=== PATIENT | male | born 2000 | race Two or more races ===

== ENCOUNTER 2022-05-25 21:23 | Emergency (ER) | payer MEDICAID, SELFPAY ==
[2022-05-25 21:25] VITALS: BP 130/80; PULSE 96; RESP 16; TEMP 36.2; O2SAT 97; BMI 15.8
== END 2022-05-25 23:08 | disposition left against medical advice (07) ==
PROVIDERS: Emergency Provider Emergency Medicine
DX: R11.10 Vomiting, unspecified (principal); R53.83 Other fatigue
CPT/HCPCS: 99281

== ENCOUNTER 2022-08-29 11:56 | Emergency (ER) | payer MEDICAID, SELFPAY ==
--- NOTE | ~2022-08-29 | US_ITS ---
EXAMINATION: US ABDOMEN LIMITED CLINICAL INFORMATION: Right upper quadrant pain. COMPARISON: None TECHNIQUE: Real-time imaging of the right upper quadrant abdominal viscera. FINDINGS: PANCREAS: Visualized pancreas is unremarkable. LIVER: Visualized liver demonstrates normal homogeneous echogenicity and smooth capsular contour. No hepatic lesion. No intrahepatic biliary ductal dilation.. No focal hepatic lesion. There is no intrahepatic biliary duct dilatation seen. GALLBLADDER: Normal. The gallbladder is physiologically distended without evidence of stones, sludge, polyps, wall thickening or pericholecystic fluid. COMMON BILE DUCT: Normal in caliber measuring 0.4 cm in diameter. RIGHT KIDNEY: Normal cortical echogenicity and thickness. No hydronephrosis or renal lesion. No renal calculi identified. Right kidney measures 11.5 cm in length. FREE FLUID: None. Prominent distention of the intrahepatic segment of the IVC. US/US abdomen limited IMPRESSION: 1. Normal gallbladder. No evidence of cholelithiasis or acute cholecystitis. 2. No biliary ductal dilation.
[2022-08-29 12:06] VITALS: BP 123/42; PULSE 75; RESP 17; TEMP 36.6; O2SAT 98; BMI 16.9
[2022-08-29 12:39] LABS: MANUAL DIFF FLAG NO
[2022-08-29 12:41] LABS: Basophils Percent Auto 0.6 % (0-2); Eosinophils Percent Auto 0.4 % (0-4); Hematocrit 41.6 % (42.0-52.0); Hemoglobin 13.5 g/dl (14.0-18.0); Imm Gran Abs Auto 0.02 X10*3/uL (0.00-0.03); Imm Gran Pct Auto 0.3 % (0.0-0.4); Lymphocytes Absolute Auto 2.3 X10*3/uL (1.2-4.9); Lymphocytes Percent Auto 32.8 % (20-40); Mean Corpuscular HGB Conc 32.5 g/dl (31.0-36.0); Mean Corpuscular Hemoglobin 28.5 pg (27.0-33.0); Mean Corpuscular Volume 87.8 fL (80.0-98.0); Mean Platelet Volume 9.1 fL (9.4-12.4); Monocytes Absolute Auto 0.5 X10*3/uL (0.1-1.2); Monocytes Percent Auto 7.6 % (2-11); Neutrophils Absolute Auto 4.1 x10*3/uL (2.0-8.3); Neutrophils Percent Auto 58.3 % (45-73); Platelet Count 202 X10*3/uL (160-400); Red Blood Count 4.74 X10*6/uL (4.60-5.80)
[2022-08-29 13:01] LABS: Alanine Aminotransferase 14 U/L (0-40); Albumin Level 4.7 g/dL (3.5-5.0); Alkaline Phosphatase 63 U/L (39-117); Anion Gap 15 (12-20); Aspartate Amino Transferase 16 U/L (5-37); Bilirubin Direct 0.5 mg/dL (0.0-0.5); Bilirubin Total 1.1 mg/dL (0.0-1.0); Blood Urea Nitrogen 17 mg/dL (9-16); Calcium 9.1 mg/dL (8.4-10.2); Carbon Dioxide 28 mmol/L (22-29); Chloride 104 mmol/L (96-108); Creatinine Clr Calc Pharmacy 113.7; Estimated Glomerular Filt Rate > 60; Glucose Random 72 mg/dL (60-115); Lipase 16 U/L (8-78); Potassium 3.9 mmol/L (3.3-5.1); Sodium 143 mmol/L (135-145); Total Protein 7.1 g/dL (6.5-8.0)
[2022-08-29 16:22] VITALS: BP 103/49; PULSE 68; RESP 18; TEMP 37.1; O2SAT 99
[2022-08-29 16:57] VITALS: BP 105/52; PULSE 60; RESP 14; TEMP 36.5; O2SAT 100
--- NOTE | 2022-08-29 17:09 | ED_ITS ---
HPI - Abdominal Pain General Chief Complaint: Abdominal Pain Stated Complaint: Abd pain Time Seen by Provider: 08/29/22 16:57 Source: patient Mode of arrival: ambulatory Limitations: no limitations History of Present Illness HPI narrative: 21-year-old male no significant medical history presents to the emergency de partment with complaints of right upper quadrant pain/epigastric pain for the past year worsening over the past few days. Patient tells me that every time he eats he gets pain in his right upper quadrant, he tells me at times his pain causes him nausea and vomiting. He tells me he had very severe pain yesterday he tells me he is also very uncomfortable today. He reports 7/10 pain at this time that is intermittent and sharp in nature. He reports that he was seen about a year or so ago and he was told he had GERD, he tells me this feels different. Denies fevers, chills, chest pain, shortness of breath, headache, vision changes, dizziness, weakness. Related Data Previous Rx's Medication Instructions Recorded aluminum-mag hydroxide-simethicone 5 ml PO 5XD PRN dyspepsia #355 mL 08/29/22 200 mg-200 mg-20 mg/5 mL oral susp (Maalox Advanced) ondansetron 4 mg disintegrating 4 mg PO Q6H PRN nausea and 08/29/22 tablet vomiting #14 tabs Allergies Allergy/AdvReac Type Severity Reaction Status Date / Time No Known Allergies Allergy Unverified 07/24/20 16:44 Review of Systems Review of Systems Constitutional : No Weight loss, No Fever, No Chills, No Fatigue, No Malaise ENT/Mouth : No sore throat, No Rhinorrhea Eyes: No Eye Pain, No Swelling, No Redness Cardiovascular : No Chest Pain, No SOB, No Dyspnea on Exertion, No Orthopnea, No Edema, No Palpitations Respiratory : No Cough, No Sputum, No Wheezing Gastrointestinal : + Nausea, + Vomiting, No Diarrhea, No Constipation, + abdominal Pain, No Hematochezia, No Melena Genitourinary : No Dysuria, No Urinary Frequency, No Hematuria, Musculoskeletal : No joint pain, No Myalgias, No Joint Swelling Skin : No Skin Lesions, No rash Neuro : No Weakness, No Numbness, No Dizziness, No Headache Psych : No Anxiety/Panic, No Depression All other systems reviewed and are negative Yes all other systems are reviewed and are negative [facility] Past Medical History Attestation statement: The following information was validated with the patient. Source: old records reviewed and nursing notes reviewed Social History Social History Advance Directives: No Advance Directives Information Provided: No Physical Exam ED Vital Signs: Vital Signs - 24 hr 08/29/22 12:06 08/29/22 16:22 08/29/22 16:57 Temperature 98 F 98.8 F 97.7 F Pulse Rate 75 68 60 Respiratory Rate 17 18 14 Blood Pressure 123/42 L 103/49 L 105/52 L Pulse Oximetry 98 99 100 Oxygen Delivery Method Room Air Room Air Room Air BMI result Body Mass Index 16.9 vss Appearance: Alert.? Oriented X3.? No acute distress.? Head: Normocephalic, atraumatic, no step-offs or deformities Eyes: Pupils equal, round and reactive to light.? ENT: Pharynx normal.??External ears normal, TMs normal bilaterally and EAC's n ormal. No pain with manipulation of external ears bilaterally. No mastoid tenderness. Neck: Normal inspection.? Neck supple.? CVS: Normal heart rate and rhythm.? Pulses normal.? Respiratory: No respiratory distress.? Breath sounds normal.? Abdomen: Soft and + tenderness to RUQ & epigastric region. Normal BS Skin: Skin warm and dry.? Normal skin color.? Normal skin turgor.? Extremities: No lower extremity edema.? No calf ttp. 5/5 strength to bilateral upper and lower extremities Neuro: Oriented X 3.? No motor deficit.? No sensory deficit. CN 2-12 intact Course Reevaluation(s) Reevaluation #1: CBC appears to be within normal limits. Chemistry with no acute electrolyte abnormalities requiring intervention. Lipase within normal limits. Ultrasound of the abdomen with a normal gallbladder, no evidence of cholelithiasis or acute cholecystitis. No dilation of the biliary duct. Patient feels a lot better after GI cocktail, tolerating PO. Stating he is no longer having this pain at a ll, exam benign. He is requesting to go home on similar medications to the 1 administered in the department. Will discharge home on Maalox and Zofran. Advised him to follow-up with gastroenterology and return with any new or worsening symptoms. I suspect that this is likely GERD or gastritis, patient will likely benefit from an upper endoscopy if symptoms do not improve. Educated patient on diagnosis and treatment plan advised him to return with new or worsening symptoms. Comfortable discharge home with prompt PCP and gastroenterology follow-up. Time: 18:11 MDM - Abdominal Pain MDM Narrative Medical decision making narrative: 1700 21 year old male presents w/ ruq & epigastric pain X6 months worsening X few days PE w/ ruq & epigastric tenderness. Concern for cholecystitis, cholelithiasis vs gerd/ gastritis . Unlikley cholangitits or choledocolithiasis, apendicits, diverticulitis, LBO, SBO. No signs of acute abdomen, AAA Plan- labs, imaging, ua Medical Records Attestation: I reviewed the patient's medical records. Lab Data Attestation: I reviewed the patient's lab results. Result diagrams: 08/29/22 12:36 08/29/22 12:36 Labs: Lab Results 08/29/22 08/29/22 Range/Units 12:36 12:36 WBC 7.0 (4.8-10.8) X10*3/uL RBC 4.74 (4.60-5.80) X10*6/uL Hgb 13.5 L (14.0-18.0) g/dl Hct 41.6 L (42.0-52.0) % MCV 87.8 (80.0-98.0) fL MCH 28.5 (27.0-33.0) pg MCHC 32.5 (31.0-36.0) g/dl RDW 12.0 (11.0-16.0) % Plt Count 202 (160-400) X10*3/uL MPV 9.1 L (9.4-12.4) fL Immature Gran % (Auto) 0.3 (0.0-0.4) % Neut % (Auto) 58.3 (45-73) % Lymph % (Auto) 32.8 (20-40) % [place] % (Auto) 7.6 (2-11) % Eos % (Auto) 0.4 (0-4) % Baso % (Auto) 0.6 (0-2) % Lymph # (Auto) 2.3 (1.2-4.9) X10*3/uL [place] # (Auto) 0.5 (0.1-1.2) X10*3/uL Eos # (Auto) 0.0 (0.0-0.4) X10*3/uL Baso # (Auto) 0.0 (0.0-0.2) X10*3/uL Abs Immat Gran (auto) 0.02 (0.00-0.03) X10*3/uL Absolute Neuts (auto) 4.1 (2.0-8.3) x10*3/uL Absolute Nucleated RBC 0.000 (0.0-0.012) X10*3/uL Nucleated RBC % (auto) 0.0 (0.0-0.2) /100WBC Sodium 143 (135-145) mmol/L Potassium 3.9 (3.3-5.1) mmol/L Chloride 104 (96-108) mmol/L Carbon Dioxide 28 (22-29) mmol/L Anion Gap 15 (12-20) BUN 17 H (9-16) mg/dL Creatinine 0.81 (0.5-1.4) mg/dL Estim Creat Clear Calc 113.7 Estimated GFR > 60 Random Glucose 72 (60-115) mg/dL Calcium 9.1 (8.4-10.2) mg/dL Total Bilirubin 1.1 H (0.0-1.0) mg/dL Direct Bilirubin 0.5 (0.0-0.5) mg/dL AST 16 (5-37) U/L ALT 14 (0-40) U/L Alkaline Phosphatase 63 (39-117) U/L Total Protein 7.1 (6.5-8.0) g/dL Albumin 4.7 (3.5-5.0) g/dL Lipase 16 (8-78) U/L Critical Care Time Critical Care Time Critical Care Time: No Discharge Plan Discharge Clinical Impression: Gastritis Patient Disposition: Home, Self-Care Instructions: Gastritis (ED), Diet for Stomach Ulcers and Gastritis (ED), Upper GI Series (DC), Upper Endoscopy (DC) Additional Instructions: Take your medications as prescribed. If you were prescribed antibiotics today, it is important that you take your medication to their entirety, do not skip any doses, do not finish them early. Follow-up with your primary care provider this week. Please call and schedule an appointment with gastroenterology as the symptoms have been going on for a while and you may require further testing. Return to the emergency department with new or worsening symptoms. Such as fevers, chills, chest pain, shortness of breath, nausea, vomiting, dizziness, headache, vision changes, lethargy In case of emergency call 911 US/US abdomen limited IMPRESSION: 1.? Normal gallbladder. No evidence of cholelithiasis or acute cholecystitis. 2.? No biliary ductal dilation. ? Prescriptions: New alum-mag hydroxide-simeth [Maalox Advanced] 200-200-20 mg/5 mL suspension 5 ml PO 5XD PRN (Reason: dyspepsia) Qty: 355 0RF Rx Instructions: administer between meals and at bedtime ondansetron 4 mg tablet,disintegrating 4 mg PO Q6H PRN (Reason: nausea and vomiting) Qty: 14 0RF Referrals: [facility] [Provider Group] - 1 week Physician,None [Primary Care Provider] - 2 days Stand Alone Forms: Work/School Release
[2022-08-29] MEDS: Magnesium Hydrox/Alum Hydrox 30 ML ORAL.SUSP PO (17:47)
[2022-08-29] MEDS: PHENobarb/Hyoscy/Atropine/Scop 10 ML ELIXIR PO (17:48)
[2022-08-29] MEDS: Ondansetron ODT 4 MG TAB.RAPDIS TRANSLINGU (17:52)
== END 2022-08-29 18:35 | disposition home or self-care (01) ==
PROVIDERS: Physician Assistant; Emergency Provider Internal Medicine
DX: K29.70 Gastritis, unspecified, without bleeding (principal); R10.11 Right upper quadrant pain; Z79.899 Other long term (current) drug therapy
CPT/HCPCS: 36415; 76705; 80048; 80076; 83690; 85025; 99283

== ENCOUNTER 2022-10-01 17:29 | Emergency (ER) | payer MEDICAID, SELFPAY ==
[2022-10-01 17:32] VITALS: BP 118/78; PULSE 90; O2SAT 98
--- OUTSIDE RECORDS SUMMARY | 2022-10-01 20:36 | XMS_ITS | Encounter Summary ---
:2000 Author Reason for Visit OUD - buprenorphine follow-up - weekly* Assessment and Plan Assessment Note This patient with a history of OUD pres ents today for their weekly MAT visit Current prescription is: buprenorphine/n aloxone 16/4mg films Patient reports both cravings and withdr awal sx at current dose Update Since Last Visit : (narrative no te) Patient Admits to the following illicit drug use since last visit: illicit Perc 30's Weekly OUD Initial visit 09/07/22 Patient presents with his mother and GF for MAT visit today per pts request- full time staff interpreter provided, Farrah Bernal present RX suboxone 16/4 mg films TDD Has started suboxone induction with comf ort meds, was successful per pt taking 1-2 films total but stopped taking last week. Has not taken suboxone since last week s tates he does not like the taste- he is also fearful to start suboxone when he has to work- fearful he will become sick and lose his job. He states his family pressure is making it harder for him to get sober too Used 1 perc 30s yesterday Does not appear in W/D at this time Has 5 intact films remaining Patient would like to transition to subl ocade, however UDS dip NEG bup today Instructed patient he will need to have UDS+ bup prior to starting sublcoade. Reviewed risks and benefits and possible side effects with patient Questions asked and answered sublocade pamphlet reviewed with patient and family and sent home for continued education Patient and family state understanding a t this time Declines detox at this time Declines methadone at this time Living with GF Own transpo Working- juan Reassurance and support given Follow up in 1 week LAB RESULTS Last UDS result (qualitative screen): NE G buprenorphine and POS for the following illicit drugs: fentanyl Last confirmatory test result (LCMS/torey titative): N/A due to admitted use Last Bup confirmation test result: Bup: less 10 ng/ml & Norbup: less 10 ng/ml Last LFT result: Overdue for lab work--N ew lab req given ASSESSMENT The patient's current phase of OUD treat ment is: Induction phase. Interpretation of last buprenorphine con firmation test result: N/A (new to care) Medication dose: No report of severe or persistent cravings/withdrawal symptoms. Pt will remain at current dose PLAN (narrative, if applicable) Rx : Continue buprenorphine/naloxone 16 /4mg films daily transition to sublcoade viki Rx Quantity No Rx provided today. VISIT FREQUENCY Continue weekly visits and UDS. Treatment plan review or change includes continue current level of care UNEXPECTED results on UDS may impact th is patient's treatment plan. The following information will be used to place the proper confirmation orders for the specimen collected for this date 09/28/2022 . Perform Confirmation if Positive Ampheta mines Perform Confirmation if Positive Benzodi azepines Perform Confirmation if Positive Cocaine Perform Confirmation if Positive Methado ne Admitted Use Opiates and/or Fentanyl Perform Confirmation if Positive Oxycodo ne Additional requests in regards to confi rmation orders. NONE LFTS will be repeated per our clinical p rotocol. Prescription monitoring program is revtue. If applicable, I have identified agents prescribed to the patient in addition to any issued by our program. The patient has been counseled regarding any risk of combining sedating agents. 1. Opioid dependence Unstable ? drug screen, urine ? buprenorphine, QL, screen, urine ? CMP, serum or plasma ? CBC w/ diff ? gamma-glutamyl transferase (ggt), ser um ? hepatitis A Ab, total, serum ? HIV 1+2 Ab + HIV1 p24 Ag, QL, rapid, immunoassay, serum or plasma or blood ? hepatitis B core Ab, total, serum ? HBsAg (hepatitis B surface Ag), serum ? hepatitis C Ab, quantitative, serum ? hepatitis C virus RNA, quant, PCR, se rum or plasma ? hepatitis C virus genotype, PCR, bloo d ? hepatitis B surface Ab, qualitative, serum Discussion Note Education provided at today's visit inc luded: Review of patient's individualized treatment plan; Review of Specialty phar carmen procedures; Review of program policies: urine screening, medication, visit, coun seling requirement; Discussed importance of avoiding opioid while on Sublocade Treat ment; discussed Sublocadea??s common and serious side effects; Counseling re: tri gger avoidance, relapse prevention and the importance of developing a sober network ; Counseling re safe sex and control; Counseling re: Discovery & Drop-out prev ention in early recovery. Greater than 50% of today's visit spent face to face elder counselor ing and coordinating care. Patient educational handouts: No information available. Plan of Care Reminders Provider Appointments MAT - Weekly 15 10/05/2022 Nusrat Goldman 11:45AM Lab Drug Screen, Urine 09/28/2022 [facility] ? Buprenorphine, QL, Screen, 09/28/2022 [facility] Urine ? CMP, Serum or Plasma 09/28/2022 [facility] ? CBC W/ Diff 09/28/2022 [facility] ? Gamma-glutamyl Transferase 09/28/[address] [facility] ([facility]), Serum ? Hepatitis a Ab, Total, 09/28/2022 [facility] Serum ? HIV 1+2 Ab + HIV1 P24 Ag, 09/28/2022 [facility] QL, Rapid, Immunoassay, Serum or Plasma or Blood ? Hepatitis B Core Ab, 09/28/2022 [facility] Total, Serum ? HBsAg (Hepatitis B Surface 09/28/[address] [facility] Ag), Serum ? Hepatitis C Ab, 09/28/2022 [facility] Quantitative, Serum ? Hepatitis C Virus RNA, 09/28/2022 [facility] Quant, PCR, Serum or Plasma ? Hepatitis C Virus 09/28/2022 [facility] Genotype, PCR, Blood ? Hepatitis B Surface Ab, 09/28/2022 [facility] Qualitative, Serum Referral None recorded. ? ? Procedures None recorded. ? ? Surgeries None recorded. ? ? Imaging None recorded. ? ? Medications Name Start Date ? ? Antacid-Antigas 200 mg-200 mg-20 mg/5 mL oral suspensi on ? TAKE 5 ML ORALLY 5 TIMES A DAY NEEDE D FOR DYSPEPSIA ADMINISTER BETWEEN MEALS AND AT BEDTIME clonidine HCl 0.1 mg tablet ? TAKE 1 TABLET BY MOUTH TWICE A DAY NEEDED FOR 7 DA YS FOR ANXIETY/SLEEP hydroxyzine HCl 50 mg tablet ? TAKE 1 TABLET BY MOUTH THREE TIMES A DAY NEEDED FO R 7 DAYS naloxone 4 mg/actuation nasal spray ? TAKE 1 SPRAY BY NASAL ROUTE NEEDED FOR OPIOD OVERD OSE AND CALL 911 ondansetron 4 mg disintegrating tablet ? DISSOLVE 1 TABLET BY MOUTH TWICE A DAY NEEDED FOR 7 DAYS pramipexole 0.125 mg tablet ? TAKE 1 TABLET BY MOUTH THREE TIMES A DA Y NEEDED FOR 7 DAYS FOR RESTLESS LEGS Sublocade 300 mg/1.5 mL solution,extended release subc utaneous syringe ? Inject 1.5 mL every month by subcutaneous route. Suboxone 8 mg-2 mg sublingual film ? PLACE 2 FILMS EVERY DAY BY SUBLINGUAL ROUTE FOR 7 DAY S. Medications Administered None recorded. Vitals None recorded. Results Lab Results Date Name Specimen Result Interpretation Description Value Range Status Address ? 09/28/2022 Buprenorphine, Urine ? Buprenorphine negative ? ? [facility]: QL, Screen, [address] [facility], [place] Allergies Code Code System Name Reaction Severity Onset NKDA ? ? ? Problems Name Status Onset Date Source ? Opioid Dependence Active 09/07/2022 ? Nicotine Dependence Active 09/07/2022 ? Gastritis Active 09/07/2022 ? Procedures Notes: None Vaccine List Notes: Not engaged in counseling at th is time Social History *Concern for Domestic Violence N *Social Service's Involvement Not Applicable with Dependent Children *Employment Employed Notes: [employer] *Legal Assistance Patient Declined *Job Not Needed Training/Education/Literacy *Other Medical Issues Yes - Treated Notes: khalifiriti s *[place] Not a *Legal Status Active Court Order *Food Adequate *Social Support Network Has Stable Support System *Childcare Needed N *Custody of Dependent Children N/A *Primary Care Provider N *Transportation Issues No *Housing Stable - Safe Family History Relation Problem Onset Age of Age Notes Father No current problems or (No Information) N/A ( No Notes) disability Mother No current problems or (No Information) N/A ( No Notes) disability Functional Status Unknown. Past Encounters 09/28/2022 Opioid Dependence Nusrat Castro: [address] [place] [address], Ph. 09/21/2022 Opioid Dependence Nusrat Castro: [address] [place] [address], Ph. 09/14/2022 Opioid Dependence Nusrat Castro: [address] [place] [address], Ph. 09/07/2022 Opioid Dependence; Opioid Withdrawal; Ni cotine Dependence Nusrat NewMady: [address] [place] [address], Ph. History of Present Illness Note: <div><strong>This patient is here today for their follow-up MAT visit. They are being treated for OUD with buprenorphine.</strong>

<strong><em>PLEASE SEE A & P SECTION FOR FULL VISIT NOTE</em></strong></div> Review of Systems ? Comprehensive Adult Problem ROS Reported By: Patient Constitutional: Constitutional: no fever, no fatigue Cardiovascular: Cardiovascular: no chest juan n Respiratory: Respiratory: no cough, no ch est tightness, no pain with respiration, normal respirat ion Gastrointestinal: GI: no nausea, no diarrhea, no constipation Musculoskeletal: Musculoskeletal: no myalgia, moves all extremities well Skin: Skin: no itchiness, no rash Neurological symptoms: Neuro: no headache, no dizzi ness Psychiatric: Psych: stress Allergic/Immunologic: Allergy/Immunologic: no snee zing, no runny nose Physical Exam ? General Adult Exam* Reported By: Patient Constitutional*: General Presentation: well-d eveloped, too thin. Level of Distress:* no apparent distress (NAD)*, responsive in conversation*. Ambulation: ambulating marquita lly Psychiatric*: Insight:* good judgement*. M bj:* recent memory normal*, remote memory normal*. Mental Statu s* anxious*, depressed*, agitated* Head: Head: normocephalic Eyes: Lids and Conjunctivae: non-i njected, no discharge. Sclerae: non-icteric ENMT*: Hearing:* no hearing loss* Lungs*: Respiratory effort:* no dysp clare*, no audible wheezing* Neurologic*: Orientation:* to time*, to p lace*, to person*. Gait and Station: normal gait. Cranial Nerves: * articulate: coordinated speech* Skin: Inspection and palpation: no rash
--- OUTSIDE RECORDS SUMMARY | 2022-10-01 20:36 | XMS_ITS | Encounter Summary ---
[...] use since last visit: illicit Perc 30's Initial visit 09/07/22 Patient requests his GF be present for t kang MAT F/U visit Has not started suboxone induction yet- was scared to go into PW Only took comfort meds- still has some m eds available Has all intact suboxone films remaining Used 6 perc 30s since last visit Last used today- 1 pill Does not appear in W/D at this time Reviewed induction instruction with jolanta ent Reviewed risks and benefits of Suboxone with patient. Discussed potential PW with induction. Encouraged the use of comfort meds to ma nage any W/D sxs experienced. Reviewed plan for home induction- instru cted patient to abstain 24-48 hours from all OPIs, must be in moderate W/D prior to starting induction. Can use comfort meds PRN as prescribed for W/D sx. Patient may take Suboxone 1-2 mg Q1-2 ho urs and monitor for PW sxs, may repeat dose on same schedule until cravings and W/D sxs are managed or daily dose of Suboxone 16/4 mg is reached. Contact provider if you have questions, go to ER for acu te emergency. Patient states understanding at this ramila e- advised to call clinic if unsure or scared and needing supervised induction via doxy Reassurance and support given Follow up in 1 week LAB RESULTS Last UDS result (qualitative screen): NE G BUP, + FENTANYL, +THC - initial VISIT UDS Last confirmatory test result (LCMS/torey titative): N/A due to admitted use Last Bup confirmation test result: Bup: NEG ng/ml & Norbup: NEG ng/ml Last LFT result: Overdue for lab [...] : Continue buprenorphine/naloxone 16 /4mg films daily Rx Quantity No Rx provided today. VISIT FREQUENCY Continue weekly visits and UDS. Treatment plan review or change includes continue current level of care UNEXPECTED results on UDS may impact [facility] patient's treatment plan. The following information will be used to place the proper confirmation orders for the specimen collected for this date 09/14/2022 . Perform Confirmation if Positive Ampheta mines [...] Opioid dependence Unstable ? drug screen, urine Discussion Note: None recorded.Patient educational handouts: No information available. Plan of Care Reminders Provider Appointments MAT - Weekly 15 10/05/2022 11:45AM Nusrat Muhammad Lab Drug Screen, Urine 09/14/2022 June Hernandez Referral None recorded. ? ? Procedures None [...] Interpretation Description Value Range Status Address ? 09/14/2022 Drug UR ? Amphetamines negative 1,000 Yasemin l [facility] Screen, NG/mL NG/mL Health: Urine [address], [place] ? ? UR ? Benzodiazapines negative 200 Final [facility] NG/mL NG/mL Health: [address], [place] ? ? UR ABNORMAL Buprenorphine negative 5 Final [facility] NG/mL NG/mL Health: [address], [place] ? ? UR ? Cocaine negative 150 Final [facility] Metabolite NG/mL NG/mL Health : [address], [place] ? ? UR ? Opiates negative 300 Final [facility] NG/mL NG/mL Health: [address], [place] ? ? UR ? Oxycodone negative 300 Final Kell da NG/mL NG/mL Health: [address], [place] ? ? UR ABNORMAL Fentanyl positive 2 Final Marco kenneth NG/mL NG/mL Health: [address], [place] ? ? UR ? Ethyl Alcohol negative 10 Final [facility] mg/dL mg/dL Health: [address], [place] ? ? UR ? Methadone negative 300 Final Kell da Metabolite NG/mL NG/mL Health : [address], [place] ? ? UR ABNORMAL Cannabinoids positive 50 Final [facility] (THC) NG/mL NG/mL Health: [address], [place] ? ? UR ? Urine Creatinine 312.8 >20 Final [facility] mg/dL mg/dL Health: [address], [place] ? ? UR ? Urine pH 7.30 4.5-9. Final [facility] 0 Health: [address], [place] ? ? UR ? Specific [place] 1.027 1.003- Final [facility] 1.035 Health: [address] Allergies Code Code System Name Reaction Severity Onset NKDA ? ? ? Problems Name Status Onset Date Source ? Opioid Dependence Active 09/07/2022 ? Nicotine Dependence Active 09/07/2022 ? Gastritis Active 09/07/2022 ? Procedures Notes: None Vaccine List Notes: Not engaged in counseling at th is time Social History *Concern for Domestic Violence N *Social Service's Involvement Not Applicable with Dependent Children *Legal Status Active Court Order *Food Adequate *Employment Employed Notes: [employer] *Legal Assistance Patient Declined *Social Support Network Has Stable Support System *Childcare Needed N *Custody of Dependent Children N/A *Primary Care Provider N *Transportation Issues No *Job Not Needed Training/Education/Literacy *Housing Stable - Safe *Other Medical Issues Yes - Treated Notes: nora s *[place] Not a Family History Relation Problem Onset Age of Age Notes Father No current problems or (No Information) N/A ( No Notes) disability Mother No current problems or (No Information) N/A ( No Notes) disability Functional Status Unknown. Past Encounters 09/14/2022 Opioid Dependence Nusrat Castro: [address] [place] [address], Ph. 09/07/2022 Opioid Dependence; Opioid Withdrawal; Ni cotine Dependence Nusrat Castro: [address] [place] [address], Ph. History of Present Illness Note: <strong>This patient is here today for their follow-up MAT visit. They are being treated for OUD with buprenorphine.</strong>

<strong><em>PLEASE SEE A & P SECTION FOR FULL VISIT NOTE</em></strong> Review of Systems ? Comprehensive Adult Problem ROS Reported By: Patient Constitutional: Constitutional: no fever, no fatigue Cardiovascular: Cardiovascular: no chest juan n Respiratory: Respiratory: no cough, no ch est tightness, no pain with respiration, normal respirat ion Gastrointestinal: GI: no nausea, no diarrhea, no constipation, abdominal pain, vomiting Musculoskeletal: Musculoskeletal: no myalgia, moves all extremities well Skin: Skin: no itchiness, no rash Neurological symptoms: Neuro: no headache, no dizzi ness Allergic/Immunologic: Allergy/Immunologic: no snee zing, no runny nose Physical Exam ? General Adult Exam* Reported By: Patient Constitutional*: General Presentation: health y-appearing, well-nourished, well-developed. Level of Dis tress:* no apparent distress (NAD)*, responsive in conversation*. Ambulation: ambulating normally Psychiatric*: Insight:* good judgement*. M bj:* recent memory normal*, remote memory normal*. Mental Statu s* active & alert*, normal affect*, normal mood* Head: Head: normocephalic Eyes: Lids and Conjunctivae: non-i njected, no discharge. Sclerae: non-icteric ENMT*: Hearing:* no hearing loss* Lungs*: Respiratory effort:* no dysp clare*, no audible wheezing* Neurologic*: Orientation:* to time*, to p lace*, to person*. Gait and Station: normal gait. Cranial Nerves: * articulate: coordinated speech* Skin: Inspection and palpation: no rash
--- OUTSIDE RECORDS SUMMARY | 2022-10-01 20:36 | XMS_ITS | Encounter Summary ---
[...] Perc 30's Weekly OUD Initial visit 09/07/22 RX suboxone 16/4 mg films TDD Has started suboxone induction with comf ort meds, was successful this time- taking 2-3 films daily Has since run out of suboxone on tuesday- didnt know to call the office. 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 Interpretation of last buprenorphine con firmation test result: N/A (new to care) Medication dose: No report of severe or persistent cravings/withdrawal symptoms. Pt will remain at current dose PLAN (narrative, if applicable) Rx : Continue buprenorphine/naloxone 16 /4mg films daily Rx Quantity 7d Rx provided today. VISIT FREQUENCY Continue weekly visits and UDS. Treatment plan review or change includes continue current level of care UNEXPECTED results on UDS may impact th is patient's treatment plan. The following information will be used to place the proper confirmation orders for the specimen collected for this date 09/21/2022 . Perform Confirmation if Positive Ampheta mines [...] dependence Unstable ? drug screen, urine ? CMP, serum or plasma [...] ? hepatitis B surface Ab, qualitative, serum ? Suboxone 8 mg-2 mg sublingual film ? Sublocade 300 mg/1.5 mL solution,exte nded release subcutaneous syringe Discussion Note: None recorded.Patient educational handouts: No information available. Plan of Care Reminders Provider Appointments MAT - Weekly 15 10/05/2022 Nusrat Goldman 11:45AM Lab Drug Screen, Urine 09/21/2022 [facility] ? CMP, Serum or Plasma 09/21/2022 [facility] ? CBC W/ Diff 09/21/2022 [facility] ? Gamma-glutamyl Transferase 09/21/[address] [facility] (Ggt), Serum ? Hepatitis a Ab, Total, 09/21/2022 [facility] Serum ? HIV 1+2 Ab + HIV1 P24 Ag, 09/21/2022 [facility] QL, Rapid, Immunoassay, Serum or Plasma or Blood ? Hepatitis B Core Ab, Total, 09/21/2022 [facility] Serum ? HBsAg (Hepatitis B Surface 09/21/[address] [facility] Ag), Serum ? Hepatitis C Ab, 09/21/2022 [facility] Quantitative, Serum ? Hepatitis C Virus RNA, 09/21/2022 [facility] Quant, PCR, Serum or Plasma ? Hepatitis C Virus Genotype, 09/21/2022 [facility] PCR, Blood ? Hepatitis B Surface Ab, 09/21/2022 [facility] Qualitative, Serum Referral None [...] Interpretation Description Value Range Status Address ? 09/21/2022 Drug UR ? Amphetamines negative 1,000 Yasemin l [facility] Screen, NG/mL NG/mL Health: Urine [address], [place] ? ? UR ? Benzodiazapines negative 200 Final [facility] NG/mL NG/mL Health: [address], [place] ? ? UR ABNORMAL Buprenorphine negative 5 Final [facility] NG/mL NG/mL Health: [address], [place] ? ? UR ? Cocaine negative 150 Final [facility] Metabolite NG/mL NG/mL Health : [address], [place] ? ? UR ? Opiates negative 300 Final [facility] NG/mL NG/mL Health: [address], [place] ? ? UR ? Oxycodone negative 300 Final Kell da NG/mL NG/mL Health: [address], [place] ? ? UR ABNORMAL Fentanyl positive 2 Final Marco kenneth NG/mL NG/mL Health: [address], [place] ? ? UR ? Ethyl Alcohol negative 10 Final [facility] mg/dL mg/dL Health: [address], [place] ? ? UR ? Methadone negative 300 Final Kell da Metabolite NG/mL NG/mL Health : [address], [place] ? ? UR ABNORMAL Cannabinoids positive 50 Final [facility] (THC) NG/mL NG/mL Health: [address], [place] ? ? UR ? Urine Creatinine 154.3 >20 Final [facility] mg/dL mg/dL Health: [address], [place] ? ? UR ? Urine pH 7.90 4.5-9. Final [facility] 0 Health: [address], [place] ? ? UR ? Specific [place] 1.021 1.003- Final [facility] 1.035 Health: [address], [place] Allergies Code Code System Name Reaction Severity [...] Court Order *Food Adequate *Employment Employed Notes: [employer] *Legal Assistance Patient Declined *Social Support Network Has Stable Support System *Childcare Needed N *Custody of Dependent Children N/A *Primary Care Provider N *Transportation Issues No *Job Not Needed Training/Education/Literacy *Housing Stable - Safe *Other Medical Issues Yes - Treated Notes: nora s * Not a Family History Relation Problem Onset Age of Age Notes Father No current problems or (No Information) N/A ( No Notes) disability Mother No current problems or (No Information) N/A ( No Notes) disability Functional Status Unknown. Past Encounters 09/21/2022 Opioid Dependence Nusrat Castro: [address] [place] [address], Ph. 09/14/2022 Opioid Dependence Nusrat Castro: [address] [place] [address], Ph. 09/07/2022 Opioid Dependence; Opioid Withdrawal; Ni cotine Dependence Nusrat Castro: [address] [place] [address], Ph. History of Present Illness Note: <strong>This [...]
--- OUTSIDE RECORDS SUMMARY | 2022-10-01 20:36 | XMS_ITS | Encounter Summary ---
:2000 Author Reason for Visit OUD - Initial Visit* Assessment and Plan Assessment Note Assessment/Plan This patient with a history of OUD prese nts today for Initial visit. They are seeking treatment with Buprenorphine films/tabs The patient's current phase of treatment is induction phase. See HPI for detailed history of FLAKITA SUMMARY OF CURRENT SUBSTANCE USE: 21 yo male presents for initial OUD visi t Patient requests his GF be present at to days medical visit for support Harpal reports he first tried opis at age 16 yo started taking orally socially intermittently. He did not use regularly percocet 30's o ff the [address] orally until 18 yo due to acute stress and depression secondary to uncle /was murdered. Was taking percocet to shut off my feelings. Age 20 yo he started using IN regularly, has been using IN close to daily since. Stopped 04/2021 all substance use, was so carisa for 1 month- went to [place] to stay with family. When he returned from [place] he relapsed on IN percocet 30's. He reports daily average 1-2 percocet [address] pills [address] the [address] daily. Last used 09/06/22- 1 pill- perc 30 Denies W/D at this time- usually takes 4 8 hours for him- reports only mild body aches today- appears comfortable at this time Denies IV drug use vapes- not ready to quit at this time- r eviewed NRT available when ready in the future Plan: Reviewed risks and benefits of Suboxone with patient. Reviewed risk of dental enamel damage associated with self administration of suboxone- advised to brush teeth after self administration. Discussed potential PW with induction. Encouraged the [...] go to ER for acu te emergency. 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 MAT Medication Rx :buprenorphine/naloxo ne 16/4mg films daily Add'l Meds Prescribed : Comfort Meds (s ee below) PLUS Narcan MAT Rx Quantity : 7d Rx provided today. Visit Frequency :weekly visits and UDS. A urine drug screen will be performed t kang. See drug screen and medical necessity below. UNEXPECTED results on UDS may impact [facility] patient's treatment plan. The following information will be used to place the proper confirmation orders for the specimen collected for this date 09/07/2022 . Perform Conf if Positive Amphetamines Perform Conf if PositiveBenzodiazepines Perform Conf if PositiveCocaine Perform Conf if PositiveMethadone Admitted UseOpiates and/or Fentanyl Admitted UseOxycodone Additional requests in regards to confi rmation orders. NONE Initial lab studies ordered today inclu de HCG (female), CBC with differential, comprehensive metabolic panel, HAV, HBV, HCV, and HIV. Discussed ordered labs and rationale behind required labwork Education and counseling provided at to [facility] Initial Assessment included (as appropriate for this patient): -- Education re: risks and benefits of M AT options (buprenorphine and naltrexone) as appropriate for this patient. -- If treating with buprenorphine, prope r sublingual dosing technique reviewed: No smoking for 20 - 30 min before dose. Sip water prior to dosing. During buprenorphine dissolve, hold all saliva in mouth only until medication is fully dissolve d. Patient may then swallow saliva or spit it out. Rinse mouth with water afterwards. Do not brush teeth for a full hour after dosing. --If treating with buprenorphine, discus sed in-office induction vs home induction, depending on current drug of choice and quantity of use. --If treating with naltrexone, discussed length of abstinence before taking first dose. -- Reviewed program policies, visit freq uency, and expectations regarding behavior. -- Reviewed and defined medication misus e and diversion, discussed that this behavior is against [facility] policy, and can result in discharge from the program. -- Discussed rationale and recommendatio n of psychotherapy to support recovery. Prescription monitoring program is revie wed. If applicable, this provider has identified agents prescribed to the patient in addition to any issued by our program. The patient has been counseled regarding any risk of combining sedating agents. 1. Opioid dependence Unstable ? CBC w/ diff ? hepatitis A Ab, total, serum ? drug screen, urine ? hepatitis B surface Ab, quantitative, serum ? hepatitis B core Ab, total, serum ? HBsAg (hepatitis B surface Ag), serum ? hepatitis C virus RNA, quant, PCR, se rum or plasma ? hepatitis C virus genotype, PCR, bloo d ? Suboxone 8 mg-2 mg sublingual film 2. Opioid withdrawal ? clonidine HCl 0.1 mg tablet ? hydroxyzine HCl 50 mg tablet ? pramipexole 0.125 mg tablet ? Narcan 4 mg/actuation nasal spray ? ondansetron 4 mg disintegrating table t 3. Nicotine dependence Unstable Discussion Note: None recorded.Patient educational handouts: No information available. Plan of Care Reminders Provider Appointments MAT - Weekly 15 10/05/2022 Nusrat Goldman 11:45AM Lab CBC W/ Diff 09/07/2022 [facility] ? Hepatitis a Ab, Total, 09/07/2022 [facility] Serum ? Drug Screen, Urine 09/07/2022 [facility] ? Hepatitis B Surface Ab, 09/07/2022 [facility] Quantitative, Serum ? Hepatitis B Core Ab, 09/07/2022 [facility] Total, Serum ? HBsAg (Hepatitis B Surface 09/07/2022 [facility] Ag), Serum ? Hepatitis C Virus RNA, 09/07/2022 [facility] Quant, PCR, Serum or Plasma ? Hepatitis C Virus 09/07/2022 [facility] Genotype, PCR, Blood Referral None recorded. ? ? Procedures None [...] recorded. Vitals None recorded. Results Lab Results None recorded. Allergies Code Code System Name Reaction Severity [...] Issues Yes - Treated Notes: nora s *[place] Not a Family History Relation Problem Onset Age of Age Notes Father No current problems or (No Information) N/A ( No Notes) disability Mother No current problems or (No Information) N/A ( No Notes) disability Functional Status Unknown. Past Encounters 09/07/2022 Opioid Dependence; Opioid Withdrawal; Ni cotine Dependence Nusrat Castro: [address] [place] [address], Ph. History of Present Illness Note: <div><strong>Initial MAT HPI</strong>
This patient with {{OUD* OUD and AUD}} presents today seeking MAT treatment with {{Suboxone/buprenorphine* Sublocade Oral naltrexone Vivitrol Inj}}.
Current readiness for treatment/stage of change is described as {{pre-contempl ation contemplation preparation* action maintenance}}.
Motivation for presenting for treatment today: {{transition from prior treatment site due to discharge from inpatient rehab mandated/encouraged by DCF mandated/encouraged by probation/parole desire to discontinue illicit substance use* fin ancial requested/encouraged by family/friends}}
The patient describes individual goals for substance dependence treatment as: {{ get sober #}}

<strong>Substance use history</strong>: (including first use age, progression, last use, quantity, route)

<strong>Opioids</strong>: first tried opis at age 16 yo started taking orally socially. Stopped until 18 yo due to stress and depression- uncle /was murdered. Was taking percocet to shut off his feelings. Age 20 yo he started using IN, has been using IN since.</div> <div>Stopped 04/2021 he was sober for 1 month- went to [place]. When he returned from [place] he relapsedon IN percocet 30's. He reports daily average 1-2 pills daily.</div><div>Last used 09/06/22- 1 pill- perc 30 </div><div>Denies W/D at this time- usually takes 48 hours for him. </div><div>Denies IV drug use
<strong>EtOH</strong>: denies

<strong>Cocaine</strong>: Denies

<strong>Stimulants</strong>: adderall

<strong>Benzodiazepines</strong>: clonazepam and xanax- last used 4-5 days ago

<strong>Marijuana</strong>: Daily- trusted source

<strong>Nicotine</strong>: vapes- 5 %, uses1 cartridge per week

<strong>Other substances</strong>: Denies

The patient {{denies* reports}} a history of IV drug use.
The patient {{denies* reports}} diagnosis of HCV. Diagnosis Date: {{N/A* Year of Dx:}} HCV Treatment: {{N/A* Kerr ccessful Tx Incomplete Tx Never treated}}
The patient {{denies reports*}} a history of overdose 2-3 months ago was not tx with narcan, was taken to hospital left without being seen. The patient {{denies reports*}} a history of witnessing an overdose.
The patient {{accepts offer for* declines offer for reports already having}} Narcan today and {{reports* denies}} understanding of how to use Narcan properly.

<strong>Past Treatment history:</strong>
-- Office-based opioid treatment program(s): {{Yes No*}}
[facility] {{Yes No*}}.

-- Illicit {{ street Suboxone&amp ;quot;* methadone}}: {{Yes* No}}.
If yes, last exposure to {{ street Suboxone"* illicit methadone}} was {{NA/on: 1-2 yrs ago #}}

Most successful program todate has been {{ street suboxone #}}.
</div> Review of Systems ? Comprehensive Adult Problem ROS Reported By: Patient Constitutional: Constitutional: no fever, no fatigue Cardiovascular: Cardiovascular: no chest juan n Respiratory: Respiratory: no cough, no ch est tightness, no pain with respiration, normal respirat ion Gastrointestinal: GI: no abdominal pain, no na usea, no vomiting, no diarrhea, no constipation Musculoskeletal: Musculoskeletal: myalgia Skin: Skin: no itchiness, no rash Neurological [...]
--- OUTSIDE RECORDS SUMMARY | 2022-10-01 20:36 | XMS_ITS ---
:2000 Author Care Team Providers Name Role Phone Nusrat Castro Primary Care Provider Unavailable Allergies Code Code System Name Reaction Severity Status Onset NKDA ? Medications Name Status Start Date Stop Date ? ? Antacid-Antigas 200 mg-200 mg-20 mg/5 mL oral suspension Active ? Not available TAKE 5 ML ORALLY 5 TIMES A DAY NEEDE D FOR DYSPEPSIA ADMINISTER BETWEEN MEALS AND AT BEDTIME clonidine HCl 0.1 mg tablet Active ? Not available TAKE 1 TABLET BY MOUTH TWICE A DAY NEEDED FOR 7 DAYS FOR ANX IETY/SLEEP hydroxyzine HCl 50 mg tablet Active ? Not available TAKE 1 TABLET BY MOUTH THREE TIMES A DAY NEEDED FOR 7 DAYS naloxone 4 mg/actuation nasal spray Active ? Not available TAKE 1 SPRAY BY NASAL ROUTE NEEDED FOR OPIOD OVERDOSE AND CA LL 911 ondansetron 4 mg disintegrating tablet Active ? Not available DISSOLVE 1 TABLET BY MOUTH TWICE A DAY NEEDED FOR 7 DAYS pramipexole 0.125 mg tablet Active ? Not available TAKE 1 TABLET BY MOUTH THREE TIMES A DA Y NEEDED FOR 7 DAYS FOR RESTLESS LEGS Sublocade 300 mg/1.5 mL solution,extended release Active ? Not available subcutaneous syringe Suboxone 8 mg-2 mg sublingual film Active ? Not available PLACE 2 FILMS EVERY DAY BY SUBLINGUAL ROUTE FOR 7 DAYS. Problems Name Status Onset Date Source ? Opioid Dependence Active 09/07/2022 ? Nicotine Dependence Active 09/07/2022 ? Gastritis Active 09/07/2022 ? Procedures Notes: None Results Lab Results Date Name Specimen Result Interpretation Description Value Range Status Address ? 09/28/2022 Buprenorphine, Urine ? Buprenorphine negative ? ? [facility]: QL, Screen, 50 Un ion [facility] [place] 09/21/2022 Drug Screen, UR ? Amphetamines negative 1, Fi [employer]: 12 Urine NG/mL 00 [address], [place] 0 l NG /m L ? ? UR ? Benzodiazapin negative 20 Fi [facility] [employer]: 12 es NG/mL 0 na [address], [place] NG l /m L ? ? UR AB Buprenorphine negative 5 Fi [facility]: 12 NO NG/mL NG na [address], [place] RM /m l AL L ? ? UR ? Cocaine negative 15 Fi [facility]: 12 Metabolite NG/mL [address], [place] NG l /m L ? ? UR ? Opiates negative 30 Fi [facility]: 12 NG/mL 0 na [address], [place] NG l /m L ? ? UR ? Oxycodone negative 30 [facility]: 12 NG/mL 0 na [address], [place] NG l /m L ? ? UR AB Fentanyl positive 2 Fi [facility]: 12 NO NG/mL NG na [address], [place] RM /m l AL L ? ? UR ? Ethyl Alcohol negative 10 Fi [facility]: 12 mg/dL mg na [address], [place] /d l L ? ? UR ? Methadone negative 30 [facility]: 12 Metabolite NG/mL [address], [place] NG l /m L ? ? UR AB Cannabinoids positive 50 Fi [facility]: 12 NO (THC) NG/mL NG na [address], [place] RM /m l AL L ? ? UR ? Urine 154.3 >2 [facility]: 12 Creatinine mg/dL [address], [place] mg l /d L ? ? UR ? Urine pH 7.90 4. Fi [facility]: 12 5- na [address], [place] 9. l 0 ? ? UR ? Specific 1.021 1. Fi [facility]: [address], [place] 3- l 1. 03 5 09/21/2022 Drug UR Lo Buprenorphine low(<10) 10 Fi [facility]: 12 Confirmation, w NG/mL NG na [address], [place] Urine /m l L ? ? UR Lo Norbuprenorph low(<10) 10 Fi [facility]: 12 w ine NG/mL NG na [address], [place] /m l L ? ? UR ? Legend abbreviat ? Fi [facility]: 12 ions na [address], [place] l ? ? UR ? Billing Only billing ? [facility]: 12 ([id number]) only na [address], [place] l 09/21/2022 Opiates, UR ? Admitted ntp ? [facility]: 12 Quantitative, Opiates Use na [address], [place] Urine l 09/14/2022 Drug Screen, UR ? Amphetamines negative 1, [facility]: 12 Urine NG/mL 00 na [address], [place] 0 l NG /m L ? ? UR ? Benzodiazapin negative 20 [facility]: 12 es NG/mL 0 na [address], [place] NG l /m L ? ? UR AB Buprenorphine negative 5 [facility]: 12 NO NG/mL NG na [address], [place] RM /m l AL L ? ? UR ? Cocaine negative 15 [facility]: 12 Metabolite NG/mL [address], [place] NG l /m L ? ? UR ? Opiates negative 30 [facility]: 12 NG/mL 0 na [address], [place] NG l /m L ? ? UR ? Oxycodone negative 30 [facility]: 12 NG/mL 0 na [address], [place] NG l /m L ? ? UR AB Fentanyl positive 2 [facility]: 12 NO NG/mL NG na [address], [place] RM /m l AL L ? ? UR ? Ethyl Alcohol negative 10 [facility]: 12 mg/dL mg na [address], [place] /d l L ? ? UR ? Methadone negative 30 [facility]: 12 Metabolite NG/mL [address], [place] NG l /m L ? ? UR AB Cannabinoids positive 50 [facility]: 12 NO (THC) NG/mL NG na [address], [place] RM /m l AL L ? ? UR ? Urine 312.8 >2 [facility]: 12 Creatinine mg/dL [address], [place] mg l /d L ? ? UR ? Urine pH 7.30 4. [facility]: 12 5- na [address], [place] 9. l 0 ? ? UR ? Specific 1.027 1. [facility]: [address], [place] 3- l 1. 03 5 09/14/2022 Drug UR AB Buprenorphine negative 10 [facility]: 12 Confirmation, NO NG/mL NG na [address], [place] Urine RM /m l AL L ? ? UR AB Norbuprenorph negative 10 [facility]: 12 NO ine NG/mL NG na [address], [place] RM /m l AL L ? ? UR ? Legend abbreviat ? [facility]: 12 ions na [address], [place] l ? ? UR ? Billing Only billing ? [facility]: 12 ([id number]) only na [address], [place] l 09/14/2022 Opiates, UR ? Admitted ntp ? [facility]: 12 Quantitative, Opiates Use na [address], [place] Urine l 09/07/2022 Drug Screen, UR ? Amphetamines negative 1, [facility]: 12 Urine NG/mL 00 na [address], [place] 0 l NG /m L ? ? UR ? Benzodiazapin negative 20 [facility]: 12 es NG/mL 0 na [address], [place] NG l /m L ? ? UR AB Buprenorphine negative 5 [facility]: 12 NO NG/mL NG na [address], [place] RM /m l AL L ? ? UR ? Cocaine negative 15 [facility]: 12 Metabolite NG/mL [address], [place] NG l /m L ? ? UR ? Opiates negative 30 [facility]: 12 NG/mL 0 na [address], [place] NG l /m L ? ? UR ? Oxycodone negative 30 [facility]: 12 NG/mL 0 na [address], [place] NG l /m L ? ? UR AB F[facility]: [facility] NO NG/mL NG na [address], [place] RM /m l AL L ? ? UR ? Ethyl Alcohol negative 10 [facility]: 12 mg/dL mg na [address], [place] /d l L ? ? UR ? Methadone negative 30 [facility]: 12 Metabolite NG/mL [address], [place] NG l /m L ? ? UR AB Cannabinoids positive 50 [facility]: 12 NO (THC) NG/mL NG na [address], [place] RM /m l AL L ? ? UR ? Urine 241.7 >2 [facility]: 12 Creatinine mg/dL [address], [place] mg l /d L ? ? UR ? Urine pH 7.70 4. [facility]: 12 5- na [address], [place] 9. l 0 ? ? UR ? Specific 1.023 1. [facility]: [address], [place] 3- l 1. 03 5 09/07/2022 Opiates, UR ? Admitted ntp ? [facility] Quantitative, Opiates Use na [address], [place] Urine l 09/07/2022 Methadone, QL, Urine ? Methadone negative ? ? [facility]: Screen, Urine 50 [facility] d 09/07/2022 Buprenorphine, Urine ? Buprenorphine negative ? ? [facility]: QL, Screen, 50 [facility] d Past Encounters 09/28/2022 Opioid Dependence Nusrat Castro: [address] [place] [id number], Ph. 09/21/2022 Opioid Dependence Nusrat Castro: [address] [place] [address], Ph. 09/14/2022 Opioid Dependence Nusrat Castro: [address] [place] [phone], Ph. 09/07/2022 Opioid Dependence; Opioid Withdrawal; Ni cotine Dependence Nusrat Castro: [address] [place] [address], Ph. Social History None recorded. Vaccine List Notes: Not engaged in counseling at is time Plan of Care Reminders Provider Appointments None recorded. ? ? Lab None recorded. ? ? Referral None recorded. ? ? Procedures None recorded. ? ? Surgeries None recorded. ? ? Imaging None recorded. ? ? Vitals None recorded.
== END 2022-10-01 20:37 | disposition left against medical advice (07) ==
LOC: HO.ED 20:34
PROVIDERS: Emergency Provider Emergency Medicine
DX: F11.13 Opioid abuse with withdrawal (principal)

== ENCOUNTER 2022-10-17 11:37 | Emergency (ER) | payer MEDICAID, SELFPAY ==
--- NOTE | 2022-10-17 11:47 | ED.GENADULT ---
HPI - General Adult General Chief complaint: Abdominal Pain <SOLEDAD Garcia - Last Filed: 10/17/22 11:54> Stated complaint: hard lump on stomach <SOLEDAD Garcia - Last Filed: 10/17/22 11:54> Time Seen by Provider: 10/17/22 12:09 <SOLEDAD Garcia - Last Filed: 10/17/22 11:54> Source: patient <Mary Joel NP - Last Filed: 10/17/22 13:35> Mode of arrival: ambulatory <Mary Joel NP - Last Filed: 10/17/22 13:35> Limitations: no limitations <Mary Joel NP - Last Filed: 10/17/22 13:35> History of Present Illness HPI narrative: 21-year-old male with polysubstance abuse disorder presents to the emergency department today, with his girlfriend, for complaints of a hard lump in the left side of his umbilicus after receiving Sublocade (buprenorphine) injection for treatment of opioid use disorder. He denies any pruritus, ecyhmosis, erythema at the injection site. He states he last used opioids 2 weeks ago, oxycodone crushed and snorted, denies IV drug use, and endorses frequent marijuana use. He reports he was diagnosed with COVID-19 five days ago has been having intermittent shortness of breath and chills with symptoms improved over the last 2 days. Reports a 2-3 day history of constipation and discomfort moving his bowels. He denies any fever, nausea, vomiting, headache, vision change, diarrhea, chest pain, active shortness of breath. <Mary Joel NP - Last Filed: 10/17/22 13:35> Onset (ago): day(s) <Mary Joel NP - Last Filed: 10/17/22 13:35> Location: abdomen <Mary Joel NP - Last Filed: 10/17/22 13:35> Radiation: non-radiation <Mary Joel NP - Last Filed: 10/17/22 13:35> Severity: moderate <Mary Joel NP - Last Filed: 10/17/22 13:35> Severity scale (1-10): 4 <Mary Joel NP - Last Filed: 10/17/22 13:35> Quality: aching and dull <Mary Joel NP - Last Filed: 10/17/22 13:35> Pain Consistency: constant <Mary Joel NP - Last Filed: 10/17/22 13:35> Relieving factors: none <Mary Joel NP - Last Filed: 10/17/22 13:35> Exacerbating factors: none <Mary Joel NP - Last Filed: 10/17/22 13:35> Associated symptoms: denies other symptoms <Mary Joel NP - Last Filed: 10/17/22 13:35> Treatments prior to arrival: none <Mary Joel NP - Last Filed: 10/17/22 13:35> Related Data Home medications: Previous Rx's Medication Instructions Recorded aluminum-mag hydroxide-simethicone 5 ml PO 5XD PRN dyspepsia #355 mL 08/29/22 200 mg-200 mg-20 mg/5 mL oral susp (Maalox Advanced) ondansetron 4 mg disintegrating 4 mg PO Q6H PRN nausea and 08/29/22 tablet vomiting #14 tabs <SOLEDAD Garcia - Last Filed: 10/17/22 11:54> Allergies/adverse reactions: Allergies Allergy/AdvReac Type Severity Reaction Status Date / Time No Known Allergies Allergy Unverified 07/24/20 16:44 <SOLEDAD Garcia - Last Filed: 10/17/22 11:54> Review of Systems Review of Systems: In addition to documented HPI above, the additional ROS was obtained: Constitutional: No Weight loss, No Fever, No Chills ENT/Mouth: No Ear Pain, No Nasal Congestion, No Sinus Pain, No Hoarseness, No sore throat, No Rhinorrhea, No Swallowing Difficulty Cardiovascular: No Chest Pain, No SOB Respiratory: No Cough, No Sputum, No Wheezing Gastrointestinal: No Nausea, No Vomiting, No Diarrhea Genitourinary: No Dysuria, No Urinary Frequency, No Hematuria, No Urinary Incontinence/retention, No Urgency, No Flank Pain Musculoskeletal: No joint pain, No Myalgias, No Joint Swelling Skin: No Skin Lesions, No rash Neuro: No Weakness, No Numbness, No Paresthesias <Mary Joel NP - Last Filed: 10/17/22 13:35> Yes all other systems are reviewed and are negative <Mary Joel NP - Last Filed: 10/17/22 13:35> [facility] Past Medical History Attestation statement: The following information was validated with the patient. <Mary Joel NP - Last Filed: 10/17/22 13:35> Source: old records reviewed <Mary Joel NP - Last Filed: 10/17/22 13:35> Social History Social History: Social History Advance Directives: No <SOLEDAD Garcia - Last Filed: 10/17/22 11:54> Physical Exam ED Vital Signs: Vital Signs - 24 hr 10/17/22 11:48 Temperature 98 F Pulse Rate 89 Respiratory Rate 14 Blood Pressure 119/61 Pulse Oximetry 98 Oxygen Delivery Method Room Air BMI result Body Mass Index 17.1 <SOLEDAD Garcia - Last Filed: 10/17/22 11:54> Vital Signs - 24 hr 10/17/22 11:48 Temperature 98 F Pulse Rate 89 Respiratory Rate 14 Blood Pressure 119/61 Pulse Oximetry 98 Oxygen Delivery Method Room Air BMI result Body Mass Index 17.1 <Mary Joel NP - Last Filed: 10/17/22 13:35> Const General: cooperative, alert, awake and other (smelling of strong marijuana) <Mary Joel NP - Last Filed: 10/17/22 13:35> Nutritional Appearance: average body habitus <Mary Joel NP - Last Filed: 10/17/22 13:35> Orientation/consciousness: patient oriented x3 <Mary Joel NP - Last Filed: 10/17/22 13:35> Limitations: no limitations <Mary Joel NP - Last Filed: 10/17/22 13:35> HENMT Head: Yes normal to inspection, Yes normocephalic and Yes atraumatic <Mary Joel [employer]SEMBLER - Last Filed: 10/17/22 13:35> Ears: hearing grossly normal bilaterally and external ears normal <Mary Joel, [employer] ASSEMBLER - Last Filed: 10/17/22 13:35> General nose exam: Normal external nose present and Normal nares present <Mary Joel [employer]SEM[employer]ER - Last Filed: 10/17/22 13:35> Face and sinus: Yes normal facial exam and Yes face symmetric <Mary Joel, [employer] ASSEMBLER - Last Filed: 10/17/22 13:35> Eyes General: appearance normal, both eyes and all related structures <Mary Joel, [employer] ASSEMBLER - Last Filed: 10/17/22 13:35> Visual Benitez: normal visual benitez by confrontation <Mary Joel, [employer] ASSEMBLER - Last Filed: 10/17/22 13:35> Alignment and Position: alignment normal <Mary Joel, [employer] ASSEMBLER - Last Filed: 10/17/22 13:35> Periorbital: periorbital findings normal <Mary Joel, [employer] ASSEMBLER - Last Filed: 10/17/22 13:35> Eyelids: Yes eyelids normal <Mary Joel [employer] ASSEMBLER - Last Filed: 10/17/22 13:35> Conjunctivae: conjunctivae normal <Mary Joel, [employer] ASSEMBLER - Last Filed: 10/17/22 13:35> Sclerae: sclerae normal <Mary Joel, [employer] ASSEMBLER - Last Filed: 10/17/22 13:35> Corneas: corneas normal <Mary Joel, [employer] ASSEMBLER - Last Filed: 10/17/22 13:35> Pupils: Equal, round and reactive pupils present <Mary Joel [employer] ASSEMBLER - Last Filed: 10/17/22 13:35> EOM: EOMs intact bilaterally <Mray Joel, [employer] ASSEMBLER - Last Filed: 10/17/22 13:35> Neck Neck: Yes normal visual inspection and Yes full ROM <Mary Joel, [employer] ASSEMBLER - Last Filed: 10/17/22 13:35> Chest Chest palpation & inspection: normal inspection of the chest <Mary Joel, [employer] ASSEMBLER - Last Filed: 10/17/22 13:35> Resp Effort & Inspection: normal respiratory effort, no cough and not labored <Mary Joel, [employer] ASSEMBLER - Last Filed: 10/17/22 13:35> Auscultation: clear to auscultation bilaterally, no crackles, no rhonchi and no wheezes <Mary Joel, [employer] ASSEMBLER - Last Filed: 10/17/22 13:35> Cardio Rate: regular rate <Mary Joel, [employer] ASSEMBLER - Last Filed: 10/17/22 13:35> Rhythm: regular rhythm <Mary Joel, [employer] ASSEMBLER - Last Filed: 10/17/22 13:35> GI Inspection: Yes normal to inspection and Yes other (mass lt abdomen near umbilicus) <Mary Joel, [employer] ASSEMBLER - Last Filed: 10/17/22 13:35> Palpation (GI): Soft to palpation and nontender <Mary Joel, [employer] ASSEMBLER - Last Filed: 10/17/22 13:35> Auscultation: normal bowel sounds <Mary Joel, [employer] ASSEMBLER - Last Filed: 10/17/22 13:35> Back/Spine/Pelvis Cervical Spine: cervical ROM normal <Mary Joel, [employer] ASSEMBLER - Last Filed: 10/17/22 13:35> Thoracic/Lumbar Spine: thoraco-lumbar ROM normal <Mary Joel, [employer] ASSEMBLER - Last Filed: 10/17/22 13:35> Skin General skin exam: no rashes or lesions noted <Mary Joel, [employer] ASSEMBLER - Last Filed: 10/17/22 13:35> Neuro General: patient oriented x3, gait normal and moves all extremities <Mary Plalisson, [employer] ASSEMBLER - Last Filed: 10/17/22 13:35> Cranial nerves: Yes Equal, round and reactive pupils present <Mary Mattalisson, [employer] ASSEMBLER - Last Filed: 10/17/22 13:35> Cognition (Neuro): normal cognition <Marykwan Joel, [employer] ASSEMBLER - Last Filed: 10/17/22 13:35> Gait exam (Neuro): Normal gait present <Marykwan Joel NP - Last Filed: 10/17/22 13:35> Motor exam (neuro): 5/5 motor strength present throughout <Mary PlcornelSARMAD optts - Last Filed: 10/17/22 13:35> Extrem General: Yes normal to inspection, Yes full ROM and Yes capillary refill normal <Marykwan Joel [employer] ASSEMBLER - Last Filed: 10/17/22 13:35> Psych Appearance: grossly normal <Marykwan Joel [employer] ASSEMBLER - Last Filed: 10/17/22 13:35> Mental Status: mental status grossly normal <Marykwan Joel [employer] ASSEMBLER - Last Filed: 10/17/22 13:35> Speech and movement: Normal speech and movement present <Marykwan Joel [employer] ASSEMBLER - Last Filed: 10/17/22 13:35> Attitude: cooperative <Marykwan Joel [employer] ASSEMBLER - Last Filed: 10/17/22 13:35> Thought process: Normal thought process present <Marykwan Joel NP - Last Filed: 10/17/22 13:35> Thought content: Normal thought content present <Marykwan Joel NP - Last Filed: 10/17/22 13:35> Course Course Course Narrative: RME - 21-year-old male presents to the ER for evaluation of a tender, hard lump on the left middle portion of his abdomen where he previously had an injection 2 weeks ago. He states rehab where he was given an injection of a medication to help him sac using opiates. He states he had immediate pain and swelling, was told it would get better after a couple of days. He states the area has become more hard and tender as time went on. He denies any fever or chills. No skin changes over the lump. No nausea or vomiting. Moving his bowels normally. Brief examination and triage reveals a firm, tender, mobile mass a few cm below and to the left of the umbilicus. Most likely a hematoma. Will get ultrasound to assess for possible fluid collection that required drainage or antibiotics. <SOLEDAD Garcia - Last Filed: 10/17/22 11:54> Medical Decision Making Medical Decision Making MDM Narrative: 21-old male with polysubstance abuse disorder presents to the emergency department today, with his girlfriend, for complaints of a hard lump in the left side of his umbilicus after receiving Sublocade (buprenorphine) injection for treatment of opioid use disorder. Sublocade informational website reviewed for post-injection education with resources obtained and provided to patient. Low suspicion for hematoma, fluid collection, or infection due to mechanism of burpenorphine instillation. Educated that bump under this skin at the injection site is normal and called a depot, that releases buprenorphine slowly over 28 days. Educated not to rub or massage injection site, allow clothing to rub on site, or try to remove the depot. Educated to return to the emergency department with redness, increased swelling, fever, or increased pain at the injection site. Recommended to follow-up with the clinic where you receive Sublocade injection. <Mary Joel NP - Last Filed: 10/17/22 13:35> Discharge Plan Discharge Clinical Impression: Injection site irritation <SOLEDAD Garcia - Last Filed: 10/17/22 11:54> Patient Disposition: Home, Self-Care <SOLEDAD Garcia - Last Filed: 10/17/22 11:54> Instructions: Ice Pack Application (ED) <SOLEDAD Garcia - Last Filed: 10/17/22 11:54> Additional Instructions: A bump on your left abdomen is a result of the injection of Sublocade. Sublocade continually releases medicine all month (28 days) at sustained levels without real daily ups and downs. In order to do this a liquid is injected into your abdomen that turns into a semi-solid bump called a DEPOT. The bump under the skin at the injection site is normal and can last several weeks. Over time, as medication is released into the body, the bump will get smaller. Do NOT to try to remove the depot, and do not to rub or massage the injection site. Do NOT let belts or waistband rub it against the injection site. Please return to the emergency department with redness, increased swelling, fever, or increased pain at the injection site. Recommended to follow-up with the clinic where you receive Sublocade injections You may use an ice pack before or after injection for management of discomfort. <SOLEDAD Garcia - Last Filed: 10/17/22 11:54> Prescriptions: No Action alum-mag hydroxide-simeth [Maalox Advanced] 200-200-20 mg/5 mL suspension 5 ml PO 5XD PRN (Reason: dyspepsia) Qty: 355 0RF Rx Instructions: administer between meals and at bedtime ondansetron 4 mg tablet,disintegrating 4 mg PO Q6H PRN (Reason: nausea and vomiting) Qty: 14 0RF <SOLEDAD Garcia - Last Filed: 10/17/22 11:54> Referrals: [facility] [place]Provider Group] [facility] [place] Primary [place], Tamiko [Provider Group] [facility] [place],Antonio [Provider Group] <SOLEDAD Garcia - Last Filed: 10/17/22 11:54> Stand Alone Forms: Work/School Release <SOLEDAD Garcia - Last Filed: 10/17/22 11:54>
[2022-10-17 11:48] VITALS: BP 119/61; PULSE 89; RESP 14; TEMP 36.6; O2SAT 98; BMI 17.1
== END 2022-10-17 19:27 | disposition home or self-care (01) ==
PROVIDERS: Emergency Provider Emergency Medicine Emergency Medical Services
DX: R10.32 Left lower quadrant pain (principal); M54.50 Low back pain, unspecified; F11.19 Opioid abuse with unspecified opioid-induced disorder
CPT/HCPCS: 99282

== ENCOUNTER 2023-07-16 21:09 | Emergency (ER) | payer MEDICAID, SELFPAY ==
[2023-07-16 21:20] VITALS: BP 132/86; BP 134/66; PULSE 112; PULSE 120; RESP 19; TEMP 36.9; O2SAT 100; O2SAT 98; BMI 17.6
--- NOTE | 2023-07-16 21:25 | MHC.EDTECH ---
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
[2023-07-16 21:27] VITALS: PULSE 95; RESP 12; O2SAT 96
--- NOTE | 2023-07-16 21:56 | ED.OVERDOSE ---
HPI - Overdose General Chief Complaint: Overdose Stated Complaint: OVERDOSE + NARCAN Time Seen by Provider: 07/16/23 21:12 History of Present Illness HPI Narrative: Patient is a 22-year-old male history of polysubstance abuse. Family noted patient may have taken possibly [address] to get high. Patient denies any suicidal homicidal ideation. He was not breathing well. A dose of Narcan was given. Patient subsequently got up was running around. EMS was contacted patient was sent to the ED for further evaluation. Patient also complaining of nausea vomiting. Related Data Previous Rx's Medication Instructions Recorded aluminum-mag hydroxide-simethicone 5 ml PO 5XD PRN dyspepsia #355 mL 08/29/22 200 mg-200 mg-20 mg/5 mL oral susp (Maalox Advanced) ondansetron 4 mg disintegrating 4 mg PO Q6H PRN nausea and 08/29/22 tablet vomiting #14 tabs Allergies Allergy/AdvReac Type Severity Reaction Status Date / Time No Known Allergies Allergy Unverified 07/24/20 16:44 Review of Systems Review of Systems: No fever no chills Positive generalized malaise Yes all other systems are reviewed and are negative [facility] Past Medical History Attestation statement: The following information was validated with the patient. Social History Social History Alcohol intake: never Smoked in Last 30 Days: No Use of substances other than those prescribed or required for medical reasons: Yes Substance Use Type: Painkillers Substance Use Type Other:: percocet Substance Use Frequency: Chronic Longstanding Advance Directives: No Advance Directives Information Provided: No Physical Exam Vital Signs: Vital Signs: Last Vital Signs Temp 98.5 F 07/16/23 21:20 Pulse 95 07/16/23 21:27 Resp 12 07/16/23 21:27 BP 134/66 07/16/23 21:20 Pulse Ox 96 07/16/23 21:27 O2 Del Method Room Air 07/16/23 21:27 BMI result Body Mass Index 17.6 Appearance: Alert. Appears pale. Eyes: Pupils equal, round and reactive to light. ENT: Pharynx normal. Neck: Normal inspection. Neck supple. No lymph nodes noted. No crepitus CVS: Normal heart rate and rhythm. Pulses normal. Normal S1 and S2 Respiratory: No respiratory distress. Breath sounds normal. No Wheezing. No rales Abdomen: Soft and nontender. No rigidity. No distention. good BS x4 Skin: Skin warm and dry. Normal skin color. Normal skin turgor. Extremities: No lower extremity edema. Neurovascular intact to all extremities. No Lacerations. No Rash Neuro: Oriented X 3. No motor deficit. No sensory deficit. Moving all extermities. No slurred speech Medications Administered Discontinued Medications Generic Name Dose Route Start Last Admin Trade Name Freq PRN Reason Stop Dose Admin Sodium Chloride 1,000 mls @ 999 mls/hr 07/16/23 22:00 07/16/23 22:16 Ns IV 07/16/23 23:00 999 mls/hr .Q1H1M ANTON Administration Sodium Chloride 1,000 mls @ 999 mls/hr 07/16/23 22:00 07/16/23 22:17 Ns IV 07/16/23 23:00 999 mls/hr .Q1H1M ANTON Administration Ondansetron HCl 4 mg 07/16/23 21:53 07/16/23 22:16 Ondansetron Hcl 4 Mg/2 Ml Vial IVPUSH 07/16/23 21:54 4 mg ONCE ONE Administration Medical Decision Making Medical Decision Making [facility] Narrative: Patient well appearing no acute distress. Was given Narcan by family. Had nausea earlier given fluid. Alcohol was negative. Tylenol level was less than 17. Doubt patient took Percocet. Probably just a street drugs. Patient monitored in the emergency department for approximately 2 hours now is awake alert ambulatory swearing. Will discharge patient home currently in stable condition. Differential Diagnosis Differential Diagnoses: The differential diagnosis associated with the presentation includes Narcotic overdose, Tylenol overdose alcohol intoxication, polysubstance abuse Admission/Observation Consideration of admission/observation: Escalation of care including admission/observation considered No need for admission as patient is now sober, tolerated p.o. Lab Data [facility] Lab Attestation statement: I reviewed the patient's lab results. 07/16/23 22:14 07/16/23 22:14 Labs: Lab Results 07/16/23 Range/Units 22:14 WBC 15.6 H (4.8-10.8) X10*3/uL RBC 4.66 (4.60-5.80) X10*6/uL Hgb 13.5 L (14.0-18.0) g/dl Hct 40.6 L (42.0-52.0) % MCV 87.1 (80.0-98.0) fL MCH 29.0 (27.0-33.0) pg MCHC 33.3 (31.0-36.0) g/dl RDW 12.3 (11.0-16.0) % Plt Count 248 (160-400) X10*3/uL MPV 9.0 L (9.4-12.4) fL Immature Gran % (Auto) 0.4 (0.0-0.4) % Neut % (Auto) 87.0 H (45-73) % Lymph % (Auto) 7.8 L (20-40) % [place] % (Auto) 4.5 (2-11) % Eos % (Auto) 0.1 (0-4) % Baso % (Auto) 0.2 (0-2) % Lymph # (Auto) 1.2 (1.2-4.9) X10*3/uL [place] # (Auto) 0.7 (0.1-1.2) X10*3/uL Eos # (Auto) 0.0 (0.0-0.4) X10*3/uL Baso # (Auto) 0.0 (0.0-0.2) X10*3/uL Abs Immat Gran (auto) 0.07 H (0.00-0.03) X10*3/uL Absolute Neuts (auto) 13.6 H (2.0-8.3) x10*3/uL Absolute Nucleated RBC 0.000 (0.0-0.012) X10*3/uL Nucleated RBC % (auto) 0.0 (0.0-0.2) /100WBC Sodium 139 (135-145) mmol/L Potassium 4.2 (3.3-5.1) mmol/L Chloride 106 (96-108) mmol/L Carbon Dioxide 23 (22-29) mmol/L Anion Gap 14 (12-20) BUN 14 (9-16) mg/dL Creatinine 0.83 (0.5-1.4) mg/dL Estim Creat Clear Calc 114.1 Estimated GFR > 60 Random Glucose 138 H (60-115) mg/dL Calcium 9.5 (8.4-10.2) mg/dL Total Bilirubin 0.6 (0.0-1.0) mg/dL Direct Bilirubin 0.2 (0.0-0.5) mg/dL AST 20 (5-37) U/L ALT 17 (0-40) U/L Alkaline Phosphatase 63 (39-117) U/L Total Protein 7.7 (6.5-8.0) g/dL Albumin 4.7 (3.5-5.0) g/dL Lipase 10 (8-78) U/L Acetaminophen < 17 (<30) mcg/mL Ethyl Alcohol < 10 mg/dL Independent Historian Clinical information obtained from an independent historian. History obtained from or confirmed by: EMS Chronic Conditions Polysubstance abuse Social Determinants Patient?s care significantly limited by Social Determinants of Health including: Inadequate housing and Alcoholism and drug addiction in family Polysubstance abuse Discharge Plan Discharge Clinical Impression: Drug overdose Patient Disposition: Home, Self-Care Instructions: Adult Overdose (ED), Narcotic Use Disorder (ED), Narcotic Safety (ED) Prescriptions: No Action alum-mag hydroxide-simeth [Maalox Advanced] 200-200-20 mg/5 mL suspension 5 ml PO 5XD PRN (Reason: dyspepsia) Qty: 355 0RF Rx Instructions: administer between meals and at bedtime ondansetron 4 mg tablet,disintegrating 4 mg PO Q6H PRN (Reason: nausea and vomiting) Qty: 14 0RF Referrals: [facility] [Primary Care Provider] -
[2023-07-16] MEDS: ondansetron HCL 4 MG/2 ML VIAL IVPUSH (22:16)
[2023-07-16] MEDS: 0.9 % Sodium Chloride 1,000 ML 999 ML IV ×2 (22:16→22:17)
[2023-07-16 22:18] LABS: MANUAL DIFF FLAG NO
[2023-07-16 22:22] LABS: Basophils Percent Auto 0.2 % (0-2); Eosinophils Percent Auto 0.1 % (0-4); Hematocrit 40.6 % (42.0-52.0); Hemoglobin 13.5 g/dl (14.0-18.0); Imm Gran Abs Auto 0.07 X10*3/uL (0.00-0.03); Imm Gran Pct Auto 0.4 % (0.0-0.4); Lymphocytes Absolute Auto 1.2 X10*3/uL (1.2-4.9); Lymphocytes Percent Auto 7.8 % (20-40); Mean Corpuscular HGB Conc 33.3 g/dl (31.0-36.0); Mean Corpuscular Volume 87.1 fL (80.0-98.0); Monocytes Absolute Auto 0.7 X10*3/uL (0.1-1.2); Monocytes Percent Auto 4.5 % (2-11); Neutrophils Absolute Auto 13.6 x10*3/uL (2.0-8.3); Platelet Count 248 X10*3/uL (160-400); Red Blood Count 4.66 X10*6/uL (4.60-5.80); Red Cell Distribution Width 12.3 % (11.0-16.0); White Blood Count 15.6 X10*3/uL (4.8-10.8)
[2023-07-16 22:39] LABS: Acetaminophen LAB < 17 mcg/mL (<30); Alanine Aminotransferase 17 U/L (0-40); Albumin Level 4.7 g/dL (3.5-5.0); Alkaline Phosphatase 63 U/L (39-117); Anion Gap 14 (12-20); Aspartate Amino Transferase 20 U/L (5-37); Bilirubin Direct 0.2 mg/dL (0.0-0.5); Bilirubin Total 0.6 mg/dL (0.0-1.0); Blood Urea Nitrogen 14 mg/dL (9-16); Calcium 9.5 mg/dL (8.4-10.2); Carbon Dioxide 23 mmol/L (22-29); Chloride 106 mmol/L (96-108); Creatinine Clr Calc Pharmacy 114.1; Estimated Glomerular Filt Rate > 60; Glucose Random 138 mg/dL (60-115); Lipase 10 U/L (8-78); Potassium 4.2 mmol/L (3.3-5.1); Sodium 139 mmol/L (135-145); Total Protein 7.7 g/dL (6.5-8.0)
[2023-07-16 23:38] LABS: Ethanol < 10 mg/dL
== END 2023-07-17 00:31 | disposition home or self-care (01) ==
PROVIDERS: Emergency Provider Emergency Medicine Emergency Medical Services
DX: T50.901A Poisoning by unspecified drugs, medicaments and biological substances, accidental (unintentional), initial encounter (principal); F19.10 Other psychoactive substance abuse, uncomplicated; Y92.414 Local residential or business street as the place of occurrence of the external cause; R11.2 Nausea with vomiting, unspecified
CPT/HCPCS: 36415; 80048; 80076; 80143; 80307; 83690; 85025; 96374; 99285; J2405

== ENCOUNTER 2023-10-10 11:36 | Emergency (ER) | payer MEDICAID, SELFPAY ==
[2023-10-10 11:53] VITALS: BMI 21.1
--- NOTE | 2023-10-10 11:53 | ED_ITS ---
HPI - Overdose General Chief Complaint: Overdose Stated Complaint: OD,NARCAN BY FAMILY,SEC12 BY [employer] PER EMS Time Seen by Provider: 10/10/23 11:39 Source: EMS and police Mode of arrival: EMS Limitations: altered mental status History of Present Illness HPI Narrative: patient presents with police and EMS escort. Earlier in the day patient refused EMS transport after opiate overdose requiring narcan. He then went into the bathroom and shot up again requiring narcan. Family called the police and went to the court to get a emergency committal to detox Onset (ago): hour(s) Timing confirmed by: spouse and other (EMS) Related Data Previous Rx's Medication Instructions Recorded aluminum-mag hydroxide-simethicone 5 ml PO 5XD PRN dyspepsia #355 mL 08/29/22 200 mg-200 mg-20 mg/5 mL oral susp (Maalox Advanced) ondansetron 4 mg disintegrating 4 mg PO Q6H PRN nausea and 08/29/22 tablet vomiting #14 tabs Allergies Allergy/AdvReac Type Severity Reaction Status Date / Time No Known Allergies Allergy Unverified 07/24/20 16:44 Review of Systems 2 Review of Systems: Yes Unobtainable due to mental status (agitated screaming) Neurologic: Denies Sensory deficit (Neuro) [facility] Social History Social History Alcohol intake: never Substance Use Type: Painkillers Advance Directives: No Advance Directives Information Provided: No Physical Exam 2 Vital Signs: Vital Signs: Last Vital Signs Temp 98.9 F 10/10/23 12:58 Pulse 89 10/10/23 14:06 Resp 18 10/10/23 14:06 BP 112/57 L 10/10/23 14:06 Pulse Ox 93 10/10/23 14:06 O2 Del Method Room Air 10/10/23 14:06 BMI result Body Mass Index 21.1 Const: Other: thin agitated unkept, screaming Orientation/consciousness: oriented to person Limitations: altered mental status and behavioral limitations HEENT: Head: Yes normal to inspection Ears: external ears normal General nose exam: Normal external nose present Mouth: Normal oral and palatal mucosa present and oropharynx normal Throat: Yes posterior oropharynx normal Eyes: General: appearance normal, both eyes and all related structures Neck: Other: supple Neck: Yes normal visual inspection Chest: Chest palpation & inspection: normal inspection of the chest Resp: Auscultation: clear to auscultation bilaterally Cardio: Jugular venous distension: no JVD Rate: regular rate Rhythm: r egular rhythm Heart sounds: S1 normal heart sound present and S2 normal heart sound present GI: Inspection: Yes normal to inspection Palpation (GI): Soft to palpation, nontender and No hepatosplenomegaly present Auscultation: normal bowel sounds : General: Yes no CVA tenderness Back/Spine/Pelvis: Back: no CVA tenderness Skin: General skin exam: no rashes or lesions noted Neuro: General: oriented to person Cranial nerves: Yes CN's II-XII intact bilaterally Motor exam (neuro): 5/5 motor strength present throughout S ensory Exam: No Sensory deficit (Neuro) Extrem: General: Yes normal to inspection Psych: Appearance: grossly normal Course Reevaluation(s) Reevaluation #1: shortly after arrival patient had a grand mal seizure, ativan ordered Time: 14:51 Reevaluation #2: patient states he has a history of seizures Time: 15:34 Reevaluation #3: physician observation started now. Patient needs to get to baseline while he gets committed to a detox program. Time: 15:35 Additional Reevaluation(s): patient is medically cleared Medications Administered Discontinued Medications Generic Name Dose Route Start Last Admin Trade Name Freq PRN Reason Stop Dose Admin Diphenhydramine HCl 25 mg 10/10/23 11:51 10/10/23 12:35 Diphenhydramine Hcl 25 Mg Capsule PO 10/10/23 11:52 Not Given ONCE ONE Haloperidol Lactate 5 mg 10/10/23 11:51 10/10/23 12:04 Haloperidol Lactate 5 Mg/Ml Vial IM 10/10/23 11:52 5 mg ONCE ONE Administration Lorazepam 2 mg 10/10/23 12:02 10/10/23 12:08 Lorazepam 2 Mg/Ml Vial IM 10/10/23 12:03 2 mg ONCE ONE Administration Ondansetron HCl 4 mg 10/10/23 11:51 10/10/23 12:24 Ondansetron Odt 4 Mg Tab.Rapdis TRANSLINGU 10/10/23 11:52 4 mg ONCE ONE Administration Medical Decision Making Differential Diagnosis Differential Diagnoses: The differential diagnosis associated with the presentation includes (opiate overdose, opiate withdrawal secondary to narcan, seizure) Admission/Observation Consideration of admission/observation: Escalation of care including admission/observation considered (upon arrival patient considered for admission) Consult Healthcare Provider Management of the patient was discussed with: Behavioral Health Provider Lab Data 10/10/23 14:02 10/10/23 14:02 Labs: Lab Results 10/10/23 Range/Units 14:02 WBC 18.2 H (4.8-10.8) X10*3/uL RBC 5.10 (4.60-5.80) X10*6/uL Hgb 15.0 (14.0-18.0) g/dl Hct 45.0 (42.0-52.0) % MCV 88.2 (80.0-98.0) fL MCH 29.4 (27.0-33.0) pg MCHC 33.3 (31.0-36.0) g/dl RDW 11.9 (11.0-16.0) % Plt Count 292 (160-400) X10*3/uL MPV 9.1 L (9.4-12.4) fL Immature Gran % (Auto) 0.7 H (0.0-0.4) % Neut % (Auto) 88.0 H (45-73) % Lymph % (Auto) 5.8 L (20-40) % [place] % (Auto) 5.2 (2-11) % Eos % (Auto) 0.1 (0-4) % Baso % (Auto) 0.2 (0-2) % Lymph # (Auto) 1.1 L (1.2-4.9) X10*3/uL [place] # (Auto) 1.0 (0.1-1.2) X10*3/uL Eos # (Auto) 0.0 (0.0-0.4) X10*3/uL Baso # (Auto) 0.0 (0.0-0.2) X10*3/uL Abs Immat Gran (auto) 0.12 H (0.00-0.03) X10*3/uL Absolute Neuts (auto) 16.0 H (2.0-8.3) x10*3/uL Absolute Nucleated RBC 0.000 (0.0-0.012) X10*3/uL Nucleated RBC % (auto) 0.0 (0.0-0.2) /100WBC Sodium 140 (135-145) mmol/L Potassium 5.1 D (3.3-5.1) mmol/L Chloride 107 (96-108) mmol/L Carbon Dioxide 25 (22-29) mmol/L Anion Gap 13 (12-20) BUN 18 H (9-16) mg/dL Creatinine 0.94 (0.5-1.4) mg/dL Estim Creat Clear Calc 104.9 Estimated GFR > 60 Random Glucose 101 (60-115) mg/dL Calcium 10.1 D (8.4-10.2) mg/dL Total Bilirubin 0.6 (0.0-1.0) mg/dL AST 29 (5-37) U/L ALT 24 (0-40) U/L Alkaline Phosphatase 73 (39-117) U/L Total Protein 8.3 H (6.5-8.0) g/dL Albumin 4.8 (3.5-5.0) g/dL Ethyl Alcohol < 10 mg/dL Independent Historian Clinical information obtained from an independent historian. History obtained from or confirmed by: EMS Tests considered The following testing was considered but not selected: Ct of brain considered but patient with a prior history of seizures Chronic Conditions Patient?s care impacted by: Other (drug abuse) Social Determinants Patient?s care significantly limited by Social Determinants of Health including: Alcoholism and drug addiction in family Discharge Plan Discharge Clinical Impression: Drug overdose Patient Disposition: Still a Patient Prescriptions: No Action alum-mag hydroxide-simeth [Maalox Advanced] 200-200-20 mg/5 mL suspension 5 ml PO 5XD PRN (Reason: dyspepsia) Qty: 355 0RF Rx Instructions: administer between meals and at bedtime ondansetron 4 mg tablet,disintegrating 4 mg PO Q6H PRN (Reason: nausea and vomiting) Qty: 14 0RF
--- NOTE | 2023-10-10 11:54 | MHC.EDTECH ---
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
[2023-10-10] MEDS: Haloperidol Lactate 5 MG/ML VIAL IM (12:04)
[2023-10-10] MEDS: LORazepam 2 MG/ML VIAL IM (12:08)
--- NOTE | 2023-10-10 12:09 | PC.NURSE ---
pt had approximately 35 sec seizure while in stretcher. pt then started to act erratically, climbing around stretcher. security and multiple staff to hold pt down. pt given 5 haldol and 2 ativan IM. pt moved to room 7.
[2023-10-10 12:12] VITALS: PULSE 102; RESP 28; O2SAT 96
[2023-10-10] MEDS: Ondansetron ODT 4 MG TAB.RAPDIS TRANSLINGU (12:24)
[2023-10-10 12:58] VITALS: BP 109/42; PULSE 97; RESP 24; TEMP 37.2; O2SAT 92
--- NOTE | 2023-10-10 13:07 | PC.NURSE ---
PT'S GIRLFRIEND AND MOTHER AT BEDSIDE. FAMILY STATED THAT THEY ARE GOING TO COURT TO SECTION 35 PT. PT IS SLEEPING RESP EVEN AND UNLABORED. 1:1 SITTER AT BEDSIDE.
--- NOTE | 2023-10-10 13:42 | MHC.EDTECH ---
Unable to obtain blood work due to pt refusal
[2023-10-10 14:06] VITALS: BP 112/57; PULSE 89; RESP 18; O2SAT 93
[2023-10-10 14:07] LABS: MANUAL DIFF FLAG NO
[2023-10-10 14:18] LABS: Basophils Percent Auto 0.2 % (0-2); Eosinophils Percent Auto 0.1 % (0-4); Imm Gran Abs Auto 0.12 X10*3/uL (0.00-0.03); Imm Gran Pct Auto 0.7 % (0.0-0.4); Lymphocytes Absolute Auto 1.1 X10*3/uL (1.2-4.9); Lymphocytes Percent Auto 5.8 % (20-40); Mean Corpuscular HGB Conc 33.3 g/dl (31.0-36.0); Mean Corpuscular Hemoglobin 29.4 pg (27.0-33.0); Mean Corpuscular Volume 88.2 fL (80.0-98.0); Mean Platelet Volume 9.1 fL (9.4-12.4); Monocytes Percent Auto 5.2 % (2-11); Platelet Count 292 X10*3/uL (160-400); Red Cell Distribution Width 11.9 % (11.0-16.0); White Blood Count 18.2 X10*3/uL (4.8-10.8)
[2023-10-10 14:22] LABS: Alanine Aminotransferase 24 U/L (0-40); Albumin Level 4.8 g/dL (3.5-5.0); Alkaline Phosphatase 73 U/L (39-117); Anion Gap 13 (12-20); Aspartate Amino Transferase 29 U/L (5-37); Bilirubin Total 0.6 mg/dL (0.0-1.0); Blood Urea Nitrogen 18 mg/dL (9-16); Calcium 10.1 mg/dL (8.4-10.2); Carbon Dioxide 25 mmol/L (22-29); Chloride 107 mmol/L (96-108); Creatinine Clr Calc Pharmacy 104.9; Estimated Glomerular Filt Rate > 60; Glucose Random 101 mg/dL (60-115); Potassium 5.1 mmol/L (3.3-5.1); Sodium 140 mmol/L (135-145); Total Protein 8.3 g/dL (6.5-8.0)
[2023-10-10 14:51] LABS: Ethanol < 10 mg/dL
[2023-10-10 15:43] VITALS: BP 111/63; PULSE 93; RESP 15; O2SAT 98
--- NOTE | 2023-10-10 17:21 | PC.NURSE ---
pt continues to be asleep. 1:1 at bedside. unable to compete worklist assessments d/t pt sleeping. VSS. awaiting HUGHES, U/A, CARE team assessment.
--- NOTE | 2023-10-10 17:40 | PC.NURSE ---
family able to obtain a section 35
--- NOTE | 2023-10-10 17:41 | PC.NURSE ---
pts [facility]
[2023-10-10 17:43] VITALS: BP 112/57; PULSE 96; RESP 14
--- NOTE | 2023-10-10 18:13 | HO.SUDE ---
Addendum entered by Ernie Orellana 10/11/23 11:18: Met with pt in BH8 to complete SUDE. Pt informs he used 2-3 percocet 30mg tablets orally every day and has been on Suboxone a few months ago but does not remember where or how much. pt has a history of overdosing 1 time about 1 month ago and is not interested in any recovery support, MAT, or ATS. T/W reviewed harm reduction and overdose prevention with pt who verbalized understanding with no additional questions or concersn at this time. Original Note: Attempted to meet with pt in ED7 who is here for OD however pt had a seizure while here and has since been difficult to arouse or get information from. Pt would not disclose information at this time and is currently here as a section 12 with the family intent to section 35 him.
--- NOTE | 2023-10-10 19:09 | PC.NURSE ---
this rn assumed care of pt. pt sleeping at this time, respirations even and unlabored. sitter at bedside 1:1, no acute distress.
[2023-10-11] MEDS: Ondansetron ODT 4 MG TAB.RAPDIS TRANSLINGU (01:37)
--- NOTE | 2023-10-11 01:45 | MHC.EDTECH ---
t/w attempted to collect urine sample 2 times without success.. pt continues to refuse and throw urine cup in the toilet. RN MADE AWARE.
[2023-10-11] MEDS: hydrOXYzine HCL 50 MG TABLET PO (01:53)
--- NOTE | 2023-10-11 02:19 | PC.NURSE ---
t/w asked client regarding xray and client declined
[2023-10-11 05:51] LABS: Influenza A PCR NEGATIVE (Negative); Influenza B PCR NEGATIVE (Negative); Resp Syncy Virus RNA Qual PCR NEGATIVE (Negative); SARS COV2 PCR INHOUSE NEGATIVE (Negative)
[2023-10-11 05:54] LABS: Appearance Urine Clear; Color Urine Yellow; Glucose Urine UA Negative (Negative); Leukocyte Esterase Urine Negative (Negative); Nitrite Urine Negative (Negative); UMIC TRIGGER UACC YES; Urine Blood Moderate (2+) (Negative); Urine Ketones Negative (Negative); Urine Protein Trace mg/dL (Neg-Trace)
[2023-10-11 05:58] LABS: Bacteria Urine None Seen (None Seen); RBC Urine 0-2 /HPF (0-2); WBC Urine 0-5 /HPF (0-5)
[2023-10-11 05:59] LABS: Amphetamine Screen Urine Not Detected (Not Detect); Barbiturates, Urine Not Detected (Not Detect); Benzodiazepines Screen Urine Not Detected (Not Detect); Cannabinoid Screen Urine POSITIVE (Not Detect); Cocaine Screen Urine Not Detected (Not Detect); Fentanyl, urine POSITIVE (Not Detect); Opiate Screen Urine Not Detected (Not Detect); Phencyclidine Screen Urine Not Detected (Not Detect)
[2023-10-11 07:45] VITALS: RESP 16
--- NOTE | 2023-10-11 07:52 | PC.NURSE ---
x ray called for patient to come pver for imaging. patient stated to RN he would like to go for x ray later and not at this time. x ray made aware.
--- NOTE | 2023-10-11 08:20 | PC.NURSE ---
REPORT RECEIVED FROM YASMEEN ANTUNEZ. PT AMB (I) GAIT STEADY TO BATHROOM AND BTB. PT IS CALM AND CO-OP.
[2023-10-11 09:09] VITALS: RESP 15
--- NOTE | 2023-10-11 09:31 | PC.NURSE ---
PT'S GIRLFRIEND, JENNIFER ([phone]) CALLED AND WAS UPDATED ON PT STATUS. GIRLFRIEND STATES THAT PT'S MOTHER AND HERSELF WENT TO COURT FOR SECTION 35 ON THE BEHALF OF THE PT YESTERDAY AND WAS SUCCESSFUL.
--- NOTE | 2023-10-11 12:14 | PC.NURSE ---
[employer] arrived to machine operator picker client after Section 35 granted. No behavioral concerns this shift.
== END 2023-10-11 12:16 ==
PROVIDERS: Emergency Medicine; Emergency Provider Emergency Medicine Emergency Medical Services
DX: T40.1X1A Poisoning by heroin, accidental (unintentional), initial encounter (principal); Y92.9 Unspecified place or not applicable; Z71.51 Drug abuse counseling and surveillance of drug abuser; Z20.822 Contact with and (suspected) exposure to COVID-19; Z20.828 Contact with and (suspected) exposure to other viral communicable diseases; Z79.899 Other long term (current) drug therapy
CPT/HCPCS: 0241U; 36415; 80053; 80307; 81001; 85025; 96372; 99284; 99285; J1630; J2060

== ENCOUNTER 2024-01-15 09:25 | Emergency (ER) | payer MEDICAID, SELFPAY ==
[2024-01-15 09:32] VITALS: BP 148/68; PULSE 110; O2SAT 97
[2024-01-15 09:48] VITALS: BP 121/63; PULSE 96; RESP 16; TEMP 36.9; O2SAT 96; BMI 21.8
--- NOTE | 2024-01-15 09:48 | ECG_ITS ---
Test Reason : seizure Blood Pressure : / mmHG Vent. Rate : 084 BPM Atrial Rate : 084 BPM P-R Int : 136 ms QRS Dur : 084 ms QT Int : 318 ms P-R-T Axes : 069 055 050 degrees QTc Int : 375 ms Normal sinus rhythm with sinus arrhythmia Normal ECG No previous ECGs available Referred By: Courtney Medina Electronically Signed By:RAVEN HENRIQUEZ MD
[2024-01-15 09:50] VITALS: RESP 16
--- NOTE | 2024-01-15 09:55 | PC.NURSE ---
Pt answering some question and mostly cooperative however doesnt offer much information. States last seizure 3 months prior however states it didnt feel lakeisha one this AM. Also reports last opiate use 2 months ago and denies recent drug abuse. Pupils and WNL, pt is alert and awake RR 14-16. Skin pwd. Plan for EKG, viral swab and addiction med consult
--- NOTE | 2024-01-15 10:22 | ED.GENADULT ---
HPI - General Adult General Chief complaint: General Medical Stated complaint: ? sz vs od, narcan given,confused per ems Time Seen by Provider: 01/15/24 09:37 Source: patient Mode of arrival: EMS History of Present Illness HPI narrative: 23-year-old male with known polysubstance use disorder is brought in by EMS for suspected overdose or possible seizure, patient states that he did not take anything but girlfriend administered Narcan and patient is now awake. Patient was recently in rehab. He denies any SI/HI. Related Data Home Medications Medication Instructions Recorded Confirmed No Known Home Meds 10/11/23 10/11/23 Allergies Allergy/AdvReac Type Severity Reaction Status Date / Time No Known Allergies Allergy Unverified 07/24/20 16:44 Review of Systems Review of Systems: Pertinent positives and negatives as stated in HPI [facility] Past Medical History Source: nursing notes reviewed Social History Social History Alcohol intake: never Smoked in Last 30 Days: No Use of substances other than those prescribed or required for medical reasons: No Substance Use Type: Opiates Substance Use Type Other:: h/o opiate abuse Advance Directives: No Advance Directives Information Provided: No Physical Exam ED Vital Signs: Vital Signs - 24 hr 01/15/24 09:48 01/15/24 09:50 Temperature 98.5 F Pulse Rate 96 Respiratory Rate 16 16 Blood Pressure 121/63 Pulse Oximetry 96 Oxygen Delivery Method Room Air BMI result Body Mass Index 21.8 VITAL SIGNS: Reviewed. GENERAL: Well developed, well nourished, in no acute distress. HEAD: Normocephalic/atraumatic EYES: PERRLA, EOMI LUNGS: Normal breath sounds. No adventitious sounds or accessory muscle use. SpO2<96> CARDIOVASCULAR: Regular rate and rhythm without noted murmurs ABDOMEN: Soft, non-tender, non-distended with bowel sounds. MUSCULOSKELETAL: No tenderness, deformities, or effusions noted on gross inspection. EXTREMITIES: No cyanosis, clubbing or edema. SKIN: Inspection of the skin reveals no rashes NEUROLOGIC: Alert and oriented x 4. Strength and sensation to light touch were grossly intact x 4. Medical Decision Making Medical Decision Making MDM Narrative: 23-year-old male who is declining to provide a urine sample but denies that he used any illicit drugs and has no seizure history. Viral testing negative for influenza/RSV/COVID-19. EKG without acute changes. Patient is afebrile. Informed by nursing that patient is leaving. Differential Diagnosis Differential Diagnoses: The differential diagnosis associated with the presentation includes Please see the discussion above Admission/Observation Consideration of admission/observation: Escalation of care including admission/observation considered Please see the discussion above Lab Data Labs: Lab Results 01/15/24 Range/Units 10:00 Influenza Type A (PCR) NEGATIVE (Negative) Influenza Type B (PCR) NEGATIVE (Negative) RSV RNA Qual (PCR) NEGATIVE (Negative) SARS-CoV-2 RNA (RT-PCR) NEGATIVE (Negative) Independent Interpretation I performed an independent interpretation of an: EKG Interpretation: Normal sinus rhythm, HR-84, no STEMI, [place]/QRS/QTC is within normal limits. External Record Review External record reviewed: Outpatient record and Prior outpatient labs Critical Care Time Critical Care Time Critical Care Time: Yes Total Critical Care Time: 45 Attestation: I personally attest to this time spent taking care of the patient. Discharge Plan Discharge Clinical Impression: Overdose Patient Disposition: Elopement Instructions: Adult Overdose (ED) Prescriptions: No Action No Known Home Meds
[2024-01-15 10:46] LABS: Influenza A PCR NEGATIVE (Negative); Influenza B PCR NEGATIVE (Negative); Resp Syncy Virus RNA Qual PCR NEGATIVE (Negative); SARS COV2 PCR INHOUSE NEGATIVE (Negative)
--- NOTE | 2024-01-15 13:30 | PC.NURSE ---
pt agittaed and req to leave when family arrived. Pt walked out with family, steady on feet
--- NOTE | 2024-01-15 13:39 | HO.SUDE ---
Went to perform SUDE on pt. as per MD request. Unable to perform as pt. had already left the ED
== END 2024-01-15 14:00 | disposition left against medical advice (07) ==
PROVIDERS: Emergency Provider Student in an Organized Health Care Education/Training Program
DX: T65.91XA Toxic effect of unspecified substance, accidental (unintentional), initial encounter (principal); Y92.9 Unspecified place or not applicable; I49.9 Cardiac arrhythmia, unspecified; Z11.52 Encounter for screening for COVID-19; Z20.822 Contact with and (suspected) exposure to COVID-19
CPT/HCPCS: 0241U; 93005; 99283; 99284

== ENCOUNTER → 2024-01-15 09:48 | Outpatient (BNV) | payer MEDICAID, SELFPAY | PROVIDERS: Emergency Provider Student in an Organized Health Care Education/Training Program; Visit Provider Internal Medicine Cardiovascular Disease | DX: R53.1 Weakness (principal); R56.9 Unspecified convulsions | CPT/HCPCS: 93010 ==

== ENCOUNTER 2024-01-15 14:11 | Emergency (ER) | payer MEDICAID, SELFPAY ==
[2024-01-15 14:20] VITALS: PULSE 122; O2SAT 97
--- NOTE | 2024-01-15 14:32 | ED_ITS ---
HPI - General Adult General Chief complaint: General Medical Stated complaint: ? SZ VS OD,NARCAN GIVEN PER EMS Related Data Home Medications Medication Instructions Recorded Confirmed No Known Home Meds 10/11/23 10/11/23 Allergies Allergy/AdvReac Type Severity Reaction Status Date / Time No Known Allergies Allergy Verified 01/15/24 14:33 [facility] Social History Social History Alcohol intake: never Substance Use Type: Opiates Advance Directives: No Advance Directives Information Provided: No Physical Exam ED Vital Signs: Vital Signs - 24 hr 01/15/24 14:34 Temperature 98 F Pulse Rate 110 H Respiratory Rate 19 Blood Pressure 121/73 Pulse Oximetry 98 Oxygen Delivery Method Room Air BMI result Body Mass Index 23.1 Course Course Course Narrative: This is a rapid medical exam. Deferred additional HPI, ROS, PE to primary provider. 23 yo male with history of polysubstance use disorder here with concern for possible seizure. Per girlfriend patient had generalized shaking activity with foaming in the mouth also incontinence of urine/stool and she was concerned he may be having a seizure. Also with waking was confused for several minutes. She did give narcan prior to arrival. Per gf patient was released from rehab one week ago and she does not think he has been using substances. Now alert and oriented x 4 Will obtain labs, UA, EKG. VSS Discharge Plan Discharge Clinical Impression: Weakness Patient Disposition: Left W/O Completing Treatment Prescriptions: No Action No Known Home Meds Discharge Date/Time: 01/15/24 19:20
[2024-01-15 14:34] VITALS: BP 121/73; PULSE 110; RESP 19; TEMP 36.6; O2SAT 98; BMI 23.1
--- NOTE | 2024-01-15 14:36 | ECG_ITS ---
Test Reason : WEAKNESS Blood Pressure : / mmHG Vent. Rate : 089 BPM Atrial Rate : 089 BPM P-R Int : 130 ms QRS Dur : 082 ms QT Int : 322 ms P-R-T Axes : 087 080 044 degrees QTc Int : 391 ms Normal sinus rhythm Normal ECG When compared with ECG of 15-JAN-2024 10:22, No significant change was found Referred By: Daisha Smith Electronically Signed By:RAVEN HENRIQUEZ MD
--- NOTE | 2024-01-15 19:19 | PC.NURSE ---
Pt witnessed leaving ED per Registration staff with family. Previously called by [facility], refused labs x2.
== END 2024-01-15 19:20 | disposition left against medical advice (07) ==
PROVIDERS: Emergency Provider Emergency Medicine
DX: R53.1 Weakness (principal); I49.8 Other specified cardiac arrhythmias
CPT/HCPCS: 93005; 99283

== ENCOUNTER 2024-01-17 10:30 | Emergency (ER) | payer MEDICAID, SELFPAY ==
--- NOTE | ~2024-01-17 | CT_ITS ---
EXAMINATION: CT HEAD WITHOUT CONTRAST CLINICAL INFORMATION: Seizure COMPARISON: None available. TECHNIQUE: Contiguous axial imaging was performed from the skull base to vertex without intravenous administration of contrast. This CT examination was performed using dose optimization techniques as appropriate, variously including the following: *Automated exposure control *Adjustment of mA and/or kV according to patient size (this includes techniques or standardized protocols for targeted exams where dose is matched to indication/reason for exam; i.e. extremities or head) *Use of iterative reconstruction technique DLP: 672 mGy-cm FINDINGS: There is no intracranial hemorrhage. There is no evidence of acute/subacute cerebral or cerebellar infarction. There is no mass effect, midline shift, or extra-axial fluid collection. The orbits are symmetric and within normal limits. The calvarium is intact. The mastoid air cells are well aerated. The visualized paranasal sinuses are clear. CT/CT head/brain wo IV con IMPRESSION: No acute intracranial pathology.
[2024-01-17 10:57] VITALS: BP 122/37; PULSE 91; RESP 16; TEMP 36.7; O2SAT 99; BMI 23.7
[2024-01-17 12:13] LABS: MANUAL DIFF FLAG NO
[2024-01-17 12:16] LABS: Basophils Percent Auto 0.4 % (0-2); Eosinophils Absolute Auto 0.3 X10*3/uL (0.0-0.4); Eosinophils Percent Auto 3.4 % (0-4); Hematocrit 44.2 % (42.0-52.0); Hemoglobin 14.8 g/dl (14.0-18.0); Imm Gran Abs Auto 0.02 X10*3/uL (0.00-0.03); Imm Gran Pct Auto 0.3 % (0.0-0.4); Lymphocytes Absolute Auto 1.8 X10*3/uL (1.2-4.9); Lymphocytes Percent Auto 23.8 % (20-40); Mean Corpuscular HGB Conc 33.5 g/dl (31.0-36.0); Mean Corpuscular Hemoglobin 28.7 pg (27.0-33.0); Mean Corpuscular Volume 85.7 fL (80.0-98.0); Mean Platelet Volume 8.8 fL (9.4-12.4); Monocytes Absolute Auto 0.7 X10*3/uL (0.1-1.2); Monocytes Percent Auto 9.7 % (2-11); Neutrophils Absolute Auto 4.7 x10*3/uL (2.0-8.3); Neutrophils Percent Auto 62.4 % (45-73); Platelet Count 285 X10*3/uL (160-400); Red Blood Count 5.16 X10*6/uL (4.60-5.80); Red Cell Distribution Width 11.7 % (11.0-16.0); White Blood Count 7.6 X10*3/uL (4.8-10.8)
[2024-01-17 12:27] LABS: Anion Gap 11 (12-20); Blood Urea Nitrogen 17 mg/dL (9-16); Calcium 9.5 mg/dL (8.4-10.2); Carbon Dioxide 29 mmol/L (22-29); Chloride 107 mmol/L (96-108); Creatinine Clr Calc Pharmacy 142.1; Estimated Glomerular Filt Rate > 60; Glucose Random 102 mg/dL (60-115); Potassium 4.1 mmol/L (3.3-5.1); Sodium 143 mmol/L (135-145)
[2024-01-17 19:46] VITALS: BP 121/56; PULSE 68; RESP 16; TEMP 36.6; O2SAT 98
[2024-01-17 19:52] LABS: Magnesium 2.3 mg/dL (1.6-2.6)
--- NOTE | 2024-01-17 20:22 | PC.NURSE ---
Provider at bedside.
[2024-01-17 20:43] LABS: Ethanol < 10 mg/dL
--- NOTE | 2024-01-17 20:56 | ED_ITS ---
HPI - General Adult General Chief complaint: Seizure Stated complaint: Referred by PCP - history of seizures Time Seen by Provider: 01/17/24 20:09 Source: patient, RN notes reviewed and old records reviewed Mode of arrival: ambulatory Limitations: no limitations History of Present Illness HPI narrative: 23-year-old male who denies any past medical history presents for evaluation of ?possible seizures. ? Patient reports 2 days ago on Tuesday he had 2 possible seizures His significant other is bedside with him. Apparently around 8:00 a.m. Tuesday morning he was sleeping and the patient's significant other noticed generalized shaking which seemed consistent with a seizure. She states he has had similar episodes with substance abuse in the past she gave him Narcan His symptoms lasted a few minutes and he was somewhat confused afterwards He had a similar episode around noon that same day He was brought to the ER for evaluation but left before completing treatment Patient reports he has not used any substances since October as he has been in rehab Currently he states he feels somewhat weak and lightheaded but denies any headache blurry vision, nausea vomiting Related Data Home Medications Medication Instructions Recorded Confirmed No Known Home Meds 10/11/23 10/11/23 Allergies Allergy/AdvReac Type Severity Reaction Status Date / Time No Known Allergies Allergy Verified 01/15/24 14:33 Review of Systems 2 Constitutional: Constitutional: Denies body ache(s), Denies chills, Denies fever(s), Denies frequent falls and Denies headache(s) Eyes: Eyes: Denies blurry vision ENT: Denies headache(s) and Denies sore throat Cardiovascular: Cardiovascular: Denies chest pain and Denies dyspnea Respiratory: Respiratory: Denies cough and Denies dyspnea Gastrointestinal: Gastrointestinal: Denies abdominal pain, Denies nausea and Denies vomiting Musculoskeletal: Musculoskeletal: Denies back pain Integumentary/Breasts: Skin/Breast: Denies rash Neurologic: Denies frequent falls, Denies headache(s) and Reports convulsions (2 days ago) PMF Social History Social History Alcohol intake: never Substance Use Type: Opiates Advance Directives: No Advance Directives Information Provided: No Physical Exam ED Vital Signs: Vital Signs - 24 hr 01/17/24 10:57 01/17/24 19:46 Temperature 98.1 F 97.8 F Pulse Rate 91 68 Respiratory Rate 16 16 Blood Pressure 122/37 L 121/56 L Pulse Oximetry 99 98 Oxygen Delivery Method Room Air BMI result Body Mass Index 23.7 Const General: healthy appearing, comfortable, no acute distress, alert and awake Nutritional Appearance: well nourished Orientation/consciousness: patient oriented x3 HENMT Head: Yes normocephalic and Yes atraumatic Mouth: abnormal tongue (Abrasion to the right lateral tongue) Eyes Eyelids: Yes eyelids normal Conjunctivae: conjunctivae normal Sclerae: sclerae normal Corneas: corneas normal Pupils: Equal, round and reactive pupils present EOM: EOMs intact bilaterally Neck Neck: Yes full ROM Resp Effort & Inspection: normal respiratory effort, able to speak in complete sentences and not labored Cardio Rate: regular rate Rhythm: regular rhythm GI Inspection: No distended Palpation (GI): Soft to palpation, not firm, nontender, no guarding and not rigid Skin General skin exam: no rashes or lesions noted and elasticity normal Neuro General: patient oriented x3 Cranial nerves: Yes CN's II-XII intact bilaterally, Yes Equal, round and reactive pupils present and Yes Bilaterally intact EOM present Cognition (Neuro): normal cognition Extrem Other: Moving all extremities well without any obvious deformities Medical Decision Making Medical Decision Making [facility] Narrative: 23-year-old male presents for evaluation of potential seizure episodes 2 days ago. Currently he has had 48 hours without any symptoms. He denies any headaches, his neuro exam is reassuring. His labs are unremarkable, CT scan of the head did not show any concerning abnormalities. He has not provided a urine for tox screen but explicitly denies any substance abuse. I asked the patient again after his girlfriend stepped out and he maintains he has not been using any illicit substances. Unclear if these are true seizures or not. The patient states that he lost his license due to legal reasons and does not drive but I encouraged him to avoid driving for at least 6 months Differential Diagnosis Differential Diagnoses: The differential diagnosis associated with the presentation includes Seizure disorder Epilepsy Opiate withdrawal Intracranial mass Lab Data [facility] Lab Attestation statement: I reviewed the patient's lab results. No leukocytosis or anemia. Normal platelet count. No electrolyte abnormalities. Normal renal function. 01/17/24 12:07 01/17/24 12:07 Labs: Lab Results 01/17/24 Range/Units 12:07 WBC 7.6 (4.8-10.8) X10*3/uL RBC 5.16 (4.60-5.80) X10*6/uL Hgb 14.8 (14.0-18.0) g/dl Hct 44.2 (42.0-52.0) % MCV 85.7 (80.0-98.0) fL MCH 28.7 (27.0-33.0) pg MCHC 33.5 (31.0-36.0) g/dl RDW 11.7 (11.0-16.0) % Plt Count 285 (160-400) X10*3/uL MPV 8.8 L (9.4-12.4) fL Immature Gran % (Auto) 0.3 (0.0-0.4) % Neut % (Auto) 62.4 (45-73) % Lymph % (Auto) 23.8 (20-40) % [place] % (Auto) 9.7 (2-11) % Eos % (Auto) 3.4 (0-4) % Baso % (Auto) 0.4 (0-2) % Lymph # (Auto) 1.8 (1.2-4.9) X10*3/uL [place] # (Auto) 0.7 (0.1-1.2) X10*3/uL Eos # (Auto) 0.3 (0.0-0.4) X10*3/uL Baso # (Auto) 0.0 (0.0-0.2) X10*3/uL Abs Immat Gran (auto) 0.02 (0.00-0.03) X10*3/uL Absolute Neuts (auto) 4.7 (2.0-8.3) x10*3/uL Absolute Nucleated RBC 0.000 (0.0-0.012) X10*3/uL Nucleated RBC % (auto) 0.0 (0.0-0.2) /100WBC Sodium 143 (135-145) mmol/L Potassium 4.1 (3.3-5.1) mmol/L Chloride 107 (96-108) mmol/L Carbon Dioxide 29 (22-29) mmol/L Anion Gap 11 L (12-20) BUN 17 H (9-16) mg/dL Creatinine 0.82 (0.5-1.4) mg/dL Estim Creat Clear Calc 142.1 Estimated GFR > 60 Random Glucose 102 (60-115) mg/dL Calcium 9.5 (8.4-10.2) mg/dL Magnesium 2.3 (1.6-2.6) mg/dL Ethyl Alcohol < 10 mg/dL Radiology Impression Discussion of test interpretation with radiology: I have reviewed the radiologist's reading. (No acute intracranial pathology) Discharge Plan Discharge Clinical Impression: Observed seizure-like activity Patient Disposition: Home, Self-Care Instructions: New-Onset Seizure in Adults (ED) Additional Instructions: Your workup in the ER today was reassuring. This includes your blood work, CT scan. Given that there was a concern that you had a seizure, you should not drive or operate heavy machinery for at least 6 months or until cleared by your primary doctor. You may follow-up with Dr. Mckeon, neurology Return for new or worsening symptoms Prescriptions: No Action No Known Home Meds Referrals: Evans Mckeon MD [Physician] - (possible new onset seizure disorder)
[2024-01-17 21:21] LABS: Appearance Urine Clear; Color Urine Yellow; Glucose Urine UA Negative (Negative); Leukocyte Esterase Urine Negative (Negative); Nitrite Urine Negative (Negative); Specific Gravity - Urine 1.025 (1.005-1.025); Urine Blood Negative (Negative); Urine Ketones Negative (Negative); Urine Protein Trace mg/dL (Neg-Trace)
[2024-01-17 21:28] LABS: Amphetamine Screen Urine Not Detected (Not Detect); Barbiturates, Urine Not Detected (Not Detect); Benzodiazepines Screen Urine Not Detected (Not Detect); Cannabinoid Screen Urine POSITIVE (Not Detect); Cocaine Screen Urine Not Detected (Not Detect); Fentanyl, urine Not Detected (Not Detect); Opiate Screen Urine Not Detected (Not Detect); Phencyclidine Screen Urine Not Detected (Not Detect)
== END 2024-01-17 21:26 | disposition home or self-care (01) ==
PROVIDERS: Physician Assistant; Emergency Provider Emergency Medicine
DX: R56.9 Unspecified convulsions (principal); Z79.899 Other long term (current) drug therapy
CPT/HCPCS: 36415; 70450; 80048; 80307; 81003; 83735; 85025; 99283; 99284

== ENCOUNTER 2024-02-27 15:55 | Inpatient (IN) | payer MEDICAID, SELFPAY ==
--- NOTE | ~2024-02-27 | CT_ITS ---
EXA EXAMINATION: CT head/brain wo IV con CLINICAL INFORMATION: Reason for Exam seizures COMPARISON: CT head without contrast 01/17/2024 TECHNIQUE: Contiguous axial imaging was performed from the skull base to vertex without intravenous contrast. Sagittal and coronal reformatted images were obtained. This CT examination was performed using dose optimization techniques as appropriate, variously including the following: * Automated exposure control * Adjustment of mA and/or kV according to patient size (this includes techniques or standardized protocols for targeted exams where dose is matched to indication/reason for exam; i.e. extremities or head) Use of iterative reconstruction technique DLP: 1116 mGy-cm FINDINGS: No acute osseous or soft tissue abnormality. The mastoids are clear. Trace scattered paranasal sinus mucosal thickening. Multiple mandibular dental caries. Periapical lucency involving a right mandibular molar. There is no evidence of acute intracranial hemorrhage or territorial infarction. No abnormal mass effect or midline shift is seen. [place] to white matter differentiation is well preserved. No extra-axial fluid collections are identified. No hydrocephalus. No significant volume loss. There is no abnormal attenuation within the brain parenchyma. CT/CT head/brain wo IV con IMPRESSION: No acute intracranial abnormality including hemorrhage, mass effect, hydrocephalus, or acute territorial edematous infarction.
--- NOTE | ~2024-02-27 | XR_ITS ---
EXAMINATION: XR CHEST CLINICAL INFORMATION: Aspiration pneumonia COMPARISON: None available. TECHNIQUE: Frontal view of the chest was obtained. FINDINGS: The lungs are adequately expanded. No focal consolidation. No pleural effusion, edema or pneumothorax. The cardiomediastinal silhouette is within normal limits. No acute osseous abnormality. XR/XR chest 1V IMPRESSION: No acute pulmonary disease.
[2024-02-27 15:59] VITALS: BP 122/78; PULSE 104; O2SAT 97
[2024-02-27 16:02] VITALS: BP 122/71; PULSE 110; RESP 16; TEMP 35.7; O2SAT 97; BMI 24.9
--- NOTE | 2024-02-27 16:03 | ED.OVERDOSE ---
HPI - Overdose General Chief Complaint: Overdose Stated Complaint: OVERDOSE Time Seen by Provider: 02/27/24 15:57 Source: EMS Mode of arrival: EMS Limitations: altered mental status History of Present Illness HPI Narrative: Patient comes to the emergency room via ambulance. Per EMS, patient was found unresponsive by family, given intranasal Narcan, patient woke up immediately, aggressive, vomiting. Questionably, per EMS patient had a seizure before they arrived. Patient seems to be postictal. Patient is to altered to give any history. According to EMS, family reported that when patient gets Narcan or overdoses he tends to seize. Related Data Home Medications ?Medication ?Instructions ?Recorded ?Confirmed No Known Home Meds 10/11/23 10/11/23 Allergies Allergy/AdvReac Type Severity Reaction Status Date / Time No Known Allergies Allergy Verified 02/27/24 16:08 Review of Systems Review of Systems: Yes Unobtainable due to mental status PMFSH Past Medical History Medical History (Updated 02/27/24 @ 21:46 by Nury Spencer MD) Seizure Overdose Social History Social History Alcohol intake: never Substance Use Type: Opiates Advance Directives: No Advance Directives Information Provided: No Do you have a plan to hurt others: No Plan Physical Exam Vital Signs: Vital Signs: Last Vital Signs Temp 96.2 F L 02/27/24 16:02 Pulse 99 02/27/24 20:12 Resp 14 02/27/24 20:12 BP 112/39 L 02/27/24 20:12 Pulse Ox 98 02/27/24 20:12 O2 Del Method Room Air 02/27/24 20:12 BMI result Body Mass Index 24.9 Const: Other: Appearance: Awake, postictal, very confused Eyes: Pupils equal, round and reactive to light. ENT: Pharynx normal. Neck: Normal inspection. Neck supple. No lymph nodes noted. No crepitus CVS: Normal heart rate and rhythm. Pulses normal. Normal S1 and S2 Respiratory: No respiratory distress. Breath sounds normal. No Wheezing. No rales Abdomen: Soft and nontender. No rigidity. No distention. Skin: Skin warm and dry. Normal skin color. Normal skin turgor. Extremities: No lower extremity edema. No Lacerations. No Rash Neuro: Postictal, very confused, moving all extremities. Psych: Postictal Course Course Course Narrative: -patient arrived awake, alert but very confused. -shortly after his arrival, patient had tonic-clonic seizure. Patient's oxygen saturation dropped to the mid 70s with good platform. Patient received 2 mg of Ativan IM. Patient was put on non-rebreather, oxygen improved to 99%. Patient very Medications Administered Discontinued Medications Generic Name Dose Route Start Last Admin Trade Name Fitz PRN Reason Stop Dose Admin Dextrose/Sodium Chloride 1,000 mls @ 999 mls/hr 02/27/24 17:08 02/27/24 20:08 D5ns IVCONT 02/27/24 18:08 Infused .Q1H1M ONE Infusion Levetiracetam 1,500 mg in 100 mls @ 400 mls/hr 02/27/24 17:28 02/27/24 18:22 Keppra IV 02/27/24 17:42 Infused ONCE ONE Infusion Dextrose/Sodium Chloride 1,000 mls @ 999 mls/hr 02/27/24 18:47 02/27/24 20:12 D5ns IVCONT 02/27/24 19:47 999 mls/hr .Q1H1M ONE Administration Lorazepam 2 mg 02/27/24 18:46 02/27/24 16:07 Lorazepam 2 Mg/Ml Vial IM 02/27/24 18:47 2 mg STAT STA Administration Lorazepam 2 mg 02/27/24 18:46 02/27/24 16:12 Lorazepam 2 Mg/Ml Vial IM 02/27/24 18:47 2 mg STAT STA Administration Lorazepam 2 mg 02/27/24 18:46 02/27/24 16:19 Lorazepam 2 Mg/Ml Vial IM 02/27/24 18:47 2 mg STAT STA Administration Sodium Bicarbonate 50 meq 02/27/24 19:01 02/27/24 20:11 Sodium Bicarbonate 8.4% 50 Meq/50 Ml Syringe IVPUSH 02/27/24 19:02 50 meq ONCE ONE Administration Medical Decision Making Medical Decision Making [facility] Narrative: -patient received a total of 6 mg IM of Ativan for seizures. -patient received a dose of Keppra 1500 mg IV -my interpretation of labs: White blood cell count 20.4, lactic acid 20.2, both secondary to seizures, sepsis not suspected. Patient's bicarb is 9. Patient receiving IV fluids. After IV fluids have been completed, we will recheck patient's labs. -patient was not here on 01/17/2024, patient had a similar presentation, CT scan was done, no acute abnormality. At this time no need to repeat CT scan. Seems that patient has a recurrent issue with seizures /pseudo-seizure when he overdoses -head CT pending -lactic acid improved from 20-2.3. -repeat chemistry pending -I discussed the patient with Dr. Curtis, patient being admitted, pending labs and CT, sign-out given to my colleague Dr. Medina Differential Diagnosis Differential Diagnoses: The differential diagnosis associated with the presentation includes (Overdose, seizure, pseudo-seizure, intracranial abnormality) Admission/Observation Consideration of admission/observation: Escalation of care including admission/observation considered Consult Healthcare Provider Management of the patient was discussed with: Hospitalist Lab Data MDM Lab Attestation statement: I reviewed the patient's lab results. 02/27/24 16:28 02/27/24 16:28 Labs: Lab Results 02/27/24 02/27/24 Range/Units 16:28 19:25 WBC 20.4 H (4.8-10.8) X10*3/uL RBC 6.01 H (4.60-5.80) X10*6/uL Hgb 17.0 (14.0-18.0) g/dl Hct 53.6 H D (42.0-52.0) % MCV 89.2 (80.0-98.0) fL MCH 28.3 (27.0-33.0) pg MCHC 31.7 (31.0-36.0) g/dl RDW 11.8 (11.0-16.0) % Plt Count 372 D (160-400) X10*3/uL MPV 10.3 (9.4-12.4) fL Immature Gran % (Auto) 0.6 H (0.0-0.4) % Neut % (Auto) 74.7 H (45-73) % Lymph % (Auto) 18.8 L (20-40) % [place] % (Auto) 5.5 (2-11) % Eos % (Auto) 0.1 (0-4) % Baso % (Auto) 0.3 (0-2) % Lymph # (Auto) 3.8 (1.2-4.9) X10*3/uL [place] # (Auto) 1.1 (0.1-1.2) X10*3/uL Eos # (Auto) 0.0 (0.0-0.4) X10*3/uL Baso # (Auto) 0.1 (0.0-0.2) X10*3/uL Abs Immat Gran (auto) 0.12 H (0.00-0.03) X10*3/uL Absolute Neuts (auto) 15.2 H (2.0-8.3) x10*3/uL Absolute Nucleated RBC 0.000 (0.0-0.012) X10*3/uL Nucleated RBC % (auto) 0.0 (0.0-0.2) /100WBC Sodium 147 H (135-145) mmol/L Potassium 3.5 (3.3-5.1) mmol/L Chloride 109 H (96-108) mmol/L Carbon Dioxide 9 L* D (22-29) mmol/L Anion Gap 33 H (12-20) BUN 11 (9-16) mg/dL Creatinine 1.12 (0.5-1.4) mg/dL Estim Creat Clear Calc 94.2 Estimated GFR > 60 Random Glucose 179 H (60-115) mg/dL Lactic Acid 20.2 H* 2.3 H* (0.5-2.0) mmol/L Calcium 10.3 H D (8.4-10.2) mg/dL Total Bilirubin 0.6 (0.0-1.0) mg/dL Direct Bilirubin 0.2 (0.0-0.5) mg/dL AST 17 (5-37) U/L ALT 19 (0-40) U/L Alkaline Phosphatase 88 (39-117) U/L Total Protein 9.0 H (6.5-8.0) g/dL Albumin 5.3 H (3.5-5.0) g/dL Ethyl Alcohol < 10 mg/dL Critical Care Time Critical Care Time Critical Care Time: Yes Total Critical Care Time: 60 Attestation: I have personally provided critical care time. Time includes review of lab data, radiology results, discussion with consultants, and monitoring for potential decompensation. Intervention performed as documented. Discharge Plan Discharge Clinical Impression: Drug overdose, Tonic clonic seizures Patient Disposition: Admitted As Inpatient Prescriptions: No Action No Known Home Meds Print Language: German
[2024-02-27] MEDS: LORazepam 2 MG/ML VIAL IM ×3 (16:07→16:19)
[2024-02-27 16:21] VITALS: BP 157/89; PULSE 130; RESP 36; O2SAT 99
[2024-02-27 16:31] LABS: MANUAL DIFF FLAG NO
[2024-02-27 16:34] VITALS: BP 106/54; PULSE 110; RESP 24; O2SAT 95
--- NOTE | 2024-02-27 16:35 | PC.NURSE ---
pt arrived to ED via EMS, query poss OD - family gave narcan prior to EMS arrival, on EMS arrival combative, punching and spitting at EMS. hx seizures r/t drug use/narcan administration. pt noted to be seizing at 1604 - provider at bedside, O2 administered via oxymask. pt transitioned into ED21, 2mg ativan given IM R upper leg per provider verbal order@ 1607, property assessment monitor applied. labs obtained, pt postictal, requiring hands on restraint by RNs and security for pt medication additional 2mg ativan given IM in L upper leg administration per provider verbal order @ 1612. 20G PIV established, medicated w additional 2mg ativan IV per provider verbal order at 1619. at this time pt remains postictal, calmer, able to release physical hold. additional labs drawn. seizure precautions in place.
[2024-02-27 16:37] LABS: Basophils Absolute Auto 0.1 X10*3/uL (0.0-0.2); Basophils Percent Auto 0.3 % (0-2); Eosinophils Percent Auto 0.1 % (0-4); Hematocrit 53.6 % (42.0-52.0); Imm Gran Abs Auto 0.12 X10*3/uL (0.00-0.03); Imm Gran Pct Auto 0.6 % (0.0-0.4); Lymphocytes Absolute Auto 3.8 X10*3/uL (1.2-4.9); Lymphocytes Percent Auto 18.8 % (20-40); Mean Corpuscular HGB Conc 31.7 g/dl (31.0-36.0); Mean Corpuscular Hemoglobin 28.3 pg (27.0-33.0); Mean Corpuscular Volume 89.2 fL (80.0-98.0); Mean Platelet Volume 10.3 fL (9.4-12.4); Monocytes Absolute Auto 1.1 X10*3/uL (0.1-1.2); Monocytes Percent Auto 5.5 % (2-11); Neutrophils Absolute Auto 15.2 x10*3/uL (2.0-8.3); Neutrophils Percent Auto 74.7 % (45-73); Platelet Count 372 X10*3/uL (160-400); Red Blood Count 6.01 X10*6/uL (4.60-5.80); Red Cell Distribution Width 11.8 % (11.0-16.0); White Blood Count 20.4 X10*3/uL (4.8-10.8)
[2024-02-27 16:56] LABS: Alanine Aminotransferase 19 U/L (0-40); Albumin Level 5.3 g/dL (3.5-5.0); Alkaline Phosphatase 88 U/L (39-117); Anion Gap 33 (12-20); Aspartate Amino Transferase 17 U/L (5-37); Bilirubin Direct 0.2 mg/dL (0.0-0.5); Bilirubin Total 0.6 mg/dL (0.0-1.0); Blood Urea Nitrogen 11 mg/dL (9-16); Calcium 10.3 mg/dL (8.4-10.2); Carbon Dioxide 9 mmol/L (22-29); Chloride 109 mmol/L (96-108); Creatinine Clr Calc Pharmacy 94.2; Estimated Glomerular Filt Rate > 60; Ethanol < 10 mg/dL; Glucose Random 179 mg/dL (60-115); Potassium 3.5 mmol/L (3.3-5.1); Sodium 147 mmol/L (135-145)
[2024-02-27 16:57] LABS: Lactic Acid 20.2 mmol/L (0.5-2.0)
[2024-02-27] MEDS: levETIRAcetam in NaCl (iso-os) 1,500 MG/100 ML PIGGYBACK 400 MG IV (18:07)
[2024-02-27] MEDS: Dextrose 5 % and 0.9 % NaCl 1,000 ML 999 ML IVCONT ×2 (18:07→20:12)
[2024-02-27 18:31] LABS: Reflex Lactate? Lactic Acid Added
--- NOTE | 2024-02-27 19:29 | PC.NURSE ---
Assumed care of pt. pt lying curled up on bed, refusing care. IVF running. Obtained additional labs with resistance from pt, but no complications. Continuing plan to monitor pt for improvement.
[2024-02-27 19:56] LABS: Lactic Acid 2.3 mmol/L (0.5-2.0)
[2024-02-27] MEDS: Sodium Bicarbonate 8.4% 50 MEQ/50 ML SYRINGE IVPUSH (20:11)
[2024-02-27 20:12] VITALS: BP 112/39; PULSE 99; RESP 14; O2SAT 98
--- NOTE | 2024-02-27 20:41 | MHC.EDTECH ---
Patient incontinent of urine. Full bed change.
--- NOTE | 2024-02-27 20:49 | PC.NURSE ---
Sent message to MD Curtis, admitting hospitalist regarding status: He has been and is continuing to be uncooperative with care, I was able to ge the repeat lactic, but can't get the VBG at this time, as well I was able to give the Sodium Bicarb, but not the 2nd L of D5. he has urinated on himself multiple times and we have been unable to obtain urine from him so far.
--- NOTE | 2024-02-27 21:04 | PC.NURSE ---
marketing officer called this RN for status update on pat (pt has ankle bracelet). Notified that we expect to be keeping pt for next few hours at a minimum.
[2024-02-27 21:28] LABS: Reflex Lactate? Lactic Acid Added
--- NOTE | 2024-02-27 21:48 | PHA.MEDREC ---
Pharmacy Consult ? Medication Reconciliation Pharmacy has completed the medication reconciliation. Patient uncooperative, med rec done by claim history. No Known medications. Lucero Lafleur, LesliD
[2024-02-27 22:19] LABS: VBG Base Excess -1.6 mmol/L; VBG HCO3 20 mmol/L (22-26); VBG pCO2 29 mmHg; VBG pH 7.45 (7.32-7.43); VBG pO2 117 mmHg
[2024-02-27 22:24] LABS: Venous Blood Gas Refer to POC result
[2024-02-27 22:33] LABS: ~Lactic Acid-LAB USE ONLY 1.7 mmol/L (0.5-2.0)
[2024-02-27 22:39] LABS: Anion Gap 13 (12-20); Blood Urea Nitrogen 9 mg/dL (9-16); Calcium 8.9 mg/dL (8.4-10.2); Carbon Dioxide 23 mmol/L (22-29); Chloride 112 mmol/L (96-108); Creatinine Clr Calc Pharmacy 92.6; Estimated Glomerular Filt Rate > 60; Glucose Random 88 mg/dL (60-115); Potassium 3.7 mmol/L (3.3-5.1); Sodium 144 mmol/L (135-145)
--- NOTE | 2024-02-27 22:39 | PC.NURSE ---
Pt requiring redirection for any testing and assessments. Obtained labs and IVF running .
[2024-02-28 00:03] LABS: Appearance Urine Clear; Color Urine Yellow; Glucose Urine UA 100 mg/dL (Negative); Leukocyte Esterase Urine Negative (Negative); Nitrite Urine Negative (Negative); Specific Gravity - Urine <= 1.005 (1.005-1.025); Urine Blood Negative (Negative); Urine Ketones Negative (Negative); Urine Protein Negative (Neg-Trace)
[2024-02-28 00:08] LABS: Bacteria Urine None Seen (None Seen); Hyaline Casts Urine 0-2 /LPF (0-2); RBC Urine 0-2 /HPF (0-2); Squamous Epithelial Cell Urine 0-2 /HPF (0-2); WBC Urine 0-5 /HPF (0-5)
[2024-02-28 00:14] LABS: Amphetamine Screen Urine Not Detected (Not Detect); Barbiturates, Urine Not Detected (Not Detect); Benzodiazepines Screen Urine Not Detected (Not Detect); Buprenorphine Scr Not Detected (Not Detect); Cannabinoid Screen Urine POSITIVE (Not Detect); Cocaine Screen Urine Not Detected (Not Detect); Fentanyl, urine Not Detected (Not Detect); Methadone Screen, Urine Not Detected (Not Detect); Opiate Screen Urine Not Detected (Not Detect); Oxycodone Screen Urine Not Detected (Not Detect); Phencyclidine Screen Urine Not Detected (Not Detect)
--- NOTE | 2024-02-28 00:19 | P.HPHOSP_ITS ---
History of Present Illness Date of Service: 02/28/24 Chief Complaint: Altered mentation This is a 23-year-old male with no pertinent past medical history who was brought to the emergency department for evaluation of altered mentation and possible episode of seizure. Patient was found unresponsive by family. He was given intranasal Narcan with improvement in mentation. Subsequently patient became aggressive and vomited. Also had an episode of seizure as per EMS. Patient unable to provide history at the time of my evaluation. History obtained from ER provider and chart review. As per family, patient does have a history of seizure likely in the setting of drugs but is not on any antiepileptics. Unable to obtain review of systems Review of Systems 2 Review of Systems: Yes Unobtainable due to mental status PMFSH Medical History Seizure Overdose Pertinent family history: Unable to obtain Social History Alcohol intake: never Patient Tobacco Use Status: Never used Tobacco Substance Use Type: Opiates Advance Directives: No Advance Directives Information Provided: No Do you have a plan to hurt others: No Plan Nutrition Risks: No Nutritional Risk Meds Allergies Allergy/AdvReac Type Severity Reaction Status Date / Time No Known Allergies Allergy Verified 02/27/24 16:08 Home Medications ?Medication ?Instructions ?Recorded ?Confirmed ?Last Taken ?Type No Known Home Meds 10/11/23 02/27/24 Unknown History Physical Exam 2 Vital Signs and Narrative: Vital Signs: Last Vital Signs Temp 96.2 F L 02/27/24 16:02 Pulse 99 02/27/24 20:12 Resp 14 02/27/24 20:12 BP 112/39 L 02/27/24 20:12 Pulse Ox 98 02/27/24 20:12 O2 Del Method Room Air 02/27/24 20:12 BMI result Body Mass Index 24.9 Middle-aged male lying in bed in no distress Neck supple, no JVD Regular rate and rhythm, S1-S2 heard Regular breath sounds bilaterally, no wheezing or crackles appreciated Abdomen soft nontender, no guarding, no rigidity Patient is only eye opening to verbal stimulus, non conversational, unable to assess orientation Psych: Drowsy No pedal edema Results Labs 02/28/24 05:43 02/28/24 05:43 Labs: Laboratory Results - last 24 hr 02/27/24 02/27/24 02/27/24 16:28 19:25 22:08 MCV 89.2 MCH 28.3 MCHC 31.7 RDW 11.8 Plt Count 372 D MPV 10.3 Immature Gran % (Auto) 0.6 H Neut % (Auto) 74.7 H Lymph % (Auto) 18.8 L [place] % (Auto) 5.5 Eos % (Auto) 0.1 Baso % (Auto) 0.3 Lymph # (Auto) 3.8 [place] # (Auto) 1.1 Eos # (Auto) 0.0 Baso # (Auto) 0.1 Abs Immat Gran (auto) 0.12 H Absolute Neuts (auto) 15.2 H Absolute Nucleated RBC 0.000 Nucleated RBC % (auto) 0.0 VBG pH VBG pCO2 VBG pO2 VBG HCO3 VBG O2 Saturation VBG Base Excess Anion Gap 33 H 13 Estim Creat Clear Calc 94.2 92.6 Estimated GFR > 60 > 60 Random Glucose 179 H 88 Lactic Acid 20.2 H* 2.3 H* Lactic Acid F/U @ 2Hr 1.7 Calcium 10.3 H D 8.9 D Total Bilirubin 0.6 Direct Bilirubin 0.2 AST 17 ALT 19 Alkaline Phosphatase 88 Total Protein 9.0 H Albumin 5.3 H Urine Color Urine Appearance Urine pH Ur Specific [place] Urine Protein Urine Glucose (UA) Urine Ketones Urine Blood Urine Nitrite Ur Leukocyte Esterase Urine RBC Urine WBC Ur Squamous Epith Cells Urine Bacteria Hyaline Casts Urine Opiates Screen Ur Buprenorphine Scrn Ur Oxycodone Screen Urine Methadone Screen Urine Fentanyl Screen Ur Barbiturates Screen Ur Phencyclidine Scrn Ur Amphetamines Screen U Benzodiazepines Scrn Urine Cocaine Screen U Marijuana (THC) Screen Ethyl Alcohol < 10 02/27/24 02/27/24 22:11 23:55 MCV MCH MCHC RDW Plt Count MPV Immature Gran % (Auto) Neut % (Auto) Lymph % (Auto) [place] % (Auto) Eos % (Auto) Baso % (Auto) Lymph # (Auto) [place] # (Auto) Eos # (Auto) Baso # (Auto) Abs Immat Gran (auto) Absolute Neuts (auto) Absolute Nucleated RBC Nucleated RBC % (auto) VBG pH 7.45 H VBG pCO2 29 VBG pO2 117 VBG HCO3 20 L VBG O2 Saturation 100.0 VBG Base Excess -1.6 Anion Gap Estim Creat Clear Calc Estimated GFR Random Glucose Lactic Acid Lactic Acid F/U @ 2Hr Calcium Total Bilirubin Direct Bilirubin AST ALT Alkaline Phosphatase Total Protein Albumin Urine Color Yellow Urine Appearance Clear Urine pH 6.0 Ur Specific [place] <= 1.005 Urine Protein Negative Urine Glucose (UA) 100 H Urine Ketones Negative Urine Blood Negative Urine Nitrite Negative Ur Leukocyte Esterase Negative Urine RBC 0-2 Urine WBC 0-5 Ur Squamous Epith Cells 0-2 Urine Bacteria None Seen Hyaline Casts 0-2 Urine Opiates Screen Not Detected Ur Buprenorphine Scrn Not Detected Ur Oxycodone Screen Not Detected Urine Methadone Screen Not Detected Urine Fentanyl Screen Not Detected Ur Barbiturates Screen Not Detected Ur Phencyclidine Scrn Not Detected Ur Amphetamines Screen Not Detected U Benzodiazepines Scrn Not Detected Urine Cocaine Screen Not Detected U Marijuana (THC) Screen POSITIVE H Ethyl Alcohol Imaging Radiologist's Impressions: Impressions Head CT 02/27/24 22:23 IMPRESSION: No acute intracranial abnormality including hemorrhage, mass effect, hydrocephalus, or acute territorial edematous infarction. Assessment and Plan (1) Tonic clonic seizures: Status: Acute Plan This is a 23-year-old male with no pertinent past medical history who was brought to the emergency department for evaluation of altered mentation and possible episode of seizure. #. Generalized tonic clonic seizure: ?previous history of seizure. Will admit patient for observation. Obtaining MRI and EEG. Consulted Neurology, appreciate assistance #. Acute encephalopathy: Initially toxic with resolved with Narcan. Currently postictal #. Acute lactic acidosis due to seizure #. ?Drug overdose: Mentation improved with Narcan as per EMS. UDS positive for marijuana #. Acute lactic acidosis due to seizure. No sepsis #. Fever and white count likely in the setting of aspiration pneumonitis: Currently without distress and maintaining normal oxygen saturation on room air. No indication for antibiotics DVT prophylaxis: None. Patient is ambulatory Full code Quality Stroke Does the patient have a stroke diagnosis?: No VTE Prior VTE?: No VTE Risk Level:: Medical - low VTE Device Contraindication: Treatment Not Indicated VTE Drug Contraindication: Treatment Not Indicated
[2024-02-28] MEDS: ondansetron HCL 4 MG/2 ML VIAL IVPUSH (00:31)
[2024-02-28 00:33] VITALS: BP 130/65; PULSE 92; RESP 16; TEMP 38.2; O2SAT 99
[2024-02-28] MEDS: Acetaminophen 325 MG TABLET 650 MG PO (01:03)
[2024-02-28 02:33] VITALS: TEMP 38
[2024-02-28 03:26] VITALS: TEMP 37.2
[2024-02-28 04:08] VITALS: BP 106/53; PULSE 81; RESP 16; TEMP 37.9; O2SAT 97
[2024-02-28 05:49] LABS: MANUAL DIFF FLAG NO
[2024-02-28 06:02] LABS: Basophils Percent Auto 0.1 % (0-2); Eosinophils Percent Auto 0.1 % (0-4); Hematocrit 39.7 % (42.0-52.0); Hemoglobin 13.4 g/dl (14.0-18.0); Imm Gran Abs Auto 0.08 X10*3/uL (0.00-0.03); Imm Gran Pct Auto 0.6 % (0.0-0.4); Lymphocytes Absolute Auto 2.2 X10*3/uL (1.2-4.9); Lymphocytes Percent Auto 15.2 % (20-40); Mean Corpuscular HGB Conc 33.8 g/dl (31.0-36.0); Mean Corpuscular Hemoglobin 28.4 pg (27.0-33.0); Mean Corpuscular Volume 84.1 fL (80.0-98.0); Mean Platelet Volume 10.3 fL (9.4-12.4); Monocytes Absolute Auto 1.4 X10*3/uL (0.1-1.2); Monocytes Percent Auto 9.8 % (2-11); Neutrophils Absolute Auto 10.7 x10*3/uL (2.0-8.3); Neutrophils Percent Auto 74.2 % (45-73); Platelet Count 203 X10*3/uL (160-400); Red Blood Count 4.72 X10*6/uL (4.60-5.80); Red Cell Distribution Width 11.6 % (11.0-16.0); White Blood Count 14.4 X10*3/uL (4.8-10.8)
[2024-02-28 06:06] LABS: Anion Gap 12 (12-20); Blood Urea Nitrogen 8 mg/dL (9-16); Carbon Dioxide 20 mmol/L (22-29); Chloride 114 mmol/L (96-108); Creatinine Clr Calc Pharmacy 79.9; Estimated Glomerular Filt Rate > 60; Glucose Random 142 mg/dL (60-115); Potassium 3.3 mmol/L (3.3-5.1); Sodium 143 mmol/L (135-145)
[2024-02-28 06:30] VITALS: BP 106/49; PULSE 81; RESP 16; TEMP 37.2; O2SAT 97
--- NOTE | 2024-02-28 08:25 | PC.NURSE ---
patient requesting to leave, states that he does not want to be here all day. encouraged to stay to complete MRI, patient continues to state that he wants to leave and go home.
--- NOTE | 2024-02-28 09:02 | PC.NURSE ---
patient continues to state he wants to go home. hospitalist at bedside.
--- NOTE | 2024-02-28 09:19 | P.DS_ITS ---
DS: Providers Provider Date of Service: 02/28/24 Date of admission: 02/28/24 08:53 Primary care physician: [facility] Consults: 02/28/24 06:08 Consult to Neurology Routine Consulting Provider: [facility] Reason for consultation: seizure DS: Diagnosis Discharge Diagnosis (1) Tonic clonic seizures: Status: Acute DS: Summary Hospital Course Hospital Course: HPI: This is a 23-year-old male with no pertinent past medical history who was brought to the emergency department for evaluation of altered mentation and possible episode of seizure. Patient was found unresponsive by family. He was given intranasal Narcan with improvement in mentation. Subsequently patient became aggressive and vomited. Also had an episode of seizure as per EMS. Patient unable to provide history at the time of my evaluation. History obtained from ER provider and chart review. As per family, patient does have a history of seizure likely in the setting of drugs but is not on any an tiepileptics. Unable to obtain review of systems Hospital course: Patient was admitted for acute encephalopathy in the setting of seizure. Patient's mentation improved and back to baseline. EEG/MRI ordered and Neurology was consulted. Patient does not want to wait for studies or specialist evaluation. He wants to leave against medical advice. Patient understands the risk of leaving including . Patient states he only has seizures when he is given Narcan for drug overdose. Seizure disorder likely in the setting of drug overdose but will initiate Keppra as this is a 2nd episode of seizure and can not rule out underlying primary disorder in a patient who is not willing to undergo further workup. Patient had an episode of fever and leukocytosis during hospitalization which was likely due to aspiration pneumonitis in the setting of vomiting when patient was encephalopathy. No pneumonia and no indication for antibiotics Status at Discharge Functional status at discharge: independent ambulation Overall status at discharge: patient is back to baseline Time Attestation Discharge Coordination Time (in mins): 25 minutes Quality: Safe Use of Opioids Does Pt have an Active Cancer Diagnosis on the Problem List?: No Quality: Stroke Does the patient have a stroke diagnosis?: No Physical Exam Vital Signs: Vital Signs: Last Vital Signs Temp 98.9 F 02/28/24 06:30 Pulse 81 02/28/24 06:30 Resp 16 02/28/24 06:30 BP 106/49 L 02/28/24 06:30 Pulse Ox 97 02/28/24 06:30 O2 Del Method Room Air 02/28/24 06:30 BMI result Body Mass Index 24.9 Middle-aged male lying in bed in no distress Neck supple, no JVD Regular rate and rhythm, S1-S2 heard Regular breath sounds bilaterally, no wheezing or crackles appreciated Abdomen soft nontender, no guarding, no rigidity Patient is awake, alert and oriented to self, place, time and person ; no focal motor deficit Psych: Normal mood No pedal edema DS: Data Data Completed and Pending Labs on day of discharge: Laboratory Results - last 24 hr 02/27/24 02/27/24 02/27/24 16:28 19:25 22:08 WBC 20.4 H RBC 6.01 H Hgb 17.0 Hct 53.6 H D MCV 89.2 MCH 28.3 MCHC 31.7 RDW 11.8 Plt Count 372 D MPV 10.3 Immature Gran % (Auto) 0.6 H Neut % (Auto) 74.7 H Lymph % (Auto) 18.8 L [place] % (Auto) 5.5 Eos % (Auto) 0.1 Baso % (Auto) 0.3 Lymph # (Auto) 3.8 [place] # (Auto) 1.1 Eos # (Auto) 0.0 Baso # (Auto) 0.1 Abs Immat Gran (auto) 0.12 H Absolute Neuts (auto) 15.2 H Absolute Nucleated RBC 0.000 Nucleated RBC % (auto) 0.0 VBG pH VBG pCO2 VBG pO2 VBG HCO3 VBG O2 Saturation VBG Base Excess Sodium 147 H 144 Potassium 3.5 3.7 Chloride 109 H 112 H Carbon Dioxide 9 L* D 23 Anion Gap 33 H 13 BUN 11 9 Creatinine 1.12 1.14 Estim Creat Clear Calc 94.2 92.6 Estimated GFR > 60 > 60 Random Glucose 179 H 88 Lactic Acid 20.2 H* 2.3 H* Lactic Acid F/U @ 2Hr 1.7 Calcium 10.3 H D 8.9 D Total Bilirubin 0.6 Direct Bilirubin 0.2 AST 17 ALT 19 Alkaline Phosphatase 88 Total Protein 9.0 H Albumin 5.3 H Urine Color Urine Appearance Urine pH Ur Specific [place] Urine Protein Urine Glucose (UA) Urine Ketones Urine Blood Urine Nitrite Ur Leukocyte Esterase Urine RBC Urine WBC Ur Squamous Epith Cells Urine Bacteria Hyaline Casts Urine Opiates Screen Ur Buprenorphine Scrn Ur Oxycodone Screen Urine Methadone Screen Urine Fentanyl Screen Ur Barbiturates Screen Ur Phencyclidine Scrn Ur Amphetamines Screen U Benzodiazepines Scrn Urine Cocaine Screen U Marijuana (THC) Screen Ethyl Alcohol < 10 02/27/24 02/27/24 02/28/24 22:11 23:55 05:43 WBC 14.4 H RBC 4.72 D Hgb 13.4 L D Hct 39.7 L D MCV 84.1 D MCH 28.4 MCHC 33.8 RDW 11.6 Plt Count 203 D MPV 10.3 Immature Gran % (Auto) 0.6 H Neut % (Auto) 74.2 H Lymph % (Auto) 15.2 L [place] % (Auto) 9.8 Eos % (Auto) 0.1 Baso % (Auto) 0.1 Lymph # (Auto) 2.2 [place] # (Auto) 1.4 H Eos # (Auto) 0.0 Baso # (Auto) 0.0 Abs Immat Gran (auto) 0.08 H Absolute Neuts (auto) 10.7 H Absolute Nucleated RBC 0.000 Nucleated RBC % (auto) 0.0 VBG pH 7.45 H VBG pCO2 29 VBG pO2 117 VBG HCO3 20 L VBG O2 Saturation 100.0 VBG Base Excess -1.6 Sodium 143 Potassium 3.3 Chloride 114 H Carbon Dioxide 20 L Anion Gap 12 BUN 8 L Creatinine 1.32 Estim Creat Clear Calc 79.9 Estimated GFR > 60 Random Glucose 142 H Lactic Acid Lactic Acid F/U @ 2Hr Calcium 9.0 Total Bilirubin Direct Bilirubin AST ALT Alkaline Phosphatase Total Protein Albumin Urine Color Yellow Urine Appearance Clear Urine pH 6.0 Ur Specific [place] <= 1.005 Urine Protein Negative Urine Glucose (UA) 100 H Urine Ketones Negative Urine Blood Negative Urine Nitrite Negative Ur Leukocyte Esterase Negative Urine RBC 0-2 Urine WBC 0-5 Ur Squamous Epith Cells 0-2 Urine Bacteria None Seen Hyaline Casts 0-2 Urine Opiates Screen Not Detected Ur Buprenorphine Scrn Not Detected Ur Oxycodone Screen Not Detected Urine Methadone Screen Not Detected Urine Fentanyl Screen Not Detected Ur Barbiturates Screen Not Detected Ur Phencyclidine Scrn Not Detected Ur Amphetamines Screen Not Detected U Benzodiazepines Scrn Not Detected Urine Cocaine Screen Not Detected U Marijuana (THC) Screen POSITIVE H Ethyl Alcohol Imaging Chest x-ray: Radiologist's impression: ITS Impressions Head CT 02/27/24 22:23 IMPRESSION: No acute intracranial abnormality including hemorrhage, mass effect, hydrocephalus, or acute territorial edematous infarction. Chest X-Ray 02/28/24 06:36 IMPRESSION: No acute pulmonary disease. Discharge Plan Discharge Patient Disposition: Left Against Medical Advice Discharge Diagnosis: Seizure disorder Referrals: [facility] [Primary Care Provider] - 1 Week Evans Mckeon MD [Physician] - 1 Week Discharge Medications: New levetiracetam [Keppra] 500 mg tablet 500 mg PO BID Qty: 30 0RF No Action No Known Home Meds Discharge Orders: Discharge Order (Routine); Ordered 02/28/24 Ordered By: Karri Curtis Diet: Advance to usual diet Activity on Discharge: As tolerated Stand Alone Forms: Against Medical Advice, Work/School Release Print Language: Danish Care Plan Goals: Follow-up with PCP within 1 week Follow-up with neurology Health Concerns: Seizure disorder Drug overdose Plan of Treatment: Keppra 500 mg p.o. b.i.d. Assessment: As above
--- NOTE | 2024-02-28 09:39 | MHC.CM.PN ---
Patient left AMA before being seen by case management.
== END 2024-02-28 09:40 | disposition left against medical advice (07) | DRG 812 ==
LOC: HO.ED 21:46 → HO.EDOVER 02-28 00:20
PROVIDERS: Admitting Provider Student in an Organized Health Care Education/Training Program; Emergency Provider Emergency Medicine; PCP Registered Nurse; Visit Provider Student in an Organized Health Care Education/Training Program
DX: T50.901A Poisoning by unspecified drugs, medicaments and biological substances, accidental (unintentional), initial encounter (principal); E87.21 Acute metabolic acidosis; G40.909 Epilepsy, unspecified, not intractable, without status epilepticus; Z87.891 Personal history of nicotine dependence
CPT/HCPCS: 36415; 70450; 71045; 80048; 80076; 80307; 81001; 82803; 83605; 85025; 99221; 99285; J1953; J2060; J2405

== ENCOUNTER → 2024-02-28 08:53 | Outpatient (BNV) | payer MEDICAID, SELFPAY | PROVIDERS: Admitting Provider Student in an Organized Health Care Education/Training Program; Emergency Provider Emergency Medicine; Visit Provider Student in an Organized Health Care Education/Training Program | DX: G40.409 Other generalized epilepsy and epileptic syndromes, not intractable, without status epilepticus (principal); Z53.29 Procedure and treatment not carried out because of patient's decision for other reasons | CPT/HCPCS: 99235; 99499 ==

== ENCOUNTER 2024-02-29 07:58 | Inpatient (IN) | payer MEDICAID, SELFPAY ==
[2024-02-29] VITALS (10 sets, daily range): BP systolic 108–153; BP diastolic 52–86; PULSE 50–92; RESP 12–18; TEMP 36.5–36.9; O2SAT 92–100; BMI 23.0
--- NOTE | 2024-02-29 | ECG_ITS ---
Test Reason : SYNCOPE Blood Pressure : / mmHG Vent. Rate : 053 BPM Atrial Rate : 053 BPM P-R Int : 134 ms QRS Dur : 082 ms QT Int : 392 ms P-R-T Axes : 079 079 056 degrees QTc Int : 367 ms Sinus bradycardia Otherwise normal ECG When compared with ECG of 15-JAN-2024 15:03, Vent. rate has decreased BY 36 BPM Referred By: Graham Gagnon Electronically Signed By:RAVEN HENRIQUEZ MD
--- NOTE | ~2024-02-29 | CT_ITS ---
EXAMINATION: CT ABDOMEN AND PELVIS WITHOUT CONTRAST CLINICAL INFORMATION: Abdominal pain. COMPARISON: Right upper quadrant ultrasound 08/29/2022 TECHNIQUE: Multidetector volumetric imaging was performed from the superior aspect of the liver through the pubic symphysis. Sagittal and coronal reformatted images were obtained on the technologist's workstation. This CT examination was performed using dose optimization techniques as appropriate, variously including the following: *Automated exposure control *Adjustment of mA and/or kV according to patient size (this includes techniques or standardized protocols for targeted exams where dose is matched to indication/reason for exam; i.e. extremities or head) *Use of iterative reconstruction technique DLP: 402 mGy-cm FINDINGS: LUNG BASES: No pleural or pericardial effusion. LIVER, GALLBLADDER, AND BILIARY TREE: The noncontrast liver is normal in size and contour. No biliary ductal dilatation is present. The gallbladder is unremarkable with no evidence of radiopaque gallstones, gallbladder wall thickening, or obvious pericholecystic inflammatory changes. PANCREAS: No ductal dilatation. SPLEEN: Not enlarged. ADRENAL GLANDS: No adrenal mass. KIDNEYS AND URETERS: The kidneys are symmetric in size. No hydronephrosis, hydroureter, or calculi seen. No perinephric stranding. BLADDER: Decompressed. GASTROINTESTINAL TRACT: Small and large bowel loops are of normal caliber. Diverticular disease of the colon. No small bowel obstruction. ABDOMINAL WALL: Tiny fat-containing umbilical hernia. LYMPH NODES: No bulky lymphadenopathy. VASCULAR: Normal caliber abdominal aorta. PELVIC VISCERA: Unremarkable. OSSEOUS STRUCTURES: No destructive bone lesions. CT/CT abdomen pelvis wo IV con IMPRESSION: No acute abnormality in the abdomen or pelvis.
[2024-02-29 08:22] LABS: MANUAL DIFF FLAG NO
[2024-02-29 08:26] LABS: Basophils Percent Auto 0.4 % (0-2); Eosinophils Absolute Auto 0.1 X10*3/uL (0.0-0.4); Eosinophils Percent Auto 1.3 % (0-4); Hematocrit 43.1 % (42.0-52.0); Hemoglobin 14.5 g/dl (14.0-18.0); Imm Gran Abs Auto 0.03 X10*3/uL (0.00-0.03); Imm Gran Pct Auto 0.3 % (0.0-0.4); Lymphocytes Absolute Auto 1.9 X10*3/uL (1.2-4.9); Lymphocytes Percent Auto 17.9 % (20-40); Mean Corpuscular HGB Conc 33.6 g/dl (31.0-36.0); Mean Corpuscular Volume 83.4 fL (80.0-98.0); Mean Platelet Volume 9.9 fL (9.4-12.4); Monocytes Absolute Auto 0.6 X10*3/uL (0.1-1.2); Monocytes Percent Auto 5.8 % (2-11); Neutrophils Absolute Auto 7.8 x10*3/uL (2.0-8.3); Neutrophils Percent Auto 74.3 % (45-73); Platelet Count 227 X10*3/uL (160-400); Red Blood Count 5.17 X10*6/uL (4.60-5.80); Red Cell Distribution Width 11.9 % (11.0-16.0); White Blood Count 10.5 X10*3/uL (4.8-10.8)
[2024-02-29 08:40] LABS: IDNOW Serial# 152EDE1D
[2024-02-29 08:41] LABS: Alanine Aminotransferase 21 U/L (0-40); Albumin Level 4.4 g/dL (3.5-5.0); Alkaline Phosphatase 71 U/L (39-117); Anion Gap 12 (12-20); Aspartate Amino Transferase 64 U/L (5-37); Bilirubin Direct 0.5 mg/dL (0.0-0.5); Bilirubin Total 1.4 mg/dL (0.0-1.0); Blood Urea Nitrogen 9 mg/dL (9-16); COVID-19 Test Negative (Negative); Calcium 9.2 mg/dL (8.4-10.2); Carbon Dioxide 25 mmol/L (22-29); Chloride 108 mmol/L (96-108); Creatinine Clr Calc Pharmacy 107.6; Estimated Glomerular Filt Rate > 60; Glucose Random 140 mg/dL (60-115); IDNOW Serial# 08D9AD1C; Influenza A Negative (Negative); Lipase 12 U/L (8-78); Potassium 3.5 mmol/L (3.3-5.1); Sodium 141 mmol/L (135-145); Total Protein 7.4 g/dL (6.5-8.0)
--- NOTE | 2024-02-29 12:29 | ED_ITS ---
HPI - General Adult General Chief complaint: General Medical Stated complaint: Not Feeling Well S/P Seizure Time Seen by Provider: 02/29/24 12:30 Source: patient and other (significant other ) Mode of arrival: ambulatory Limitations: no limitations History of Present Illness HPI narrative: 23 year old male hx of substance abuse, tonic clonic seizures ( not on anti seizure meds) presents w/ i dont feel good , patient reports his entire body hurt and just doesnt feel good. When I ask him where exactly on his body hurts he states there is no part of his body that doesnt hurt. Reports nausea, vomiting, diarrhea, body aches, feeling tired, epigastric pain, and low energy. Here with significant other who states he hasnt eaten since tuesday , but then clarifies he has been drinking fluids just no appetitie. He has not has a seizure since Tuesday. No sick contacts. Denies CP, sob, blood in stool or vomit, fevers, chills, vision changes, dizziness, headache or new seizure activity. Has not yet called to see neurology. Related Data Home Medications ?Medication ?Instructions ?Recorded ?Confirmed No Known Home Meds 10/11/23 02/27/24 Allergies Allergy/AdvReac Type Severity Reaction Status Date / Time No Known Allergies Allergy Verified 02/29/24 08:06 Review of Systems 2 Review of Systems: Constitutional : No Weight loss, No Fever, No Chills, No Fatigue, No Malaise ENT/Mouth : No sore throat, No Rhinorrhea Eyes: No Eye Pain, No Swelling, No Redness Cardiovascular : No Chest Pain, No SOB, No Dyspnea on Exertion, No Orthopnea, No Edema, No Palpitations Respiratory : No Cough, No Sputum, No Wheezing Gastrointestinal : No Nausea, No Vomiting, No Diarrhea, No Constipation, No abdominal Pain, No Hematochezia, No Melena Genitourinary : No Dysuria, No Urinary Frequency, No Hematuria, Musculoskeletal : No joint pain, No Myalgias, No Joint Swelling Skin : No Skin Lesions, No rash Neuro : No Weakness, No Numbness, No Dizziness, No Headache Psych : No Anxiety/Panic, No Depression All other systems reviewed and are negative Yes all other systems are reviewed and are negative PMFSH Past Medical History Attestation statement: The following information was validated with the patient. Source: old records reviewed and nursing notes reviewed Medical History Seizure Overdose Social History Social History Alcohol intake: never Patient Tobacco Use Status: Never used Tobacco Smoked in Last 30 Days: No Use of substances other than those prescribed or required for medical reasons: Yes Substance Use Type: Marijuana Substance Use Frequency: Daily Advance Directives: No Advance Directives Information Provided: No Do you have a plan to hurt others: No Plan Physical Exam ED Vital Signs: Vital Signs - 24 hr 02/29/24 08:02 02/29/24 12:31 02/29/24 14:34 Temperature 97.8 F 97.7 F 97.7 F Pulse Rate 87 59 80 Respiratory Rate 18 18 15 Blood Pressure 114/73 131/52 L 113/72 Pulse Oximetry 98 100 99 Oxygen Delivery Method Room Air Room Air Room Air BMI result Body Mass Index 23.0 vss Appearance: Alert.? Oriented X3.? No acute distress.? Head: Normocephalic, atraumatic, no step-offs or deformities Eyes: Pupils equal, round and reactive to light.? Neck: Normal inspection.? Neck supple.? CVS: Normal heart rate and rhythm.? Pulses normal.? Respiratory: No respiratory distress.? Breath sounds normal.? Abdomen: Soft and mild epigastric discomfort .? Skin: Skin warm and dry.? Normal skin color.? Normal skin turgor.? Extremities: No lower extremity edema.? No calf ttp. 5/5 strength to bilateral upper and lower extremities Neuro: Oriented X 3.? No motor deficit.? No sensory deficit. CN 2-12 intact Course Reevaluation(s) Reevaluation #1: CBC unremarkable. Chemistry with no acute findings requiring acute intervention. Bilirubin now 1.4, abdominal scan ordered to further evaluate this. Patient's CPK [id number] consistent with rhabdomyolysis. Patient will receive IV fluids and be admitted to the hospital for further management. UA still pending Time: 13:43 Reevaluation #2: CT unremarkable Time: 14:52 Medications Administered Discontinued Medications Generic Name Dose Route Start Last Admin Trade Name Freq PRN Reason Stop Dose Admin Sodium Chloride 1,000 mls @ 999 mls/hr 02/29/24 13:45 02/29/24 14:40 Ns IV 02/29/24 14:45 999 mls/hr .Q1H1M ANTON Administration Medical Decision Making Medical Decision Making [facility] Narrative: 1231 23 year old male presents w/ full body pain since Tuesday was seen here on 02/27/24 ( per note here for overdose and ? seizure) PE epigastric discomfort Likely viral illness vs flu vs covid vs rsv vs gasterenteritis vs metabolic abnormalities. Unlikely acute abdomen, appendicitis, cholecystitis, pancreatitis, diverticulitis, obstruction. No seizures here or since tuesday, AAA. Will rule out rhabdo Plan- labs, UA, imaging Differential Diagnosis Differential Diagnoses: The differential diagnosis associated with the presentation includes Likely viral illness vs flu vs covid vs rsv vs gasterenteritis vs metabolic abnormalities. Unlikely acute abdomen, appendicitis, cholecystitis, pancreatitis, diverticulitis, obstruction. No seizures here or since tuesday, AAA. Will rule out rhabdo Admission/Observation Consideration of admission/observation: Escalation of care including admission/observation considered unlikely Lab Data [facility] Lab Attestation statement: I reviewed the patient's lab results. 02/29/24 08:15 02/29/24 08:15 Labs: Lab Results 02/29/24 Range/Units 08:15 WBC 10.5 (4.8-10.8) X10*3/uL RBC 5.17 (4.60-5.80) X10*6/uL Hgb 14.5 (14.0-18.0) g/dl Hct 43.1 (42.0-52.0) % MCV 83.4 (80.0-98.0) fL MCH 28.0 (27.0-33.0) pg MCHC 33.6 (31.0-36.0) g/dl RDW 11.9 (11.0-16.0) % Plt Count 227 (160-400) X10*3/uL MPV 9.9 (9.4-12.4) fL Immature Gran % (Auto) 0.3 (0.0-0.4) % Neut % (Auto) 74.3 H (45-73) % Lymph % (Auto) 17.9 L (20-40) % Evans % (Auto) 5.8 (2-11) % Eos % (Auto) 1.3 (0-4) % Baso % (Auto) 0.4 (0-2) % Lymph # (Auto) 1.9 (1.2-4.9) X10*3/uL Evans # (Auto) 0.6 (0.1-1.2) X10*3/uL Eos # (Auto) 0.1 (0.0-0.4) X10*3/uL Baso # (Auto) 0.0 (0.0-0.2) X10*3/uL Abs Immat Gran (auto) 0.03 (0.00-0.03) X10*3/uL Absolute Neuts (auto) 7.8 (2.0-8.3) x10*3/uL Absolute Nucleated RBC 0.000 (0.0-0.012) X10*3/uL Nucleated RBC % (auto) 0.0 (0.0-0.2) /100WBC Sodium 141 (135-145) mmol/L Potassium 3.5 (3.3-5.1) mmol/L Chloride 108 (96-108) mmol/L Carbon Dioxide 25 (22-29) mmol/L Anion Gap 12 (12-20) BUN 9 (9-16) mg/dL Creatinine 1.08 (0.5-1.4) mg/dL Estim Creat Clear Calc 107.6 Estimated GFR > 60 Random Glucose 140 H (60-115) mg/dL Calcium 9.2 (8.4-10.2) mg/dL Total Bilirubin 1.4 H (0.0-1.0) mg/dL Direct Bilirubin 0.5 (0.0-0.5) mg/dL AST 64 H (5-37) U/L ALT 21 (0-40) U/L Alkaline Phosphatase 71 (39-117) U/L Total Creatine Kinase 9893 H (38-174) U/L Total Protein 7.4 (6.5-8.0) g/dL Albumin 4.4 (3.5-5.0) g/dL Lipase 12 (8-78) U/L COVID-19 (FIORDALIZA) Negative (Negative) COVID-19 Clin Com See Note Influenza Type A (XUAN) Negative (Negative) Influenza A & B Note See Note Independent Interpretation I performed an independent interpretation of an: Plain X-Ray ( CT/CT abdomen pelvis wo IV con IMPRESSION: No acute abnormality in the abdomen or pelvis.) and CT Scan Radiology Impression Discussion of test interpretation with radiology: I have reviewed the radiologist's reading. Independent Historian Clinical information obtained from an independent historian. History obtained from or confirmed by: Other (significant other ) External Record Review External record reviewed: Inpatient record, Office record, Outpatient record, Prior outpatient labs, Prior outpatient radiology, Primary care record and Outside ED record Chronic Conditions Patient?s care impacted by: Other (substance abuse, tonic clonic seizures ) Social Determinants Patient?s care significantly limited by Social Determinants of Health including: Other Social Determinant of Health Critical Care Time Critical Care Time Critical Care Time: Yes Total Critical Care Time: 35 Attestation: I attest to this time spent taking care of the patient, obtaining history, physical, reviewing labs, imaging, speaking to my attending, specialist or hospitalist. Discharge Plan Discharge Clinical Impression: Body aches, Rhabdomyolysis Patient Disposition: Admitted As Inpatient Prescriptions: No Action No Known Home Meds Print Language: [place] Island[place]
[2024-02-29] MEDS: 0.9 % Sodium Chloride 1,000 ML 999 ML IV ×2 (14:40→16:54)
--- NOTE | 2024-02-29 14:51 | PC.NURSE ---
Pt presents to ED from home, reports lower ABD pain, nausea and general body pain X2 days. Pt reports he was here 2 days ago for a seizure and left afterwards. Pt reports pain 10/10 all over, reports my bones are aching . Pt denies alcohol use, only reports daily mairjuana use. Pt is alert and oriented, breathing even and unlabored, skin WNL. VSS.
--- NOTE | 2024-02-29 15:51 | PM.IMHP ---
History of Present Illness Date of Service: 02/29/24 Chief Complaint: Generalized body aches 23-year-old gentleman with no significant past medical history was admitted to [facility] on 02/27 after he was noted to have an episode of syncope with question seizure like activity and altered mental status , as per patient 2 days ago he woke up throwing up and blacked out was noted to have shaking movements by girlfriend, he denies head injury, patient was treated with intranasal Narcan with improvement in mentation but subsequently he became aggressive and vomited, as per EMS patient had an episode of seizure, family provided a history of prior seizure episode related to drugs and therefore was not treated with antiepileptics, patient was treated with IV fluids, and was supposed to undergo EEG and neuro evaluation, however patient decided to leave hospital against medical advice without getting further treatment and testing and presented back to [facility] today due to complain of generalized pain, associated with dizziness, feeling hot and cold, with decreased by mouth intake, he denies associated fevers, no chills, no recent history of travel, no family member with URI symptoms, he admits to smoking marijuana denies,use of illicit drugs since discharge, his U tox was positive for marijuana on 02/27, his head CT was unremarkable, chest x-ray showed no acute infiltrate, abdominal and pelvic CT scan today showed no abnormality, CBC is unremarkable, WBC has normalized, electrolytes and renal function are normal, blood sugar 140, his total creatinine kinase is 9893, albumin 4.4 lipase 12, patient is now being admitted to [facility] with a diagnosis of symptomatic rhabdomyolysis and recent episode of syncope question seizure. Review of Systems Review of Systems: General c/o dizziness, feeling hot and cold CVS no chest pain, no palpitation. Respiratory no cough ,no sob Gastrointestinal no nausea no vomiting, no abdominal pain no urgency no frequency All other system reviewed and negative [facility]LY [facility] Medical History Seizure Overdose Pertinent family history: Both parents alive and healthy Social History Household Members: Significant Other Housing: Apartment Do you presently have visiting nurse or other home services: No Alcohol intake: never Patient Tobacco Use Status: Former Tobacco user Tobacco use type: Smokeless Tobacco Smoked in Last 30 Days: No e-Cigarette/Vaping Use: Currently Using Frequency of e-Cigarette/Vaping Use: 4-5 times Patient Interested in Nicotine Replacement: No Patient Given Instructions on How to Stop Smoking: No Date Education Initiated: 03/01/24 Second Hand Smoke Exposure: Yes Use of substances other than those prescribed or required for medical reasons: No Substance Use Type: Opiates Substance Use Type Other:: Percocet - 8 pills * 3 years. Substance Use Frequency: Daily Last Used Substance Other:: 11/05/23 Currently Displaying Signs/Symptoms of Drug Intoxication Withdrawal: No Any prior treatment program specific to substance use: No Have you been hit, kicked, punched, or otherwise hurt by someone within the past year? If so, by whom?: No Do you feel safe in your current relationship?: Yes Is there a partner from a previous relationship who is making you feel unsafe now?: No Are you made to feel afraid or neglected: No Advance Directives: No Advance Directives Information Provided: No Do you have a plan to hurt others: No Plan Recently lost weight without trying: No Eating poorly because of decreased appetite: No Nutrition Risks: No Nutritional Risk Poor oral hygiene: No service: No Meds Allergies Allergy/AdvReac Type Severity Reaction Status Date / Time No Known Allergies Allergy Verified 02/29/24 08:06 Active Medications: Current Medications Acetaminophen (Acetaminophen 325 Mg Tablet) 650 mg PO Q6H PRN PRN Reason: Pain, Mild (Pain Scale 1-3) Docusate Sodium (Docusate Sodium 100 Mg Capsule) 100 mg PO DAILY PRN PRN Reason: Constipation Sodium Chloride (Ns) 1,000 mls @ 999 mls/hr IV .Q1H1M [facility] Stop: 02/29/24 16:00 Magnesium Hydroxide (Milk Of Magnesia 30 Ml Oral.Susp) 30 ml PO DAILY PRN PRN Reason: Constipation Melatonin (Melatonin 3 Mg Tablet) 6 mg PO BEDTIME PRN PRN Reason: Insomnia Ondansetron HCl (Ondansetron Hcl 4 Mg/2 Ml Vial) 4 mg IVPUSH Q8H PRN PRN Reason: Nausea and Vomiting Sodium Chloride (0.9 % Sodium Chloride Flush 3 Ml Syringe) 3 ml IVFLUSH [facility] Home Medications ?Medication ?Instructions ?Recorded ?Confirmed ?Last Taken ?Type No Known Home Meds 10/11/23 02/29/24 Unknown History Physical Exam Vital Signs and Narrative: Vital Signs: Last Vital Signs Temp 97.7 F 02/29/24 14:34 Pulse 80 02/29/24 14:34 Resp 15 02/29/24 14:34 BP 113/72 02/29/24 14:34 Pulse Ox 99 02/29/24 14:34 O2 Del Method Room Air 02/29/24 14:34 BMI result Body Mass Index 23.0 Const: Other: General awake alert x3, resting comfortably in no acute distress. Anicteric sclera Neck supple no JVD. CVS regular rate rhythm, Respiratory lungs clear to auscultation, no respiratory distress, no wheeze, no rhonchi. Gastrointestinal abdomen soft, non tender, bowel sounds audible, no guarding , no rigidity. Extremities no edema. Neuro non focal,moving all 4 extremity, speech clear. Skin ecchymosis antecubital area/both cheeks Psych appropriate affect Results Labs 02/29/24 08:15 03/01/24 07:43 Labs: Laboratory Results - last 24 hr 02/29/24 08:15 MCV 83.4 MCH 28.0 MCHC 33.6 RDW 11.9 Plt Count 227 MPV 9.9 Immature Gran % (Auto) 0.3 Neut % (Auto) 74.3 H Lymph % (Auto) 17.9 L [place] % (Auto) 5.8 Eos % (Auto) 1.3 Baso % (Auto) 0.4 Lymph # (Auto) 1.9 [place] # (Auto) 0.6 Eos # (Auto) 0.1 Baso # (Auto) 0.0 Abs Immat Gran (auto) 0.03 Absolute Neuts (auto) 7.8 Absolute Nucleated RBC 0.000 Nucleated RBC % (auto) 0.0 Anion Gap 12 Estim Creat Clear Calc 107.6 Estimated GFR > 60 Random Glucose 140 H Calcium 9.2 Total Bilirubin 1.4 H Direct Bilirubin 0.5 AST 64 H ALT 21 Alkaline Phosphatase 71 Total Creatine Kinase 9893 H Total Protein 7.4 Albumin 4.4 Lipase 12 COVID-19 (FIORDALIZA) Negative COVID-19 Clin Com See Note Influenza Type A (XUAN) Negative Influenza A & B Note See Note Imaging Radiologist's Impressions: Impressions Abdomen/Pelvis CT 02/29/24 13:19 IMPRESSION: No acute abnormality in the abdomen or pelvis. Assessment and Plan (1) Rhabdomyolysis: Status: Acute (2) Body aches: Status: Acute Plan 23-year-old gentleman who left hospital against medical advice yesterday after requiring admission for syncope with possible seizure-like activity, acute lactic acidosis, acute encephalopathy , with concern for drug overdose, patient left hospital against medical advice and presented today due to generalized body ache, dizziness decreased by mouth intake, symptoms were present yesterday but since were not improving he came to ED for re-evaluation. Generalized body ache/acute rhabdomyolysis Likely due to fall/question seizure Noted to have elevated CPK, normal renal function Will treat with IV fluids follow BMP and renal function and CPK U tox positive for marijuana, as per patient smoked marijuana, denies illicit drug use, no cocaine, no opiates Recent episode of syncope with question of seizure Was recently evaluated in emergency room on January 14 with concern for generalized shaking with foaming in the mouth and incontinence of urine and stool, patient left ED without completion of workup. Was admitted on 02/27 with an episode of syncope question seizure left AMA same day, had generalized body ache during that admission as well No chest pain, no palpitations CT head unremarkable, Will obtain EEG/seizure precautions Consult neurology if noted to have recurrent episodes of syncope/seizure Check orthostatic BP/EKG. Normal renal function/no proteinurea/no joint deformity Nausea/decreased by mouth intake likely due to marijuana counseling done. Continue IV fluids follow clinical course. Full code Early ambulation In my clinical judgment patient need two night inpatient hospitalization for management of recurrent episode of syncope question seizure and also for IV fluids for management of rhabdomyolysis. Quality Stroke Does the patient have a stroke diagnosis?: No VTE Prior VTE?: No VTE Risk Level:: Medical - low VTE Device Contraindication: Treatment Not Indicated VTE Drug Contraindication: Treatment Not Indicated
--- NOTE | 2024-02-29 16:03 | PHA.MEDREC ---
Pharmacy Consult ? Medication Reconciliation Pharmacy has completed the medication reconciliation. Patient reports no medications at home
[2024-02-29] MEDS: 0.9 % Sodium Chloride 500 ML IV (16:56)
[2024-02-29 17:34] LABS: Amphetamine Screen Urine Not Detected (Not Detect); Barbiturates, Urine Not Detected (Not Detect); Benzodiazepines Screen Urine Not Detected (Not Detect); Buprenorphine Scr Not Detected (Not Detect); Cannabinoid Screen Urine POSITIVE (Not Detect); Cocaine Screen Urine Not Detected (Not Detect); Fentanyl, urine Not Detected (Not Detect); Methadone Screen, Urine Not Detected (Not Detect); Opiate Screen Urine Not Detected (Not Detect); Oxycodone Screen Urine Not Detected (Not Detect); Phencyclidine Screen Urine Not Detected (Not Detect)
[2024-02-29 18:21] LABS: Influenza B2 Negative (Negative)
[2024-02-29] MEDS: 0.9 % Sodium Chloride Flush 3 ML SYRINGE IVFLUSH (23:02)
[2024-02-29] MEDS: 0.9 % Sodium Chloride 1,000 ML 125 ML IVCONT (23:02)
--- NOTE | 2024-02-29 23:48 | MHC.EDTECH ---
This tech took over care of patient at 2300,hourly rounds and vitals completed,emptied 300MLS of urine from urinal,patient is resting comfortably art this time,call hernandez in reach
--- NOTE | 2024-03-01 | EEG_ITS ---
This is a 16 channel EEG with an EKG lead. The patient is reported awake during the tracing. Background EEG rhythm is low amplitude, mixed theta, beta with intermittent left hemispheric theta range slowing, which at times was sharply contoured. Photic stimulation did not produce any significant abnormality. Hyperventilation was not performed. Cardiac lead did not reveal any significant abnormality. IMPRESSION: Mildly abnormal EEG suggestive of underlying tendency for partial seizure disorder. MD MENDEL Krishnamurthy/MARLENY / [id number]
[2024-03-01 00:52] LABS: Appearance Urine Clear; Color Urine Yellow; Glucose Urine UA Negative (Negative); Leukocyte Esterase Urine Negative (Negative); Nitrite Urine Negative (Negative); Specific Gravity - Urine <= 1.005 (1.005-1.025); Urine Blood Negative (Negative); Urine Ketones Trace mg/dL (Negative); Urine Protein Negative (Neg-Trace)
--- NOTE | 2024-03-01 02:35 | PC.NURSE ---
Pt is alert and oriented x3, VS. RR even, unlabored, RR 16. Patient reports pain is at tolerable level 3/10 at present. NS 1 L IV infusing at 125 mL /hr via 20 G IV line in R AC. Skin is intact, patient ambulates independently with steady gait. Call hernandez placed with in patient's reach, plan of care ongoing.
[2024-03-01 04:31] VITALS: BP 131/55; PULSE 61; RESP 16; TEMP 37; O2SAT 98
--- NOTE | 2024-03-01 04:34 | MHC.EDTECH ---
Hourly rounds and vitals completed,patient urinated 600MLS of yellow urine in urinal.call hernandez in reach
[2024-03-01 05:01] VITALS: BMI 23.2
[2024-03-01] MEDS: ondansetron HCL 4 MG/2 ML VIAL IVPUSH ×2 (05:29→19:46)
[2024-03-01 05:34] VITALS: BP 120/57; PULSE 56; RESP 16; TEMP 36.9; O2SAT 97
--- NOTE | 2024-03-01 05:47 | PC.NURSE ---
pt came with wheelchair, unsteady gait to bed. while doing admission assessment, afew times repositioned himself, drink 120 mL of water and vomited 100 mL, light green emesis. given zofran by eMar. pt states that a lot of weakness. all extremities is shaking. on the right ankle has ankle monitor on. will cont. monitor.
[2024-03-01 07:42] VITALS: BP 122/65; PULSE 65; RESP 14; TEMP 36.2; O2SAT 97
[2024-03-01] MEDS: 0.9 % Sodium Chloride 1,000 ML 125 ML IVCONT (07:48)
[2024-03-01 09:00] LABS: Anion Gap 11 (12-20); Blood Urea Nitrogen 7 mg/dL (9-16); Calcium 8.5 mg/dL (8.4-10.2); Carbon Dioxide 26 mmol/L (22-29); Chloride 110 mmol/L (96-108); Creatinine Clr Calc Pharmacy 149.4; Estimated Glomerular Filt Rate > 60; Glucose Random 102 mg/dL (60-115); Potassium 3.8 mmol/L (3.3-5.1); Sodium 143 mmol/L (135-145)
--- NOTE | 2024-03-01 09:30 | MHC.CM.PN ---
Addendum entered by Ora Moreira RN 03/01/24 13:07: CM CONTACTED [facility] TO VERIFY PCP, PER [facility] PT'S PCP IS CHAS TOLEDO, TASK SENT Original Note: EMR REVIEWED, PT ADMITTED W/PAIN/RHABDO, CM MET W/PT WHO REPORTS HE IS FULLY INDEP W/ALL CARE, DENIES USE OF DME/SERVICES, PLAN FOR PT IS HOME NO SERVICES AND PT'S GOAL IS FOR DC TODAY IF POSSIBLE. PT VERIFIES PCP IS AT [facility] HOWEVER UNSURE OF NAME AND PT REPORTS HIS HCP IS S.O. SANDRA HIDALGO [phone], COPY REQUESTED.
--- NOTE | 2024-03-01 10:34 | PC.NURSE ---
Pt deemed high fall risk per protocol, Pt refusing high fall risk precautions, Pt noted to have a steady gait by this RN.
--- NOTE | 2024-03-01 11:36 | P.PNIM_ITS ---
Subjective Subjective Date of Service: 03/01/24 Interval History: Complaining of nausea, decreased by mouth intake, complaining of generalized pain and pain both arms at site of previous lab draw with ecchymosis, complaining of bilateral facial pain , feels fell on right side of face and has been mostly sleeping on left face , also complaining of poor dentition, no seizure-like activity noted during hospitalization. No fevers, no chills, no urinary symptoms of dysuria or urgency. Feels weak. Review of Systems All other system reviewed and negative. Physical Exam 2 Vital Signs: Vital Signs: Last Vital Signs Temp 97.2 F 03/01/24 07:42 Pulse 65 03/01/24 07:42 Resp 14 03/01/24 07:42 BP 122/65 03/01/24 07:42 Pulse Ox 97 03/01/24 07:42 O2 Del Method Room Air 03/01/24 07:42 BMI result Body Mass Index 23.2 Const: Other: General awake alert x3, resting comfortably in no acute distress. Bilateral facial puffiness/multiple dental caries Anicteric sclera Neck supple no JVD. CVS regular rate rhythm, Respiratory lungs clear to auscultation, no respiratory distress, no wheeze, no rhonchi. Gastrointestinal abdomen soft, non tender, bowel sounds audible, no guarding , no rigidity. Extremities no edema. No joint deformity Neuro non focal,moving all 4 extremity, speech clear. Skin ecchymosis antecubital area Psych appropriate affect Objective Data Active Medications Acetaminophen (Acetaminophen 325 Mg Tablet) 650 mg PO Q6H PRN PRN Reason: Pain, Mild (Pain Scale 1-3) Docusate Sodium (Docusate Sodium 100 Mg Capsule) 100 mg PO DAILY PRN PRN Reason: Constipation Sodium Chloride (Ns) 1,000 mls @ 150 mls/hr IVCONT .Q6H40M REPLACED BY [facility] Last Infusion: 03/01/24 09:11 Dose: 150 mls/hr Documented By: CHIO Magnesium Hydroxide (Milk Of Magnesia 30 Ml Oral.Susp) 30 ml PO DAILY PRN PRN Reason: Constipation Melatonin (Melatonin 3 Mg Tablet) 6 mg PO BEDTIME PRN PRN Reason: Insomnia Ondansetron HCl (Ondansetron Hcl 4 Mg/2 Ml Vial) 4 mg IVPUSH Q8H PRN PRN Reason: Nausea and Vomiting Last Admin: 03/01/24 05:29 Dose: 4 mg Documented By: BARBARA Sodium Chloride (0.9 % Sodium Chloride Flush 3 Ml Syringe) 3 ml IVFLUSH QSHIFT REPLACED BY [facility] Last Admin: 03/01/24 06:48 Dose: Not Given Documented By: CHIO Non-Admin Reason: IV Running Labs 02/29/24 08:15 03/01/24 07:43 Labs: Laboratory Results - last 24 hr 02/29/24 02/29/24 03/01/24 08:15 17:00 07:43 Hold Purple Top SEE NOTE Anion Gap 11 L Estim Creat Clear Calc 149.4 Estimated GFR > 60 Random Glucose 102 Calcium 8.5 D Total Creatine Kinase 9893 H 82233 H Urine Color Yellow Urine Appearance Clear Urine pH 6.0 Ur Specific [place] <= 1.005 Urine Protein Negative Urine Glucose (UA) Negative Urine Ketones Trace Urine Blood Negative Urine Nitrite Negative Ur Leukocyte Esterase Negative Urine Opiates Screen Not Detected Ur Buprenorphine Scrn Not Detected Ur Oxycodone Screen Not Detected Urine Methadone Screen Not Detected Urine Fentanyl Screen Not Detected Ur Barbiturates Screen Not Detected Ur Phencyclidine Scrn Not Detected Ur Amphetamines Screen Not Detected U Benzodiazepines Scrn Not Detected Urine Cocaine Screen Not Detected U Marijuana (THC) Screen POSITIVE H Influenza Type B (XUAN) Negative Assessment and Plan (1) Rhabdomyolysis: Status: Acute (2) Syncope: Status: Acute Plan 23-year-old gentleman who left hospital against medical advice yesterday after requiring admission for syncope with possible seizure-like activity, acute lactic acidosis, acute encephalopathy , with concern for drug overdose, patient left hospital against medical advice and presented today due to generalized body ache, dizziness decreased by mouth intake, symptoms were present yesterday but since were not improving he came to ED for re-evaluation. Generalized body ache/acute rhabdomyolysis. Likely due to fall/question seizure CPK trended up from 9893 to 52168, normal renal function, continue IV fluids normal saline 150 mL/hours follow BMP and renal function and CPK U tox positive for marijuana, as per patient smoked marijuana, denies illicit drug use, no cocaine, no opiates Out of bed to chair as tolerated. PT eval if symptoms persist Doubt any underlying rheumatological disease, with normal exam and initial labs, will check sed rate. Syncope with question of seizure. Was recently evaluated in emergency room on January 14 with concern for generalized shaking with foaming in the mouth and incontinence of urine and stool, patient left ED without completion of workup. Was admitted on 02/27 with an episode of syncope, question seizure, left AMA same day, had generalized body ache during that admission as well. No chest pain, no palpitations. CT head unremarkable, EEG obtained report pending/seizure precautions EKG showed sinus bradycardia heart rate 53, no acute abnormality, negative orthostatic blood pressures. Consult neurology if noted to have recurrent episodes of syncope/seizure. Normal renal function/no proteinurea/no joint deformity Nausea/decreased by mouth intake likely due to marijuana. counseling done. Continue IV fluids, regular diet as tolerated, follow clinical course. Full code Early ambulation In my clinical judgment patient need continued inpatient hospitalization for management of recurrent episode of syncope question seizure and also for IV fluids for management of rhabdomyolysis. Quality Stroke Does the patient have a stroke diagnosis?: No VTE Prior VTE?: No VTE Risk Level:: Medical - low VTE Device Contraindication: Treatment Not Indicated VTE Drug Contraindication: Treatment Not Indicated
[2024-03-01 15:56] VITALS: BP 134/70; PULSE 52; RESP 16; TEMP 36.8; O2SAT 98
[2024-03-01] MEDS: LORazepam 2 MG/ML VIAL 0.5 MG IVPUSH (17:17)
[2024-03-01] MEDS: 0.9 % Sodium Chloride 1,000 ML 150 ML IVCONT (17:17)
--- NOTE | 2024-03-01 17:22 | PC.NURSE ---
This RN informed by CHEMICAL PRODUCTION TECHNICIAN that Pt is having feelings of anxiety, Upon assessment of Pt, Pt is teary-eyed in bed, states he has had episodes of anxiety in the past and is asking for medication for some relief. Dr Chelsi DUONG informed, one time order of ativan 0.5mg IV push given to Pt per MAR. Pt denies SI/HI, family is at bedside, call hernandez is within reach.
[2024-03-01 19:29] VITALS: BP 144/71; PULSE 48; RESP 16; TEMP 36.9; O2SAT 99
[2024-03-01] MEDS: Benzocaine 20 % Oral Gel 9 GM TUBE 1 APPL MUCOUS MEM (21:04)
[2024-03-01] MEDS: Acetaminophen 325 MG TABLET 650 MG PO (21:04)
[2024-03-01] MEDS: Melatonin 3 MG TABLET 6 MG PO (21:59)
[2024-03-02] MEDS: 0.9 % Sodium Chloride 1,000 ML 150 ML IVCONT ×4 (02:35→23:32)
[2024-03-02 03:05] VITALS: BP 114/56; PULSE 55; RESP 16; TEMP 36.8; O2SAT 99
[2024-03-02 06:38] LABS: Anion Gap 13 (12-20); Blood Urea Nitrogen 6 mg/dL (9-16); Calcium 8.5 mg/dL (8.4-10.2); Carbon Dioxide 28 mmol/L (22-29); Chloride 108 mmol/L (96-108); Creatinine Clr Calc Pharmacy 157.5; Estimated Glomerular Filt Rate > 60; Glucose Random 79 mg/dL (60-115); Potassium 3.6 mmol/L (3.3-5.1); Sodium 145 mmol/L (135-145)
[2024-03-02 07:06] LABS: Erythrocyte Sedimentation Rate 3 MM/HR (0-15)
[2024-03-02 07:08] VITALS: BP 129/61; PULSE 65; RESP 16; TEMP 37.1; O2SAT 98
--- NOTE | 2024-03-02 07:37 | P.PNIM_ITS ---
Subjective Subjective Date of Service: 03/02/24 Interval History: Seen in follow up for acute rhabdomyolysis Interval history: Patient denies any myalgias. Tolerating diet. Renal function baseline. Reporting anxiety Review of Systems Review of Systems: Yes all other systems are reviewed and are negative Physical Exam 2 Vital Signs: Vital Signs: Last Vital Signs Temp 98.7 F 03/02/24 07:08 Pulse 65 03/02/24 07:08 Resp 16 03/02/24 07:08 BP 129/61 03/02/24 07:08 Pulse Ox 98 03/02/24 07:08 O2 Del Method Room Air 03/02/24 07:08 BMI result Body Mass Index 23.2 Constitutional - Awake and Alert, No apparent distress Eyes - PERRLA, EOMI Cardiovascular - S1S2, RRR, No edema Respiratory - Normal lung expansion, Normal respiratory effort, No respiratory distress, CTA bilaterally Gastrointestinal - NT / ND; +BS; No rebound or guarding Extremities - no calf tenderness bilaterally, no swelling Musculoskeletal - Normal inspection, normal ROM. no muscle tenderness to palpation, ambulating Skin - Warm/Dry Neurological - Alert & oriented x3 Psychological - anxious appearing Objective Data Active Medications Acetaminophen (Acetaminophen 325 Mg Tablet) 650 mg PO Q6H PRN PRN Reason: Pain, Mild (Pain Scale 1-3) Last Admin: 03/01/24 21:04 Dose: 650 mg Documented By: BARBARA Benzocaine (Benzocaine 20 % Oral Gel 9 Gm Tube) 1 appl MUCOUS MEM QID PRN; Protocol PRN Reason: toothache Last Admin: 03/01/24 21:04 Dose: 1 appl Documented By: BARBARA Docusate Sodium (Docusate Sodium 100 Mg Capsule) 100 mg PO DAILY PRN PRN Reason: Constipation Sodium Chloride (Ns) 1,000 mls @ 150 mls/hr IVCONT .Q6H40M [facility] Last Admin: 03/02/24 04:48 Dose: Not Given Documented By: BARBARA Non-Admin Reason: IV Running Magnesium Hydroxide (Milk Of Magnesia 30 Ml Oral.Susp) 30 ml PO DAILY PRN PRN Reason: Constipation Melatonin (Melatonin 3 Mg Tablet) 6 mg PO BEDTIME PRN PRN Reason: Insomnia Last Admin: 03/01/24 21:59 Dose: 6 mg Documented By: BARBARA Ondansetron HCl (Ondansetron Hcl 4 Mg/2 Ml Vial) 4 mg IVPUSH Q8H PRN PRN Reason: Nausea and Vomiting Last Admin: 03/01/24 19:46 Dose: 4 mg Documented By: BARBARA Sodium Chloride (0.9 % Sodium Chloride Flush 3 Ml Syringe) 3 ml IVFLUSH QSHIFT [facility] Last Admin: 03/02/24 07:01 Dose: Not Given Documented By: CHIO Non-Admin Reason: IV Running Labs 02/29/24 08:15 03/02/24 05:44 Labs: Laboratory Results - last 24 hr 03/01/24 03/02/24 07:43 05:44 ESR 3 Hold Purple Top SEE NOTE Anion Gap 11 L 13 Estim Creat Clear Calc 149.4 157.5 Estimated GFR > 60 > 60 Random Glucose 102 79 Calcium 8.5 D 8.5 Total Creatine Kinase 76000 H 9983 H Assessment and Plan (1) Rhabdomyolysis: Status: Acute (2) Syncope: Status: Acute Plan 23-year-old gentleman who left hospital against medical advice yesterday after requiring admission for syncope with possible seizure-like activity, acute lactic acidosis, acute encephalopathy , with concern for drug overdose, patient left hospital against medical advice and presented today due to generalized body ache, dizziness decreased by mouth intake, symptoms were present yesterday but since were not improving he came to ED for re-evaluation. Generalized body ache/acute rhabdomyolysis. Likely due to fall/question seizure CPK trended up from 9893 to 94488 now back down to 9600 continue IV fluids normal saline 150 mL/hours Renal function back to normal. No proteinuria follow BMP and renal function and CPK U tox positive for marijuana, as per patient smoked marijuana, denies illicit drug use, no cocaine, no opiates. Out of bed to chair as tolerated. Doubt any underlying rheumatological disease, with normal exam and initial labs, will check sed rate. Syncope with question of seizure. Was recently evaluated in emergency room on January 14 with concern for generalized shaking with foaming in the mouth and incontinence of urine and stool, patient left ED without completion of workup. Was admitted on 02/27 with an episode of syncope, question seizure, left AMA same day, had generalized body ache during that admission as well. No chest pain, no palpitations. CT head unremarkable, EEG obtained report pending/seizure precautions EKG showed sinus bradycardia heart rate 53, no acute abnormality, negative orthostatic blood pressures. Evaluated by neurology recommended complete cessation of substance use including marijuana. Recommend outpatient workup for seizure disorder. No driving until ruled out Acute kidney injury- resolved Related to rhabdomyolysis Creatinine 1.32 --> 0.74 with IV fluids -avoid nephrotoxins Follow renal function/lytes Nausea/decreased by mouth intake likely due to marijuana. counseling done. Continue IV fluids, regular diet as tolerated, follow clinical course. Anxiety/depression Reports feeling down but declines psychiatry consult. Recommend outpatient follow-up Lorazepam p.r.n. Full code Early ambulation In my clinical judgment patient need continued inpatient hospitalization for management of recurrent episode of syncope question seizure and also for IV fluids for management of rhabdomyolysis with still significantly elevated CPK of 9600. Quality Stroke Does the patient have a stroke diagnosis?: No VTE Prior VTE?: No VTE Risk Level:: Medical - low VTE Device Contraindication: Treatment Not Indicated VTE Drug Contraindication: Treatment Not Indicated
--- NOTE | 2024-03-02 12:25 | PM.NEUROCN ---
History of Present Illness Data of Consult Service Date: 03/02/24 Primary Care Provider: [facility] Reason for consult: Convulsion 23 years old man who said that he used to abuse opiates and when he was doing that he used to have seizures. He was brought to hospital after his girlfriend noted him shaking and gave him Narcan. He has been seen in hospital with somewhat similar circumstances and was supposed to have outpatient evaluation for seizure disorder, which did not happened. Now he was back to baseline Review of Systems Review of Systems: No recent trauma. [facility] Past Medical History Medical History Seizure Overdose Social History Social History Household Members: Significant Other Housing: Apartment Do you presently have visiting nurse or other home services: No Alcohol intake: never Patient Tobacco Use Status: Former Tobacco user Tobacco use type: Smokeless Tobacco Smoked in Last 30 Days: No e-Cigarette/Vaping Use: Currently Using Frequency of e-Cigarette/Vaping Use: 4-5 times Patient Interested in Nicotine Replacement: No Patient Given Instructions on How to Stop Smoking: No Date Education Initiated: 03/01/24 Second Hand Smoke Exposure: Yes Use of substances other than those prescribed or required for medical reasons: No Substance Use Type: Opiates Substance Use Type Other:: Percocet - 8 pills * 3 years. Substance Use Frequency: Daily Last Used Substance Other:: 11/05/23 Currently Displaying Signs/Symptoms of Drug Intoxication Withdrawal: No Any prior treatment program specific to substance use: No Have you been hit, kicked, punched, or otherwise hurt by someone within the past year? If so, by whom?: No Do you feel safe in your current relationship?: Yes Is there a partner from a previous relationship who is making you feel unsafe now?: No Are you made to feel afraid or neglected: No Advance Directives: No Advance Directives Information Provided: No Do you have a plan to hurt others: No Plan Recently lost weight without trying: No Eating poorly because of decreased appetite: No Nutrition Risks: No Nutritional Risk Poor oral hygiene: No service: No Meds Allergies Allergy/AdvReac Type Severity Reaction Status Date / Time No Known Allergies Allergy Verified 02/29/24 08:06 Active Medications: Current Medications Acetaminophen (Acetaminophen 325 Mg Tablet) 650 mg PO Q6H PRN PRN Reason: Pain, Mild (Pain Scale 1-3) Last Admin: 03/01/24 21:04 Dose: 650 mg Benzocaine (Benzocaine 20 % Oral Gel 9 Gm Tube) 1 appl MUCOUS MEM QID PRN; Protocol PRN Reason: toothache Last Admin: 03/01/24 21:04 Dose: 1 appl Docusate Sodium (Docusate Sodium 100 Mg Capsule) 100 mg PO DAILY PRN PRN Reason: Constipation Sodium Chloride (Ns) 1,000 mls @ 150 mls/hr IVCONT .Q6H40M [facility] Last Admin: 03/02/24 08:55 Dose: 150 mls/hr Magnesium Hydroxide (Milk Of Magnesia 30 Ml Oral.Susp) 30 ml PO DAILY PRN PRN Reason: Constipation Melatonin (Melatonin 3 Mg Tablet) 6 mg PO BEDTIME PRN PRN Reason: Insomnia Last Admin: 03/01/24 21:59 Dose: 6 mg Ondansetron HCl (Ondansetron Hcl 4 Mg/2 Ml Vial) 4 mg IVPUSH Q8H PRN PRN Reason: Nausea and Vomiting Last Admin: 03/01/24 19:46 Dose: 4 mg Sodium Chloride (0.9 % Sodium Chloride Flush 3 Ml Syringe) 3 ml IVFLUSH QSHIFT [facility] Last Admin: 03/02/24 07:01 Dose: Not Given Home Medications ?Medication ?Instructions ?Recorded ?Confirmed ?Last Taken ?Type No Known Home Meds 10/11/23 02/29/24 Unknown History Physical Exam Vital Signs: Vital Signs: Last Vital Signs Temp 98.7 F 03/02/24 07:08 Pulse 65 03/02/24 07:08 Resp 16 03/02/24 07:08 BP 129/61 03/02/24 07:08 Pulse Ox 98 03/02/24 07:08 O2 Del Method Room Air 03/02/24 07:08 BMI result Body Mass Index 23.2 Neuro: Other: He is alert and awake with normal spontaneity of speech fluency comprehension and affect. Face is symmetrical. Visual lainez are full. Deep tendon reflexes are somewhat brisk in his legs with flexor plantars. Speech is normal. Results Labs 02/29/24 08:15 03/02/24 05:44 Labs: BMP 03/02/24 05:44 Sodium 145 Potassium 3.6 Chloride 108 Carbon Dioxide 28 BUN 6 L Creatinine 0.74 Calcium 8.5 Cardiac Enzymes 03/02/24 Range/Units 05:44 Total Creatine Kinase 9983 H (38-174) U/L Noncontrast head CT is unremarkable. Assessment and Plan (1) Syncope: Qualifiers: Syncope type: unspecified Qualified Code(s): R55 - Syncope and collapse Status: Acute Seizure disorder is a possibility but could not be confirmed at this time. He should not drive and take precautions to avoid any complications if he would have a seizure. Otherwise outpatient workup is needed to rule out seizure disorder. He should avoid all drugs of abuse including marijuana. Procedures Date of Service Date of Service: 03/02/24
[2024-03-02] MEDS: LORazepam 0.5 MG TABLET PO (14:39)
[2024-03-02 15:32] VITALS: BP 114/61; PULSE 75; RESP 18; TEMP 36.1; O2SAT 99
[2024-03-02 19:43] VITALS: BP 138/65; PULSE 62; RESP 16; TEMP 36.8; O2SAT 99
[2024-03-02] MEDS: Melatonin 3 MG TABLET 6 MG PO (23:30)
[2024-03-03 03:40] VITALS: BP 126/58; PULSE 65; RESP 16; TEMP 36.5; O2SAT 98
[2024-03-03] MEDS: 0.9 % Sodium Chloride 1,000 ML 150 ML IVCONT ×3 (05:48→20:03)
[2024-03-03 06:27] LABS: Anion Gap 11 (12-20); Blood Urea Nitrogen 5 mg/dL (9-16); Calcium 8.8 mg/dL (8.4-10.2); Carbon Dioxide 28 mmol/L (22-29); Chloride 108 mmol/L (96-108); Creatinine Clr Calc Pharmacy 151.4; Estimated Glomerular Filt Rate > 60; Glucose Random 101 mg/dL (60-115); Potassium 3.6 mmol/L (3.3-5.1); Sodium 143 mmol/L (135-145)
[2024-03-03 07:51] VITALS: BP 129/61; PULSE 68; RESP 17; TEMP 36.8; O2SAT 99
[2024-03-03] MEDS: LORazepam 0.5 MG TABLET PO (11:02)
--- NOTE | 2024-03-03 11:13 | P.PNIM_ITS ---
Subjective Subjective Date of Service: 03/03/24 Interval History: Seen and evaluated feels better overall but has muscle pain CK still at 6000 Review of Systems Review of Systems: Yes all other systems are reviewed and are negative Physical Exam 2 Vital Signs: Vital Signs: Last Vital Signs Temp 98.2 F 03/03/24 07:51 Pulse 68 03/03/24 07:51 Resp 17 03/03/24 07:51 BP 129/61 03/03/24 07:51 Pulse Ox 99 03/03/24 07:51 O2 Del Method Room Air 03/03/24 07:51 BMI result Body Mass Index 23.2 Const: Other: Constitutional : Awake, interactive, not in distress Neck : Normal inspection, Supple Cardiovascular : RRR, no JVP, no lower extremity edema Respiratory : good bilateral air entry, no crackles, wheezes or rhonchi Gastrointestinal: soft, lax, Normal bowel sounds, Non tender Skin : Warm, Dry Neurological : Alert & oriented x3, No focal deficit Objective Data Active Medications Acetaminophen (Acetaminophen 325 Mg Tablet) 650 mg PO Q6H PRN PRN Reason: Pain, Mild (Pain Scale 1-3) Last Admin: 03/01/24 21:04 Dose: 650 mg Documented By: BARBARA Benzocaine (Benzocaine 20 % Oral Gel 9 Gm Tube) 1 appl MUCOUS MEM QID PRN; Protocol PRN Reason: toothache Last Admin: 03/01/24 21:04 Dose: 1 appl Documented By: BARBARA Docusate Sodium (Docusate Sodium 100 Mg Capsule) 100 mg PO DAILY PRN PRN Reason: Constipation Sodium Chloride (Ns) 1,000 mls @ 150 mls/hr IVCONT .Q6H40M [facility] Last Admin: 03/03/24 05:48 Dose: 150 mls/hr Documented By: BARBARA Lorazepam (Lorazepam 0.5 Mg Tablet) 0.5 mg PO Q8H PRN PRN Reason: Anxiety Last Admin: 03/03/24 11:02 Dose: 0.5 mg Documented By: ANNABELLE Magnesium Hydroxide (Milk Of Magnesia 30 Ml Oral.Susp) 30 ml PO DAILY PRN PRN Reason: Constipation Melatonin (Melatonin 3 Mg Tablet) 6 mg PO BEDTIME PRN PRN Reason: Insomnia Last Admin: 03/02/24 23:30 Dose: 6 mg Documented By: BARBARA Ondansetron HCl (Ondansetron Hcl 4 Mg/2 Ml Vial) 4 mg IVPUSH Q8H PRN PRN Reason: Nausea and Vomiting Last Admin: 03/01/24 19:46 Dose: 4 mg Documented By: BARBARA Sodium Chloride (0.9 % Sodium Chloride Flush 3 Ml Syringe) 3 ml IVFLUSH QSHIFT [facility] Last Admin: 03/03/24 08:19 Dose: Not Given Documented By: ANNABELLE Non-Admin Reason: IV Running Labs 02/29/24 08:15 03/03/24 05:45 Labs: Laboratory Results - last 24 hr 03/02/24 03/03/24 13:10 05:45 Anion Gap 11 L Estim Creat Clear Calc 151.4 Estimated GFR > 60 Random Glucose 101 Calcium 8.8 Total Creatine Kinase 9624 H 6432 H Assessment and Plan (1) Syncope: Status: Acute (2) Rhabdomyolysis: Status: Acute (3) Tonic clonic seizures: Status: Acute (4) Body aches: Status: Acute Plan 23-year-old gentleman who left hospital against medical advice yesterday after requiring admission for syncope with possible seizure-like activity, acute lactic acidosis, acute encephalopathy , with concern for drug overdose, patient left hospital against medical advice and presented today due to generalized body ache, dizziness decreased by mouth intake, symptoms were present yesterday but since were not improving he came to ED for re-evaluation. Generalized body ache 2/2 acute rhabdomyolysis. CPK trending down to 6000s continue IV fluids normal saline 150 mL/hours Renal function back to normal. No proteinuria. normals ESR follow BMP and renal function and CPK Out of bed to chair as tolerated. Syncope with question of seizure. CT head unremarkable, EEG concerning for possible parietal seizures Neurology rec outpatient work up and extra precautions along with complete cessation of substance use including marijuana. No driving until ruled out Acute kidney injury- resolved resolved avoid nephrotoxins Follow renal function/lytes Nausea/decreased by mouth intake likely due to marijuana. Continue IV fluids diet as tolerated Anxiety/depression Reports feeling down but declines psychiatry consult. Recommend outpatient follow-up Lorazepam p.r.n. Full code Early ambulation In my clinical judgment patient need continued inpatient hospitalization for management of recurrent episode of syncope question seizure and also for IV fluids for management of rhabdomyolysis with still significantly elevated CPK of 6000s Quality Stroke Does the patient have a stroke diagnosis?: No VTE Prior VTE?: No VTE Risk Level:: Medical - low VTE Device Contraindication: Treatment Not Indicated VTE Drug Contraindication: Treatment Not Indicated
--- NOTE | 2024-03-03 11:54 | PC.NURSE ---
Health status info given to patient.
[2024-03-03 16:48] VITALS: BP 134/79; PULSE 56; RESP 16; TEMP 36.7; O2SAT 99
[2024-03-03 19:55] VITALS: BP 137/74; PULSE 66; RESP 18; TEMP 36.3; O2SAT 97
[2024-03-03] MEDS: 0.9 % Sodium Chloride Flush 3 ML SYRINGE IVFLUSH (20:04)
[2024-03-03] MEDS: Melatonin 3 MG TABLET 6 MG PO (21:41)
[2024-03-04] MEDS: 0.9 % Sodium Chloride 1,000 ML 150 ML IVCONT (02:48)
[2024-03-04 03:14] VITALS: BP 108/59; PULSE 54; RESP 18; TEMP 36.1; O2SAT 98
[2024-03-04 06:18] LABS: Anion Gap 12 (12-20); Blood Urea Nitrogen 5 mg/dL (9-16); Calcium 8.8 mg/dL (8.4-10.2); Carbon Dioxide 27 mmol/L (22-29); Chloride 107 mmol/L (96-108); Creatinine Clr Calc Pharmacy 159.7; Estimated Glomerular Filt Rate > 60; Glucose Random 95 mg/dL (60-115); Potassium 3.3 mmol/L (3.3-5.1); Sodium 143 mmol/L (135-145)
[2024-03-04 08:00] VITALS: BP 131/76; PULSE 58; RESP 17; TEMP 36.6; O2SAT 98
--- NOTE | 2024-03-04 09:26 | MHC.CM.PN ---
DP: PT HAS BEEN MEDICALLY CLEARED FOR DC HOME, NO SERVICES. PT HAS OWN RIDE HOME
--- NOTE | 2024-03-04 09:36 | PM.DS ---
DS: Providers Provider Date of Service: 03/04/24 Date of admission: 02/29/24 15:47 Primary care physician: [facility] Consults: 03/02/24 11:14 Consult to Neurology Routine Consulting Provider: [facility] Reason for consultation: seizure with resulting rhabdo DS: Diagnosis Discharge Diagnosis (1) Syncope: Status: Acute (2) Rhabdomyolysis: Status: Acute (3) Tonic clonic seizures: Status: Acute (4) Body aches: Status: Acute DS: Summary Hospital Course Hospital Course: Admission note 23-year-old gentleman with no significant past medical history was admitted to [facility] on 02/27 after he was noted to have an episode of syncope with question seizure like activity and altered mental status , as per patient 2 days ago he woke up throwing up and blacked out was noted to have shaking movements by girlfriend, he denies head injury, patient was treated with intranasal Narcan with improvement in mentation but subsequently he became aggressive and vomited, as per EMS patient had an episode of seizure, family provided a history of prior seizure episode related to drugs and therefore was not treated with antiepileptics, patient was treated with IV fluids, and was supposed to undergo EEG and neuro evaluation, however patient decided to leave hospital against medical advice without getting further treatment and testing and presented back to [facility] today due to complain of generalized pain, associated with dizziness, feeling hot and cold, with decreased by mouth intake, he denies associated fevers, no chills, no recent history of travel, no family member with URI symptoms, he admits to smoking marijuana denies,use of illicit drugs since discharge, his U tox was positive for marijuana on 02/27, his head CT was unremarkable, chest x-ray showed no acute infiltrate, abdominal and pelvic CT scan today showed no abnormality, CBC is unremarkable, WBC has normalized, electrolytes and renal function are normal, blood sugar 140, his total creatinine kinase is 9893, albumin 4.4 lipase 12, patient is now being admitted to [facility] with a diagnosis of symptomatic rhabdomyolysis and recent episode of syncope question seizure. Hospital course The patient was admitted for treatment of Generalized body ache secondary to acute [place] [address] complicated by acute kidney injury. Treated with IV fluids with fair response over the course of hospital stay with CK trending down to 2000s on the day of discharge with resolution of acute kidney injury. He also had Syncope with question of seizure like activity. CT head unremarkable, EEG concerning for possible parietal seizures as he was followed by neurologist who recommended to hold on seizure medication of anow and to outpatient work up for further evaluation and to take extra precautions along with complete cessation of substance use including marijuana. No driving until ruled out. He was evaluated for Anxiety/depression. Reports feeling down but declines psychiatry consult. Recommend outpatient follow-up with behavioural health. Discharge Plan Drink plenty of fluids Avoid all kind of drugs including Marijuana To follow with dr Mckeon from Neurology as outpatient for further evaluation of seizure like activity No Driving or heavy machinery until further evaluation by neurology Time Attestation Discharge Coordination Time (in mins): 38 Quality: Safe Use of Opioids Does Pt have an Active Cancer Diagnosis on the Problem List?: No Quality: Stroke Does the patient have a stroke diagnosis?: No Physical Exam Vital Signs: Vital Signs: Last Vital Signs Temp 97.9 F 03/04/24 08:00 Pulse 58 03/04/24 08:00 Resp 17 03/04/24 08:00 BP 131/76 03/04/24 08:00 Pulse Ox 98 03/04/24 08:00 O2 Del Method Room Air 03/04/24 08:00 BMI result Body Mass Index 23.2 Const: Other: Constitutional : Awake, interactive, not in distress Neck : Normal inspection, Supple Cardiovascular : RRR, no JVP, no lower extremity edema Respiratory : good bilateral air entry, no crackles, wheezes or rhonchi Gastrointestinal: soft, lax, Normal bowel sounds, Non tender Skin : Warm, Dry Neurological : Alert & oriented x3, No focal deficit DS: Data Data Completed and Pending Labs on day of discharge: Laboratory Results - last 24 hr 03/04/24 04:56 Hold Purple Top SEE NOTE Sodium 143 Potassium 3.3 Chloride 107 Carbon Dioxide 27 Anion Gap 12 BUN 5 L Creatinine 0.73 Estim Creat Clear Calc 159.7 Estimated GFR > 60 Random Glucose 95 Calcium 8.8 Total Creatine Kinase 2650 H Imaging Chest x-ray: Radiologist's impression: ITS Impressions Abdomen/Pelvis CT 02/29/24 13:19 IMPRESSION: No acute abnormality in the abdomen or pelvis. Discharge Plan Discharge Anticipated Discharge Date/Time: 03/04/24 09:20 Patient Disposition: Home, Self-Care Discharge Diagnosis: Rhabdomyolysis Seizure like activity Referrals: [facility] [Primary Care Provider] - 1 Week Discharge Medications: No Action No Known Home Meds Discharge Orders: Discharge Order (Routine); Ordered 03/04/24 Ordered By: Jacque Montenegro Diet: Advance to usual diet Activity on Discharge: As tolerated Stand Alone Forms: Patient Portal Discharge page Print Language: Romanian Care Plan Goals: Read below Health Concerns: Read below Plan of Treatment: Read below Assessment: Drink plenty of fluids Avoid all kind of drugs including Marijuana To follow with dr Mckeon from Neurology as outpatient for further evaluation of seizure like activity No Driving or heavy machinery until further evaluation by neurology Patient Instructions: Rhabdomyolysis (GEN), Generalized Tonic Clonic Seizures (GEN)
== END 2024-03-04 09:59 | disposition home or self-care (01) | DRG 351 ==
LOC: HO.ED 14:52 → HO.EDOVER 16:02 → HO.S3 03-01 04:02
PROVIDERS: Physician Assistant; Admitting Provider Hospitalist; Emergency Provider Emergency Medicine; PCP Registered Nurse; Visit Provider Student in an Organized Health Care Education/Training Program
DX: M62.82 Rhabdomyolysis (principal); N17.9 Acute kidney failure, unspecified; F32.A Depression, unspecified; F41.9 Anxiety disorder, unspecified; R56.9 Unspecified convulsions; R55 Syncope and collapse; Z20.822 Contact with and (suspected) exposure to COVID-19; Z87.891 Personal history of nicotine dependence
CPT/HCPCS: 36415; 74176; 80048; 80076; 80307; 81003; 82550; 83690; 85025; 85652; 87502; 87635; 93005; 95816; 99285; J2060; J2405

== ENCOUNTER 2024-02-29 15:47 | Outpatient (BNV) | payer MEDICAID, SELFPAY | END 2024-02-29 17:04 | PROVIDERS: Admitting Provider Hospitalist; Emergency Provider Emergency Medicine; Visit Provider Internal Medicine Cardiovascular Disease | DX: R00.1 Bradycardia, unspecified (principal); R55 Syncope and collapse | CPT/HCPCS: 93010 ==

== ENCOUNTER → 2024-02-29 15:47 | Outpatient (BNV) | payer MEDICAID, SELFPAY | PROVIDERS: Admitting Provider Hospitalist; Emergency Provider Emergency Medicine; Visit Provider Psychiatry & Neurology Neurology | DX: R55 Syncope and collapse (principal) | CPT/HCPCS: 99222 ==

== ENCOUNTER → 2024-02-29 15:47 | Outpatient (BNV) | payer MEDICAID, SELFPAY | PROVIDERS: Admitting Provider Hospitalist; Emergency Provider Emergency Medicine; Visit Provider Hospitalist | DX: M62.82 Rhabdomyolysis (principal); G40.409 Other generalized epilepsy and epileptic syndromes, not intractable, without status epilepticus; R55 Syncope and collapse | CPT/HCPCS: 99223; 99232; 99233; 99239 ==

== ENCOUNTER 2024-03-16 12:42 | Outpatient (REF) | payer MEDICAID, SELFPAY ==
[2024-03-16 15:59] LABS: MANUAL DIFF FLAG NO
[2024-03-16 16:03] LABS: Basophils Percent Auto 0.5 % (0-2); Eosinophils Absolute Auto 0.1 X10*3/uL (0.0-0.4); Eosinophils Percent Auto 0.8 % (0-4); Hematocrit 46.5 % (42.0-52.0); Hemoglobin 15.5 g/dl (14.0-18.0); Imm Gran Abs Auto 0.03 X10*3/uL (0.00-0.03); Imm Gran Pct Auto 0.4 % (0.0-0.4); Lymphocytes Absolute Auto 2.7 X10*3/uL (1.2-4.9); Mean Corpuscular HGB Conc 33.3 g/dl (31.0-36.0); Mean Corpuscular Hemoglobin 28.2 pg (27.0-33.0); Mean Corpuscular Volume 84.5 fL (80.0-98.0); Mean Platelet Volume 10.2 fL (9.4-12.4); Monocytes Absolute Auto 0.7 X10*3/uL (0.1-1.2); Neutrophils Absolute Auto 3.8 x10*3/uL (2.0-8.3); Neutrophils Percent Auto 52.3 % (45-73); Platelet Count 254 X10*3/uL (160-400); Red Cell Distribution Width 12.3 % (11.0-16.0); White Blood Count 7.3 X10*3/uL (4.8-10.8)
[2024-03-16 16:25] LABS: Alanine Aminotransferase 18 U/L (0-40); Albumin Level 4.9 g/dL (3.5-5.0); Alkaline Phosphatase 69 U/L (39-117); Anion Gap 15 (12-20); Aspartate Amino Transferase 15 U/L (5-37); Bilirubin Total 1.2 mg/dL (0.0-1.0); Blood Urea Nitrogen 17 mg/dL (9-16); Calcium 10.1 mg/dL (8.4-10.2); Carbon Dioxide 24 mmol/L (22-29); Chloride 105 mmol/L (96-108); Estimated Glomerular Filt Rate > 60; Glucose Random 89 mg/dL (60-115); Potassium 4.3 mmol/L (3.3-5.1); Sodium 140 mmol/L (135-145); Total Protein 8.1 g/dL (6.5-8.0)
[2024-03-19 08:14] LABS: Syphilis Screen Nonreactive (Nonreactive)
[2024-03-19 08:46] LABS: HBS Num1 0.36 mIU/mL (0-7.99); HBc Num1 0.25 S/CO (0.00-0.79); HBsAGNum1 0.47 S/CO (0.00-0.99); HIV AB/AG Nonreactive (Nonreactive); HIV Num 1 0.04 S/CO (0.00-0.99); Hepatitis B Core Antibody Nonreactive (Nonreactive); Hepatitis B Surface Antigen Negative (Negative); ~HepC Num1 0.16 S/CO (0.00-0.79); ~Hepatitis A Antibody IgM Nonreactive (Nonreactive); ~Hepatitis B Surface Antibody NONREACTIVE (Nonreactive); ~Hepatitis C Antibody Nonreactive (Nonreactive)
== END 2024-03-16 12:43 | disposition home or self-care (01) ==
LOC: HO.HHCL 12:42
PROVIDERS: Visit Provider Registered Nurse
DX: Z11.4 Encounter for screening for human immunodeficiency virus [HIV] (principal); N17.9 Acute kidney failure, unspecified
CPT/HCPCS: 36415; 80053; 82550; 85025; 86704; 86706; 86709; 86780; 86803; 87340; 87389

== ENCOUNTER 2024-03-27 14:16 | Emergency (ER) | payer MEDICAID, SELFPAY ==
--- NOTE | ~2024-03-27 | CT_ITS ---
EXAMINATION: CT HEAD WITHOUT CONTRAST CLINICAL INFORMATION: Head injury status post seizure. COMPARISON: CT head 02/27/2024. TECHNIQUE: Contiguous axial imaging was performed from the skull base to vertex without intravenous administration of contrast. This CT examination was performed using dose optimization techniques as appropriate, variously including the following: *Automated exposure control *Adjustment of mA and/or kV according to patient size (this includes techniques or standardized protocols for targeted exams where dose is matched to indication/reason for exam; i.e. extremities or head) *Use of iterative reconstruction technique DLP: 747 mGy-cm FINDINGS: No intracranial hemorrhage, tumors or acute infarcts noted. The ventricles and sulci are normal in size and configuration. No focal parenchymal lesions of the brain or abnormal extra-axial fluid collections identified. Grossly normal appearance of the visualized hippocampal formations. The orbits and globes are normal in appearance. No definitive extra cranial soft tissue inflammatory changes noted. No significant opacification of the visualized paranasal sinuses, mastoid air cells and middle ear cavities. CT/CT head/brain wo IV con IMPRESSION: Normal unenhanced CT the head.
--- NOTE | 2024-03-27 14:21 | ECG_ITS ---
Test Reason : SEIZURE Blood Pressure : / mmHG Vent. Rate : 083 BPM Atrial Rate : 083 BPM P-R Int : 148 ms QRS Dur : 084 ms QT Int : 326 ms P-R-T Axes : 079 077 066 degrees QTc Int : 383 ms Normal sinus rhythm with sinus arrhythmia Normal ECG When compared to the previous EKG of No significant changes seen Referred By: Laine Saldivar Electronically Signed By:RAVEN HENRIQUEZ MD
[2024-03-27 14:29] VITALS: BP 100/63; PULSE 93; RESP 18; TEMP 36.9; O2SAT 98; BMI 21.5
--- NOTE | 2024-03-27 14:30 | ED.SEIZURE ---
HPI - Seizure General Chief Complaint: Seizure Stated Complaint: Seizure, alert now, per ems Source: patient, EMS and old records reviewed Mode of arrival: EMS Limitations: no limitations History of Present Illness ED Provider: WILLIAM ESQUIVEL Narrative: 23 yo male with no hx of recent seizure events and had EEG showing possible partial seizure activity not on AEDs, today at home on couch had seizure unsure if head trauma but has contusion on R forehead. Notes last night he was not feeling well with chills and body aches. He is waiting for neurology appointment. Today GTC 5 min no EMS stretchers. 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) Description of Episode: loss of consciousness and tonic-clonic movement Duration of episode: 5 -: minutes(s) Witnessed: Yes - by Bystander Trauma: Yes Seizure History: Yes Place: Home Possible Precipitating Event: none Associated symptoms: loss of appetite and malaise Treatments prior to arrival: none Related Data Previous Rx's ?Medication ?Instructions ?Recorded levetiracetam 500 mg tablet 500 mg PO BID #60 tabs 03/27/24 Allergies Allergy/AdvReac Type Severity Reaction Status Date / Time No Known Allergies Allergy Verified 03/27/24 14:30 Review of Systems Review of Systems: Constitutional : No Fever, pos Chills, pos Fatigue ENT/Mouth : No sore throat, No Rhinorrhea Eyes: No Eye Pain, No Swelling, No Redness Cardiovascular : No Chest Pain, No SOB, No Dyspnea on Exertion Respiratory : No Cough, No Sputum Gastrointestinal : No Nausea, No Vomiting, No Diarrhea, No abdominal Pain Genitourinary : No Dysuria, No Urinary Frequency, No Hematuria, Musculoskeletal : No joint pain, No Myalgias, No Joint Swelling Skin : No Skin Lesions, No rash Neuro : No Weakness, No Numbness, No Dizziness, positive Headache, pos seizure Psych : No Anxiety/Panic, No Depression All other systems reviewed and are negative [facility] Past Medical History Attestation statement: The following information was validated with the patient. Source: old records reviewed Medical History Drug overdose Seizure Overdose Social History Social History Household Members: Significant Other Housing: Apartment Do you presently have visiting nurse or other home services: No Alcohol intake: never Patient Tobacco Use Status: Former Tobacco user Tobacco use type: Smokeless Tobacco e-Cigarette/Vaping Use: Currently Using Second Hand Smoke Exposure: Yes Substance Use Type: Opiates Advance Directives: No Advance Directives Information Provided: No Do you have a plan to hurt others: No Plan service: No Physical Exam Vital Signs: Vital Signs: Last Vital Signs Temp 98.5 F 03/27/24 14:29 Pulse 93 03/27/24 14:29 Resp 18 03/27/24 14:29 BP 100/63 03/27/24 14:29 Pulse Ox 98 03/27/24 14:29 O2 Del Method Room Air 03/27/24 14:29 BMI result Body Mass Index 21.5 Appearance: Alert. Oriented X3. No acute distress. Eyes: Pupils equal, round and reactive to light. ENT: Pharynx normal. contusion to R eyebrow no bullock or racoon sign Neck: Normal inspection. Neck supple. CVS: Normal heart rate and rhythm. Pulses normal. Respiratory: No respiratory distress. Breath sounds normal. Abdomen: Soft and nontender. Skin: Skin warm and dry. Normal skin color. Normal skin turgor. Extremities: No lower extremity edema. No calf ttp Neuro: Oriented X 3. No motor deficit. No sensory deficit. Course Course Course Narrative: signed out to Dr. Spencer pending CT head result Medications Administered Discontinued Medications Generic Name Dose Route Start Last Admin Trade Name Freq PRN Reason Stop Dose Admin Sodium Chloride 1,000 mls @ 999 mls/hr 03/27/24 14:21 03/27/24 14:56 Ns IV 03/27/24 15:21 999 mls/hr .Q1H1M ONE Administration Levetiracetam 1,000 mg in 100 mls @ 400 mls/hr 03/27/24 14:21 03/27/24 15:21 Keppra IV 03/27/24 14:35 Infused ONCE ONE Infusion Lorazepam 1 mg 03/27/24 14:21 03/27/24 14:56 Lorazepam 2 Mg/Ml Vial IVPUSH 03/27/24 14:22 1 mg STAT STA Administration Medical Decision Making Medical Decision Making MDM Narrative: 23 yo male with recent admission and possible seizure activity here with c/o seizure on couch today c/o viral like illness last night has contusion to R eyebrow area he is GCS 15 on arrival at this time will need basic labs, CT head for trauma, IV ativan and given recurrent seizure and EEG findings will start on keppra. Differential Diagnosis Differential Diagnoses: The differential diagnosis associated with the presentation includes seizure activity Admission/Observation Consideration of admission/observation: Escalation of care including admission/observation considered anticipate once he is improved can be DC home Lab Data MDM Lab Attestation statement: I reviewed the patient's lab results. 03/27/24 14:46 03/27/24 14:46 Labs: Lab Results 03/27/24 Range/Units 14:46 WBC 8.9 (4.8-10.8) X10*3/uL RBC 5.10 (4.60-5.80) X10*6/uL Hgb 14.4 (14.0-18.0) g/dl Hct 42.4 (42.0-52.0) % MCV 83.1 (80.0-98.0) fL MCH 28.2 (27.0-33.0) pg MCHC 34.0 (31.0-36.0) g/dl RDW 12.2 (11.0-16.0) % Plt Count 221 (160-400) X10*3/uL MPV 9.5 (9.4-12.4) fL Immature Gran % (Auto) 0.6 H (0.0-0.4) % Neut % (Auto) 82.1 H (45-73) % Lymph % (Auto) 11.0 L (20-40) % Wright % (Auto) 5.9 (2-11) % Eos % (Auto) 0.2 (0-4) % Baso % (Auto) 0.2 (0-2) % Lymph # (Auto) 1.0 L (1.2-4.9) X10*3/uL Wright # (Auto) 0.5 (0.1-1.2) X10*3/uL Eos # (Auto) 0.0 (0.0-0.4) X10*3/uL Baso # (Auto) 0.0 (0.0-0.2) X10*3/uL Abs Immat Gran (auto) 0.05 H (0.00-0.03) X10*3/uL Absolute Neuts (auto) 7.3 (2.0-8.3) x10*3/uL Absolute Nucleated RBC 0.000 (0.0-0.012) X10*3/uL Nucleated RBC % (auto) 0.0 (0.0-0.2) /100WBC Sodium 140 (135-145) mmol/L Potassium 4.3 (3.3-5.1) mmol/L Chloride 107 (96-108) mmol/L Carbon Dioxide 22 (22-29) mmol/L Anion Gap 15 (12-20) BUN 10 (9-16) mg/dL Creatinine 0.81 (0.5-1.4) mg/dL Estim Creat Clear Calc 134.1 Estimated GFR > 60 Random Glucose 104 (60-115) mg/dL Calcium 9.6 (8.4-10.2) mg/dL Magnesium 2.3 (1.6-2.6) mg/dL Total Bilirubin 0.6 (0.0-1.0) mg/dL Direct Bilirubin 0.2 (0.0-0.5) mg/dL AST 15 (5-37) U/L ALT 18 (0-40) U/L Alkaline Phosphatase 72 (39-117) U/L Total Protein 7.5 (6.5-8.0) g/dL Albumin 4.6 (3.5-5.0) g/dL Lipase 12 (8-78) U/L Ethyl Alcohol < 10 mg/dL Independent Interpretation I performed an independent interpretation of an: EKG and CT Scan (no ICH) Interpretation: Rate: 83 Rhythm: NSR [place]: normal Normal P waves. Normal RONNY. Normal QRS complex. ST T wave : no MARICRUZ, V3-V4 t waves tall but no MARICRUZ qTC: 383 prior studies: no acute ischemia The study has been interpreted contemporaneously by me. . Radiology Impression Discussion of test interpretation with radiology: I have reviewed the radiologist's reading. Independent Historian Clinical information obtained from an independent historian. History obtained from or confirmed by: EMS External Record Review External record reviewed: Inpatient record Prescription Management I considered prescription management with: Other Discharge Plan Discharge Clinical Impression: Generalized seizure Patient Disposition: Still a Patient Instructions: New-Onset Seizure in Adults (ED) Additional Instructions: no driving in [place] given seizures no swimming or cooking over open flame alone start seizure medications tomorrow AM follow up with neurology - return to the ED for any worsening symptoms or concerns. Prescriptions: New levetiracetam 500 mg tablet 500 mg PO BID Qty: 60 0RF Stand Alone Forms: Work/School Release Print Language: Faroese
[2024-03-27 14:51] LABS: MANUAL DIFF FLAG NO
[2024-03-27 14:52] LABS: Basophils Percent Auto 0.2 % (0-2); Eosinophils Percent Auto 0.2 % (0-4); Hematocrit 42.4 % (42.0-52.0); Hemoglobin 14.4 g/dl (14.0-18.0); Imm Gran Abs Auto 0.05 X10*3/uL (0.00-0.03); Imm Gran Pct Auto 0.6 % (0.0-0.4); Mean Corpuscular Hemoglobin 28.2 pg (27.0-33.0); Mean Corpuscular Volume 83.1 fL (80.0-98.0); Mean Platelet Volume 9.5 fL (9.4-12.4); Monocytes Absolute Auto 0.5 X10*3/uL (0.1-1.2); Monocytes Percent Auto 5.9 % (2-11); Neutrophils Absolute Auto 7.3 x10*3/uL (2.0-8.3); Neutrophils Percent Auto 82.1 % (45-73); Platelet Count 221 X10*3/uL (160-400); Red Cell Distribution Width 12.2 % (11.0-16.0); White Blood Count 8.9 X10*3/uL (4.8-10.8)
[2024-03-27] MEDS: levETIRAcetam in NaCl (iso-os) 1,000 MG/100 ML PIGGYBACK 400 MG IV (14:56)
[2024-03-27] MEDS: 0.9 % Sodium Chloride 1,000 ML 999 ML IV (14:56)
[2024-03-27] MEDS: LORazepam 2 MG/ML VIAL 1 MG IVPUSH (14:56)
[2024-03-27 15:12] LABS: Albumin Level 4.6 g/dL (3.5-5.0); Alkaline Phosphatase 72 U/L (39-117); Anion Gap 15 (12-20); Aspartate Amino Transferase 15 U/L (5-37); Bilirubin Direct 0.2 mg/dL (0.0-0.5); Bilirubin Total 0.6 mg/dL (0.0-1.0); Blood Urea Nitrogen 10 mg/dL (9-16); Calcium 9.6 mg/dL (8.4-10.2); Carbon Dioxide 22 mmol/L (22-29); Chloride 107 mmol/L (96-108); Creatinine Clr Calc Pharmacy 134.1; Estimated Glomerular Filt Rate > 60; Ethanol < 10 mg/dL; Glucose Random 104 mg/dL (60-115); Lipase 12 U/L (8-78); Magnesium 2.3 mg/dL (1.6-2.6); Potassium 4.3 mmol/L (3.3-5.1); Sodium 140 mmol/L (135-145); Total Protein 7.5 g/dL (6.5-8.0)
[2024-03-27 15:23] LABS: Alanine Aminotransferase 18 U/L (0-40)
--- NOTE | 2024-03-27 15:33 | PC.NURSE ---
upon arrival, patient agitated and not wanting to be here. refusing IV and medications, however eventually agreed with the care. now resting quietly on stretcher, IV fluids continue to infuse. awaiting results from CT scan. patient has not been med compliant w/ seizure medications
[2024-03-27 18:41] VITALS: BP 110/66; PULSE 80; RESP 16; TEMP 36.8; O2SAT 100
== END 2024-03-27 18:41 | disposition home or self-care (01) ==
PROVIDERS: Emergency Medicine; Emergency Provider Emergency Medicine
DX: R56.9 Unspecified convulsions (principal)
CPT/HCPCS: 36415; 70450; 80048; 80076; 80307; 83690; 83735; 85025; 93005; 96361; 96374; 96375; 99285; J1953; J2060

== ENCOUNTER → 2024-03-27 14:21 | Outpatient (BNV) | payer MEDICAID, SELFPAY | PROVIDERS: Emergency Provider Emergency Medicine; Visit Provider Internal Medicine Cardiovascular Disease | DX: R56.9 Unspecified convulsions (principal) | CPT/HCPCS: 93010 ==

== ENCOUNTER 2024-05-09 14:28 | Outpatient (AMB) | payer MEDICAID, SELFPAY ==
[2024-05-09 14:31] VITALS: BP 102/68; PULSE 94; O2SAT 97
--- NOTE | 2024-05-09 14:31 | HO.NEPHOV_ITS ---
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 He would CPK up to 9000. But serum creatinine has been normal. He is here for further evaluation. Repeat CPK in the normal range [facility] Medical History Drug overdose Seizure Overdose Social History Household Members: Significant Other Housing: Apartment Do you presently have visiting nurse or other home services: No Alcohol intake: never Patient Tobacco Use Status: Former Tobacco user Tobacco use type: Smokeless Tobacco e-Cigarette/Vaping Use: Currently Using Second Hand Smoke Exposure: Yes Substance Use Type: Opiates service: No Physical Exam Vital Signs: Last Vital Signs Pulse 94 05/09/24 14:31 BP 102/68 05/09/24 14:31 Pulse Ox 97 05/09/24 14:31 Oxygen Delivery Method Room Air 05/09/24 14:31 Neck Neck: Yes supple Resp Auscultation: clear to auscultation bilaterally Cardio Palpation: no palpable S3 Heart sounds: no rubs GI Palpation (GI): Soft to palpation Auscultation: normal bowel sounds Neuro Motor exam (neuro): no asterixis Results Reviewed Nephrology Results: Hgb 14.4 g/dl (14.0-18.0) 03/27/24 WBC 8.9 X10*3/uL (4.8-10.8) 03/27/24 Plt Count 221 X10*3/uL (160-400) 03/27/24 Sodium 140 mmol/L (135-145) 05/09/24 Potassium 3.7 mmol/L (3.3-5.1) 05/09/24 Chloride 102 mmol/L (96-108) 05/09/24 Carbon Dioxide 30 mmol/L (22-29) H 05/09/24 BUN 11 mg/dL (9-16) 05/09/24 Creatinine 0.94 mg/dL (0.5-1.4) 05/09/24 Calcium 10.3 mg/dL (8.4-10.2) H 05/09/24 Urine Protein Negative mg/dL (Neg-Trace) 02/29/24 Assessment & Plan Assessment & Plan (1) Rhabdomyolysis: Code(s): M62.82 - Rhabdomyolysis Category: Medical Plan Young man with rhabdomyolysis due to seizures. No evidence of pigment nephropathy. Renal function stable. No further treatment is necessary at this time. Keep him well hydrated Monitor CPK when he has seizures and re-referred if needed Orders: Orders Comprehensive Met. Panel 05/09/24 M62.82 - Rhabdomyolysis Medications: New sennosides (senna) 8.6 mg PO DAILY PRN 10 tabs 0RF constipation ondansetron HCl 4 mg PO Q12H PRN 60 tabs 0RF nausea and vomiting Discontinued levetiracetam Discontinued Reason: Patient no longer taking 500 mg PO BID 60 tabs 0RF Coding Level of Care Code New Pt Level 3 (63999) Diagnoses Rhabdomyolysis .82
== END 2024-05-09 15:20 | disposition home or self-care (01) ==
LOC: HO.HKAM 14:28
PROVIDERS: PCP Registered Nurse; Referring Provider Registered Nurse; Visit Provider Internal Medicine Hypertension Specialist
DX: M62.82 Rhabdomyolysis (principal)
CPT/HCPCS: 99203

== ENCOUNTER → 2024-05-09 14:28 | Outpatient (BNVA) | payer MEDICAID, SELFPAY | PROVIDERS: PCP Registered Nurse; Referring Provider Registered Nurse; Visit Provider Internal Medicine Hypertension Specialist ==

== ENCOUNTER 2024-05-09 14:58 | Outpatient (REF) | payer MEDICAID, SELFPAY ==
[2024-05-09 16:31] LABS: Alanine Aminotransferase 35 U/L (0-40); Alkaline Phosphatase 78 U/L (39-117); Anion Gap 12 (12-20); Aspartate Amino Transferase 24 U/L (5-37); Bilirubin Total 1.5 mg/dL (0.0-1.0); Blood Urea Nitrogen 11 mg/dL (9-16); Calcium 10.3 mg/dL (8.4-10.2); Carbon Dioxide 30 mmol/L (22-29); Chloride 102 mmol/L (96-108); Estimated Glomerular Filt Rate > 60; Glucose Random 104 mg/dL (60-115); Potassium 3.7 mmol/L (3.3-5.1); Sodium 140 mmol/L (135-145); Total Protein 7.8 g/dL (6.5-8.0)
== END 2024-05-09 14:59 | disposition home or self-care (01) ==
LOC: HO.HHCL 14:58
PROVIDERS: Visit Provider Internal Medicine Hypertension Specialist
DX: M62.82 Rhabdomyolysis (principal)
CPT/HCPCS: 36415; 80053; 99202

== ENCOUNTER 2024-09-09 16:08 | Outpatient (REF) | payer MEDICAID, SELFPAY ==
--- NOTE | ~2024-09-09 | MR_ITS ---
EXAMINATION: MR BRAIN WITHOUT AND WITH CONTRAST CLINICAL INFORMATION: Seizures. COMPARISON: None available. Correlated to CT dated March 27, 2024. TECHNIQUE: Multiplanar, multisequence MRI of the brain was obtained before and after the intravenous administration of 8.5 mL gadolinium without reported immediate complications. FINDINGS: No signal abnormality, volume loss or enhancing lesion within the hippocampi. No restricted diffusion. No acute intracranial hemorrhage, mass effect, midline shift, hydrocephalus or herniation. Trivedi-white matter differentiation is normal. No enhancing mass within the intra-axial or the extra-axial compartment of the cranium. Midline structures are normal. Sellar/suprasellar region is normal. Craniocervical junction is intact and normal. Flow-void signal within the main cerebral vessels is normal. Mucosal thickening, paranasal sinuses. Accessory parotid gland, bilaterally. MR/MR head/brain wo/w con IMPRESSION: No acute or structural brain abnormality. No enhancing lesion and or mass. Electronically signed by: Brendan Jimenez MD 09/10/2024 11:38 AM WILMER
[2024-09-09] MEDS: gadobutroL 10 ML VIAL IVPUSH (17:44)
== END 2024-09-09 16:09 | disposition home or self-care (01) ==
LOC: HO.MRI 16:08
PROVIDERS: PCP Registered Nurse; Visit Provider Psychiatry & Neurology Neurology
DX: G40.909 Epilepsy, unspecified, not intractable, without status epilepticus (principal)
CPT/HCPCS: 70553; A9585

== ENCOUNTER → 2024-09-09 16:52 | Outpatient (BNV) | payer MEDICAID, SELFPAY | PROVIDERS: PCP Registered Nurse; Visit Provider Radiology Diagnostic Radiology | DX: R56.9 Unspecified convulsions (principal) | CPT/HCPCS: 70553 ==

== ENCOUNTER 2024-09-15 17:49 | Inpatient (IN) | payer MEDICAID, SELFPAY ==
--- NOTE | ~2024-09-15 | CT_ITS ---
CT brain, CT cervical spine and CT chest without contrast. CLINICAL INDICATION: High fever, possible aspiration. Multiple seizures, fever. Fall, AMS. COMPARISON: MRI brain 09/09/2024 chest x-ray 02/28/2024. TECHNIQUE: 5 mm thin axial and reformatted 2 mm thin sagittal and coronal images of brain were obtained. Subsequently axial 3 mm thin and reformatted 2 mm thin sagittal and coronal images of cervical spine were obtained. Lastly axial 5 mm thin and reformatted 3 mm thin sagittal and coronal images of chest were obtained. DLP 1566 mGy/cm. This CT examination was performed using dose optimization techniques as appropriate, variously including the following: *Automated exposure control *Adjustment of mA and/or kV according to patient size (this includes techniques or standardized protocols for targeted exams where dose is matched to indication/reason for exam; i.e. extremities or head). *Use of iterative reconstruction technique FINDINGS: Brain: There is no acute intra-axial, extra-axial bleed, masses or midline shift. There is no acute infarction evolution. There is no edema. The milian to white matter differentiation is maintained normal. The lateral ventricles are symmetrical in size and configuration without enlargement. Bone windows reveal no calvarial abnormality. There is no scalp soft tissue abnormality. There is mild mucoperiosteal thickening bilateral ethmoid sinuses. Rest of the paranasal sinuses and mastoid air cells are well-aerated. Cervical spine: There is mild straightening of cervical lordosis. The vertebral heights, alignment and disc heights are normal. There is no visible acute fracture, dislocation or subluxation seen. No disc herniation or spinal canal stenosis seen. The prevertebral and the paravertebral soft tissues are normal. The airway is widely patent. Thyroid lobes are symmetrical and normal. Visualized lung apices are clear. CHEST: The lungs are well-expanded with a focal groundglass opacity in the lingular segments and dependent bibasilar atelectasis. No consolidation, pleural effusion or thickening. Central trachea and the bronchi are widely patent. The heart size and great vessels are normal caliber. No pericardial effusion. The axilla and chest wall is unremarkable. Visualized liver and spleen is unremarkable. No gross bony abnormality seen. CT/CT cervical spine wo IV con IMPRESSION: 1. No acute intracranial process seen. 2. Mild straightening of cervical lordosis likely spasm. No visible acute fracture, dislocation or subluxation seen. 3. Focal groundglass opacity in the lingular segment and dependent bibasilar atelectasis. No consolidation or pleural effusion. Electronically signed by: Erick Traore MD 09/16/2024 07:05 AM [facility]
[2024-09-15 18:05] VITALS: BP 149/64; PULSE 107; O2SAT 99
[2024-09-15 18:07] VITALS: BP 127/59; PULSE 109; RESP 18; TEMP 36.9; O2SAT 98; BMI 22.8
--- NOTE | 2024-09-15 18:23 | PC.NURSE ---
Pt. suddenly began seizing. Verbal order 4mg IVP Ativan per Tj DUONG. Med with good effect
[2024-09-15 18:24] LABS: Glucose, Whole Blood 179 mg/dL (60-115)
[2024-09-15] MEDS: levETIRAcetam in NaCl (iso-os) 1,500 MG/100 ML PIGGYBACK 400 MG IV (18:36)
[2024-09-15] MEDS: LORazepam 2 MG/ML VIAL 6 MG IVPUSH (18:36)
--- NOTE | 2024-09-15 18:36 | ECG_ITS ---
Test Reason : SEIZURES Blood Pressure : / mmHG Vent. Rate : 121 BPM Atrial Rate : 121 BPM P-R Int : 126 ms QRS Dur : 084 ms QT Int : 298 ms P-R-T Axes : 082 080 026 degrees QTc Int : 423 ms Sinus tachycardia Otherwise normal ECG When compared to the previous EKG of Vent. rate has increased Referred By: Nury Spencer Electronically Signed By:RAVEN HENRIQUEZ MD
--- NOTE | 2024-09-15 18:38 | PC.NURSE ---
2mg Ativan IVP verbal orders Tj DUONG- pt. still seizing
[2024-09-15 18:39] VITALS: BP 144/64; PULSE 130; RESP 20; O2SAT 100
[2024-09-15] MEDS: 0.9 % Sodium Chloride 1,000 ML 999 ML IVCONT ×2 (18:40→20:54)
[2024-09-15 19:50] LABS: MANUAL DIFF FLAG NO
[2024-09-15 19:53] LABS: Basophils Percent Auto 0.1 % (0-2); Hemoglobin 13.4 g/dl (14.0-18.0); Imm Gran Abs Auto 0.08 X10*3/uL (0.00-0.03); Imm Gran Pct Auto 0.5 % (0.0-0.4); Lymphocytes Percent Auto 6.6 % (20-40); Mean Corpuscular HGB Conc 33.5 g/dl (31.0-36.0); Mean Corpuscular Hemoglobin 28.4 pg (27.0-33.0); Mean Corpuscular Volume 84.7 fL (80.0-98.0); Mean Platelet Volume 9.3 fL (9.4-12.4); Monocytes Percent Auto 6.6 % (2-11); Neutrophils Absolute Auto 12.8 x10*3/uL (2.0-8.3); Neutrophils Percent Auto 86.2 % (45-73); Platelet Count 207 X10*3/uL (160-400); Red Blood Count 4.72 X10*6/uL (4.60-5.80); Red Cell Distribution Width 11.6 % (11.0-16.0); White Blood Count 14.8 X10*3/uL (4.8-10.8)
[2024-09-15 20:06] LABS: Ethanol < 10 mg/dL
[2024-09-15 20:09] LABS: Alanine Aminotransferase 47 U/L (0-40); Albumin Level 4.1 g/dL (3.5-5.0); Alkaline Phosphatase 80 U/L (39-117); Anion Gap 19 (12-20); Aspartate Amino Transferase 30 U/L (5-37); Bilirubin Direct 0.1 mg/dL (0.0-0.5); Bilirubin Total 0.5 mg/dL (0.0-1.0); Blood Urea Nitrogen 14 mg/dL (9-16); Calcium 9.1 mg/dL (8.4-10.2); Carbon Dioxide 17 mmol/L (22-29); Chloride 111 mmol/L (96-108); Creatinine Clr Calc Pharmacy 94.4; Estimated Glomerular Filt Rate > 60; Glucose Random 120 mg/dL (60-115); Magnesium 3.2 mg/dL (1.6-2.6); Potassium 4.4 mmol/L (3.3-5.1); Sodium 143 mmol/L (135-145); Total Protein 7.3 g/dL (6.5-8.0)
[2024-09-15 20:10] LABS: Lactic Acid 5.1 mmol/L (0.5-2.0)
--- NOTE | 2024-09-15 20:17 | PC.NURSE ---
pt slightly more arousable at this time, sitting up on his own, easily redirect back into bed. family at bedside
[2024-09-15 20:26] VITALS: BP 130/62; PULSE 110; RESP 15; TEMP 36.9; O2SAT 100
--- NOTE | 2024-09-15 20:35 | ED.SEIZURE ---
HPI - Seizure General Chief Complaint: Seizure Stated Complaint: multiple seizures Time Seen by Provider: 09/15/24 18:34 Source: patient Mode of arrival: ambulatory Limitations: no limitations History of Present Illness ED Provider: Dr. Nury Spencer HPI Narrative: Patient comes to the emergency room by ambulance for having multiple seizures at home. According to EMS, the patient's partner reported that earlier today he had 3 seizures but patient refused to go to the hospital. After the 3rd seizure, patient was brought to the ED. the family reports that the patient was incarcerated recently, diagnosed with seizures, started on Keppra. However, patient decided to not take his seizure medications after he was released from senior living. On arrival to the ED, patient had a witnessed tonic-clonic seizure. Seizure History: Yes (recent) Related Data Home Medications ?Medication ?Instructions ?Recorded ?Confirmed escitalopram oxalate 10 mg tablet 10 mg PO DAILY PRN 05/09/24 05/09/24 hydroxyzine HCl 25 mg tablet 25 mg PO BEDTIME PRN anxiety 05/09/24 05/09/24 levetiracetam 750 mg tablet 750 mg PO BID 05/09/24 05/09/24 buprenorphine 8 mg-naloxone 2 mg 1 film sublingual DAILY 09/15/24 sublingual film (Suboxone) naloxone 4 mg/actuation nasal spray 1 spray intranasal DAILY 09/15/24 Previous Rx's ?Medication ?Instructions ?Recorded ondansetron HCl 4 mg tablet 4 mg PO Q12H PRN nausea and 05/09/24 vomiting #60 tabs sennosides 8.6 mg tablet (senna) 8.6 mg PO DAILY PRN constipation 05/09/24 #10 tabs Allergies Allergy/AdvReac Type Severity Reaction Status Date / Time No Known Allergies Allergy Verified 09/15/24 18:09 Review of Systems Review of Systems: Yes Unobtainable due to mental status PMFSH Past Medical History Medical History Drug overdose Seizure Overdose Social History Social History Household Members: Significant Other Housing: Apartment Do you presently have visiting nurse or other home services: No Alcohol intake: never Patient Tobacco Use Status: Former Tobacco user Tobacco use type: Smokeless Tobacco e-Cigarette/Vaping Use: Currently Using Second Hand Smoke Exposure: Yes Substance Use Type: Opiates Advance Directives: No Advance Directives Information Provided: No service: No Physical Exam Vital Signs: Vital Signs: Last Vital Signs Temp 102.6 F H 09/16/24 01:01 Pulse 71 09/16/24 02:38 Resp 17 09/16/24 02:38 BP 127/60 09/16/24 02:38 Pulse Ox 96 09/16/24 02:38 O2 Del Method Room Air 09/16/24 02:38 O2 Flow Rate 15 09/15/24 18:39 BMI result Body Mass Index 22.8 Const: Other: Appearance: Postictal, sleeping, patient was given 6 mg of IV Ativan to control the seizure Eyes: Pupils equal, round and reactive to light. ENT: Pharynx normal. Neck: Normal inspection. Neck supple. No lymph nodes noted. No crepitus CVS: Normal heart rate and rhythm. Pulses normal. Normal S1 and S2 Respiratory: No respiratory distress. Breath sounds normal. No Wheezing. No rales Abdomen: Soft and nontender. No rigidity. No distention. Skin: Skin warm and dry. Normal skin color. Normal skin turgor. Extremities: No lower extremity edema. No Lacerations. No Rash Neuro: Postictal Psych: Postictal Medications Administered Generic Name Dose Route Start Last Admin Trade Name Freq PRN Reason Stop Dose Admin Ceftriaxone Sodium 2 gm 09/16/24 02:30 09/16/24 03:19 Ceftriaxone Sodium 2 Gm Vial IVPUSH 2 gm Q12H ANTON Administration Acyclovir Sodium 680.39 mg/ 113.6078 mls @ 113.608 mls/hr 09/16/24 02:30 09/16/24 03:26 Sodium Chloride IV 113.61 mls/hr Q8H ANTON Administration Sodium Chloride 3 ml 09/16/24 00:00 09/16/24 01:01 0.9 % Sodium Chloride Flush 3 Ml Syringe IVFLUSH Not Given QSHIFT ANTON Discontinued Medications Generic Name Dose Route Start Last Admin Trade Name Freq PRN Reason Stop Dose Admin Acetaminophen 650 mg 09/15/24 23:23 09/15/24 23:35 Acetaminophen Supp 650 Mg Supp.Rect TX 09/15/24 23:24 650 mg ONCE ONE Administration Dexamethasone Sodium Phosphate 8 mg 09/16/24 02:09 09/16/24 03:18 Dexamethasone Sod Phosphate 4 Mg/Ml Vial IVPUSH 09/16/24 02:10 8 mg ONCE ONE Administration Diphenhydramine HCl 50 mg 09/16/24 00:46 09/16/24 01:02 Diphenhydramine Hcl 50 Mg/Ml Vial IM 09/16/24 00:47 50 mg ONCE ONE Administration Levetiracetam 1,500 mg in 100 mls @ 400 mls/hr 09/15/24 18:35 09/15/24 19:20 Keppra IV 09/15/24 18:49 Infused ONCE ONE Infusion Sodium Chloride 1,000 mls @ 999 mls/hr 09/15/24 18:36 09/15/24 20:56 Ns IVCONT 09/15/24 19:36 Infused .Q1H1M ONE Infusion Sodium Chloride 1,000 mls @ 999 mls/hr 09/15/24 20:43 09/15/24 23:14 Ns IVCONT 09/15/24 21:43 Infused .Q1H1M ONE Infusion Lactated Ringer's 1,000 mls @ 999 mls/hr 09/15/24 23:30 09/16/24 03:05 Lr IV 09/16/24 00:30 Infused .Q1H1M ANTON Infusion Acetaminophen 1,000 mg in 100 mls @ 400 mls/hr 09/16/24 00:18 09/16/24 01:46 Ofirmev IV 09/16/24 00:32 Infused ONCE STA Infusion Lorazepam 6 mg 09/15/24 18:35 09/15/24 18:36 Lorazepam 2 Mg/Ml Vial IVPUSH 09/15/24 18:36 6 mg ONCE ONE Administration Lorazepam 0.5 mg 09/15/24 22:38 09/15/24 22:42 Lorazepam 2 Mg/Ml Vial IVPUSH 09/15/24 22:39 0.5 mg ONCE ONE Administration Lorazepam 2 mg 09/16/24 00:15 09/16/24 00:19 Lorazepam 2 Mg/Ml Vial IVPUSH 09/16/24 00:16 2 mg ONCE ONE Administration Lorazepam 2 mg 09/16/24 00:35 09/16/24 00:38 Lorazepam 2 Mg/Ml Vial IVPUSH 09/16/24 00:36 2 mg ONCE ONE Administration Ziprasidone 20 mg 09/16/24 00:46 09/16/24 01:02 Ziprasidone Mesylate 20 Mg Vial IM 09/16/24 00:47 20 mg ONCE ONE Administration Medical Decision Making Medical Decision Making [facility] Narrative: On arrival to the emergency room, patient had a tonic-clonic seizure, patient bit the oral mucosa on the left side of his cheek, bleeding controlled. During the seizure, oxygen saturation dropped to the low 60s, patient was put on a non-rebreather, oxygen saturation quickly increased to 100%. To stop the seizure, patient was given 4 mg IV of Ativan. The seizure stopped. However, patient was postictal very combative, patient needed to additional mg of IV Ativan, total of 6 mg. Patient went to sleep. Vitals stable. Reviewing patient's medical records, patient was seen here in February of this year. Patient had a seizure, EEG was concerning for possible parietal seizures, seen by neurology here in the hospital, recommendations were to hold seizure medications. -patient had an MRI of the brain done on 09/09/2024, no acute or structural brain abnormality or enhancing lesions or masses were found -during the patient's incarceration, patient was started on Keppra but has been off medications due to patient's choice -patient was given here in the ED Keppra 1500 mg IV -my interpretation of labs, white blood cell count 14.8, lactic acid 5.1. This labs are likely secondary to seizures, there is no source of infection, patient's vitals stable, no fever, no episodes of hypotension -please note that this is not a sepsis case. -I discussed the patient with our hospitalist Dr. Monzon, patient being admitted -at 23:20, I was informed by the patient's nurse that the patient's temperature is 103.1 degrees rectally. Could be secondary to seizures? All of patient's serology tests pending -if patient test negative for influenza or COVID, we will obtain a head CT and a lumbar puncture. Discussed with Dr. Monzon 12:05: I was informed by the patient's nurse that the patient had a fall. Seems that the tissue recovery technician was in the patient's room drawing blood, and therefore the guarding rales were down. Somehow patient rolled out of bed. Head CT and cervical spine CT pending. -my interpretation of head CT: No acute abnormality. -patient keeps having a fever. Radiology reports have been significantly delayed. Lumbar puncture was performed. Tolerated well. -I discussed the patient again with Dr. Monzon, empiric antibiotics and antivirals have been started Differential Diagnosis Differential Diagnoses: The differential diagnosis associated with the presentation includes (Seizures, brain lesion, medication noncompliance) Admission/Observation Consideration of admission/observation: Escalation of care including admission/observation considered Consult Healthcare Provider Management of the patient was discussed with: Hospitalist Lab Data [facility] Lab Attestation statement: I reviewed the patient's lab results. 09/15/24 18:37 09/15/24 18:37 Labs: Lab Results 09/15/24 09/15/24 Range/Units 18:21 18:37 WBC 14.8 H (4.8-10.8) X10*3/uL RBC 4.72 (4.60-5.80) X10*6/uL Hgb 13.4 L (14.0-18.0) g/dl Hct 40.0 L (42.0-52.0) % MCV 84.7 (80.0-98.0) fL MCH 28.4 (27.0-33.0) pg MCHC 33.5 (31.0-36.0) g/dl RDW 11.6 (11.0-16.0) % Plt Count 207 (160-400) X10*3/uL MPV 9.3 L (9.4-12.4) fL Immature Gran % (Auto) 0.5 H (0.0-0.4) % Neut % (Auto) 86.2 H (45-73) % Lymph % (Auto) 6.6 L (20-40) % Keith % (Auto) 6.6 (2-11) % Eos % (Auto) 0.0 (0-4) % Baso % (Auto) 0.1 (0-2) % Lymph # (Auto) 1.0 L (1.2-4.9) X10*3/uL Keith # (Auto) 1.0 (0.1-1.2) X10*3/uL Eos # (Auto) 0.0 (0.0-0.4) X10*3/uL Baso # (Auto) 0.0 (0.0-0.2) X10*3/uL Abs Immat Gran (auto) 0.08 H (0.00-0.03) X10*3/uL Absolute Neuts (auto) 12.8 H (2.0-8.3) x10*3/uL Absolute Nucleated RBC 0.000 (0.0-0.012) X10*3/uL Nucleated RBC % (auto) 0.0 (0.0-0.2) /100WBC Sodium 143 (135-145) mmol/L Potassium 4.4 (3.3-5.1) mmol/L Chloride 111 H (96-108) mmol/L Carbon Dioxide 17 L (22-29) mmol/L Anion Gap 19 (12-20) BUN 14 (9-16) mg/dL Creatinine 1.15 (0.5-1.4) mg/dL Estim Creat Clear Calc 94.4 Estimated GFR > 60 POC Glucose 179 H (60-115) mg/dL Random Glucose 120 H (60-115) mg/dL Lactic Acid 5.1 H* (0.5-2.0) mmol/L Calcium 9.1 D (8.4-10.2) mg/dL Magnesium 3.2 H (1.6-2.6) mg/dL Total Bilirubin 0.5 (0.0-1.0) mg/dL Direct Bilirubin 0.1 (0.0-0.5) mg/dL AST 30 (5-37) U/L ALT 47 H (0-40) U/L Alkaline Phosphatase 80 (39-117) U/L Total Protein 7.3 (6.5-8.0) g/dL Albumin 4.1 (3.5-5.0) g/dL Ethyl Alcohol < 10 mg/dL Independent Interpretation I performed an independent interpretation of an: EKG (Sinus tachycardia, heart rate 121, no ST segment depression or elevation, no T-wave inversion, QTC 423, EKGs not crossing over to the system.) Procedures Lumbar Puncture Time Out Performed: Yes Patient Position: left lateral decubitus Skin Prep: Povidone-Iodine 1% Local Anesthetic: lidocaine 1% Amount of anesthesia used (mL): 5 Spinal Needle Gauge: 22G Interspace Used: L4-L5 Fluid Initially Obtained: clear Complications: traumatic tap Critical Care Time Critical Care Time Critical Care Time: Yes Total Critical Care Time: 75 Attestation: I have personally provided critical care time. Time includes review of lab data, radiology results, discussion with consultants, and monitoring for potential decompensation. Intervention performed as documented. Discharge Plan Discharge Clinical Impression: Generalized seizure, Noncompliance with medications Patient Disposition: Admitted As Inpatient
--- NOTE | 2024-09-15 20:38 | PC.NURSE ---
NRB removed, placed on 2L NC. 100% O2 sat
--- NOTE | 2024-09-15 21:37 | PM.IMHP ---
History of Present Illness Date of Service: 09/15/24 Attending physician on admission: Jeramie Salas Chief Complaint: Breakthrough seizure Pt is a 23-year-old male with a PMH significant for seizure disorder, hx of rhabdomyolysis,?and opiate use disorder who presents to the ED after 3?witnessed seizures at home. Patient was previously admitted to the hospital in February for rhabdomyolysis, CHANDLER, and question of seizure-like activity. EEG was performed that was mildly abnormal and suggestive of underlying tendency for partial seizure disorder. Neurology was consulted who suggested outpatient follow-up to rule out seizure disorder, but did not recommend starting patient on any medication. Unclear if patient never sought follow-up, but his partner reports was incarcerated sometime after last admission and [facility] and started on Keppra 750 mg p.o. b.i.d.. Patient was released from correction approximately 1 week ago and has since refused to take any of his home medications. Earlier today partner witnessed 3 seizures at home. Patient initially refused to come to the ED for evaluation after the 1st do, but after the 3rd he was fully postictal and partner called EMS. While in the ED patient was witnessed to have a full tonic-clonic seizure with cheek and tongue bite. Was initially given 4 mg IV Ativan which broke the seizure, but patient continued to clench jaws and hands and thus was given 2 more mg of Ativan. Patient also was loaded with 1500 mg IV Keppra. Patient is currently somnolent and postictal. In the ED pt was tachycardic up to 130 and desatted to the low 60s during witnessed tonic-clonic seizure in the ED. Was initially placed Labs were significant for leukocytosis of 14.8, lactic acid 5.1, magnesium 3.2, and ALT 47. Patient had brain MRI on 09/09/2024 that showed no acute structural brain abnormality, enhancing lesion, or mass. Pt was treated with 2L IVF, lorazepam 6 mg IV, and Keppra 1500 mg IV. Pt will be admitted to the hospital for treatment and further evaluation of breakthrough seizures secondary to medication noncompliance. Review of Systems Review of Systems: Yes Unobtainable due to mental status [facility] Medical History Drug overdose Seizure Overdose Social History Household Members: Significant Other Housing: Apartment Do you presently have visiting nurse or other home services: No Alcohol intake: never Patient Tobacco Use Status: Former Tobacco user Tobacco use type: Smokeless Tobacco e-Cigarette/Vaping Use: Currently Using Second Hand Smoke Exposure: Yes Substance Use Type: Opiates Advance Directives: No Advance Directives Information Provided: No service: No Meds Allergies Allergy/AdvReac Type Severity Reaction Status Date / Time No Known Allergies Allergy Verified 09/15/24 18:09 Active Medications: Current Medications Sodium Chloride (Ns) 1,000 mls @ 999 mls/hr IVCONT .Q1H1M ONE Stop: 09/15/24 21:43 Last Admin: 09/15/24 20:54 Dose: 999 mls/hr Home Medications ?Medication ?Instructions ?Recorded ?Confirmed ?Last Taken ?Type escitalopram oxalate 10 mg tablet 10 mg PO DAILY PRN 05/09/24 05/09/24 Unknown History hydroxyzine HCl 25 mg tablet 25 mg PO BEDTIME PRN anxiety 05/09/24 05/09/24 Unknown History levetiracetam 750 mg tablet 750 mg PO BID 05/09/24 05/09/24 Unknown History buprenorphine 8 mg-naloxone 2 mg 1 film sublingual DAILY 09/15/24 Unknown History sublingual film (Suboxone) naloxone 4 mg/actuation nasal spray 1 spray intranasal DAILY 09/15/24 Unknown History Physical Exam Vital Signs and Narrative: Vital Signs: Last Vital Signs Temp 98.4 F 09/15/24 20:26 Pulse 110 H 09/15/24 20:26 Resp 15 09/15/24 20:26 BP 130/62 09/15/24 20:26 Pulse Ox 100 09/15/24 20:26 O2 Del Method Non-Rebreather Ma sk 09/15/24 20:26 O2 Flow Rate 15 09/15/24 18:39 BMI result Body Mass Index 22.8 General: Somnolent, postictal, resting comfortably in bed. In no acute distress Resp: Pt snoring, unable to properly assess lung sounds CVS: S1, S2, regular rhythm, tachycardic GI: +BS, NT, no distention Skin: Warm, dry Neuro: Cranial nerves II-XII grossly intact bilaterally. Motor grossly intact bilaterally Extremities: No edema Results Labs 09/15/24 18:37 09/15/24 18:37 Labs: Laboratory Results - last 24 hr 09/15/24 09/15/24 18:21 18:37 MCV 84.7 MCH 28.4 MCHC 33.5 RDW 11.6 Plt Count 207 MPV 9.3 L Immature Gran % (Auto) 0.5 H Neut % (Auto) 86.2 H Lymph % (Auto) 6.6 L [place] % (Auto) 6.6 Eos % (Auto) 0.0 Baso % (Auto) 0.1 Lymph # (Auto) 1.0 L [place] # (Auto) 1.0 Eos # (Auto) 0.0 Baso # (Auto) 0.0 Abs Immat Gran (auto) 0.08 H Absolute Neuts (auto) 12.8 H Absolute Nucleated RBC 0.000 Nucleated RBC % (auto) 0.0 Anion Gap 19 Estim Creat Clear Calc 94.4 Estimated GFR > 60 POC Glucose 179 H Random Glucose 120 H Lactic Acid 5.1 H* Calcium 9.1 D Magnesium 3.2 H Total Bilirubin 0.5 Direct Bilirubin 0.1 AST 30 ALT 47 H Alkaline Phosphatase 80 Total Protein 7.3 Albumin 4.1 Ethyl Alcohol < 10 Assessment and Plan (1) Generalized seizure: Status: Acute Plan Pt is a 23-year-old male with a PMH significant for seizure disorder, hx of rhabdomyolysis,?and opiate use disorder who presents to the ED after 3?witnessed seizures at home. Pt will be admitted to the hospital for treatment and further evaluation of breakthrough seizures secondary to medication noncompliance. Breakthrough seizures Recently diagnosed with [facility] disorder [facility] in [facility] and started on Keppra 750 mg p.o. b.i.d. [facility]ased from [facility] 1 week ago, has refused all home meds since then 3 witnessed seizures at home this morning, 1 tonic-clonic seizure witnessed in ED Patient was given total of 6 mg Ativan IV and loaded with Keppra 1500 mg IV Will treat with Keppra 750 mg IV q.12h Aspiration and seizure precautions Neurology consult Monitor on telemetry Lactic acidosis Lactic acid 5.1 at time of presentation Secondary to seizure activity, no sepsis Leukocytosis reactionary tachycardia secondary to seizure activity No clear source of infection, no indication for antibiotics at this time Pt received 2L IVF in the ED Will check CXR and UA Opiate use disorder Continue Suboxone Mood disorder Continue escitalopram and hydroxyzine Full Code Attending:?Dr. Monzon DVT Prophylaxis: Lovenox Pt will require a hospitalization of at least two nights for treatment of?breakthrough seizures that require close monitoring of vitals, cardiac function, and labs, as well as specialist consultation with Neurology. Quality Stroke Does the patient have a stroke diagnosis?: No VTE Prior VTE?: No VTE Risk Level:: Medical - moderate - high VTE Device Contraindication: Treatment Not Indicated VTE Drug Contraindication: N/A - Med Ordered
[2024-09-15 21:49] LABS: Reflex Lactate? Lactic Acid Added
[2024-09-15 21:54] LABS: Cancel Lactic Acid Canceled
[2024-09-15] MEDS: LORazepam 2 MG/ML VIAL 0.5 MG IVPUSH (22:42)
--- NOTE | 2024-09-15 23:07 | PC.NURSE ---
pt rolling around on the stretcher, getting tangled in wires and IV. sitting up, trying to get out of bed. unable to follow commands at times. MD aware. pt medicated per JAN. pt transfers into a hospital bed for comfort. pt warm touch. rectal temp 103.3. aware
[2024-09-15 23:16] VITALS: BP 132/72; PULSE 88; RESP 15; TEMP 39.6; O2SAT 100
--- NOTE | 2024-09-15 23:21 | PM.EVENT ---
Event Note Date of Service: 09/15/24 Event Note: Patient suddenly spiked fever of 103.3 now meeting SIRS criteria of unknown source with tachycardia and leukocytosis. Will get stat CT of head and then likely lumbar puncture after results are known. Will start patient on empiric antibiotics after LP completed. Patient already received 2L IVF, will administer additional 1L IVF to meet sepsis fluid bolus. Will also get CXR, UA, and test for flu, RSV, COVID. Previous lactic acid elevated at 5.3 which was initially attributed to seizure activity. Will repeat lactic acid. Time Spent With Patient Time: Total time managing care of this patient today ____ minutes.
[2024-09-15] MEDS: Acetaminophen Supp 650 MG SUPP.RECT PR (23:35)
[2024-09-15] MEDS: Lactated Ringers 1,000 ML 999 ML IV (23:40)
[2024-09-16] VITALS (11 sets, daily range): BP systolic 113–129; BP diastolic 57–79; PULSE 57–90; RESP 14–18; TEMP 36.2–39.2; O2SAT 95–100
--- NOTE | 2024-09-16 00:10 | PC.NURSE ---
this RN was next door, head a crash and bed alarm go off, went to this pt's room. phlebotomy was at bedside for lab draw, had the side rail down of hospital bed were she was sitting. i head the crash and found pt out of bed where rail was down hunched over a stool, no head strike. pt was incont of urine at that time. assist back into bed.MD aware. new orders placed for scans. no injuries seen.
[2024-09-16] MEDS: LORazepam 2 MG/ML VIAL IVPUSH ×2 (00:19→00:38)
[2024-09-16 00:21] LABS: Influenza A PCR NEGATIVE (Negative); Influenza B PCR NEGATIVE (Negative); Resp Syncy Virus RNA Qual PCR NEGATIVE (Negative); SARS COV2 PCR INHOUSE NEGATIVE (Negative)
--- NOTE | 2024-09-16 00:55 | PC.NURSE ---
pt medicated per JAN for cooperation obtaining scans
[2024-09-16] MEDS: diphenhydrAMINE HCL 50 MG/ML VIAL IM (01:02)
[2024-09-16] MEDS: Ziprasidone Mesylate 20 MG VIAL IM (01:02)
[2024-09-16] MEDS: Acetaminophen 1,000 MG/100 ML PIGGYBACK 400 MG IV (01:05)
[2024-09-16 02:23] LABS: Lactic Acid 3.5 mmol/L (0.5-2.0)
--- NOTE | 2024-09-16 03:03 | PC.NURSE ---
lumbar puncture done by MD Spencer. pt tolerated well
[2024-09-16] MEDS: dexAMETHasone sod phosphate 4 MG/ML VIAL 8 MG IVPUSH (03:18)
[2024-09-16] MEDS: cefTRIAXone sodium 2 GM VIAL IVPUSH ×2 (03:19→15:09)
[2024-09-16] MEDS: ACYCLOVIR SODIUM IV ×2 (03:26→10:32)
[2024-09-16] MEDS: SODIUM CHLORIDE 0.9% IV ×2 (03:26→10:32)
[2024-09-16 03:32] LABS: Glucose CSF 88 mg/dL; Total Protein CSF 27.2 mg/dL (15-45)
[2024-09-16 04:02] LABS: Reflex Lactate? Lactic Acid Added
[2024-09-16 04:02] LABS: CSF Tube # 3
[2024-09-16 04:09] LABS: CSF Appearance Bloody
[2024-09-16 04:14] LABS: Appearance CSF CLEAR
[2024-09-16 04:35] LABS: Cancel Lactic Acid Canceled
--- NOTE | 2024-09-16 05:39 | PC.NURSE ---
pt incont or urine. bed and pt washed and changed. pt headed to fauzia at this time
[2024-09-16 05:41] LABS: CSF Tube # 4; Color CSF COLORLESS; White Blood Cell CSF 5 MM*3
[2024-09-16 05:42] LABS: Lymphocytes CSF 5 %; Neutrophils CSF 13 %; Red Blood Cell CSF 554 MM*3
[2024-09-16] MEDS: Lactated Ringers 1,000 ML 125 ML IVCONT ×2 (05:52→12:53)
[2024-09-16] MEDS: levETIRAcetam 750 MG in 0.9 % Sodium Chloride 100 ML 430 MG IV (06:25)
[2024-09-16] MEDS: Ketorolac Tromethamine 15 MG/ML VIAL IVPUSH (06:49)
[2024-09-16] MEDS: 0.9 % Sodium Chloride Flush 3 ML SYRINGE IVFLUSH ×3 (06:52→23:36)
--- NOTE | 2024-09-16 07:35 | HO.PM.IMPN ---
Subjective Subjective Date of Service: 09/17/24 Interval History: f/u on seizure, delirium and fever interval history:no reported seizure overnight Physical Exam Vital Signs: Vital Signs: Last Vital Signs Temp 101.4 F H 09/16/24 06:33 Pulse 60 09/16/24 05:55 Resp 14 09/16/24 05:12 BP 128/57 L 09/16/24 05:55 Pulse Ox 99 09/16/24 05:55 O2 Del Method Room Air 09/16/24 05:12 O2 Flow Rate 15 09/15/24 18:39 BMI result Body Mass Index 22.8 General: AO X, no acute distress Resp: CTA bilateral CVS: S1,S2,RRR GI: +BS, NT, no distention Skin: No rash Neuro: motor grossly intact Psych: appropriate affect Objective Data Active Medications Calcium Carbonate (Calcium Carbonate 750 Mg Tab.Chew) 750 mg PO Q4H PRN PRN Reason: Heartburn Ceftriaxone Sodium (Ceftriaxone Sodium 2 Gm Vial) 2 gm IVPUSH Q12H [facility] Last Admin: 09/16/24 03:19 Dose: 2 gm Documented By: ZARA Levetiracetam 750 mg/ Sodium (Chloride) 107.5 mls @ 430 mls/hr IV Q12H [facility] Last Infusion: 09/16/24 06:40 Dose: Infused Documented By: BEAR Acyclovir Sodium 680.39 mg/ (Sodium Chloride) 113.6078 mls @ 113.608 mls/hr IV Q8H [facility] Last Infusion: 09/16/24 05:59 Dose: Infused Documented By: MIKALA Lactated Ringer's (Lr) 1,000 mls @ 125 mls/hr IVCONT .Q8H [facility] Last Infusion: 09/16/24 06:50 Dose: 125 mls/hr Documented By: BEAR Acetaminophen (Ofirmev) 1,000 mg in 100 mls @ 400 mls/hr IV Q6H PRN PRN Reason: fever Vancomycin HCl 1,000 mg/Vancomycin HCl 750 mg/ Sodium Chloride 535 mls @ 267.5 mls/hr IV ONCE ONE Stop: 09/16/24 08:59 Magnesium Hydroxide (Milk Of Magnesia 30 Ml Oral.Susp) 30 ml PO DAILY PRN PRN Reason: Constipation Melatonin (Melatonin 3 Mg Tablet) 6 mg PO BEDTIME PRN PRN Reason: Insomnia Ondansetron HCl (Ondansetron Hcl 4 Mg/2 Ml Vial) 4 mg IVPUSH Q8H PRN PRN Reason: Nausea and Vomiting Pharmacy Consult (Consult Rx Vancomycin Dosing) 1 each MISCELLANE DAILY PRN PRN Reason: Consult order Sodium Chloride (0.9 % Sodium Chloride Flush 3 Ml Syringe) [facility] Last Admin: 09/16/24 06:52 Dose: 3 ml Documented By: BEAR Labs 09/17/24 06:29 09/17/24 06:29 Labs: Laboratory Results - last 24 hr 09/15/24 09/15/24 09/15/24 18:21 18:37 23:41 MCV 84.7 MCH 28.4 MCHC 33.5 RDW 11.6 Plt Count 207 MPV 9.3 L Immature Gran % (Auto) 0.5 H Neut % (Auto) 86.2 H Lymph % (Auto) 6.6 L Lassen % (Auto) 6.6 Eos % (Auto) 0.0 Baso % (Auto) 0.1 Lymph # (Auto) 1.0 L Lassen # (Auto) 1.0 Eos # (Auto) 0.0 Baso # (Auto) 0.0 Abs Immat Gran (auto) 0.08 H Absolute Neuts (auto) 12.8 H Absolute Nucleated RBC 0.000 Nucleated RBC % (auto) 0.0 Anion Gap 19 Estim Creat Clear Calc 94.4 Estimated GFR > 60 POC Glucose 179 H Random Glucose 120 H Lactic Acid 5.1 H* Calcium 9.1 D Magnesium 3.2 H Total Bilirubin 0.5 Direct Bilirubin 0.1 AST 30 ALT 47 H Alkaline Phosphatase 80 Total Creatine Kinase 431 H Total Protein 7.3 Albumin 4.1 CSF Tube Number CSF Volume CSF Appearance CSF Color CSF WBC CSF RBC CSF Neutrophils CSF Lymphocytes CSF Appearance (b) CSF Glucose CSF Total Protein Ethyl Alcohol < 10 Influenza Type A (PCR) NEGATIVE Influenza Type B (PCR) NEGATIVE RSV RNA Qual (PCR) NEGATIVE SARS-CoV-2 RNA (RT-PCR) NEGATIVE 09/16/24 09/16/24 09/16/24 01:59 03:06 03:06 MCV MCH MCHC RDW Plt Count MPV Immature Gran % (Auto) Neut % (Auto) Lymph % (Auto) Lassen % (Auto) Eos % (Auto) Baso % (Auto) Lymph # (Auto) Lassen # (Auto) Eos # (Auto) Baso # (Auto) Abs Immat Gran (auto) Absolute Neuts (auto) Absolute Nucleated RBC Nucleated RBC % (auto) Anion Gap Estim Creat Clear Calc Estimated GFR POC Glucose Random Glucose Lactic Acid 3.5 H* Calcium Magnesium Total Bilirubin Direct Bilirubin AST ALT Alkaline Phosphatase Total Creatine Kinase Total Protein Albumin CSF Tube Number 3 4 CSF Volume 4.0 CSF Appearance CLEAR CSF Color COLORLESS CSF WBC 5 CSF RBC 554 CSF Neutrophils 13 CSF Lymphocytes 5 CSF Appearance (b) Bloody CSF Glucose 88 CSF Total Protein 27.2 Ethyl Alcohol Influenza Type A (PCR) Influenza Type B (PCR) RSV RNA Qual (PCR) SARS-CoV-2 RNA (RT-PCR) Microbiology Microbiology Results: Microbiology 09/16/24 03:06 CSF Examination - Final Cerebrospinal Fluid Fluid Description - Final Assessment and Plan (1) Noncompliance with medications: Status: Acute (2) Generalized seizure: Status: Acute (3) Fever: Status: Acute (4) Rhabdomyolysis: Status: Acute Plan 23 y/o male with PMH of seizure disorder, HIV, hx of rhabdo, and OUD presents to ED after 3 witnessed seizures at home and now with fevers Breakthrough seizures, diagnosed with in [facility], released 1 week ago and has not been taking meds -continue keppra at 750 bid -Neuro consult -EEG when available -seizure/aspiration precaustion Fever/confusion/seizure--concern for CLAIMS [employer]NAGER infection -LP result pending -started empirically on vanco, Ceftriaxone and Acyclovir, -ID consult Acute metabolic/Lactic acidosis, d/t seizure and NOT sepsis, trending down -IVF fluid and monitor trend -monitor bicab Opiate use disorder Continue Suboxone Mood disorder Continue escitalopram and hydroxyzine HIV non-compliant with meds -ID consult Full Code DVT Prophylaxis: Lovenox Pt will require a hospitalization for treatment of?breakthrough seizures that require close monitoring of vitals, cardiac function, and labs, as well as specialist consultation with Neurology. Quality Stroke Does the patient have a stroke diagnosis?: No VTE Prior VTE?: No VTE Risk Level:: Medical - moderate - high VTE Device Contraindication: Treatment Not Indicated VTE Drug Contraindication: N/A - Med Ordered
[2024-09-16 07:39] LABS: Lactic Acid 1.4 mmol/L (0.5-2.0)
[2024-09-16] MEDS: vancomycin HCL 1,000 MG, vancomycin HCL 750 MG in 0.9 % Sodium Chloride 500 ML 267.5 MG IV (07:46)
[2024-09-16 08:01] LABS: Hematocrit 38.8 % (42.0-52.0); Hemoglobin 12.8 g/dl (14.0-18.0); Mean Corpuscular Hemoglobin 28.1 pg (27.0-33.0); Mean Corpuscular Volume 85.1 fL (80.0-98.0); Mean Platelet Volume 10.1 fL (9.4-12.4); Platelet Count 211 X10*3/uL (160-400); Red Blood Count 4.56 X10*6/uL (4.60-5.80); Red Cell Distribution Width 11.5 % (11.0-16.0); White Blood Count 11.3 X10*3/uL (4.8-10.8)
[2024-09-16 08:23] LABS: Anion Gap 16 (12-20); Blood Urea Nitrogen 20 mg/dL (9-16); Calcium 8.6 mg/dL (8.4-10.2); Carbon Dioxide 17 mmol/L (22-29); Chloride 113 mmol/L (96-108); Creatinine Clr Calc Pharmacy 42.1; Estimated Glomerular Filt Rate 30; Glucose Random 126 mg/dL (60-115); Potassium 4.2 mmol/L (3.3-5.1); Sodium 142 mmol/L (135-145)
--- NOTE | 2024-09-16 09:32 | PHA.MEDREC ---
Addendum entered by Radhika Wise RPh 09/16/24 09:51: Reviewed by [facility] Original Note: Pharmacy Consult ? Medication Reconciliation Pharmacy has completed the medication reconciliation. Spoke with S/O Kortney. She had pictures on her phone of the medications he was sent home with last week (they came in blister packs). She reports he has not taken his medications since the beginning of last week. She is unsure about when he last took the suboxone. She reports he was instructed to cut the film and use a small amount at first and if he needed more to take the whole film, but she is unsure what he has been doing with it. She also reported prn tylenol for headaches.
--- NOTE | 2024-09-16 09:38 | P.CNNE_ITS ---
History of Present Illness Data of Consult Service Date: 09/16/24 Primary Care Provider: [facility] Reason for consult: Epilepsy 23 years old man with history of drug abuse especially opiate and seizure disorder comprised of generalized convulsion and postictal aggression and confusion. His regular medicine was levetiracetam 750 mg twice a day. His girlfriend stated that as long as he was taking the medicine his seizures were controlled. This was specially the case was he was in detention and he was taking his medicines regularly. Now he was brought to hospital with breakthrough seizures. When I saw him he was deeply sleeping. Review of Systems 2 Review of Systems: Could not be done with him [facility] Past Medical History Medical History Drug overdose Seizure Overdose Social History Social History Household Members: Unknown / Unable to assess Housing: Unknown / Unable to assess Do you presently have visiting nurse or other home services: No Alcohol intake: never Patient Tobacco Use Status: Former Tobacco user Tobacco use type: Smokeless Tobacco e-Cigarette/Vaping Use: Currently Using Second Hand Smoke Exposure: Yes Substance Use Type: Opiates service: No Meds Allergies Allergy/AdvReac Type Severity Reaction Status Date / Time No Known Allergies Allergy Verified 09/15/24 18:09 Active Medications: Current Medications Calcium Carbonate (Calcium Carbonate 750 Mg Tab.Chew) 750 mg PO Q4H PRN PRN Reason: Heartburn Ceftriaxone Sodium (Ceftriaxone Sodium 2 Gm Vial) 2 gm IVPUSH Q12H [facility] Last Admin: 09/16/24 03:19 Dose: 2 gm Levetiracetam 750 mg/ Sodium (Chloride) 107.5 mls @ 430 mls/hr IV Q12H [facility] Last Infusion: 09/16/24 06:40 Dose: Infused Acyclovir Sodium 680.39 mg/ (Sodium Chloride) 113.6078 mls @ 113.608 mls/hr IV Q8H [facility] Last Infusion: 09/16/24 05:59 Dose: Infused Lactated Ringer's (Lr) 1,000 mls @ 125 mls/hr IVCONT .Q8H [facility] Last Infusion: 09/16/24 06:50 Dose: 125 mls/hr Acetaminophen (Ofirmev) 1,000 mg in 100 mls @ 400 mls/hr IV Q6H PRN PRN Reason: fever Magnesium Hydroxide (Milk Of Magnesia 30 Ml Oral.Susp) 30 ml PO DAILY PRN PRN Reason: Constipation Melatonin (Melatonin 3 Mg Tablet) 6 mg PO BEDTIME PRN PRN Reason: Insomnia Ondansetron HCl (Ondansetron Hcl 4 Mg/2 Ml Vial) 4 mg IVPUSH Q8H PRN PRN Reason: Nausea and Vomiting Pharmacy Consult (Consult Rx Vancomycin Dosing) 1 each MISCELLANE DAILY PRN PRN Reason: Consult order Sodium Chloride (0.9 % Sodium Chloride Flush 3 Ml Syringe) 3 ml IVFLUSH QSHIFT [facility] Last Admin: 09/16/24 06:52 Dose: 3 ml Home Medications ?Medication ?Instructions ?Recorded ?Confirmed ?Last Taken ?Type buprenorphine 8 mg-naloxone 2 mg 1 film sublingual DAILY 09/15/24 09/16/24 Unknown History sublingual film (Suboxone) acetaminophen 500 mg tablet 500 mg PO Q6H PRN Headache 09/16/24 09/16/24 Unknown History clonidine HCl 0.1 mg tablet 0.1 mg PO BID 09/16/24 09/16/24 Unknown History escitalopram oxalate 20 mg tablet 20 mg PO DAILY@0900 09/16/24 09/16/24 Unknown History hydroxyzine pamoate 50 mg capsule 50 mg PO BID 09/16/24 09/16/24 Unknown History levetiracetam 250 mg tablet 750 mg PO BID 09/16/24 09/16/24 Unknown History mirtazapine 7.5 mg tablet 7.5 mg PO BEDTIME 09/16/24 09/16/24 Unknown History olanzapine 7.5 mg tablet 7.5 mg PO BEDTIME 09/16/24 09/16/24 Unknown History Physical Exam 2 Vital Signs: Vital Signs: Last Vital Signs Temp 98.1 F 09/16/24 08:00 Pulse 57 09/16/24 08:00 Resp 14 09/16/24 08:00 BP 113/58 L 09/16/24 08:00 Pulse Ox 97 09/16/24 08:00 O2 Del Method Room Air 09/16/24 05:12 O2 Flow Rate 15 09/15/24 18:39 BMI result Body Mass Index 22.8 Neuro: Other: Unresponsive to verbal stimuli. Response to pain. Snoring. No obvious abnormal posturing. No gaze deviation. Examination was limited. Results Labs 09/16/24 07:09 09/16/24 07:09 Labs: Short CBC 09/15/24 09/16/24 Range/Units 18:37 07:09 WBC 14.8 H 11.3 H (4.8-10.8) X10*3/uL Hgb 13.4 L 12.8 L (14.0-18.0) g/dl Hct 40.0 L 38.8 L (42.0-52.0) % Plt Count 207 211 (160-400) X10*3/uL BMP 09/15/24 09/16/24 18:37 07:09 Sodium 143 142 Potassium 4.4 4.2 Chloride 111 H 113 H Carbon Dioxide 17 L 17 L BUN 14 20 H Creatinine 1.15 2.58 H Calcium 9.1 D 8.6 Cardiac Enzymes 09/15/24 09/16/24 Range/Units 18:37 07:09 Total Creatine Kinase 431 H 9223 H (38-174) U/L Liver Function 09/15/24 Range/Units 18:37 Total Bilirubin 0.5 (0.0-1.0) mg/dL Direct Bilirubin 0.1 (0.0-0.5) mg/dL AST 30 (5-37) U/L ALT 47 H (0-40) U/L Alkaline Phosphatase 80 (39-117) U/L Albumin 4.1 (3.5-5.0) g/dL Head CT did not reveal any significant abnormality Microbiology Microbiology Results: Microbiology 09/16/24 03:06 Cerebrospinal Fluid Gram Stain - Final 09/16/24 03:06 Cerebrospinal Fluid CSF Examination - Final 09/16/24 03:06 Cerebrospinal Fluid Fluid Description - Final 09/16/24 03:06 Cerebrospinal Fluid CSF Culture - Preliminary Assessment and Plan (1) Generalized seizure: Status: Acute Young man with seizure disorder comprised of generalized convulsion and postictal aggression and confusion. Apparently, as long as he was taking his medicines regularly he seizures were control. Recommendation again is to continue levetiracetam. His regular does was 750 mg twice a day. If he was taking it regularly, I would make it 1000 mg twice a day. Otherwise I would continue the same does. At this time he was very drowsy and examination was limited. EEG would be needed to rule out any possibility of ongoing nonconvulsive seizure. Procedures Date of Service Date of Service: 09/16/24
--- NOTE | 2024-09-16 09:44 | PHA.PROG ---
Admission Date/Time: September 15, 2024 22:09 Indication: [employer] Weight in k.039 kg Serum Creatinine - Last 168 Hours 09/15/24 09/16/24 18:37 07:09 Creatinine 1.15 2.58 H Estimated CrCl and GFR - Last 168 Hours 09/15/24 09/16/24 18:37 07:09 Estim Creat Clear Calc 94.4 42.1 Estimated GFR > 60 30 Vancomycin Loading Dose: 1,750 mg Current Vancomycin Dosing Regimen: 500 mg q 12h Vancomycin Monitoring using AUC goal of 400 - 600 range with trough as surrogate marker: 504, predicted trough 17.9 Date and Time for next Vancomycin Level to be drawn: 09/17 @ 1800 Pharmacist Comments on Vancomycin Plan: Vancomycin dosing will take advantage of [employer] as a clinical decision support tool that uses Bayesian modeling to calculate individual patient's pharmacokinetic parameters and forecast the patient's drug concentration time course with the target goal AUC 24 range of 400 - 600 mg/L/hr.
--- NOTE | 2024-09-16 10:00 | MHC.CM.PN ---
CM met with Patient and his Girlfriend/Naunka at bedside. Patient lives in an apartment with his Girlfriend, Mother and Brother and he was functionally independent [employer]. Patient obtains his Suboxone through [employer] [place] and home/resume said services is the goal. RENATA has initiated and will follow for dc planning. PCP is through [facility] and Girlfriend will transport to home.
[2024-09-16 12:17] LABS: Appearance Urine Clear; Color Urine Yellow; Glucose Urine UA Negative (Negative); Leukocyte Esterase Urine Negative (Negative); Nitrite Urine Negative (Negative); UMIC TRIGGER UACC YES; Urine Blood Large (3+) (Negative); Urine Ketones Negative (Negative); Urine Protein 30 (1+) mg/dL (Neg-Trace)
[2024-09-16 12:20] LABS: Amphetamine Screen Urine Not Detected (Not Detect); Barbiturates, Urine Not Detected (Not Detect); Benzodiazepines Screen Urine Not Detected (Not Detect); Buprenorphine Scr Positive (Not Detect); Cannabinoid Screen Urine POSITIVE (Not Detect); Cocaine Screen Urine Not Detected (Not Detect); Fentanyl, urine Not Detected (Not Detect); Methadone Screen, Urine Not Detected (Not Detect); Opiate Screen Urine Not Detected (Not Detect); Oxycodone Screen Urine Not Detected (Not Detect); Phencyclidine Screen Urine Not Detected (Not Detect)
[2024-09-16 12:31] LABS: Bacteria Urine None Seen (None Seen); Hyaline Casts Urine 0-2 /LPF (0-2); Squamous Epithelial Cell Urine 0-2 /HPF (0-2); WBC Urine 0-5 /HPF (0-5)
[2024-09-16] MEDS: levETIRAcetam in NaCl (iso-os) 1,000 MG/100 ML PIGGYBACK 400 MG IV (14:58)
--- NOTE | 2024-09-16 19:04 | PM.EVENT ---
Event Note Date of Service: 09/16/24 Event Note: 7:04 PM - [place] elevated total CK noted as well as CHANDLER. UA consistent with pigmenturia. Patient currently on LR running at 150 ml/hr, will order LR 1 L bolus stat and recheck BMP at 11 pm. Time Spent With Patient Time: Total time managing care of this patient today ____ minutes.
[2024-09-16] MEDS: Lactated Ringers 1,000 ML 999 ML IV (20:02)
[2024-09-16] MEDS: Lactated Ringers 1,000 ML 150 ML IVCONT ×2 (20:48→23:38)
[2024-09-16] MEDS: Acyclovir Sodium 680 MG in 0.9 % Sodium Chloride 100 ML 113.6 MG IV (22:32)
[2024-09-16] MEDS: vancomycin HCL 500 MG in 0.9 % Sodium Chloride 100 ML 110 MG IV (22:37)
[2024-09-16] MEDS: LORazepam 1 MG TABLET PO (23:36)
[2024-09-16 23:50] LABS: Anion Gap 16 (12-20); Blood Urea Nitrogen 30 mg/dL (9-16); Calcium 8.4 mg/dL (8.4-10.2); Carbon Dioxide 17 mmol/L (22-29); Chloride 113 mmol/L (96-108); Creatinine Clr Calc Pharmacy 49.8; Estimated Glomerular Filt Rate 37; Glucose Random 125 mg/dL (60-115); Phosphorus 3.5 mg/dL (2.7-4.5); Potassium 4.1 mmol/L (3.3-5.1); Sodium 142 mmol/L (135-145)
[2024-09-17] MEDS: levETIRAcetam in NaCl (iso-os) 1,000 MG/100 ML PIGGYBACK 400 MG IV (02:00)
[2024-09-17 04:00] VITALS: BP 126/72; PULSE 54; RESP 18; TEMP 36.6; O2SAT 99
[2024-09-17] MEDS: Acyclovir Sodium 680 MG in 0.9 % Sodium Chloride 100 ML 113.6 MG IV (05:58)
[2024-09-17 06:53] LABS: MANUAL DIFF FLAG NO
[2024-09-17 06:57] LABS: Basophils Percent Auto 0.1 % (0-2); Hemoglobin 12.3 g/dl (14.0-18.0); Imm Gran Pct Auto 0.7 % (0.0-0.4); Lymphocytes Percent Auto 14.9 % (20-40); Mean Corpuscular HGB Conc 34.2 g/dl (31.0-36.0); Mean Corpuscular Hemoglobin 28.7 pg (27.0-33.0); Mean Corpuscular Volume 84.1 fL (80.0-98.0); Monocytes Percent Auto 7.3 % (2-11); Neutrophils Absolute Auto 10.3 x10*3/uL (2.0-8.3); Platelet Count 169 X10*3/uL (160-400); Red Blood Count 4.28 X10*6/uL (4.60-5.80); Red Cell Distribution Width 11.7 % (11.0-16.0); White Blood Count 13.4 X10*3/uL (4.8-10.8)
[2024-09-17 07:32] LABS: Anion Gap 14 (12-20); Carbon Dioxide 18 mmol/L (22-29); Chloride 112 mmol/L (96-108); Creatinine Clr Calc Pharmacy 56.8; Estimated Glomerular Filt Rate 43; Magnesium 2.3 mg/dL (1.6-2.6); Phosphorus 2.7 mg/dL (2.7-4.5); Potassium 4.1 mmol/L (3.3-5.1); Sodium 140 mmol/L (135-145)
--- NOTE | 2024-09-17 09:09 | MHC.CM.PN ---
PT LEFT AMA
[2024-09-21 19:23] LABS: HIV RNA PCR Qn Copies Not Detected Copies/mL; HIV RNA PCR Qn Log Copies Not Detected Log cps/mL
--- NOTE | 2024-09-30 11:28 | PM.DS ---
DS: Providers Provider Date of Service: 09/17/24 Date of admission: 09/15/24 22:09 Date of discharge: 09/17/24 Primary care physician: LAYA Dixon Consults: 09/15/24 22:34 Consult to Neurology Routine Consulting Provider: [facility] Reason for consultation: Breakthrough seizures 09/16/24 02:17 Consult to Infectious Diseases Routine Consulting Provider: [facility] Reason for consultation: Seizures, fever Has provider been notified: No 09/17/24 00:34 Consult to Nephrology Routine Consulting Provider: [facility] Reason for consultation: CHANDLER, rhabdomyolysis Has provider been notified: No DS: Diagnosis Discharge Diagnosis (1) Noncompliance with medications: Status: Acute (2) Generalized seizure: Status: Acute (3) Fever: Status: Acute (4) Rhabdomyolysis: Status: Acute DS: Summary Hospital Course Hospital Course: 23 y/o male with PMH of seizure disorder, HIV, hx of rhabdo, and OUD presents to ED after 3 witnessed seizures at home and now with fevers. Patient was been managed for seizure, encephalopathy and once he became lucid wanted to leave ama, He was adivsed to wait ant to be fully assess and to deem if appropriate for dc but would not listen. He was awake, alert and oriented at that and understood risks of leaving. A relative at the bedside could not convince and he proceeded to leave. advised to follow up with his pcp .. Final diagnoses: seizure metabolic encephalopath fever rhabdomylosis Time Attestation Discharge Coordination Time (in mins): 10 Quality: Safe Use of Opioids Does Pt have an Active Cancer Diagnosis on the Problem List?: No Quality: Stroke Does the patient have a stroke diagnosis?: No Physical Exam Vital Signs: Vital Signs: Last Vital Signs Temp 97.8 F 09/17/24 04:00 Pulse 54 09/17/24 04:00 Resp 18 09/17/24 04:00 BP 126/72 09/17/24 04:00 Pulse Ox 99 09/17/24 04:00 O2 Del Method Room Air 09/17/24 04:00 O2 Flow Rate 15 09/15/24 18:39 BMI result Body Mass Index 22.8 DS: Data Data Completed and Pending Completed studies during hospitalization [Text1]: Procedures Drainage of Spinal Canal, Percutaneous Approach, Diagnostic (09/15/24) Discharge Plan Discharge Anticipated Discharge Date/Time: 09/17/24 08:52 Patient Disposition: Left Against Medical Advice Discharge Diagnosis: seizure, rhabdo, chandler Referrals: [place] [Physician] - 1 Week Discharge Medications: New levetiracetam [Keppra] 1,000 mg tablet 1,000 mg PO BID 90 Days Qty: 180 0RF Continued buprenorphine-naloxone [Suboxone] 8-2 mg film 1 film sublingual DAILY clonidine HCl 0.1 mg Tablet 0.1 mg PO BID hydroxyzine pamoate 50 mg Capsule 50 mg PO BID olanzapine 7.5 mg Tablet 7.5 mg PO BEDTIME acetaminophen 500 mg Tablet 500 mg PO Q6H PRN (Reason: Headache) escitalopram oxalate 20 mg Tablet 20 mg PO DAILY mirtazapine 7.5 mg Tablet 7.5 mg PO BEDTIME Discharge Orders: Discharge Order (Routine); Ordered 09/17/24 Ordered By: Royer Chester Diet: Advance to usual diet Activity on Discharge: As tolerated Print Language: Danish Care Plan Goals: recovery from seizure, rhabdomylsosis, and kidney failure Health Concerns: seizure kidney failure rhabdomylosis Plan of Treatment: Keppra dose increased to 1000 mg twice daily takk all your medication as recommended follow up with your doctor in a week and aske for your kidney labs to be recheck and you understand you left againt medical advised and assume responsibility for your health including worsening renal failure, and even the posibility of Assessment: see above Discharge Date/Time: 09/17/24 09:00
== END 2024-09-17 09:00 | disposition left against medical advice (07) | DRG 53 ==
LOC: HO.ED 20:54 → HO.EDOVER 22:19 → HO.IMC 23:55
PROVIDERS: Internal Medicine; Admitting Provider Student in an Organized Health Care Education/Training Program; Emergency Provider Emergency Medicine; PCP Registered Nurse; Visit Provider Internal Medicine
DX: G40.909 Epilepsy, unspecified, not intractable, without status epilepticus (principal); G93.45 Developmental and epileptic encephalopathy; N17.9 Acute kidney failure, unspecified; M62.82 Rhabdomyolysis; F11.20 Opioid dependence, uncomplicated; Z20.822 Contact with and (suspected) exposure to COVID-19; Z87.891 Personal history of nicotine dependence; Z79.899 Other long term (current) drug therapy
CPT/HCPCS: 0241U; 36415; 70450; 71250; 72125; 80048; 80051; 80076; 80307; 81001; 82550; 82565; 82945; 82947; 83605; 83735; 84100; 84157; 85025; 85027; 87015; 87040; 87070; 87205; 87536; 87900; 89051; 93005; 99285; J0131; J0133; J0696; J1100; J1200; J1885; J1953; J2060; J3370; J3486; J7120

== ENCOUNTER → 2024-09-15 18:36 | Outpatient (BNV) | payer MEDICAID, SELFPAY | PROVIDERS: Admitting Provider Student in an Organized Health Care Education/Training Program; Emergency Provider Emergency Medicine; Visit Provider Internal Medicine Cardiovascular Disease | DX: R00.0 Tachycardia, unspecified (principal) | CPT/HCPCS: 93010 ==

== ENCOUNTER → 2024-09-15 22:09 | Outpatient (BNV) | payer MEDICAID, SELFPAY | PROVIDERS: Admitting Provider Student in an Organized Health Care Education/Training Program; Emergency Provider Emergency Medicine; Visit Provider Psychiatry & Neurology Neurology | DX: R56.9 Unspecified convulsions (principal) | CPT/HCPCS: 99222 ==

== ENCOUNTER → 2024-09-15 22:09 | Outpatient (BNV) | payer MEDICAID, SELFPAY | PROVIDERS: Admitting Provider Student in an Organized Health Care Education/Training Program; Emergency Provider Emergency Medicine; Visit Provider Student in an Organized Health Care Education/Training Program | DX: R56.9 Unspecified convulsions (principal); R50.9 Fever, unspecified; M62.82 Rhabdomyolysis; Z53.29 Procedure and treatment not carried out because of patient's decision for other reasons | CPT/HCPCS: 99223; 99233; 99238; 99499 ==

== ENCOUNTER 2024-09-17 13:15 | Emergency (ER) | payer MEDICAID, SELFPAY ==
[2024-09-17 13:38] VITALS: BP 117/66; PULSE 65; RESP 20; TEMP 37.2; O2SAT 100; BMI 29.8
--- NOTE | 2024-09-17 13:41 | ED_ITS ---
HPI - General Adult General Chief complaint: General Medical Stated complaint: abnormal labs/ left ama / pcp sent back Time Seen by Provider: 09/17/24 19:03 Source: patient and family Mode of arrival: ambulatory Limitations: no limitations History of Present Illness ED Provider: Dr. Nury Spencer HPI narrative: Patient comes to the emergency room complaining of diffuse body aches. According to the patient and his family, patient was hospitalized for seizures and altered mental status. Patient states that today he was feeling well and left against medical advice. Patient states that since he left he has been having diffuse body aches. Patient went to see his primary care physician, who noted that the CPK was significantly elevated and patient still had CHANDLER, patient was sent back to the emergency room. Patient states that he is willing to stay the time. Related Data Home Medications ?Medication ?Instructions ?Recorded ?Confirmed buprenorphine 8 mg-naloxone 2 mg 1 film sublingual DAILY 09/15/24 09/17/24 sublingual film (Suboxone) acetaminophen 500 mg tablet 500 mg PO Q6H PRN Headache 09/16/24 09/17/24 clonidine HCl 0.1 mg tablet 0.1 mg PO BID 09/16/24 09/17/24 escitalopram oxalate 20 mg tablet 20 mg PO DAILY 09/16/24 09/17/24 hydroxyzine pamoate 50 mg capsule 50 mg PO BID 09/16/24 09/17/24 mirtazapine 7.5 mg tablet 7.5 mg PO BEDTIME 09/16/24 09/17/24 olanzapine 7.5 mg tablet 7.5 mg PO BEDTIME 09/16/24 09/17/24 Previous Rx's ?Medication ?Instructions ?Recorded levetiracetam 1,000 mg tablet 1,000 mg PO BID 90 days #180 tabs 09/17/24 (Keppra) Allergies Allergy/AdvReac Type Severity Reaction Status Date / Time No Known Allergies Allergy Verified 09/17/24 13:40 Review of Systems 2 Review of Systems: Constitutional : No Weight loss, No Fever, No Chills, No Night Sweats, No Fatigue, No Malaise ENT/Mouth : No Hearing loss, No Ear Pain, No Nasal Congestion, No Sinus Pain, No Hoarseness, No sore throat, No Rhinorrhea, No Swallowing Difficulty Eyes: No Eye Pain, No Swelling, No Redness, No Foreign Body, No Discharge, No Vision Changes Cardiovascular : No Chest Pain, No SOB, No Dyspnea on Exertion, No Orthopnea, No Edema, No Palpitations Respiratory : No Cough, No Sputum, No Wheezing, No Smoke Exposure, No Dyspnea Gastrointestinal : No Nausea, No Vomiting, No Diarrhea, No Constipation, No abdominal Pain, No Hematochezia, No Melena Genitourinary : no irregular bleeding, No Dysuria, No Urinary Frequency, No Hematuria, No Urinary Incontinence, No Urgency, No Flank Pain, No Urinary Flow Changes, No Hesitancy Musculoskeletal : Complaining of diffuse myalgias Skin : No Skin Lesions, No rash Neuro : No Weakness, No Numbness, No Paresthesias, No Loss of Consciousness, No Dizziness, No Headache. Denies seizures Psych : No Anxiety/Panic, No Depression, No SI/HI/AH/VH, No Social Issues, Heme/Lymph: No Bruising, No Bleeding,No Lymphadenopathy Endocrine : No Polyuria, No Polydipsia, No Temperature Intolerance PMF Past Medical History Medical History Rhabdomyolysis Drug overdose Seizure Overdose Social History Social History Household Members: Unknown / Unable to assess Housing: Unknown / Unable to assess Do you presently have visiting nurse or other home services: No Alcohol intake: never Patient Tobacco Use Status: Former Tobacco user Tobacco use type: Smokeless Tobacco Smoked in Last 30 Days: No e-Cigarette/Vaping Use: Currently Using Second Hand Smoke Exposure: Yes Use of substances other than those prescribed or required for medical reasons: Yes Substance Use Type: Marijuana Advance Directives: No Advance Directives Information Provided: No service: No Physical Exam ED Vital Signs: Vital Signs - 24 hr 09/17/24 13:38 09/17/24 19:06 09/17/24 20:01 Temperature 98.9 F Pulse Rate 65 53 54 Respiratory Rate 20 16 16 Blood Pressure 117/66 127/76 Pulse Oximetry 100 100 100 Oxygen Delivery Method Room Air Room Air Room Air BMI result Body Mass Index 29.8 Const Other: Appearance: Alert. Oriented X3. No acute distress. Eyes: Pupils equal, round and reactive to light. ENT: Pharynx normal. Neck: Normal inspection. Neck supple. No lymph nodes noted. No crepitus CVS: Normal heart rate and rhythm. Pulses normal. Normal S1 and S2 Respiratory: No respiratory distress. Breath sounds normal. No Wheezing. No rales Abdomen: Soft and nontender. No rigidity. No distention. Skin: Skin warm and dry. Normal skin color. Normal skin turgor. Extremities: No lower extremity edema. No Lacerations. No Rash Neuro: Oriented X 3. No motor deficit. No sensory deficit. Moving all extremities. No slurred speech. CN 2 through 12 grossly intact Psych: calm, cooperative, avoiding eye contact, covering his head with 2 blankets Course Course Course Narrative: RME performed by Betsey Wang PA-C. Patient is a 23 year old assigned male at presenting to the emergency department with low keppra levels. Patient states that he signed out of the hospital 2 days ago after having seizures and an infection of some sort. Detailed physical exam and review of systems are deferred to the primary care physician. Labs ordered. Patient placed back in the waiting room pending room availability and results. Medications Administered Discontinued Medications Generic Name Dose Route Start Last Admin Trade Name Freq PRN Reason Stop Dose Admin Sodium Chloride 1,000 mls @ 999 mls/hr 09/17/24 19:41 09/17/24 19:59 Ns IVCONT 09/17/24 20:41 999 mls/hr .Q1H1M ONE Administration Medical Decision Making Medical Decision Making [facility] Narrative: My interpretation of labs: Patient's white blood cell count 14.9, likely reactive leukocytosis. Rest of H&H at baseline. Chemistry shows CHANDLER, improving. CPK from this morning 42,670, repeating CPK at this time. Keppra level is pending -I discussed the above-mentioned with Dr. Lima, patient being admitted for rhabdomyolysis and CHANDLER. Note, Dr. Curtis came to the ED to admit the patient. However, patient refused to stay. Patient's final at bedside trying to convince him to stay. Also, Dr. Curtis and laurel tried to convince the patient to stay but patient is adamant that he is leaving. Patient is not SI or HI, there is no indication to Section 12 the patient. Patient was made aware that his CPKs elevated and also his has CHANDLER which may lead to kidney failure. Patient understands and states he does not care and still wants to leave. Patient and his family having a heated discussion in the patient's room. However, patient is adamant that he is leaving. Patient alert and oriented x3. Differential Diagnosis Differential Diagnoses: The differential diagnosis associated with the presentation includes (Medication noncompliance, rhabdomyolysis, CHANDLER) Admission/Observation Consideration of admission/observation: Escalation of care including admission/observation considered Consult Healthcare Provider Management of the patient was discussed with: Hospitalist Lab Data MDM Lab Attestation statement: I reviewed the patient's lab results. 09/17/24 14:04 09/17/24 14:04 Labs: Lab Results 09/17/24 09/17/24 Range/Units 14:04 20:04 WBC 14.9 H (4.8-10.8) X10*3/uL RBC 4.72 (4.60-5.80) X10*6/uL Hgb 13.5 L (14.0-18.0) g/dl Hct 39.3 L (42.0-52.0) % MCV 83.3 (80.0-98.0) fL MCH 28.6 (27.0-33.0) pg MCHC 34.4 (31.0-36.0) g/dl RDW 11.8 (11.0-16.0) % Plt Count 213 D (160-400) X10*3/uL MPV 9.7 (9.4-12.4) fL Immature Gran % (Auto) 0.5 H (0.0-0.4) % Neut % (Auto) 78.7 H (45-73) % Lymph % (Auto) 15.3 L (20-40) % [place] % (Auto) 5.2 (2-11) % Eos % (Auto) 0.1 (0-4) % Baso % (Auto) 0.2 (0-2) % Lymph # (Auto) 2.3 (1.2-4.9) X10*3/uL [place] # (Auto) 0.8 (0.1-1.2) X10*3/uL Eos # (Auto) 0.0 (0.0-0.4) X10*3/uL Baso # (Auto) 0.0 (0.0-0.2) X10*3/uL Abs Immat Gran (auto) 0.07 H (0.00-0.03) X10*3/uL Absolute Neuts (auto) 11.7 H (2.0-8.3) x10*3/uL Absolute Nucleated RBC 0.000 (0.0-0.012) X10*3/uL Nucleated RBC % (auto) 0.0 (0.0-0.2) /100WBC Sodium 139 (135-145) mmol/L Potassium 4.1 (3.3-5.1) mmol/L Chloride 110 H (96-108) mmol/L Carbon Dioxide 20 L (22-29) mmol/L Anion Gap 13 (12-20) BUN 25 H (9-16) mg/dL Creatinine 1.71 H (0.5-1.4) mg/dL Estim Creat Clear Calc 71.5 Estimated GFR 49 Random Glucose 95 (60-115) mg/dL Calcium 9.1 D (8.4-10.2) mg/dL Magnesium 2.3 (1.6-2.6) mg/dL Total Bilirubin 1.2 H (0.0-1.0) mg/dL AST 641 H (5-37) U/L ALT 48 H (0-40) U/L Alkaline Phosphatase 65 (39-117) U/L Total Protein 7.1 (6.5-8.0) g/dL Albumin 4.0 (3.5-5.0) g/dL Urine Color Yellow Urine Appearance Clear Urine pH 6.0 (5.0-9.0) Ur Specific [place] 1.010 (1.005-1.025) Urine Protein 30 (1+) H (Neg-Trace) mg/dL Urine Glucose (UA) Negative (Negative) mg/dL Urine Ketones Negative (Negative) mg/dL Urine Blood Large (3+) H (Negative) Urine Nitrite Negative (Negative) Ur Leukocyte Esterase Negative (Negative) Urine RBC 0-2 (0-2) /HPF Urine WBC 0-5 (0-5) /HPF Ur Squamous Epith Cells 0-2 (0-2) /HPF Urine Bacteria None Seen (None Seen) Hyaline Casts 0-2 (0-2) /LPF Critical Care Time Critical Care Time Critical Care Time: Yes Total Critical Care Time: 45 Attestation: I have personally provided critical care time. Time includes review of lab data, radiology results, discussion with consultants, and monitoring for potential decompensation. Intervention performed as documented. Discharge Plan Discharge Clinical Impression: Rhabdomyolysis, CHANDLER (acute kidney injury) Patient Disposition: Left Against Medical Advice Instructions: Acute Kidney Injury (DC), Rhabdomyolysis (ED) Additional Instructions: You refused to be admitted. Leaving against medical advice for your current condition may lead to irreversible kidney failure, worsening of your symptoms, . Please follow-up with your primary care physician tomorrow. If you have any worsening or new symptoms, please return to the emergency room or call 911 Prescriptions: No Action buprenorphine-naloxone [Suboxone] 8-2 mg film 1 film sublingual DAILY clonidine HCl 0.1 mg Tablet 0.1 mg PO BID hydroxyzine pamoate 50 mg Capsule 50 mg PO BID olanzapine 7.5 mg Tablet 7.5 mg PO BEDTIME acetaminophen 500 mg Tablet 500 mg PO Q6H PRN (Reason: Headache) escitalopram oxalate 20 mg Tablet 20 mg PO DAILY mirtazapine 7.5 mg Tablet 7.5 mg PO BEDTIME levetiracetam [Keppra] 1,000 mg tablet 1,000 mg PO BID 90 Days Qty: 180 0RF Print Language: Tajik
[2024-09-17 14:10] LABS: MANUAL DIFF FLAG NO
[2024-09-17 14:11] LABS: Basophils Percent Auto 0.2 % (0-2); Eosinophils Percent Auto 0.1 % (0-4); Hematocrit 39.3 % (42.0-52.0); Hemoglobin 13.5 g/dl (14.0-18.0); Imm Gran Abs Auto 0.07 X10*3/uL (0.00-0.03); Imm Gran Pct Auto 0.5 % (0.0-0.4); Lymphocytes Absolute Auto 2.3 X10*3/uL (1.2-4.9); Lymphocytes Percent Auto 15.3 % (20-40); Mean Corpuscular HGB Conc 34.4 g/dl (31.0-36.0); Mean Corpuscular Hemoglobin 28.6 pg (27.0-33.0); Mean Corpuscular Volume 83.3 fL (80.0-98.0); Mean Platelet Volume 9.7 fL (9.4-12.4); Monocytes Absolute Auto 0.8 X10*3/uL (0.1-1.2); Monocytes Percent Auto 5.2 % (2-11); Neutrophils Absolute Auto 11.7 x10*3/uL (2.0-8.3); Neutrophils Percent Auto 78.7 % (45-73); Platelet Count 213 X10*3/uL (160-400); Red Blood Count 4.72 X10*6/uL (4.60-5.80); Red Cell Distribution Width 11.8 % (11.0-16.0); White Blood Count 14.9 X10*3/uL (4.8-10.8)
[2024-09-17 14:24] LABS: Alanine Aminotransferase 48 U/L (0-40); Alkaline Phosphatase 65 U/L (39-117); Anion Gap 13 (12-20); Aspartate Amino Transferase 641 U/L (5-37); Bilirubin Total 1.2 mg/dL (0.0-1.0); Blood Urea Nitrogen 25 mg/dL (9-16); Calcium 9.1 mg/dL (8.4-10.2); Carbon Dioxide 20 mmol/L (22-29); Chloride 110 mmol/L (96-108); Creatinine Clr Calc Pharmacy 71.5; Estimated Glomerular Filt Rate 49; Glucose Random 95 mg/dL (60-115); Magnesium 2.3 mg/dL (1.6-2.6); Potassium 4.1 mmol/L (3.3-5.1); Sodium 139 mmol/L (135-145); Total Protein 7.1 g/dL (6.5-8.0)
[2024-09-17 19:06] VITALS: BP 127/76; PULSE 53; RESP 16; O2SAT 100
--- NOTE | 2024-09-17 19:45 | P.HPHOSP_ITS ---
History of Present Illness Date of Service: 09/17/24 Chief Complaint: Bodyaches PMFSH Medical History Rhabdomyolysis Drug overdose Seizure Overdose Social History Household Members: Unknown / Unable to assess Housing: Unknown / Unable to assess Do you presently have visiting nurse or other home services: No Alcohol intake: never Patient Tobacco Use Status: Former Tobacco user Tobacco use type: Smokeless Tobacco Smoked in Last 30 Days: No e-Cigarette/Vaping Use: Currently Using Second Hand Smoke Exposure: Yes Use of substances other than those prescribed or required for medical reasons: Yes Substance Use Type: Marijuana Advance Directives: No Advance Directives Information Provided: No service: No Meds Allergies Allergy/AdvReac Type Severity Reaction Status Date / Time No Known Allergies Allergy Verified 09/17/24 13:40 Active Medications: Current Medications Sodium Chloride (Ns) 1,000 mls @ 999 mls/hr IVCONT .Q1H1M ONE Stop: 09/17/24 20:41 Home Medications ?Medication ?Instructions ?Recorded ?Confirmed ?Last Taken ?Type buprenorphine 8 mg-naloxone 2 mg 1 film sublingual DAILY 09/15/24 09/17/24 1 Week Ago History sublingual film (Suboxone) ~09/10/24 acetaminophen 500 mg tablet 500 mg PO Q6H PRN Headache 09/16/24 09/17/24 Unknown History clonidine HCl 0.1 mg tablet 0.1 mg PO BID 09/16/24 09/17/24 09/17/24 01:30 History escitalopram oxalate 20 mg tablet 20 mg PO DAILY 09/16/24 09/17/24 09/17/24 01:30 History hydroxyzine pamoate 50 mg capsule 50 mg PO BID 09/16/24 09/17/24 Unknown History mirtazapine 7.5 mg tablet 7.5 mg PO BEDTIME 09/16/24 09/17/24 09/17/24 01:30 History olanzapine 7.5 mg tablet 7.5 mg PO BEDTIME 09/16/24 09/17/24 09/17/24 01:30 History Physical Exam 2 Vital Signs and Narrative: Vital Signs: Last Vital Signs Temp 98.9 F 09/17/24 13:38 Pulse 53 09/17/24 19:06 Resp 16 09/17/24 19:06 BP 127/76 09/17/24 19:06 Pulse Ox 100 09/17/24 19:06 O2 Del Method Room Air 09/17/24 19:06 BMI result Body Mass Index 29.8 Results Labs 09/17/24 14:04 09/17/24 14:04 Labs: Laboratory Results - last 24 hr 09/17/24 14:04 MCV 83.3 MCH 28.6 MCHC 34.4 RDW 11.8 Plt Count 213 D MPV 9.7 Immature Gran % (Auto) 0.5 H Neut % (Auto) 78.7 H Lymph % (Auto) 15.3 L [place] % (Auto) 5.2 Eos % (Auto) 0.1 Baso % (Auto) 0.2 Lymph # (Auto) 2.3 [place] # (Auto) 0.8 Eos # (Auto) 0.0 Baso # (Auto) 0.0 Abs Immat Gran (auto) 0.07 H Absolute Neuts (auto) 11.7 H Absolute Nucleated RBC 0.000 Nucleated RBC % (auto) 0.0 Anion Gap 13 Estim Creat Clear Calc 71.5 Estimated GFR 49 Random Glucose 95 Calcium 9.1 D Magnesium 2.3 Total Bilirubin 1.2 H AST 641 H ALT 48 H Alkaline Phosphatase 65 Total Protein 7.1 Albumin 4.0 Quality VTE VTE Risk Level:: Medical - moderate - high VTE Device Contraindication: Treatment Not Indicated VTE Drug Contraindication: N/A - Med Ordered
[2024-09-17] MEDS: 0.9 % Sodium Chloride 1,000 ML 999 ML IVCONT (19:59)
[2024-09-17 20:01] VITALS: PULSE 54; RESP 16; O2SAT 100
--- NOTE | 2024-09-17 20:19 | PHA.MEDREC ---
Addendum entered by Lucero Lafleur RPh 09/17/24 20:31: Med Rec reviewed by this [employer]. Patient left AMA yesterday, was discharge with Keppra 1000 mg BID. Original Note: Pharmacy Consult ? Medication Reconciliation Pharmacy has completed the medication reconciliation. Confirmed medications with patient nurses at bedside and list of patient medications bubble packs on their phones. They confirmed the patients Suboxone 8-2mg films but states he has not taken them in about a week. They confirmed he is still taking the Keppra 750 mg tab BID and states that's what they gave him today They confirmed they took his Antidepressants this afternoon at 1300 and his Keppra at 1430.
[2024-09-17 20:21] LABS: Appearance Urine Clear; Color Urine Yellow; Glucose Urine UA Negative (Negative); Leukocyte Esterase Urine Negative (Negative); Nitrite Urine Negative (Negative); UMIC TRIGGER UACC YES; Urine Blood Large (3+) (Negative); Urine Ketones Negative (Negative); Urine Protein 30 (1+) mg/dL (Neg-Trace)
[2024-09-17 20:35] LABS: Bacteria Urine None Seen (None Seen); Hyaline Casts Urine 0-2 /LPF (0-2); RBC Urine 0-2 /HPF (0-2); Squamous Epithelial Cell Urine 0-2 /HPF (0-2); WBC Urine 0-5 /HPF (0-5)
[2024-09-17 20:51] VITALS: BP 109/59; PULSE 54; RESP 16; TEMP 36.9; O2SAT 100
[2024-09-17 21:03] LABS: Amphetamine Screen Urine Not Detected (Not Detect); Barbiturates, Urine Not Detected (Not Detect); Benzodiazepines Screen Urine Not Detected (Not Detect); Buprenorphine Scr Not Detected (Not Detect); Cannabinoid Screen Urine POSITIVE (Not Detect); Cocaine Screen Urine Not Detected (Not Detect); Fentanyl, urine Not Detected (Not Detect); Methadone Screen, Urine Not Detected (Not Detect); Opiate Screen Urine Not Detected (Not Detect); Oxycodone Screen Urine Not Detected (Not Detect); Phencyclidine Screen Urine Not Detected (Not Detect)
--- NOTE | 2024-09-17 21:19 | PM.EVENT ---
Event Note Date of Service: 09/17/24 Event Note: Was asked to evaluate the patient for possible admission. Patient was recently admitted with breakthrough seizure, rhabdomyolysis and acute kidney injury and left AMA on the morning of 09/17. He was having body aches since he left AMA. Also noticed reddish urine. Patient's PCP asked the patient to come back to the ER due to elevated CPK and elevated serum creatinine. Patient met inpatient criteria but decided that he did not wish to stay and wanted to go home. Discussed with ER provider. Patient deemed to have capacity. He understands the risks of going home including worsening of his kidney function and/or . Patient's family member also understand the risks of patient going home. He is adamant that he would not like to stay in the hospital. Admit order canceled, H&P canceled and patient to be discharged from the ER by ER provider. Asked to come back in case of new or worsening complaints. Time Spent With Patient Time: Total time managing care of this patient today ____ minutes.
[2024-09-17 21:49] VITALS: BP 109/59; PULSE 54; RESP 16; TEMP 36.9; O2SAT 100
[2024-09-20 09:08] LABS: Levetiracetam Keppra 30.6 mcg/mL (6.0-46.0)
== END 2024-09-17 21:49 | disposition left against medical advice (07) ==
PROVIDERS: Physician Assistant Medical; Emergency Provider Emergency Medicine; PCP Registered Nurse
DX: M62.82 Rhabdomyolysis (principal); R79.89 Other specified abnormal findings of blood chemistry; Z79.899 Other long term (current) drug therapy; Z51.81 Encounter for therapeutic drug level monitoring; Z87.891 Personal history of nicotine dependence
CPT/HCPCS: 36415; 80053; 80177; 80307; 81001; 82550; 83735; 85025; 99284

== ENCOUNTER 2024-10-15 10:58 | Outpatient (REF) | payer MEDICAID, SELFPAY ==
[2024-10-15 11:44] LABS: MANUAL DIFF FLAG NO
[2024-10-15 11:47] LABS: Basophils Absolute Auto 0.1 X10*3/uL (0.0-0.2); Basophils Percent Auto 0.7 % (0-2); Eosinophils Absolute Auto 0.4 X10*3/uL (0.0-0.4); Eosinophils Percent Auto 5.1 % (0-4); Hematocrit 46.2 % (42.0-52.0); Hemoglobin 15.5 g/dl (14.0-18.0); Imm Gran Abs Auto 0.02 X10*3/uL (0.00-0.03); Imm Gran Pct Auto 0.3 % (0.0-0.4); Lymphocytes Percent Auto 26.8 % (20-40); Mean Corpuscular HGB Conc 33.5 g/dl (31.0-36.0); Mean Corpuscular Hemoglobin 28.4 pg (27.0-33.0); Mean Corpuscular Volume 84.8 fL (80.0-98.0); Mean Platelet Volume 9.4 fL (9.4-12.4); Monocytes Absolute Auto 0.6 X10*3/uL (0.1-1.2); Monocytes Percent Auto 7.5 % (2-11); Neutrophils Absolute Auto 4.4 x10*3/uL (2.0-8.3); Neutrophils Percent Auto 59.6 % (45-73); Platelet Count 176 X10*3/uL (160-400); Red Blood Count 5.45 X10*6/uL (4.60-5.80); Red Cell Distribution Width 11.9 % (11.0-16.0); White Blood Count 7.4 X10*3/uL (4.8-10.8)
[2024-10-15 12:17] LABS: Alanine Aminotransferase 20 U/L (0-40); Albumin Level 4.9 g/dL (3.5-5.0); Alkaline Phosphatase 78 U/L (39-117); Anion Gap 10 (12-20); Aspartate Amino Transferase 19 U/L (5-37); Bilirubin Total 1.3 mg/dL (0.0-1.0); Blood Urea Nitrogen 17 mg/dL (9-16); Calcium 9.7 mg/dL (8.4-10.2); Carbon Dioxide 28 mmol/L (22-29); Chloride 104 mmol/L (96-108); Estimated Glomerular Filt Rate > 60; Glucose Random 95 mg/dL (60-115); Potassium 4.1 mmol/L (3.3-5.1); Sodium 138 mmol/L (135-145); Total Protein 8.1 g/dL (6.5-8.0)
[2024-10-15 13:14] LABS: HBS Num1 0.27 mIU/mL (0-7.99); HBc Num1 0.18 S/CO (0.00-0.79); HBsAGNum1 0.38 S/CO (0.00-0.99); HIV AB/AG Nonreactive (Nonreactive); HIV Num 1 0.06 S/CO (0.00-0.99); Hepatitis A Antibody IgM 0.27 Index (0-0.79); Hepatitis B Core Antibody Nonreactive (Nonreactive); Hepatitis B Surface Antigen Negative (Negative); ~HepC Num1 0.18 S/CO (0.00-0.79); ~Hepatitis A Antibody IgM Nonreactive (Nonreactive); ~Hepatitis B Surface Antibody NONREACTIVE (Nonreactive); ~Hepatitis C Antibody Nonreactive (Nonreactive)
[2024-10-17 14:18] LABS: RPR Rapid Plasma Reagin NON-REACTIVE (NON-REACTIVE)
[2024-10-21 18:08] LABS: CK-BB None Detected (None Detected); CK-MB 0 % (<5); CK-MM 100 % (95-100); Creatine Kinase,Total,Serum 49 U/L (44-196)
== END 2024-10-15 10:59 | disposition home or self-care (01) ==
LOC: HO.HHCL 10:58
PROVIDERS: Visit Provider Registered Nurse
DX: F19.90 Other psychoactive substance use, unspecified, uncomplicated (principal); N17.9 Acute kidney failure, unspecified; Z87.39 Personal history of other diseases of the musculoskeletal system and connective tissue
CPT/HCPCS: 36415; 80053; 82552; 85025; 86592; 86704; 86706; 86709; 86803; 87340; 87389

== ENCOUNTER 2024-11-29 11:51 | Outpatient (REF) | payer MEDICAID, SELFPAY ==
[2024-11-29 13:54] LABS: Estimated Average Glucose 105 mg/dL; Hemoglobin A1C 139.0969 umol/L; Hemoglobin A1c % 5.3 % (<6.0); Total Hemoglobin (HGBA1C) 3990.8145 umol/L
[2024-11-29 14:03] LABS: Alanine Aminotransferase 49 U/L (0-40); Albumin Level 4.5 g/dL (3.5-5.0); Alkaline Phosphatase 77 U/L (39-117); Anion Gap 9 (12-20); Aspartate Amino Transferase 29 U/L (5-37); Bilirubin Total 1.1 mg/dL (0.0-1.0); Blood Urea Nitrogen 13 mg/dL (9-16); Calcium 9.6 mg/dL (8.4-10.2); Carbon Dioxide 24 mmol/L (22-29); Chloride 110 mmol/L (96-108); Estimated Glomerular Filt Rate > 60; Glucose Random 118 mg/dL (60-115); Potassium 3.9 mmol/L (3.3-5.1); Sodium 139 mmol/L (135-145); Total Protein 7.8 g/dL (6.5-8.0)
[2024-11-30 15:47] LABS: CT PCR NOT DETECTED (Not Detect.); NG PCR NOT DETECTED (Not Detect.)
== END 2024-11-29 11:52 | disposition home or self-care (01) ==
LOC: HO.HHCL 11:51
PROVIDERS: Visit Provider General Practice
DX: R30.0 Dysuria (principal); R31.9 Hematuria, unspecified; Z11.3 Encounter for screening for infections with a predominantly sexual mode of transmission
CPT/HCPCS: 36415; 80053; 83036; 87491; 87591

== ENCOUNTER 2025-01-16 12:27 | Outpatient (REF) | payer MEDICAID, SELFPAY ==
--- NOTE | ~2025-01-16 | US_ITS ---
CLINICAL HISTORY: DYSURIA,SLOW STREAM US Renal Comparison: US/SR - US ABDOMEN LIMITED - 08/29/22 17:19 EDT Findings: Right kidney normal size and echotexture, 10.8 cm length. Left kidney normal size and echotexture, 10.4 cm length. No hydronephrosis of either kidney. Normal color Doppler IMPRESSION: 1. Normal kidneys. This document has been electronically signed by: Kelle Mederos MD on 01/16/2025 16:01:06
--- OUTSIDE RECORDS SUMMARY | 2025-01-16 14:29 | XMS_ITS | Encounter Summary ---
Author Organization [employer] Address [address] [place] [address] Care Team Providers Care Cinnamon Grinder Name Role Phone [facility] Primary Care Provider [phone] Encounter Details Date Type Department Care Team (Latest Contact Info) Description 01/01/2025 Travel Social History Tobacco Use Types Packs/Day Years Used Date Smoking Tobacco: Every Day Smokeless Tobacco: Never Comments:Smoking electronic cigarettes/vapes for the past 2 years everyday nonstop Alcohol Use Standard Drinks/Week Comments Never 0 (1 standard drink = 0.6 oz pur e alcohol) Depression Answer Date Recorded Patient Health Questionnaire-9 Score 20 11/20/2024 Patient Health Questionnaire-9 Score 20 11/20/2024 Last PHQ-9: Questionnaire Data Not on file 0 11/20/2024 Housing Stability Answer Date Recorded What is your housing situation today? I do not have housing (Staying with others, in a hotel, in a fdc, living outside on the street, on a beach, in a car, or in a park 03/16/[address] you li ve. Do you have problems with any of the following? Water leaks 03/16/2024 Food Insecurity Answer Date Recorded Within the past 12 months, y ou worried that your food would run out before you got money to buy more: Sometimes True 2023 Within the past 12 months,th e food you bought just didn't last and you didn't have enough money to get more: Never True 03/16/2024 Transportation Answer Date Recorded In the past 12 months, has l ack of transportation kept you from medical appts, meetings, work or from getting things needed for daily living? Yes, it has kept me from medical appointments or getting medications. 03/16/2024 Utilities Answer Date Recorded In the past 12 months, has t he electric, gas, oil or water company threatened to shut off services in your home? I am not sure 03/16/2024 Depression Answer Date Recorded Patient Health Questionnaire-2 Score 4 11/20/2024 Sex and Gender Information Value Date Recorded Sex Assigned at Male 09/06/2022 10:22 AM EDT Legal Sex Male 10:22 AM EDT Gender Identity Male 09/06/2022 10:22 AM EDT Sexual Orientation Choose not to disclose 2021 10:22 AM EDT documented as of this encounter Plan of Treatment Upcoming Encounters Date Type Department Care Team (Late st Contact Info) Description 01/18/2025 9:00 AM EDT Telemedicine [address] [address] 01/29/2025 3:15 PM EDT Clinical Support [address] [address] Monalisa Torres RN documented as of this encounter Visit Diagnoses Not on filedocumented in this encounter Additional Health Concerns Assessment Noted Time PHQ-9 Depression Total Score: 20 025 10:36 AM EST documented as of this encounter Care Teams Cinnamon Grinder Relationship Specialty Start Date End Date Lesa Barkley FNP [address] [place] [id number] PCP - General Family Medicine 08/14/21 documented as of this encounter
--- OUTSIDE RECORDS SUMMARY | 2025-01-16 14:29 | XMS_ITS | Encounter Summary ---
Author Organization [employer] Address [address] [facility] [address] [place] [address] [address] Care [address] Shaft And Steering Post Repairer Name Role Phone [facility] Primary Care Provider [phone] Reason for Visit * Reason Comments OBAT Encounter Details Date Type Department Care Team (Latest Contact Info) Description 12/18/2024 1:45 PM EST Office Visit [facility] [address], [place] [phone] Moris Escamilla MD [address] [place], [place] [phone] Uncomplicated opioid dependence (CMS/HCC) (Primary Dx) Social History Tobacco Use Types Packs/Day Years Used Date Smoking Tobacco: Never Smokeless Tobacco: Never Alcohol Use Standard Drinks/Week Comments Never 0 [...] with others, in a hotel, in [place] [facility] [place], living outside on the street, on a [...] AM EDT documented as of this encounter Progress Notes * Moris Escamilla MD - 12/18/2024 1:45 PM EST Subjective Patient ID: Harpal Buckner Jr is a 24 y.o. male. HPI Patient here today for Opioid Dependence RV. Suboxone dose: 24/6 mg On a one week schedule. Patient has been in the program for: 2 months Induction date: 10/19/24 LFTs done: 10/15/24 Hep A status: 10/15/24: Non-reactive Hep B status: 10/15/24: Non-reactive Hep C status: 10/15/24: Non-reactive HIV status: 10/15/24: Non-reactive Patient actively enrolled in behavioral health services, therapist: Baylee BEVERLY reviewed by provider. Last PCP appt: 10/19/24 Smoking status: 10/19/24: Vapes daily. [facility] reviewed UTOX: +bup, thc Abraham was prescribed oxycodone after arm laceration repair age 17, then started buying street oxycodone. Never used heroin. Has Colace and senna that helps constipation. States was released from residential 09/2024 where he was prescribed Suboxone 16/4 mg. After residential became a pt at [facility] where he prescribed 8/2 mg, which he states was too low a dose dueto cravings and w/d sx. Discussed Suboxone oral hygiene. He declined trying Sublocade. Attends IOP at [facility]. He was interviewed by [facility] educational consultant Alan 10/16. Plan: Will follow up internal referral to psychiatry and referral to psychotherapy. Was seen by Baylee 11/19 because he had not received psych tapan't., and she referred him to internal psych provider, but he has not received tapan't yet. We asked Baylee to f/u. Tobacco Use: Active vaping; agrees to try nicotine patches and lozenges. ETOH: None Marijuana Use: Daily Other substance use: Active FLAKITA, on suboxone Current living environment: Lives with GF Children: 0 Not currently looking for work. Denies past surgical hx. Labs done 10/15, has nonreactive Hep B antibodies. 3rd Hep B vaccine is due 12/31/2024. Hepatitis panel ordered by PCP did not include Hep A Ab. Will add to next lab tests. The following portions of the chart were reviewed this encounter and updated as appropriate: Tobacco Allergies Meds Problems Med Hx Surg Hx Fam Hx Review of Systems Constitutional: Negative for fever. Respiratory: Negative for shortness of breath. Cardiovascular: Negative for chest pain. Gastrointestinal: Negative for abdominal pain. Skin: Negative for rash. Neurological: Negative for headaches. Objective Physical Exam Vitals and nursing note reviewed. Constitutional: Appearance: Normal appearance. HENT: Head: Normocephalic and atraumatic. Nose: Nose normal. Eyes: Conjunctiva/sclera: Conjunctivae normal. Pupils: Pupils are equal, round, and reactive to light. Pulmonary: Effort: Pulmonary effort is normal. Skin: General: Skin is warm and dry. Neurological: Mental Status: He is alert. Gait: Gait is intact. Psychiatric: Mood and Affect: Mood and affect normal. Behavior: Behavior normal. Procedures Assessment/Plan Diagnoses and all orders for this visit: Uncomplicated opioid dependence (CMS/HCC) Recovery support, harm reduction (including Narcan) and behavioral health attendance reviewed. Continue Suboxone 24/6 mg on weekly schedule. - POCT OBI-14 Urine Drug Screen documented in this encounter Plan of Treatment Upcoming Encounters Date Type Department Care Team (Late st Contact Info) Description 01/18/2025 9:00 AM EDT Telemedicine [address] [address] 01/29/2025 3:15 PM EDT Clinical Support [address] [address] Monalisa Torres RN documented as of this encounter Procedures Procedure Name Priority Date/Time Associated Diagnosis Comments POCT OBI-14 URINE DRUG SCREEN Routine 12/18/2024 1:56 PM EST Uncomplicated opioid dependence (CMS/HCC) documented in this encounter Results * POCT OBI-14 Urine Drug Screen (12/18/2024 1:56 PM EST) THC Positive Cocaine Screen, Urine Negative Opiate Screen, Urine Negative Methamphetamine Screen Urine Negative Amphetamine Screen, Urine Negative Benzodiazepines Screen, Urine Negative Barbiturate Screen, Urine Negative Methadone Screen, Urine Negative Buprenophine Screen, Urine Positive TCA, Urine Negative MDMA Urine Negative ng/mL Oxycodone Screen, Urine Negative Phencyclidine (PCP), Urine Negative Propoxyphene, Urine Negative Fentanyl, Urine Negative Urine Urine specimen obtained by clean catch procedure / Unknown 12/18/2024 1:56 PM EST Moris Escamilla MD POINT OF CARE TEST ENTER/EDIT OR DERABLES Final Result documented in this encounter Visit Diagnoses Diagnosis Uncomplicated opioid dependence (CMS/HCC)- Primary documented in this encounter Additional Health Concerns Assessment Noted Time PHQ-9 Depression Total Score: 20 025 10:36 AM EST documented as of this encounter Care Teams Drive Shaft And Steering Post Repairer Relationship Specialty Start Date End Date Lesa Barkley FNP [address] [place] [id number] PCP - General Family Medicine 08/14/21 documented as of this encounter
--- OUTSIDE RECORDS SUMMARY | 2025-01-16 14:29 | XMS_ITS | Encounter Summary ---
Author Organization [employer] Address [address] [facility] [address] [place] [address] Care Team Providers Care Core Shaper Name Role Phone [facility] Primary Care Provider [phone] Reason for Visit * Reason Onset Date Comments Med Refill 12/19/2024 Encounter Details Date Type Department Care Team (Late st Contact Info) Description 12/19/2024 Refill [facility] [address] [place] [address] Monalisa Torres RN Uncomplicated opioid dependence (CMS/HCC) Social History Tobacco Use Types Packs/Day Years [...] with others, in a hotel, in a [facility], living outside on the street, on a [...] Info) Description 01/18/2025 9:00 AM EDT Telemedicine [facility] [address] [place] [phone] 01/29/2025 3:15 PM EDT Clinical Support [facility] [address] [place] [phone] Monalisa Torres, YASMEEN documented as of this encounter Visit Diagnoses Diagnosis Uncomplicated opioid dependence (CMS/HCC) documented in this encounter Additional Health Concerns Assessment Noted Time PHQ-9 Depression Total Score: 20 025 10:36 AM EST documented as of this encounter Care Teams Core Shaper Relationship Specialty Start Date End Date Lesa Barkley FNP [address] [place] [phone] PCP - General Family Medicine 08/14/21 documented as of this encounter
--- OUTSIDE RECORDS SUMMARY | 2025-01-16 14:29 | XMS_ITS | Encounter Summary ---
Author Organization [employer] Address [address] [place] [address] Care Team Providers Care Butter Grader Name Role Phone [facility] Primary Care Provider [phone] Encounter Details Date Type Department Care Team (Latest Contact Info) Description 12/18/2024 Travel Social History Tobacco Use Types Packs/Day [...] with others, in a hotel, in a alf, living outside on the street, on a [...] Info) Description 01/18/2025 9:00 AM EDT Telemedicine [address] [phone] 01/29/2025 3:15 PM EDT Clinical Support [address] [address] Monalisa Torres, YASMEEN documented as of this encounter Visit Diagnoses Not on filedocumented in this encounter Additional Health Concerns Assessment Noted Time PHQ-9 Depression Total Score: 20 025 10:36 AM EST documented as of this encounter Care Teams Butter Grader Relationship Specialty Start Date End Date Lesa Barkley FNP [address] [place] [id number] PCP - General Family Medicine 08/14/21 documented as of this encounter
--- OUTSIDE RECORDS SUMMARY | 2025-01-16 14:29 | XMS_ITS | Clinical Summary ---
Author Organization [employer] Address [address] [facility] [address] [place] [address] Care Team Providers Care Sterilisation Technician Name Role Phone [facility] Primary Care Provider [phone] Allergies No known active allergies Medications * This document contains information received from the source organization and may not represent a complete record from that organization. naloxone (Narcan) 4 mg/0.1 mL nasal spray ADMINISTER 1 SPRAY INTO ONE NOSTRIL. CALL 911. REPEAT AFTER 2-3 MIN IF NO OR MINIMAL RESPONSE 09/11/20 24 Active polyethylene glycol, PEG, 3350 (MiraLax) 17 GM/SCOOP powder Take 17 g by mouth Once per day. 527 g 2 11/27/19 25 025 Active triamcinolone (Kenalog) 0.1 % cream Apply topically if needed in the morning and at bedtime for rash (R thigh). 30 g 2 11/27/19 25 Active Senna-Time 8.6 MG tablet TAKE 1 TABLET BY MOUTH EVERY DAY NEEDED FOR CONSTIPATION 05/09/20 24 Active nicotine (Nicoderm CQ) 21 MG/24HR patch Place 1 patch on the skin 1 (one) time each day at the same time. 42 patch 12/21/19 25 Active nicotine polacrilex (Commit) 4 MG lozenge Dissolve 1 lozenge (4 mg) in the mouth every 2 (two) hours if needed for smoking cessation. 100 lozenge 12/21/19 25 025 Active nicotine (Nicoderm CQ) 14 MG/24HR patch Place 1 patch on the skin 1 (one) time each day at the same time. 14 patch 12/26/19 25 Active nicotine (Nicoderm CQ) 7 MG/24HR patch Place 1 patch on the skin 1 (one) time each day at the same time. 14 patch 12/26/19 25 025 Active cloNIDine (Catapres) 0.1 MG tablet Take 1 tablet (0.1 mg) by mouth 2 times daily. 60 tablet 01/01/20 25 Active escitalopram (Lexapro) 20 MG tablet Take 1 tablet (20 mg) by mouth Once per day. 30 tablet 01/01/20 25 Active hydrOXYzine pamoate (Vistaril) 50 MG capsule Take 1 capsule (50 mg) by mouth 2 times daily. 60 capsule 01/01/20 25 Active levETIRAcetam (Keppra) 1000 MG tablet Take 1 tablet (1,000 mg) by mouth 2 times daily. 60 tablet 01/01/20 25 Active mirtazapine (Remeron) 7.5 MG tablet Take 1 tablet (7.5 mg) by mouth at bedtime. 30 tablet 01/01/20 25 Active OLANZapine (ZyPREXA) 7.5 MG tablet Take 1 tablet (7.5 mg) by mouth at bedtime. 30 tablet 01/01/20 25 Active buprenorphine ER (Sublocade) 300 mg/1.5mL injectionIndi cations:Uncom plicated opioid dependence (CMS/HCC) Inject 1.5 mL (1 each) under the skin every month to absorb continually. Administer q 28 days. 1.5 mL 1 01/10/20 25 025 Active nicotine (Nicoderm CQ) 21 MG/24HR patch Place 1 patch on the skin 1 (one) time each day at the same time. 42 patch 10/29/20 24 025 Discontinued(M ed list cleanup (will not trigger notification to Pharmacy)) nicotine (Nicoderm CQ) 14 MG/24HR patch Place 1 patch on the skin 1 (one) time each day at the same time. 14 patch 10/29/20 24 025 Discontinued(M ed list cleanup (will not trigger notification to Pharmacy)) nicotine (Nicoderm CQ) 7 MG/24HR patch Place 1 patch on the skin 1 (one) time each day at the same time. 14 patch 10/29/20 025 Discontinued(M ed list cleanup (will not trigger notification to Pharmacy)) nicotine polacrilex (Commit) 4 MG lozenge Dissolve 1 lozenge (4 mg) in the mouth every 2 (two) hours if needed for smoking cessation. 100 lozenge 10/29/20 025 Discontinued(M ed list cleanup (will not trigger notification to Pharmacy)) escitalopram (Lexapro) 20 MG tablet Take 1 tablet (20 mg) by mouth Once per day. 30 tablet 11/27/19 025 Discontinued(R eorder (will not trigger notification to Pharmacy)) mirtazapine (Remeron) 7.5 MG tablet Take 1 tablet (7.5 mg) by mouth at bedtime. 30 tablet 11/27/19 025 Discontinued(R eorder (will not trigger notification to Pharmacy)) OLANZapine (ZyPREXA) 7.5 MG tablet Take 1 tablet (7.5 mg) by mouth at bedtime. 30 tablet 11/27/19 025 Discontinued(R eorder (will not trigger notification to Pharmacy)) cloNIDine (Catapres) 0.1 MG tablet Take 1 tablet (0.1 mg) by mouth 2 times daily. 60 tablet 11/27/19 025 Discontinued(R eorder (will not trigger notification to Pharmacy)) hydrOXYzine pamoate (Vistaril) 50 MG capsule Take 1 capsule (50 mg) by mouth 2 times daily. 60 capsule 11/27/19 25 025 Discontinued(R eorder (will not trigger notification to Pharmacy)) levETIRAcetam (Keppra) 1000 MG tablet Take 1 tablet by mouth 2 times daily. 10/01/20 025 Discontinued(R eorder (will not trigger notification to Pharmacy)) Suboxone 8-2 MG SL filmIndicatio ns:Uncomplica rocío opioid dependence (CMS/HCC) Place 1 Film under the tongue 3 times daily for 14 days. 42 Film 12/11/19 25 025 Discontinued(R eorder (will not trigger notification to Pharmacy)) cloNIDine (Catapres) 0.1 MG tablet Take 1 tablet (0.1 mg) by mouth 2 times daily. 60 tablet 12/21/19 25 025 Discontinued(R eorder (will not trigger notification to Pharmacy)) escitalopram (Lexapro) 20 MG tablet Take 1 tablet (20 mg) by mouth Once per day. 30 tablet 12/21/19 25 025 Discontinued(R eorder (will not trigger notification to Pharmacy)) levETIRAcetam (Keppra) 1000 MG tablet Take 1 tablet (1,000 mg) by mouth 2 times daily. 60 tablet 12/21/19 25 025 Discontinued(R eorder (will not trigger notification to Pharmacy)) OLANZapine (ZyPREXA) 7.5 MG tablet Take 1 tablet (7.5 mg) by mouth at bedtime. 30 tablet 12/21/19 25 025 Discontinued(R eorder (will not trigger notification to Pharmacy)) mirtazapine (Remeron) 7.5 MG tablet Take 1 tablet (7.5 mg) by mouth at bedtime. 30 tablet 12/21/19 25 025 Discontinued(R eorder (will not trigger notification to Pharmacy)) Suboxone 8-2 MG SL filmIndicatio ns:Uncomplica rocío opioid dependence (CMS/HCC) Place 1 Film under the tongue 3 times daily for 14 days. 42 Film 12/25/19 25 025 Discontinued(R eorder (will not trigger notification to Pharmacy)) Suboxone 8-2 MG SL filmIndicatio ns:Uncomplica rocío opioid dependence (CMS/HCC) Place 1 Film under the tongue 3 times daily for 14 days. 42 Film 12/26/19 25 025 Discontinued(R eorder (will not trigger notification to Pharmacy)) Suboxone 8-2 MG SL filmIndicatio ns:Uncomplica rocío opioid dependence (CMS/HCC) Place 1 Film under the tongue 3 times daily for 7 days. 21 Film 01/09/20 25 025 Hospital, Clinic, or Other Facility Administered Medication Ordered Dose Route Frequency Start Date End Date Status buprenorphine ER (Sublocade) 300 mg/1.5mL injection 1 eachIndications:Unc omplicated opioid dependence (CMS/HCC) 1 each SC Over 1 month 01/09/2025 01/09/2025 Discontinued Active Problems Problem Noted Date Diagnosed Date Moderate major depression, single episode 2024 Slow urinary stream 12/04/2024 Dysuria 11/27/2024 Uncomplicated opioid dependence 11/27/2024 Tobacco dependence 10/29/2024 Seizure disorder 10/15/2024 Assessment & Plan (10/15/2024 10:45 AM EST): Previous non compliance, taking Keppra bid now Check levatiracetam levels, fu with Neurology (they will make appt and call if they need a new referral). Advised to avoid using ETOH, THC or other recreational substances, avoid driving due to risk of seizure while driving. Non-traumatic rhabdomyolysis 10/15/2024 Assessment & Plan (10/15/2024 12:33 PM EST): Sec to seizure, advised to increase water intake and take Keppra to avoid further seizures. Check CPK and UA. CHANDLER (acute kidney injury) 10/15/2024 Assessment & Plan (10/15/2024 10:46 AM EST): Sec to rhabdo, GFR is improving Increased PO water intake, check BMP Moderately severe major depression 03/22/2024 Assessment & Plan (10/15/2024 12:41 PM EST): Non compliant with meds., agree to referral. Advised to take escitalopram and Mirtazapine daily and fu with PCP, may or not need psychiatry referral. He feels safe at home at this time and is able to reach out for safety. Advised to cut down to off use of THC and other recreational substances, reach out to reading recovery teacher as he's not taking suboxone as prescribed. Generalized anxiety disorder with panic attacks 03/22/2024 History of substance use 03/22/2024 Assessment & Plan (10/15/2024 12:42 PM EST): On suboxone, not very compliant. I told him to reach out to reading recovery teacher. Advised to quit THC and avoid vaping/e-cigarette, he will d/w PCP re nicotine patch when ready. Advised to quit ETOH Encounters * This document contains information received from the source organization and may not represent a complete record from that organization. Date Type Department Care Team Description 01/09/2025 Telephone [facility] [place] [address] Monalisa Torres RN 01/09/2025 Refill [facility] [place] [address] Monalisa Torres RN Uncomplicated opioid dependence (CMS/HCC) 01/08/2025 Refill [facility] [place] [address] Monalisa Torres RN Uncomplicated opioid dependence (CMS/HCC) 01/01/2025 2:00 PM EST Office Visit [facility] [place] [address] Moris Escamilla MD Uncomplicated opioid dependence (CMS/HCC) (Primary Dx) 01/01/2025 Travel 12/26/2024 Refill [facility] [place] [address] Monalisa Torres RN Uncomplicated opioid dependence (CMS/HCC) 12/25/2024 1:00 PM EST Office Visit [facility] [place] [address] Moris Escamilla MD Opioid type dependence, continuous (CMS/HCC) (Primary Dx) 12/25/2024 Refill [facility] [place] [address] Monalisa Torres RN Uncomplicated opioid dependence (CMS/HCC) 12/25/2024 Travel 12/21/2024 9:00 AM EST Telemedicine [facility] [place] [address] Amanda Wisdom, Josee Seizure disorder (CMS/HCC) (Primary Dx); Moderately severe major depression (CMS/HCC); Tobacco dependence 12/21/2024 Telephone [facility] [place] [address] Lesa Barkley FNP 12/21/2024 Refill [facility] [address] [place] [address] Amanda Wisdom, Josee 12/21/2024 Refill [facility] [address] [place] [address] [facility], [facility] 12/19/2024 Refill [facility] [address] [place] [address] Monalisa Torres RN Uncomplicated opioid dependence ([facility]/HCC) 12/18/2024 1:45 PM EST Office Visit [facility] [address] [place] [address] Moris Escamilla MD Uncomplicated opioid dependence (CMS/HCC) (Primary Dx) 12/18/2024 Travel 12/14/2024 Telephone [facility] [address] [place] [phone] Roselyn Craig RN Results 12/11/2024 10:30 AM EST Clinical Support [facility] [address] [place] [address] Monalisa Torres RN Uncomplicated opioid dependence ([facility]/HCC) (Primary Dx) 12/11/2024 Travel 12/11/2024 Refill [facility] [address] [place] [address] Monalisa Torres RN Uncomplicated opioid dependence ([facility]/HCC) 12/10/2024 Telephone [facility] [address] [place] [address] Monalisa Torres RN 12/05/2024 Refill [facility] [address] [place] [address] Monalisa Torres RN Uncomplicated opioid dependence ([facility]/HCC) 12/04/2024 Telephone [facility] [address] [place] [address] Oolitic Lesa, [facility] 11/29/2024 Refill [facility] [address] [place] [address] Monalisa Torres RN Uncomplicated opioid dependence ([facility]/HCC) 11/28/2024 Refill [facility] [address] [place] [address] Monalisa Torres RN Uncomplicated opioid dependence (CMS/HCC) 11/27/2024 11:15 AM EST Office Visit [facility] [place] [address] Shira Mcintosh MD Dysuria (Primary Dx); Hematuria, unspecified type; Uncomplicated opioid dependence (CMS/HCC); Seizure disorder (CMS/HCC); Slow urinary stream; Moderately severe major depression (CMS/HCC) 11/27/2024 Travel 11/21/2024 Telephone [facility] [address] [place] [address] [facility] Referral 11/19/2024 2:30 PM EST Clinical Support [facility] [place] [address] Monalisa Torres RN Uncomplicated opioid dependence (CMS/HCC) (Primary Dx) 11/19/2024 Patient Outreach [facility] [place] [address] Michael Meneses Recovery Supports 11/19/2024 Travel 11/15/2024 Refill [facility] [place] [place] [address] Monalisa Torres RN Uncomplicated opioid dependence (CMS/HCC) 11/14/2024 11:00 AM EST Clinical Support [facility] [place] [address] Monalisa Torres RN Uncomplicated opioid dependence (CMS/HCC) (Primary Dx) 11/14/2024 Patient Outreach [facility] [place] [address] Allan Slade Recovery Supports 11/14/2024 Travel 11/13/2024 Telephone [facility] [place] [address] Monalisa Torres RN 11/13/2024 Telephone [facility] [place] [address] Monalisa Torres RN 11/06/2024 Refill [facility] [place] [address] Monalisa Torres RN Uncomplicated opioid dependence (CMS/HCC) 11/05/2024 2:00 PM EST Office Visit [facility] [address] [place] [phone] Moris Escamilla MD Uncomplicated opioid dependence (CMS/HCC) (Primary Dx); Encounter for immunization 11/05/2024 Patient Outreach [address] [address] Cameron Salas Recovery Supports 11/05/[address] [address] Monalisa Torres RN Uncomplicated opioid dependence (CMS/HCC) (Primary Dx) 11/05/2024 Travel 10/29/2024 2:00 PM EST Office Visit [address] [address] Moris Escamilla MD Uncomplicated opioid dependence (CMS/HCC) (Primary Dx); Tobacco dependence; Moderately severe major depression (CMS/HCC); IZAIAH (generalized anxiety disorder) 10/29/2024 1:15 PM EST Office Visit [address] [address] Mine Edward RN Substance use disorder 10/29/2024 Travel 10/26/[address] [address] [facility] recall 10/22/[address] [address] Shasta Tavares [place] 10/19/2024 11:00 AM EST Office Visit [address] [address] [facility]ilippoLesa uma[facility] Healthcare maintenance (Primary Dx); Hematuria, unspecified type; Non-traumatic rhabdomyolysis; Seizure disorder (CMS/HCC); Moderately severe major depression (CMS/HCC); Substance use disorder; BMI 25.0-25.9,adult; Dietary counseling; Exercise counseling 10/19/2024 Travel 10/19/[address] [address] Shania Grande, YASMEEN CK levels from Last 3 Months Immunizations Name Administration Dates Next Due COVID-19 Non-US Vaccine, Pro duct Unknown 03/10/2004 DTaP, 5 pertussis antigens 03/05/2004,,05/18/1999,04/08,01/27/1999 HPV, Quadrivalent 04/05/2012 Hep B, Adolescent or Pediatric 12/02/1999,1998,1998 Hep B, adult 11/05/2024,04/05/2024 Hib (PRP-T) 03/09/2000, 9,04/08/1999,01/27 IPV 03/05/2004,04/08/1999,01/27/1999 Influenza, live, intranasal 08/30/2011 MMR 03/05/2004,12/02/1999 Meningococcal MCV4P [id number]-135 04/05/2012 Novel [id number], all formulations 09/01/2009 OPV 12/02/1999 Pfizer Covid-19 Vaccine 12+ alyse-sucrose (Trivedi Cap) 01/27/2023 Tdap 04/05/2012 Varicella 03/05/2008,03/09/2000 Social History Tobacco Use Types Packs/Day Years Used Date Smoking Tobacco: Every Day Smokeless Tobacco: Never Tobacco Cessation:Ready to Q uit: Yes; Counseling Given: Not Answered Comments:Smoking electronic cigarettes/vapes for the past 2 [...] with others, in a hotel, in a detention, living outside on the street, on a [...] not to disclose 2021 10:22 AM EDT Last Filed Vital Signs Vital Sign Reading Time Taken Comments Blood Pressure 115/82 11/27/2024 11:41 AM EST Pulse 78 11/27/2024 11:41 AM EST Temperature 37.2 ??C (98.9 ??F) 11/27/2024 11:[address] Respiratory Rate 16 11/27/2024 11:41 AM EST Oxygen Saturation 100% 11/27/2024 11:41 AM EST Inhaled Oxygen Concentration - - Weight 73.8 kg (162 lb 9.6 oz) 11/27/2024 11:41 AM EST Height 182.9 cm (6') 11/27/2024 11:41 AM EST Body Mass Index 22.05 11/27/2024 11:41 AM EST Plan of Treatment Upcoming Encounters Date Type Department Care Team (Late st Contact Info) Description 01/18/2025 9:00 AM EDT Telemedicine [facility] [address] [place] [address] 01/29/2025 3:15 PM EDT Clinical Support [facility] [address] [place] [address] Monalisa Torres RN Health Maintenance Due Date Last Done Comments Lipid Panel 1998 Alcohol/Substance Use Screening 2010 HPV Vaccines (2 - Male 2-dose series) 10/06/2012 04/05/2012 Family Planning (PISQ) 2013 Pneumococcal Vaccine: Pediatrics (0 to 5 Years) and At-Risk Patients (6 to 49) Years) (1 of 2 - PCV) 2017 DTaP/Tdap/Td Vaccines (7 - Td or Tdap) 04/05/2022 04/05/2012, 03/05/2004, 10/04/2000, Additional history exists COVID-19 Vaccine (2 - season) 2024 01/27/2023 Influenza Vaccine (#1) 2024 08/30/2011, 2008 SDOH Screening 03/16/2025 03/16/2024 Depression Monitoring (PHQ-9) 05/20/2025 11/20/2024, 11/20/2024 Depression Screening 11/20/2025 11/20/2024, 11/20/19 Tobacco Screening 01/01/2026 01/01/2025 Zoster Vaccines (1 of 2) 2048 RSV Patients and Patients Aged 60 years or older (1 - 1-dose 75+ series) 2073 HIB Vaccines Completed 03/09/2000, 05/07, 04/08/1999, Additional history exists IPV Vaccines Completed 03/05/2004, 11/08, 04/08/1999, Additional history exists Meningococcal Vaccine Aged Out 04/05/2012 No michaelle jorge eligible based on patient's age to complete this topic HIV Screening Completed 10/15/2024, 03/16/2024 Hepatitis C Screening Completed 10/15/2024, 024 Hepatitis B Vaccines Completed 11/05/2024, 04/05/2024, 12/02/1999, Additional history exists Hepatitis A Vaccines Aged Out No long er eligible based on patient's age to complete this topic RSV under 20 months Aged Out No longe r eligible based on patient's age to complete this topic Rotavirus Vaccines Aged Out No longer eligible based on patient's age to complete this topic Procedures Procedure Name Priority Date/Time Associated Diagnosis Comments POCT OBI-14 URINE DRUG SCREEN Routine 01/01/2025 2:03 PM EST Uncomplicated opioid dependence (CMS/HCC) POCT OBI-14 URINE DRUG SCREEN Routine 12/25/2024 1:17 PM EST Opioid type dependence, continuous (CMS/HCC) POCT OBI-14 URINE DRUG SCREEN Routine 12/18/2024 1:56 PM EST Uncomplicated opioid dependence (CMS/HCC) POCT OBI-14 URINE DRUG SCREEN Routine 12/11/2024 10:32 AM EST Uncomplicated opioid dependence (CMS/HCC) CHLAMYDIA/N. GONORRHOEAE RNA, TMA, UROGENITAL Routine 11/29/2024 1:45 PM EST Dysuria COMPREHENSIVE METABOLIC PANEL Routine 11/29/2024 11:54 AM EST Hematuria, unspecified type HEMOGLOBIN A1C Routine 11/29/2024 11:54 AM EST Hematuria, unspecified type POCT URINALYSIS DIPSTICK Routine 11/27/2024 11:52 AM EST Hematuria, unspecified type POCT OBI-14 URINE DRUG SCREEN Routine 11/19/2024 1:55 PM EST Uncomplicated opioid dependence (CMS/HCC) POCT OBI-14 URINE DRUG SCREEN Routine 11/14/2024 4:06 PM EST Uncomplicated opioid dependence (CMS/HCC) POCT OBI-14 URINE DRUG SCREEN Routine 11/05/2024 2:07 PM EST Uncomplicated opioid dependence (CMS/HCC) POCT OBI-14 URINE DRUG SCREEN Routine 10/29/2024 1:46 PM EST Uncomplicated opioid dependence (CMS/HCC) HEPATITIS PANEL, GENERAL Routine 10/15/2024 10:59 AM EST HIV 1/2 ANTIGEN/ANTIBODY, FOURTH GENERATION W/RFL Routine 10/15/2024 10:59 AM EST from Last 3 Months or Most Recently Relevant to Health Maintenance Results * POCT OBI-14 Urine Drug Screen (01/01/2025 2:03 PM EST) Only the most recent of8 resultswithin the time period is included. THC Positive Cocaine Screen, Urine Negative Opiate [...] obtained by clean catch procedure / Unknown 01/01/2025 2:03 PM EST Moris Escamilla MD POINT OF CARE TEST ENTER/EDIT OR DERABLES Final Result * Chlamydia/N. Gonorrhoeae RNA, TMA, Urogenitial (11/29/2024 1:45 PM EST) CT PCR NOT DETECTED Not Detect. [facility] Comment:A not detected test result does not exclude the possibilityof infection because test results can be affected byimproper specimen collection, concurrent antibiotic therapy,or the number of organisms in the specimen which may bebelow the sensitivity of the test. As with many diagnostictests, results from the Xpert CT/NG assay should beinterpreted in conjunction with other laboratory andclinical data available to the clinician.Xpert CT/NG performance has not been evaluated in patientsless than 14 years of age. The assay should not be used forthe evaluationof suspected sexual abuse or for other medico-legalindications. Additional testing is recommended in anycircumstance when false positive or false negative resultscould lead to adverse medical, social or psychologicalconsequences. NG PCR NOT DETECTED Not Detect. [facility] Comment:A not detected test result does not exclude the possibilityof infection because test results can be affected byimproper specimen collection, concurrent antibiotic therapy,or the number of organisms in the specimen which may bebelow the sensitivity of the test. As with many diagnostictests, results from the Xpert CT/NG assay should beinterpreted in conjunction with other laboratory andclinical data available to the clinician.Xpert CT/NG performance has not been evaluated in patientsless than 14 years of age. The assay should not be used forthe evaluationof suspected sexual abuse or for other medico-legalindications. Additional testing is recommended in anycircumstance when false positive or false negative resultscould lead to adverse medical, social or psychologicalconsequences. Urine (Urine, Random) 11/29/2024 1:45 PM EST 11/29/2024 4:49 PM EST Narrative [facility] - 11/30/2024 3:47 PM EST Urine Shira Mcintosh MD LAB MICROBIOLOGY - GENERAL ORD ERABLES Final Result Performing Organization Address [facility]/ZIP Co de Phone Number [facility] [address] [place] [phone] * Hemoglobin A1c (11/29/2024 11:54 AM EST) Hemoglobin A1c 5.3 <6.0 % [facility] Comment:Hemoglobin A1C Refer ence Range Adults: 4.8 - 6.0 % Non diabetic: < 6.0 % Goal: < 7.0 %Additional Action Suggested: > 8.0 %Note: Hemoglobin A1c results are invalid for patients with abnormal amounts of HbF. Blood transfusions may impact the HbA1c concentration in the patient sample. Estimated Average Glucose 105 mg/dL [facility] Comment:eAG = Estimated ave rage glucose which is %A1C expressed asaverage glucose, using the formula of the L1N-SdqymjvBrbilow Glucose study (ADAG), Diabetes Care, Vol.31,#8,Jun. 2007 Blood Venous blood specimen / Unknown 11/29/2024 11:54 AM EST 11/29/2024 1:22 PM EST Shira Mcintosh MD LAB BLOOD ORDERABLES Final Res ult Performing Organization Address [facility]/ZIP Co de Phone Number [facility] [address] [place] [phone] * (ABNORMAL) Comprehensive Metabolic Panel (11/29/2024 11:54 AM EST) Sodium 139 135 - 145 mmol/L [facility] Potassium 3.9 3.3 - 5.1 mmol/L [facility] Chloride 110(H) 96 - 108 mmol/L [facility] Carbon Dioxide 24 22 - 29 mmol/L [facility] Anion Gap 9(L) 12 - 20 [facility] Urea Nitrogen (BUN) 13 9 - 16 mg/dL [facility] Creatinine, Serum 0.74 0.5 - 1.4 mg/dL [facility] Estimated Glomerular Filt Rate >60 [facility] Comment:Chronic Kidney Disea se: Estimated GFR < 60 mL/min/[id number] Kidney Disease: Estimated GFR < 15 mL/min/1.73m2 Glucose 118(H) 60 - 115 mg/dL [facility] Calcium 9.6 8.4 - 10.2 mg/dL [facility] Bilirubin, Total 1.1(H) 0.0 - 1.0 mg/dL [facility] Aspartate Amino Transferase 29 5 - 37 U/L [facility] Alanine Aminotransferase 49(H) 0 - 40 U/L [facility] Total Protein 7.8 6.5 - 8.0 g/dL [facility] Albumin Level 4.5 3.5 - 5.0 g/dL [facility] Alkaline Phosphatase 77 39 - 117 U/L [facility] Blood Venous blood specimen / Unknown 11/29/2024 11:54 AM EST 11/29/2024 1:22 PM EST us Shira Mcintosh MD LAB BLOOD ORDERABLES Final Res ult [facility] [address] [place] [address] [phone] * POCT Urinalysis (11/27/2024 11:52 AM EST) Glucose, UA Trace Comment:100mg Bilirubin, UA Negative Ketones, UA Negative Spec Grav, UA 1.020 Blood, UA Negative Negative, None Detected pH, UA 7.5 Protein, UA Trace Comment:30mg Urobilinogen, UA 1.0 Leukocytes, UA Negative Negative, Rare, Trace Nitrite, UA Negative Negative, None Detected Urine 11/27/2024 11:5 2 AM EST Shira Mcintosh MD POINT OF CARE TEST ENTER/EDIT ORDERABLES Final Result * Hepatitis Panel, General (10/15/2024 10:59 AM EST) Hepatitis A IgM Nonreactive Nonreactive [facility] Comment:IgM antibodies to GILBERT V not detected; does not exclude earlyacute or recovered HAV infection. ~Hepatitis B Surface Antibody NONREACTIVE Nonreactive [facility] Comment:Nonreactive: < 8.00 mIU/mL Hepatitis B Core Antibody Nonreactive Nonreactive [facility] Hepatitis C Antibody Nonreactive Nonreactive [facility] Comment:Antibodies to HCV no t detected; does not exclude early acuteHCV infection. Hepatitis B Surface Ag Negative Negative [facility] 10/15/2024 10:5 9 AM EST 10/15/2024 11:46 AM EST [facility] SUPERVISOR BEET END LAB BLOOD ORDERABLES Final Re sult [facility] [address] [place] [phone] * HIV-1/2 Antigen and Antibodies, Fourth Generation, with Reflexes (10/15/2024 10:59 AM EST) HIV AB/AG Nonreactive Nonreactive [facility] Comment:HIV-1 p24 Ag and/or HIV-1/HIV-2 Ab not detected.A test result that is nonreactive does not exclude thepossibility of exposure to or infection with HIV-1 and/orHIV-2. Nonreactive results in this assay for individualswith prior exposure to HIV-1 and/or HIV-2 may be due toantigen and antibody levels that are below the limit ofdetection of this assay.[facility] HIV Ag/Ab Combo assay result andsupplemental assay results should be interpreted inconjunction with the patient's clinical presentation,history and other laboratory results. If the results areinconsistent with clinical evidence, additional testing issuggested to confirm the result. 10/15/2024 10:5 9 AM EST 10/15/2024 11:46 AM EST [facility] SUPERVISOR BEET END LAB BLOOD ORDERABLES Final Re sult [facility] [address] [place] [address] [phone] from Last 3 Months or Most Recently Relevant to Health Maintenance Insurance N [facility] C3 Care Teams Sterilisation Technician Relationship Specialty Start Date End Date OoliticLesa umaña FNP [address] [place] [phone] PCP - General Family Medicine 08/14/21
--- OUTSIDE RECORDS SUMMARY | 2025-01-16 14:29 | XMS_ITS | Encounter Summary ---
Author Organization [employer] Address 75 [facility] 7t [place] [address] Care Team Providers Care Audio Visual Facilities Engineer Name Role Phone [facility] Primary Care Provider [phone] Reason for Visit * Reason Onset Date Comments Med Refill 01/09/2025 Encounter Details Date Type Department Care Team (Late st Contact Info) Description 01/09/2025 Refill [facility] [address] [place] [address] Monalisa Torres RN Uncomplicated opioid dependence (CMS/[facility]) Social History Tobacco Use Types Packs/Day Years [...] with others, in a hotel, in a residential, living outside on the street, on a [...] Info) Description 01/18/2025 9:00 AM EDT Telemedicine [facility] [address] [place] [address] 01/29/2025 3:15 PM EDT Clinical Support [facility] [address] [place] [address] Monalisa Torres RN documented as of this encounter Visit Diagnoses Diagnosis Uncomplicated opioid dependence (CMS/HCC) documented in this encounter Additional Health Concerns Assessment Noted Time PHQ-9 Depression Total Score: 20 025 10:36 AM EST documented as of this encounter Care Teams Audio Visual Facilities Engineer Relationship Specialty Start Date End Date Lesa Barkley FNP [address] [place] [address] PCP - General Family Medicine 08/14/21 documented as of this encounter
--- OUTSIDE RECORDS SUMMARY | 2025-01-16 14:29 | XMS_ITS | Encounter Summary ---
Author Organization [employer] Address 75 [facility] 7t [place] [address] Care Team Providers Care Planning Associate Name Role Phone [facility] Primary Care Provider [phone] Reason for Visit * Reason Onset Date Comments Med Refill 01/08/2025 Encounter Details Date Type Department Care Team (Late st Contact Info) Description 01/08/2025 Refill [facility] [address] [place] [address] Monalisa Torres RN Uncomplicated opioid dependence (CMS/[facility]) Social History Tobacco Use Types Packs/Day Years [...] with others, in a hotel, in a long-term, living outside on the street, on a [...] Info) Description 01/18/2025 9:00 AM EDT Telemedicine [facility] [address] [place] [address] 01/29/2025 3:15 PM EDT Clinical Support [facility] [address] [place] [address] Monalisa Torres RN documented as of this encounter Visit Diagnoses Diagnosis Uncomplicated opioid dependence (CMS/HCC) documented in this encounter Additional Health Concerns Assessment Noted Time PHQ-9 Depression Total Score: 20 025 10:36 AM EST documented as of this encounter Care Teams Planning Associate Relationship Specialty Start Date End Date Lesa Barkley FNP [address] [place] [phone] PCP - General Family Medicine 08/14/21 documented as of this encounter
--- OUTSIDE RECORDS SUMMARY | 2025-01-16 14:29 | XMS_ITS | Encounter Summary ---
Author Organization [employer] Address 75 [facility] 7 [place] [address] Care Team Providers Care Form Building Supervisor Name Role Phone [facility] Primary Care Provider [phone] Reason for Visit * Reason Onset Date Comments Hospital Follow-up 03/12/2024 Encounter Details Date Type Department Care Team ([facility] st Contact Info) Description 03/12/2024 Telephone [facility] [address] [place] [address] [facility] [address] [place] [address] Hospital Follow-up Social History Tobacco Use Types Packs/Day Years Used Date Smoking Tobacco: Never Assessed Depression Answer Date Recorded Patient Health Questionnaire-9 Score 22 03/16/2024 Patient Health Questionnaire-9 Score 22 03/16/2024 Last PHQ-9: Questionnaire Data Not on file 0 03/16/2024 Housing Stability Answer Date Recorded What is your housing situation today? I do not have housing (Staying with others, in a hotel, in a half-way, living outside on the street, on a [...] Answer Date Recorded Patient Health Questionnaire-2 Score 6 03/16/2024 Sex and Gender Information Value Date Recorded Sex Assigned at Male 09/06/2022 10:22 AM EDT Legal Sex Male 10:22 AM EDT Gender Identity Male 09/06/2022 10:22 AM EDT Sexual Orientation Choose not to disclose 2021 10:22 AM EDT documented as of this encounter Miscellaneous Notes * Telephone Encounter - Mildred Elise - 03/12/2024 9:56 AM EDT Tc from pt requesting a HDF appt. Hospital: [facility] Date of admission: 02/26, 02/28 Discharge date: 03/04 Diagnosed: Seizures, Rhabdomyolysis Please contact pt at [phone] documented in this encounter Plan of Treatment Upcoming Encounters Date Type Department Care Team (Late st Contact Info) Description 01/18/2025 9:00 AM EDT Telemedicine [facility] [address] [place] [address] 01/29/2025 3:15 PM EDT Clinical Support [facility] [address] [place] [address] Monalisa Torres RN documented as of this encounter Visit Diagnoses Not on filedocumented in this encounter Care Teams Form Building Supervisor Relationship Specialty Start Date End Date Lesa Barkley FNP [address] [place] [phone] PCP - General Family Medicine 08/14/21 documented as of this encounter
--- OUTSIDE RECORDS SUMMARY | 2025-01-16 14:29 | XMS_ITS | Encounter Summary ---
Author Organization [employer] Address [address] [place] [address] 7 [place] [address] Care Team Providers Care It Support Analyst Name Role Phone [facility] Primary Care Provider [phone] Reason for Visit * Consultation (Routine) - Authorized Specialty Diagnoses / Procedures Referred By Yolande caro Referred To Contact Pharmacy Diagnoses Seizure disorder (CMS/HCC) Moderately severe major depression (CMS/HCC) Shira Mcintosh MD [address] [place] [address] Phone: tel: fax: Referral ID Status Reason Start Date Expiration Date Visits Requested Visits Authorized [id number] Authorized Continuity of Care 12/04/2024 12/04/2025 6 6 Encounter Details Date Type Department Care Team ([facility] Contact Info) Description 12/21/2024 9:00 AM EST Telemedicine [facility] [address] [place] [address] Amanda Wisdom, PharmD [address] [place] [address] Seizure disorder (CMS/HCC) (Primary Dx); Moderately severe major depression (CMS/HCC); Tobacco dependence Social History Tobacco Use Types Packs/Day Years [...] with others, in a hotel, in a snf, living outside on the street, on a [...] as of this encounter Progress Notes * Amanda Wisdom PharmD - 12/21/2024 9:00 AM EST Pharmacy Consult Visit Type: MTM Visit Pharmacist: Amanda Wisdom PharmD Referral Diagnosis: G40.909 (ICD-10-CM) - Seizure disorder (CMS/HCC) F32.2 (ICD-10-CM) - Moderately severe major depression (CMS/[facility]) Referral Expiration: 12/04/2025 Referring Provider: Shira Mcintosh MD Pharmacy Recommendations for Provider: Begin medboxes per patient request. Please contact medbox pharmacist with any medication changes (initiations, discontinuation, dose adjustments). Background/ Visit Intake Harpal Buckner Jr is a 24 y.o. patient here for a new patient visit. Visit completed over the phone. Allergies: has No Known Allergies. Preferred Pharmacy: [facility] [address] [phone] Medbox: To begin during today's appointment. Assessment & Plan Adherence: History: Medication Reconciliation: Denies use of the following medications that are active in [facility] medlist: Nicotine patch (21,14, and 7 mg) and lozenge (4 mg): denies current use, however they report a desire to restart therapy (see tobacco dependence section for further details) OTC medication, vitamin, supplement use: denies Reports needing refills on all medications Adherence: Medication Organization: Takes from vials Missed doses: Denies missed doses Read/Write: Yes, in [place] Reports interest in [facility] medbox program Denies adherance to olanzapine Goals of therapy: Improve adherence & minimize missed doses (<2 missed doses/week) Recommendations/Monitoring: Begin medboxes per patient request. Please contact medbox pharmacist with any medication changes (initiations, discontinuation, dose adjustments). Pharmacy has transferred hydroxyzine from [facility] pharmacy to [facility] pharmacy Pharmacy updated medlist in [facility] to match patients current medication use Pharmacy contacted the [facility] refill line to request refills for all prescribed medications, PCP sent prescriptions Tobacco Dependence (Stage: Preparation) Pharmacologic Therapy: none History: Pertinent Past Medical History: Positive for Depression and Seizure disorder The patient reports previously trying nicotine patches and lozenges and would like to attempt therapy again Smoking History Reports smoking vapes daily for the past 2 years nonstop Vapes within 30 minutes of waking. Patient declares readiness to quit is a 10 out of 10 Endorses awaking at night to smoke. Per [facility] Pharmacist's Letter Vaping Cessation Guide, consider starting with the 21 mg/day patch plusa short acting product for adults using more than about 20 mg of nicotine per day Goals of Therapy: Per the [facility] Treating Tobacco Use and Dependence Clinical Practice Guideline,assist the patient to achieve smoking cessation via assessment of desire to quit and administrationof smoking cessation aids as indicated. Plan: Queued the following to the provider: Nicotine 21 mg patch, apply 1 patch daily as directed x6 wks (starting dose) Nicotine 4 mg gum/lozenge use 1 as directed every 1-2 hours PRN cravings (combo therapy) Education: Use of nicotine patch (can remove prior to bed in case of sleep disturbance, rotate site, remove prior to MRI) Use of nicotine gum/lozenge (chew/dissolve over 20-30 mins, avoid food/drink for 15 mins prior). Moderately severe major depression Pharmacologic therapy: Clonidine 0.1 mg by mouth twice daily Escitalopram 20 mg by mouth once daily Hydroxyzine 50 mg by mouth twice daily Mirtazapine 7.5 mg by mouth at bedtime Olanzapine 7.5 mg by mouth at bedtime History: The patient was hospitalized at [facility] on 09/15/2024 due to seizures An EKG was performed, and the patient's Qtc was WNL Per clinpharm, the patient is taking multiple medications that may prolong the Qtc: buprenorphine, olanzapine, mirtazapine, hydroxyzine, and escitalopram Patient reports an exacerbation of depression and anxiety, and has requested to speak with behavioral health for further evaluation and support Plan: The pharmacy contacted [facility] behavioral health, who has reached out to the patient to discuss their concerns Seizure disorder Pharmacologic therapy: Levetiracetam 1000 mg by mouth twice daily History: Patient was hospitalized at [facility] 09/15/2024 due to seizures Per ED note, the patient had stopped taking levetiracetam following their incarceration and experienced three seizures the day they presented to the ED The patient was prescribed a 90-day supply of levetiracetam with no refills Patient reports following with their PCP for their seizure disorder Plan: Pharmacy requested a refill of levetiracetam to prevent any interruption in the patient's therapy, PCP sent a prescription to [facility] pharmacy Immunizations History: Immunization History Administered Date(s) Administered COVID-19 Non-US Vaccine, Product Unknown 03/10/2004 DTaP, 5 pertussis antigens 01/27/1999, 04/08/1999, 05/18/1999, 10/04/2000, 03/05/2004 HPV, Quadrivalent 04/05/2012 Hep B, Adolescent or Pediatric 1998, 01/27/1999, 12/02/1999 Hep B, adult 04/05/2024, 11/05/2024 Hib (PRP-T) 01/27/1999, 04/08/1999, 05/18/1999, 03/09/2000 IPV 01/27/1999, 04/08/1999, 03/05/2004 Influenza, live, intranasal 08/30/2011 MMR 12/02/1999, 03/05/2004 Meningococcal MCV4P ACYW-135 04/05/2012 Novel [id number], all formulations 09/01/2009 OPV 12/02/1999 Pfizer Covid-19 Vaccine 12+ alyse-sucrose (Trivedi Cap) 01/27/2023 Tdap 04/05/2012 Varicella 03/09/2000, 03/05/2008 Goals of therapy: Ensure patient is up to date per the CDC Adult Immunization Schedule. Assessment/Plan: Influenza 4918-8332 vaccine: Due COVID-19 [id number] vaccine: Due Pneumococcal vaccines (cigarette smoking): Due Td/TDaP (within the past 10 years): Due HPV vaccine (Aged 26 or younger): Due Plan: Patient denied interest in receiving the indicated vaccines Education: Indication of all recommended vaccines Patient Action Plan Reviewed today with plan to revisit at follow up in 1 month: Continue to adhere to medication Return to [facility] pharmacy 12/28/2024 to begin medbox Establish care with Restart nicotine replacement therapy Receive all recommended vaccinations Attend follow up appointments documented in this encounter Plan of Treatment Upcoming Encounters Date Type Department Care Team (Late st Contact Info) Description 01/18/2025 9:00 AM EDT Telemedicine [address] [address] 01/29/2025 3:15 PM EDT Clinical Support [address] [address] Monalisa Torres RN documented as of this encounter Visit Diagnoses Diagnosis Seizure disorder (CMS/HCC)- Primary Unspecified epilepsy without mention of intractable epilepsy Moderately severe major depression (CMS/HCC) Tobacco dependence Tobacco use disorder documented in this encounter Additional Health Concerns Assessment Noted Time PHQ-9 Depression Total Score: 20 025 10:36 AM EST documented as of this encounter Care Teams It Support Analyst Relationship Specialty Start Date End Date Lesa Barkley FNP [address] [place] [address] PCP - General Family Medicine 08/14/21 documented as of this encounter
--- OUTSIDE RECORDS SUMMARY | 2025-01-16 14:29 | XMS_ITS | Encounter Summary ---
Author Organization [employer] Address 75 [facility] 7t [place] [address] Care Team Providers Care Supervisor Cytogenetic Laboratory Name Role Phone [facility] Primary Care Provider [phone] Reason for Visit * Reason Onset Date Comments FYI 09/24/2024 Encounter Details Date Type Department Care Team ([facility] st Contact Info) Description 09/24/2024 Telephone [facility] [address] [place] [address] [facility] [address] [place] [address] FYI Social History Tobacco Use Types Packs/Day Years Used Date Smoking Tobacco: Never Smokeless Tobacco: Never Alcohol Use Standard Drinks/Week Comments Never 0 (1 standard drink = 0.6 oz pur e alcohol) Depression Answer Date Recorded Patient Health Questionnaire-9 Score 19 03/22/2024 Patient Health Questionnaire-9 Score 19 03/22/2024 Last PHQ-9: Questionnaire Data Not on file 0 03/22/2024 Housing Stability Answer Date Recorded What is your housing situation today? I do not have housing (Staying with others, in a hotel, in a mcfp, living outside on the street, on a [...] the past 12 months, has t he [employer], gas, oil or water HRBoss threatened to shut off services in your home? I am not sure 03/16/2024 Depression Answer Date Recorded Patient Health Questionnaire-2 Score 6 03/22/2024 Sex and Gender Information Value Date Recorded Sex Assigned at Male 09/06/2022 10:22 AM EDT Legal Sex Male 10:22 AM EDT Gender Identity Male 09/06/2022 10:22 AM EDT Sexual Orientation Choose not to disclose 2021 10:22 AM EDT documented as of this encounter Miscellaneous Notes * Telephone Encounter - [place] - 09/24/2024 2:58 PM EST Tc from Janie with [facility] Stating that they have been trying to get a hold of the pt but the have not suceeded and when he anwsers the phone pt Hangs up. [facility] is stating they will not contiue to admit him in the program. If the PCP wants him to be Admitted another refferal needs to be written. Contact pt at [phone] documented in this encounter Plan of Treatment Upcoming Encounters Date Type Department Care Team (Late st Contact Info) Description 01/18/2025 9:00 AM EDT Telemedicine [facility] [address] [place] [address] 01/29/2025 3:15 PM EDT Clinical Support [address] [address] Monalisa Torres RN documented as of this encounter Visit Diagnoses Not on filedocumented in this encounter Additional Health Concerns Assessment Noted Time PHQ-9 Depression Total Score: 19 024 9:56 AM EDT documented as of this encounter Care Teams Supervisor Cytogenetic Laboratory Relationship Specialty Start Date End Date Lesa Barkley FNP [address] [place] [address] PCP - General Family Medicine 08/14/21 documented as of this encounter
--- OUTSIDE RECORDS SUMMARY | 2025-01-16 14:29 | XMS_ITS | Encounter Summary ---
Author Organization [employer] Address 75 [facility] 7t [place] [address] Care Team Providers Care Manager Fixed Income Name Role Phone [facility] Primary Care Provider [phone] Reason for Visit * Reason Onset Date Comments Med Refill 12/21/2024 Encounter Details Date Type Department Care Team (Late st Contact Info) Description 12/21/2024 Refill [facility] [address] [place] [address] [facility] [address] [place] [address] Social History Tobacco Use Types Packs/Day Years [...] with others, in a hotel, in a longterm, living outside on the street, on a [...] Info) Description 01/18/2025 9:00 AM EDT Telemedicine [address] [address] 01/29/2025 3:15 PM EDT Clinical Support [address] [address] Monalisa Torres RN documented as of this encounter Visit Diagnoses Not on filedocumented in this encounter Additional Health Concerns Assessment Noted Time PHQ-9 Depression Total Score: 20 025 10:36 AM EST documented as of this encounter Care Teams Manager Fixed Income Relationship Specialty Start Date End Date Lesa Barkley FNP [address] [place] [address] PCP - General Family Medicine 08/14/21 documented as of this encounter
--- OUTSIDE RECORDS SUMMARY | 2025-01-16 14:30 | XMS_ITS | Encounter Summary ---
Author Organization [employer] Address 75 [facility] 7t [place] [address] Care Team Providers Care Surgical Brace Maker Name Role Phone [facility] Primary Care Provider [phone] Encounter Details Date Type Department Care Team (Latest Contact Info) Description 12/25/2024 Travel Social History Tobacco Use Types Packs/Day [...] Info) Description 01/18/2025 9:00 AM EDT Telemedicine [address] [address] 01/29/2025 3:15 PM EDT Clinical Support [address] [address] Monalisa Torres RN documented as of this encounter Visit Diagnoses Not on filedocumented in this encounter Additional Health Concerns Assessment Noted Time PHQ-9 Depression Total Score: 20 025 10:36 AM EST documented as of this encounter Care Teams Surgical Brace Maker Relationship Specialty Start Date End Date Lesa Barkley FNP [address] [place] [address] PCP - General Family Medicine 08/14/21 documented as of this encounter
--- OUTSIDE RECORDS SUMMARY | 2025-01-16 14:30 | XMS_ITS | Referral Summary ---
Author Organization [facility] Address [address] [place] [address] Care Team Providers Care Patient Scheduling Manager Name Role Phone Patient, Has No Pcp Or Ref Primary Care Provider Unavailable Social History Tobacco Use Types Packs/Day Years Used Date Smoking Tobacco: Never Assessed Sex and Gender Information Value Date Recorded Sex Assigned at Not on file Legal Sex Male 8:52 PM EDT Gender Identity Not on file Sexual Orientation Not on file Last Filed Vital Signs Vital Sign Reading Time Taken Comments Blood Pressure 123/66 07/30/2023 7:59 AM EDT Pulse 87 07/30/2023 7:59 AM EDT Temperature 36.7 ??C (98.1 ??F) 07/30/2023 7:59 AM ED T Respiratory Rate 20 07/30/2023 7:59 AM EDT Oxygen Saturation 98% 07/30/2023 7:59 AM EDT Inhaled Oxygen Concentration - - Weight 56.7 kg (125 lb) 07/30/2023 2:17 AM EDT Height 185.4 cm (6' 1 ) 07/30/2023 2:17 AM EDT Body Mass Index 16.49 07/30/2023 2:17 AM EDT Plan of Treatment Not on file Insurance [id number] Care Teams Patient Scheduling Manager Relationship Specialty Start Date End Date Patient, Has No Pcp Or Ref DO NOT EDIT THIS RECORD VIA PROVIDER ON THE FLY PCP - General Caustic Cresylate Shift Superintendent 07/30/23
--- OUTSIDE RECORDS SUMMARY | 2025-01-16 14:30 | XMS_ITS | Clinical Summary ---
Author Organization [facility] Address [address] [place] [address] Care Team Providers Care Concrete Pointer Name Role Phone Patient, Has No Pcp [...] 07/30/2023 2:17 AM EDT Plan of Treatment Health Maintenance Due Date Last Done Comments HIV Screening 1998 HPV Vaccines (2 - Male 2-dose series) 10/06/2012 04/05/2012 DTaP,Tdap,and Td Vaccines (7 - Td or Tdap) 04/05/2022 04/05/2012, 03/05/2004, 10/04/2000, Additional history exists COVID-19 Vaccine (2 - season) 2024 01/27/2023 Influenza Vaccine (#1) 2024 08/30/2011, 2008 Alcohol/Substance Use Screening 11/07/2024 RSV Vaccine (60+ years old and patients) (1 - 1-dose 75+ series) 2073 Hepatitis B Vaccines Completed 12/02/1999, 01/27/1999, 1998 Varicella Vaccines Completed 03/05/2008, 03/09/2000 Pneumococcal Vaccine: Pediatric (0-5 Years) and At-Risk Patients (6-50 Years) Aged Out No longer eligible based on patient's age to complete this topic Insurance [employer] Care Teams Concrete Pointer Relationship Specialty Start Date End Date Patient, Has No Pcp Or Ref DO NOT EDIT THIS RECORD VIA PROVIDER ON THE FLY PCP - General Extruding Press Adjuster 07/30/23
--- OUTSIDE RECORDS SUMMARY | 2025-01-16 14:30 | XMS_ITS | Encounter Summary ---
Author Organization [employer] Address [address] [facility] 7t [place] [address] Care Team Providers Care Warehouse Helper Name Role Phone [facility] Primary Care Provider [phone] Reason for Visit * Reason Comments OBAT F/U Encounter Details Date Type Department Care Team ([facility] st Contact Info) Description 12/25/2024 1:00 PM EST Office Visit [facility] [address] [place] [address] Moris Escamilla MD [address] [place] [address] Opioid type dependence, continuous (CMS/HCC) (Primary Dx) Social History Tobacco Use [...] Progress Notes * Moris Escamilla MD - 12/25/2024 1:00 PM EST Subjective Patient ID: Harpal Buckner [...] status: 10/19/24: Vapes daily. [employer] reviewed UTOX: +bup Abraham was prescribed oxycodone after arm laceration repair age 17, then started buying street oxycodone. Never used heroin. Has Colace and senna that helps constipation. was released from halfway 09/2024 where he was prescribed Suboxone 16/4 mg. After halfway became a pt at [facility] where he prescribed 8/2 mg, which he states was too low a dose dueto cravings and w/d sx. Discussed Suboxone oral hygiene. He declined trying Sublocade. Attends [facility] at [facility]. He was interviewed by [facility] executive search consultant Alan 10/16. Plan: Will follow up internal referral to psychiatry and referral to psychotherapy. Was seen by Byalee 11/19 because he had not received psych [...] Diagnoses and all orders for this visit: Opioid type dependence, continuous ([facility]) Recovery support, harm reduction (including Narcan) and behavioral health attendance reviewed. Continue Suboxone 16/4 mg on weekly schedule. If doing well at next visit will increase visit interval to 2 week schedule. - POCT OBI-14 Urine Drug Screen documented in this encounter Plan of Treatment Upcoming Encounters Date Type Department Care Team (Late st Contact Info) Description 01/18/2025 9:00 AM EDT Telemedicine [address] [address] 01/29/2025 3:15 PM EDT Clinical Support [address] [address] Monalisa Torres RN documented as of this encounter Procedures Procedure Name Priority Date/Time Associated Diagnosis Comments POCT OBI-14 URINE DRUG SCREEN Routine 12/25/2024 1:17 PM EST Opioid type dependence, continuous (CMS/HCC) documented in this encounter Results * POCT OBI-14 Urine Drug Screen (12/25/2024 1:17 PM EST) THC Negative Cocaine Screen, Urine Negative Opiate Screen, Urine Negative Methamphetamine Screen Urine Negative Amphetamine Screen, Urine Negative Benzodiazepines Screen, Urine Negative Barbiturate Screen, Urine Negative Methadone Screen, Urine Negative Buprenophine Screen, Urine Positive TCA, Urine Negative MDMA Urine Negative ng/mL Oxycodone Screen, Urine Negative Phencyclidine (PCP), Urine Negative Propoxyphene, Urine Negative Fentanyl, Urine Negative Urine Urine specimen obtained by clean catch procedure / Unknown 12/25/2024 1:17 PM EST Moris Escamilla MD POINT OF CARE TEST ENTER/EDIT OR DERABLES Final Result documented in this encounter Visit Diagnoses Diagnosis Opioid type dependence, continuous (CMS/HCC)- Primary Opioid type dependence, continuous documented in this encounter Additional Health Concerns Assessment Noted Time PHQ-9 Depression Total Score: 20 025 10:36 AM EST documented as of this encounter Care Teams Warehouse Helper Relationship Specialty Start Date End Date Lesa Barkley FNP [address] [place] [phone] PCP - General Family Medicine 08/14/21 documented as of this encounter
--- OUTSIDE RECORDS SUMMARY | 2025-01-16 14:30 | XMS_ITS | Encounter Summary ---
Author Organization [employer] Address [address] [facility] [address] [address] 7t [place] [address] Care Team Providers Care Camp Manager Name Role Phone [facility] Primary Care Provider [phone] Encounter Details Date Type Department Care Team (Late st Contact Info) Description 01/09/2025 Telephone [facility] [address] [place] [address] Monalisa Torres, RN Social History Tobacco Use Types Packs/Day Years [...] with others, in a hotel, in a senior living, living outside on the street, on a [...] encounter Miscellaneous Notes * Telephone Encounter - Monalisa Torres RN - 01/09/2025 9:14 AM EST Telephone call received from patient requesting to go on Sublocade vs suboxone. Spoke with Dr. Buckley agreed, rx queued to Dr. Escamilla for sublocade 300 mg documented in this encounter Plan of Treatment Upcoming Encounters Date Type Department Care Team (Late st Contact Info) Description 01/18/2025 9:00 AM EDT Telemedicine [facility] [address] [place] [address] 01/29/2025 3:15 PM EDT Clinical Support [facility] [address] [place] [address] Monalisa Torres RN documented as of this encounter Visit Diagnoses Not on filedocumented in this encounter Additional Health Concerns Assessment Noted Time PHQ-9 Depression Total Score: 20 025 10:36 AM EST documented as of this encounter Care Teams Camp Manager Relationship Specialty Start Date End Date Lesa Barkley FNP [address] [place] [address] PCP - General Family Medicine 08/14/21 documented as of this encounter
--- OUTSIDE RECORDS SUMMARY | 2025-01-16 14:30 | XMS_ITS | Encounter Summary ---
Author Organization [employer] Address [address] [facility] 7t [place] [address] Care Team Providers Care Social Services Coordinator Name Role Phone [facility] Primary Care Provider [phone] Reason for Visit * Reason Onset Date Comments Med Refill 12/26/2024 Encounter Details Date Type Department Care Team (Late st Contact Info) Description 12/26/2024 Refill [facility] [address] [place] [address] Monalisa Torres RN Uncomplicated opioid dependence (CMS/[facility]) Social History Tobacco Use Types Packs/Day Years [...] with others, in a hotel, in a penitentiary, living outside on the street, on a [...] Info) Description 01/18/2025 9:00 AM EDT Telemedicine [facility] [address] [place] [address] 01/29/2025 3:15 PM EDT Clinical Support [facility] [address] [place] [address] Monalisa Torres RN documented as of this encounter Visit Diagnoses Diagnosis Uncomplicated opioid dependence (CMS/HCC) documented in this encounter Additional Health Concerns Assessment Noted Time PHQ-9 Depression Total Score: 20 025 10:36 AM EST documented as of this encounter Care Teams Social Services Coordinator Relationship Specialty Start Date End Date Lesa Barkley FNP [address] [place] [address] PCP - General Family Medicine 08/14/21 documented as of this encounter
--- OUTSIDE RECORDS SUMMARY | 2025-01-16 14:30 | XMS_ITS | Encounter Summary ---
Author Organization [employer] Address [address] [facility] 7t [place] [address] Care Team Providers Care Conciliation Court Judge Name Role Phone [facility] Primary Care Provider [phone] Encounter Details Date Type Department Care Team ([facility] st Contact Info) Description 12/21/2024 Telephone [facility] MED[facility]INE [address] [place] [address] [facility] [address] [place] [address] Social History Tobacco Use Types Packs/Day Years [...] the past 12 months, has t he [employer], gas, oil or water payever threatened to shut off services in your [...] encounter Miscellaneous Notes * Telephone Encounter - Priyanka Mckinnon RN - 12/21/2024 4:21 PM EST Incoming call from [facility] pharmacy. Amanda states pt reported being out of clonidine, olanzapine, escitalopram and keppra and pharmacy closes at 6p. Advised will consult with pcp. PCP states she just sent medications to [facility] pharmacy. T/C to pharmacy. Advised meds sent and pharmacy closing hours. Pt oksana balized understanding and states he will chicken picker meds as soon as he can. documented in this encounter Plan of Treatment Upcoming Encounters Date Type Department Care Team (Late st Contact Info) Description 01/18/2025 9:00 AM EDT Telemedicine [facility]INE [address] [place] [address] 01/29/2025 3:15 PM EDT Clinical Support [facility] [address] [place] [address] Monalisa Torres RN documented as of this encounter Visit Diagnoses Not on filedocumented in this encounter Additional Health Concerns Assessment Noted Time PHQ-9 Depression Total Score: 20 025 10:36 AM EST documented as of this encounter Care Teams Conciliation Court Judge Relationship Specialty Start Date End Date Lesa Barkley FNP [address] [place] [address] PCP - General Family Medicine 08/14/21 documented as of this encounter
--- OUTSIDE RECORDS SUMMARY | 2025-01-16 14:30 | XMS_ITS | Encounter Summary ---
Author Organization [employer] Address [address] [facility] 7t [place] [address] Care Team Providers Care Marine Radio Installer And Servicer Name Role Phone [facility] Primary Care Provider [phone] Reason for Visit * Reason Comments OBAT Encounter Details Date Type Department Care Team (Latest Contact Info) Description 01/01/2025 2:00 PM EST Office Visit [facility] [address] [place], [place] [phone] Moris Escamilla MD [address] [place], [place] [phone] Uncomplicated opioid dependence (CMS/HCC) (Primary Dx) Social [...] Progress Notes * Moris Escamilla MD - 01/01/2025 2:00 PM EST Subjective Patient ID: Harpal Buckner Jr is a 24 y.o. male. HPI Patient here today for Opioid Dependence RV. Suboxone dose: 24/6 mg On 2 week schedule starting 01/01/2025. Patient has been in the program for: [...] senna that helps constipation. was released from senior living 09/2024 where he was prescribed Suboxone 16/4 mg. After senior living became a pt at [facility] where he prescribed 8/2 mg, which he states was too low a dose dueto cravings and w/d sx. Discussed Suboxone oral hygiene. He declined trying Sublocade. Attends [facility] [employer] at [facility]. Has 1st tapan't. with Braden Lackey in 1 week for psych med prescribing. States ran out of all meds 4 days ago; PCP is not in today. I refilled the 6 med today. Tobacco Use: Active vaping; agrees to try [...] reviewed this encounter and updated as appropriate: Review of Systems Constitutional: Negative for fever. [...] attendance reviewed. Continue Suboxone 16/4 mg on 2 week schedule. I refilled psych meds and Keppra today. Advised to keep tapan't with Braden Lackey in 1 week. - POCT OBI-14 Urine Drug Screen Other orders - cloNIDine (Catapres) 0.1 MG tablet; Take 1 tablet (0.1 mg) by mouth 2 times daily. - escitalopram (Lexapro) 20 MG tablet; Take 1 tablet (20 mg) by mouth Once per day. - hydrOXYzine pamoate (Vistaril) 50 MG capsule; Take 1 capsule (50 mg) by mouth 2 times daily. - levETIRAcetam (Keppra) 1000 MG tablet; Take 1 tablet (1,000 mg) by mouth 2 times daily. - mirtazapine (Remeron) 7.5 MG tablet; Take 1 tablet (7.5 mg) by mouth at bedtime. - OLANZapine (ZyPREXA) 7.5 MG tablet; Take 1 tablet (7.5 mg) by mouth at bedtime. documented in this encounter Plan of Treatment Upcoming Encounters Date Type Department Care Team (Late st Contact Info) Description 01/18/2025 9:00 AM EDT Telemedicine [address] [address] 01/29/2025 3:15 PM EDT Clinical Support [address] [address] Monalisa Torres RN documented as of this encounter Procedures Procedure Name Priority Date/Time Associated Diagnosis Comments POCT OBI-14 URINE DRUG SCREEN Routine 01/01/2025 2:03 PM EST Uncomplicated opioid dependence ([facility]) documented in this encounter Results * POCT OBI-14 Urine Drug Screen (01/01/2025 2:03 PM EST) THC Positive Cocaine Screen, Urine [...] procedure / Unknown 01/01/2025 2:03 PM EST us Moris Escamilla MD POINT OF CARE TEST ENTER/EDIT OR DERABLES Final Result documented in this encounter Visit Diagnoses Diagnosis Uncomplicated opioid dependence (CMS/HCC)- Primary documented in this encounter Additional Health Concerns Assessment Noted Time PHQ-9 Depression Total Score: 20 025 10:36 AM EST documented as of this encounter Care Teams Marine Radio Installer And Servicer Relationship Specialty Start Date End Date Lesa Barkley FNP [address] [place] [address] PCP - General Family Medicine 08/14/21 documented as of this encounter
--- OUTSIDE RECORDS SUMMARY | 2025-01-16 14:30 | XMS_ITS | Encounter Summary ---
Author Organization [employer] Address [address] [facility] 7t [place] [address] Care Team Providers Care Executive Producer Promos Name Role Phone [facility] Primary Care Provider [phone] Reason for Visit * Reason Onset Date Comments Med Refill 12/21/2024 Encounter Details Date Type Department Care Team (Late st Contact Info) Description 12/21/2024 Refill [facility] [address] [place] [address] Amanda Cox, PharmD [address] [place] [address] Social History Tobacco Use Types Packs/Day Years [...] as of this encounter Miscellaneous Notes * Addendum Note - Amanda Cox PharmD - 12/26/2024 1:00 PM ESTAddended by: AMANDA COX on: 12/26/2024 01:00 PM Modules accepted: Orders documented in this encounter Plan of Treatment Upcoming Encounters Date Type Department Care Team (Late st Contact Info) Description 01/18/2025 9:00 AM EDT Telemedicine [facility] [address] [place] [address] 01/29/2025 3:15 PM EDT Clinical Support [facility] [address] [place] [address] Monalisa Torres, YASMEEN documented as of this encounter Visit Diagnoses Not on filedocumented in this encounter Additional Health Concerns Assessment Noted Time PHQ-9 Depression Total Score: 20 025 10:36 AM EST documented as of this encounter Care Teams Executive Producer Promos Relationship Specialty Start Date End Date Lesa Barkley FNP [address] [place] [address] PCP - General Family Medicine 08/14/21 documented as of this encounter
--- OUTSIDE RECORDS SUMMARY | 2025-01-16 14:30 | XMS_ITS | Encounter Summary ---
Author Organization [employer] Address [address] [facility] 7t [place] [address] Care Team Providers Care Adjunct Professor Of English Name Role Phone [facility] Primary Care Provider [phone] Reason for Visit * Reason Onset Date Comments Med Refill 12/25/2024 Encounter Details Date Type Department Care Team (Late st Contact Info) Description 12/25/2024 Refill [facility] [address] [place] [address] Monalisa Torres RN Uncomplicated opioid dependence (CMS/[facility]) Social History Tobacco Use Types [...] with others, in a hotel, in a custodial, living outside on the street, on a [...] Info) Description 01/18/2025 9:00 AM EDT Telemedicine [facility]INE [address] [place] [address] 01/29/2025 3:15 PM EDT Clinical Support [facility]INE [address] [place] [address] Monalisa Torres RN documented as of this encounter Visit Diagnoses Diagnosis Uncomplicated opioid dependence (CMS/HCC) documented in this encounter Additional Health Concerns Assessment Noted Time PHQ-9 Depression Total Score: 20 025 10:36 AM EST documented as of this encounter Care Teams Adjunct Professor Of English Relationship Specialty Start Date End Date Lesa Barkley FNP [address] [place] [phone] PCP - General Family Medicine 08/14/21 documented as of this encounter
== END 2025-01-16 12:28 | disposition home or self-care (01) ==
LOC: HO.US 12:27
PROVIDERS: PCP General Practice; Visit Provider General Practice
DX: R31.9 Hematuria, unspecified (principal); R30.0 Dysuria; R39.198 Other difficulties with micturition
CPT/HCPCS: 76775

== ENCOUNTER → 2025-01-16 12:29 | Outpatient (BNV) | payer MEDICAID, SELFPAY | PROVIDERS: PCP General Practice; Visit Provider Radiology Diagnostic Radiology | DX: R30.0 Dysuria (principal); R39.12 Poor urinary stream | CPT/HCPCS: 76775 ==

== ENCOUNTER 2025-01-28 19:43 | Emergency (ER) | payer MEDICAID, SELFPAY ==
--- NOTE | 2025-01-28 | ECG_ITS ---
Test Reason : OVERDOSED Blood Pressure : */* mmHG Vent. Rate : 76 BPM Atrial Rate : 76 BPM P-R Int : 146 ms QRS Dur : 88 ms QT Int : 368 ms P-R-T Axes : 70 69 56 degrees QTcB Int : 414 ms Normal sinus rhythm Normal ECG When compared with ECG of 15-Sep-2024 18:44, Vent. rate has decreased by 45 bpm Referred By: Generic ED Physician Electronically Signed By: RAVEN HENRIQUEZ MD
--- NOTE | 2025-01-28 19:53 | ED.OVERDOSE ---
HPI - Overdose General Chief Complaint: Overdose Stated Complaint: heroine overdose, narcan given by family Time Seen by Provider: 01/28/25 20:42 Source: patient and EMS Mode of arrival: EMS Limitations: no limitations History of Present Illness ED Provider: Vivian Pack NP HPI Narrative: patient is a 24-year-old male who presents emergency department via EMS for evaluation. He endorses accidental overdose reported that he had taken a single pill of fentanyl. He states that 1 week ago he received a Sublocade injection felt that things were overall doing well for him, However,he has plans for 01/30/2025 to be admitted to a detox program. He states that he has 10 intranasal Narcan at home and declines interest in any additional. He declines interest in speaking with addiction medicine/assistance with placement to detox sooner than 01/30/2025. he offers no physical complaints at this time. Related Data Home Medications ?Medication ?Instructions ?Recorded ?Confirmed buprenorphine 8 mg-naloxone 2 mg 1 film sublingual DAILY 09/15/24 09/17/24 sublingual film (Suboxone) acetaminophen 500 mg tablet 500 mg PO Q6H PRN Headache 09/16/24 09/17/24 clonidine HCl 0.1 mg tablet 0.1 mg PO BID 09/16/24 09/17/24 escitalopram oxalate 20 mg tablet 20 mg PO DAILY 09/16/24 09/17/24 hydroxyzine pamoate 50 mg capsule 50 mg PO BID 09/16/24 09/17/24 mirtazapine 7.5 mg tablet 7.5 mg PO BEDTIME 09/16/24 09/17/24 olanzapine 7.5 mg tablet 7.5 mg PO BEDTIME 09/16/24 09/17/24 Previous Rx's ?Medication ?Instructions ?Recorded levetiracetam 1,000 mg tablet 1,000 mg PO BID 90 days #180 tabs 09/17/24 (Keppra) Allergies Allergy/AdvReac Type Severity Reaction Status Date / Time No Known Allergies Allergy Verified 01/28/25 20:03 Review of Systems Review of Systems: Yes all other systems are reviewed and are negative PMFSH Past Medical History Attestation statement: The following information was validated with the patient. Source: old records reviewed Medical History Rhabdomyolysis Drug overdose Seizure Overdose Social History Social History Household Members: Unknown / Unable to assess Housing: Unknown / Unable to assess Do you presently have visiting nurse or other home services: No Alcohol intake: never Patient Tobacco Use Status: Former Tobacco user Tobacco use type: Smokeless Tobacco Smoked in Last 30 Days: Yes e-Cigarette/Vaping Use: Currently Using Second Hand Smoke Exposure: Yes Use of substances other than those prescribed or required for medical reasons: Yes Substance Use Type: Heroin and Marijuana Advance Directives: No Advance Directives Information Provided: Yes service: No Physical Exam Vital Signs: Vital Signs: Last Vital Signs Temp 98.3 F 01/28/25 20:05 Pulse 89 01/28/25 20:05 Resp 12 01/28/25 20:05 BP 107/59 L 01/28/25 20:05 Pulse Ox 97 01/28/25 20:05 O2 Del Method Room Air 01/28/25 20:05 BMI result Body Mass Index 21.5 Appearance: Alert.?Oriented to person, place and time. No acute distress.?Normal affect. Eyes: Pupils equal, round and reactive to light.? ENT: Pharynx normal.?? Neck: Normal inspection.? Neck supple.?? CVS: Heart sounds normal. Normal heart rate and rhythm.? Pulses normal.?? Respiratory: No respiratory distress.? Lung sounds clear to auscultation bilaterally?? Abdomen: Soft and non-tender. Normoactive bowel sounds. ? Skin: Skin warm and dry.? Normal skin color.? ? Extremities: No lower extremity edema.? Neuro: Moves all extremities spontaneously. Sensation intact bilaterally. CN II-XII intact. No focal neuro deficits. Ambulates with normal steady gait. Medical Decision Making Medical Decision Making MDM Narrative: Patient is a 24-year-old male with past medical history of seizure disorder, opioid use disorder presents emergency department for evaluation after accidental overdose as per HPI. Girlfriend administered intranasal Narcan with improvement. Has been alert and oriented x3 since arrival to the ED. declines interest in detox services or speaking with addiction medicine. Did not denies any physical complaints in his physical examination is benign. Will monitor in the emergency department over the next couple of hours to assure no relapse of overdose state and if stable may be discharged. He is without any SI or HI. Differential Diagnosis Differential Diagnoses: The differential diagnosis associated with the presentation includes ( Accidental overdose, intentional overdose, opioid use disorder) Admission/Observation Consideration of admission/observation: Escalation of care including admission/observation considered Lab Data MDM Lab Attestation statement: I reviewed the patient's lab results. 01/28/25 20:25 01/28/25 20:25 Labs: Lab Results 01/28/25 Range/Units 20:25 WBC 8.8 (4.8-10.8) X10*3/uL RBC 4.23 L D (4.60-5.80) X10*6/uL Hgb 12.3 L D (14.0-18.0) g/dl Hct 36.7 L D (42.0-52.0) % MCV 86.8 (80.0-98.0) fL MCH 29.1 (27.0-33.0) pg MCHC 33.5 (31.0-36.0) g/dl RDW 12.1 (11.0-16.0) % Plt Count 230 D (160-400) X10*3/uL MPV 9.2 L (9.4-12.4) fL Immature Gran % (Auto) 0.3 (0.0-0.4) % Neut % (Auto) 72.9 (45-73) % Lymph % (Auto) 18.7 L (20-40) % [place] % (Auto) 6.8 (2-11) % Eos % (Auto) 0.8 (0-4) % Baso % (Auto) 0.5 (0-2) % Lymph # (Auto) 1.7 (1.2-4.9) X10*3/uL [place] # (Auto) 0.6 (0.1-1.2) X10*3/uL Eos # (Auto) 0.1 (0.0-0.4) X10*3/uL Baso # (Auto) 0.0 (0.0-0.2) X10*3/uL Abs Immat Gran (auto) 0.03 (0.00-0.03) X10*3/uL Absolute Neuts (auto) 6.4 (2.0-8.3) x10*3/uL Absolute Nucleated RBC 0.000 (0.0-0.012) X10*3/uL Nucleated RBC % (auto) 0.0 (0.0-0.2) /100WBC Independent Historian Clinical information obtained from an independent historian. History obtained from or confirmed by: EMS External Record Review External record reviewed: Outpatient record Discharge Plan Discharge Clinical Impression: Drug overdose Patient Disposition: Still a Patient Instructions: Opioid Use Disorder (ED) Additional Instructions: Overdose You were seen in our Emergency Department for an overdose today. You received narcan in order to reverse the effects of overdose. Narcan only lasts about 45 min to 1 hour in the system. You may have been given narcan to take home with you today, please keep it near you if you are going to use again, so others can use it if needed.? The number one risk for fatal overdose is using alone? [employer] is a / hotline where you can be on the phone with someone while you use, and they can call for help if they suspect an overdose: [phone] Things to look out for when you leave include severe vomiting or diarrhea, headaches, muscle cramps, fever, coughing, chest pain, or if you feel so short of breath you cannot walk to the bathroom. Please seek care and return any time for worsening symptoms.? You may have been provided with safer injection?items, please take time to take care of YOU and your health. Use new supplies whenever possible to lessen the chances of infections and other illnesses.? If you need more supplies, please go [facility],? [address] [place] [address] OR you can call or text to coordinate delivery of safer supplies. If you decide you want to stop or cut down on how much you?re using, please call the numbers on the list provided to you or you can come to our outpatient Addiction Treatment office [facility] (M-F 9am-5p) [address] [facility], [address] [phone] Prescriptions: No Action buprenorphine-naloxone [Suboxone] 8-2 mg film 1 film sublingual DAILY clonidine HCl 0.1 mg Tablet 0.1 mg PO BID hydroxyzine pamoate 50 mg Capsule 50 mg PO BID olanzapine 7.5 mg Tablet 7.5 mg PO BEDTIME acetaminophen 500 mg Tablet 500 mg PO Q6H PRN (Reason: Headache) escitalopram oxalate 20 mg Tablet 20 mg PO DAILY mirtazapine 7.5 mg Tablet 7.5 mg PO BEDTIME levetiracetam [Keppra] 1,000 mg tablet 1,000 mg PO BID 90 Days Qty: 180 0RF Referrals: Physician,Unknown J [Primary Care Provider] - Print Language: Bulgarian
[2025-01-28 20:02] VITALS: BP 107/59; PULSE 89; RESP 12; TEMP 36.8; O2SAT 97; BMI 21.5
[2025-01-28 20:05] VITALS: BP 107/59; PULSE 89; RESP 12; TEMP 36.8; O2SAT 97
[2025-01-28 20:32] LABS: MANUAL DIFF FLAG NO
[2025-01-28 20:33] LABS: Basophils Percent Auto 0.5 % (0-2); Eosinophils Absolute Auto 0.1 X10*3/uL (0.0-0.4); Eosinophils Percent Auto 0.8 % (0-4); Hematocrit 36.7 % (42.0-52.0); Hemoglobin 12.3 g/dl (14.0-18.0); Imm Gran Abs Auto 0.03 X10*3/uL (0.00-0.03); Imm Gran Pct Auto 0.3 % (0.0-0.4); Lymphocytes Absolute Auto 1.7 X10*3/uL (1.2-4.9); Lymphocytes Percent Auto 18.7 % (20-40); Mean Corpuscular HGB Conc 33.5 g/dl (31.0-36.0); Mean Corpuscular Hemoglobin 29.1 pg (27.0-33.0); Mean Corpuscular Volume 86.8 fL (80.0-98.0); Mean Platelet Volume 9.2 fL (9.4-12.4); Monocytes Absolute Auto 0.6 X10*3/uL (0.1-1.2); Monocytes Percent Auto 6.8 % (2-11); Neutrophils Absolute Auto 6.4 x10*3/uL (2.0-8.3); Neutrophils Percent Auto 72.9 % (45-73); Platelet Count 230 X10*3/uL (160-400); Red Blood Count 4.23 X10*6/uL (4.60-5.80); Red Cell Distribution Width 12.1 % (11.0-16.0); White Blood Count 8.8 X10*3/uL (4.8-10.8)
[2025-01-28 20:50] LABS: Alanine Aminotransferase 16 U/L (0-40); Albumin Level 4.1 g/dL (3.5-5.0); Alkaline Phosphatase 81 U/L (39-117); Anion Gap 10 (12-20); Aspartate Amino Transferase 21 U/L (5-37); Bilirubin Total 0.5 mg/dL (0.0-1.0); Blood Urea Nitrogen 18 mg/dL (9-16); Calcium 8.8 mg/dL (8.4-10.2); Carbon Dioxide 26 mmol/L (22-29); Chloride 108 mmol/L (96-108); Creatinine Clr Calc Pharmacy 143.6; Estimated Glomerular Filt Rate > 60; Glucose Random 77 mg/dL (60-115); Potassium 3.9 mmol/L (3.3-5.1); Sodium 140 mmol/L (135-145); Total Protein 6.9 g/dL (6.5-8.0)
[2025-01-28 21:11] LABS: Amphetamine Screen Urine Not Detected (Not Detect); Barbiturates, Urine Not Detected (Not Detect); Benzodiazepines Screen Urine Not Detected (Not Detect); Buprenorphine Scr Positive (Not Detect); Cannabinoid Screen Urine POSITIVE (Not Detect); Cocaine Screen Urine Not Detected (Not Detect); Fentanyl, urine POSITIVE (Not Detect); Methadone Screen, Urine Not Detected (Not Detect); Opiate Screen Urine Not Detected (Not Detect); Oxycodone Screen Urine Not Detected (Not Detect); Phencyclidine Screen Urine Not Detected (Not Detect)
[2025-01-28 21:17] VITALS: BP 101/49; PULSE 77; RESP 16; TEMP 36.2; O2SAT 97
--- NOTE | 2025-01-28 21:18 | MHC.EDTECH ---
Patient ekg taken and was read by Provider ,urine sample collected and sent to lab ,vitals taken ,Patient had a ham sandwich and franklin devang for snack .
[2025-01-28 22:30] VITALS: BP 113/68; PULSE 73; RESP 11; TEMP 36.9; O2SAT 98
[2025-01-28 23:16] VITALS: BP 113/68; PULSE 73; RESP 11; TEMP 36.9; O2SAT 98
== END 2025-01-28 23:17 | disposition home or self-care (01) ==
PROVIDERS: Emergency Provider Emergency Medicine Emergency Medical Services
DX: T40.1X1A Poisoning by heroin, accidental (unintentional), initial encounter (principal); Z87.891 Personal history of nicotine dependence; Y92.9 Unspecified place or not applicable; Z79.899 Other long term (current) drug therapy; Z71.51 Drug abuse counseling and surveillance of drug abuser; Z51.81 Encounter for therapeutic drug level monitoring
CPT/HCPCS: 36415; 80053; 80307; 85025; 93005; 99285

== ENCOUNTER → 2025-01-28 21:11 | Outpatient (BNV) | payer MEDICAID, SELFPAY | PROVIDERS: Emergency Provider Emergency Medicine Emergency Medical Services; Visit Provider Internal Medicine Cardiovascular Disease | DX: T50.901A Poisoning by unspecified drugs, medicaments and biological substances, accidental (unintentional), initial encounter (principal) | CPT/HCPCS: 93010 ==

== ENCOUNTER 2025-01-29 10:03 | Emergency (ER) | payer MEDICAID, SELFPAY ==
[2025-01-29 10:26] VITALS: BP 123/71; PULSE 123; RESP 22; TEMP 36.7; O2SAT 97; BMI 19.4
--- NOTE | 2025-01-29 10:32 | ED.OVERDOSE ---
HPI - Overdose General Chief Complaint: Overdose Stated Complaint: OD,2 MG NARCAN, UNCOOP, RESTRAINED History of Present Illness HPI Narrative: Patient is 24-year-old male presented today after getting 8 mg of intranasal Narcan at home. Patient had decreased mentation. Family decided to give the patient intranasal Narcan as patient has a history of narcotic use. Patient's subsequently woke up became very nauseous very agitated. Patient is spitting at equipment spitting at the floor when redirected continue to do so start running into the sink agitated. Refused to answer specific questions. Related Data Home Medications ?Medication ?Instructions ?Recorded ?Confirmed buprenorphine 8 mg-naloxone 2 mg 1 film sublingual DAILY 09/15/24 09/17/24 sublingual film (Suboxone) acetaminophen 500 mg tablet 500 mg PO Q6H PRN Headache 09/16/24 09/17/24 clonidine HCl 0.1 mg tablet 0.1 mg PO BID 09/16/24 09/17/24 escitalopram oxalate 20 mg tablet 20 mg PO DAILY 09/16/24 09/17/24 hydroxyzine pamoate 50 mg capsule 50 mg PO BID 09/16/24 09/17/24 mirtazapine 7.5 mg tablet 7.5 mg PO BEDTIME 09/16/24 09/17/24 olanzapine 7.5 mg tablet 7.5 mg PO BEDTIME 09/16/24 09/17/24 Previous Rx's ?Medication ?Instructions ?Recorded levetiracetam 1,000 mg tablet 1,000 mg PO BID 90 days #180 tabs 09/17/24 (Keppra) Allergies Allergy/AdvReac Type Severity Reaction Status Date / Time No Known Allergies Allergy Verified 01/29/25 10:27 Review of Systems Review of Systems: Positive history of polysubstance abuse patient refused to answer specific questions PMFSH Past Medical History Medical History Rhabdomyolysis Drug overdose Seizure Overdose Social History Social History Household Members: Unknown / Unable to assess Housing: Unknown / Unable to assess Do you presently have visiting nurse or other home services: No Alcohol intake: never Patient Tobacco Use Status: Former Tobacco user Tobacco use type: Smokeless Tobacco e-Cigarette/Vaping Use: Currently Using Second Hand Smoke Exposure: Yes Substance Use Type: Heroin and Marijuana Do you have a plan to hurt others: No Plan service: No Physical Exam Vital Signs: Vital Signs: Last Vital Signs Temp 97.9 F 01/29/25 12:30 Pulse 88 01/29/25 13:26 Resp 14 01/29/25 13:26 BP 110/61 01/29/25 13:26 Pulse Ox 99 01/29/25 13:26 O2 Del Method Room Air 01/29/25 13:26 BMI result Body Mass Index 19.4 Appearance: Alert. Extremely agitated moving about spitting Eyes: Pupils equal, round and reactive to light. ENT: Pharynx normal. Neck: Normal inspection. Neck supple. No lymph nodes noted. No crepitus CVS: Normal heart rate and rhythm. Pulses normal. Normal S1 and S2 Respiratory: No respiratory distress. Breath sounds normal. No Wheezing. No rales Abdomen: Soft and nontender. No rigidity. No distention. good BS x4 Skin: Skin warm and dry. Normal skin color. Normal skin turgor. Extremities: No lower extremity edema. Neurovascular intact to all extremities. No Lacerations. No Rash Neuro: Oriented X 3. No motor deficit. No sensory deficit. Moving all extermities. No slurred speech Medications Administered Discontinued Medications Generic Name Dose Route Start Last Admin Trade Name Freq PRN Reason Stop Dose Admin Diphenhydramine HCl 50 mg 01/29/25 10:20 01/29/25 10:36 Diphenhydramine Hcl 50 Mg/Ml Vial IM 01/29/25 10:21 50 mg ONCE ONE Administration Haloperidol Lactate 5 mg 01/29/25 10:20 01/29/25 10:36 Haloperidol Lactate 5 Mg/Ml Vial IM 01/29/25 10:21 5 mg ONCE ONE Administration Sodium Chloride 1,000 mls @ 999 mls/hr 01/29/25 10:15 01/29/25 11:58 Ns IV 01/29/25 11:15 Infused .Q1H1M ANTON Infusion Sodium Chloride 1,000 mls @ 999 mls/hr 01/29/25 10:15 01/29/25 11:58 Ns IV 01/29/25 11:15 Infused .Q1H1M ANTON Infusion Lorazepam 2 mg 01/29/25 10:20 01/29/25 10:36 Lorazepam 2 Mg/Ml Vial IM 01/29/25 10:21 2 mg ONCE ONE Administration Ondansetron HCl 4 mg 01/29/25 10:14 01/29/25 10:42 Ondansetron Hcl 4 Mg/2 Ml Vial IVPUSH 01/29/25 10:15 4 mg ONCE ONE Administration Medical Decision Making Medical Decision Making [facility] Narrative: Patient extremely agitated nauseous vomiting. Haldol Ativan and Benadryl was given partially for agitation also for the nausea. Symptomatically feels improved after IV fluids. Patient's electrolytes were checked. White count slightly elevated 11. Electrolytes were unremarkable alcohol nondetectable monitor patient in the ED for few hours. Symptomatically improved. Now tolerating p.o.. Not suicidal not homicidal. Will discharge patient home. Explained to patient the need to stop using narcotics. Patient states understanding. Differential Diagnosis Differential Diagnoses: The differential diagnosis associated with the presentation includes Narcotic overdose, nausea vomiting Admission/Observation Consideration of admission/observation: Escalation of care including admission/observation considered Consult Healthcare Provider Not suicidal not homicidal does not want detox at this time Lab Data [facility] Lab Attestation statement: I reviewed the patient's lab results. 01/29/25 10:44 01/29/25 10:44 Labs: Lab Results 01/29/25 Range/Units 10:44 WBC 11.3 H (4.8-10.8) X10*3/uL RBC 4.65 (4.60-5.80) X10*6/uL Hgb 13.3 L (14.0-18.0) g/dl Hct 39.6 L (42.0-52.0) % MCV 85.2 (80.0-98.0) fL MCH 28.6 (27.0-33.0) pg MCHC 33.6 (31.0-36.0) g/dl RDW 12.0 (11.0-16.0) % Plt Count 307 D (160-400) X10*3/uL MPV 9.2 L (9.4-12.4) fL Immature Gran % (Auto) 0.6 H (0.0-0.4) % Neut % (Auto) 78.4 H (45-73) % Lymph % (Auto) 14.8 L (20-40) % [place] % (Auto) 5.1 (2-11) % Eos % (Auto) 0.5 (0-4) % Baso % (Auto) 0.6 (0-2) % Lymph # (Auto) 1.7 (1.2-4.9) X10*3/uL [place] # (Auto) 0.6 (0.1-1.2) X10*3/uL Eos # (Auto) 0.1 (0.0-0.4) X10*3/uL Baso # (Auto) 0.1 (0.0-0.2) X10*3/uL Abs Immat Gran (auto) 0.07 H (0.00-0.03) X10*3/uL Absolute Neuts (auto) 8.9 H (2.0-8.3) x10*3/uL Absolute Nucleated RBC 0.000 (0.0-0.012) X10*3/uL Nucleated RBC % (auto) 0.0 (0.0-0.2) /100WBC Sodium 138 (135-145) mmol/L Potassium 3.6 (3.3-5.1) mmol/L Chloride 105 (96-108) mmol/L Carbon Dioxide 21 L (22-29) mmol/L Anion Gap 16 (12-20) BUN 14 (9-16) mg/dL Creatinine 0.78 (0.5-1.4) mg/dL Estim Creat Clear Calc 138.8 Estimated GFR > 60 Random Glucose 170 H (60-115) mg/dL Calcium 9.5 D (8.4-10.2) mg/dL Total Bilirubin 1.0 (0.0-1.0) mg/dL Direct Bilirubin 0.3 (0.0-0.5) mg/dL AST 27 (5-37) U/L ALT 13 (0-40) U/L Alkaline Phosphatase 94 (39-117) U/L Total Protein 7.4 (6.5-8.0) g/dL Albumin 4.4 (3.5-5.0) g/dL Ethyl Alcohol < 10 mg/dL Chronic Conditions History of polysubstance abuse Social Determinants Patient?s care significantly limited by Social Determinants of Health including: Alcoholism and drug addiction in family and Problems related to primary support group Discharge Plan Discharge Clinical Impression: Opiate overdose Patient Disposition: Home, Self-Care Instructions: Narcotic Use Disorder (ED), Narcotic Safety (ED) Prescriptions: No Action buprenorphine-naloxone [Suboxone] 8-2 mg film 1 film sublingual DAILY clonidine HCl 0.1 mg Tablet 0.1 mg PO BID hydroxyzine pamoate 50 mg Capsule 50 mg PO BID olanzapine 7.5 mg Tablet 7.5 mg PO BEDTIME acetaminophen 500 mg Tablet 500 mg PO Q6H PRN (Reason: Headache) escitalopram oxalate 20 mg Tablet 20 mg PO DAILY mirtazapine 7.5 mg Tablet 7.5 mg PO BEDTIME levetiracetam [Keppra] 1,000 mg tablet 1,000 mg PO BID 90 Days Qty: 180 0RF Referrals: [facility] [Provider Group] (Please go to detox) Print Language: Scottish
[2025-01-29] MEDS: diphenhydrAMINE HCL 50 MG/ML VIAL IM (10:36)
[2025-01-29] MEDS: Haloperidol Lactate 5 MG/ML VIAL IM (10:36)
[2025-01-29] MEDS: LORazepam 2 MG/ML VIAL IM (10:36)
[2025-01-29] MEDS: ondansetron HCL 4 MG/2 ML VIAL IVPUSH (10:42)
[2025-01-29] MEDS: 0.9 % Sodium Chloride 1,000 ML 999 ML IV ×2 (10:43→10:44)
[2025-01-29 10:47] VITALS: BP 103/40; PULSE 91; RESP 14; O2SAT 99
[2025-01-29 10:48] LABS: MANUAL DIFF FLAG NO
--- NOTE | 2025-01-29 10:50 | PC.NURSE ---
pt presents to the ED via EMS from home s/p uninentional overdose on unknown substance. per EMS, hx substance use. pt found to be unresponsive in his home. EMS administered 8mg narcan intranasally w/ good effect. upon wakening pt aggressive/agitated/uncooperative. PD on scene. upon ED arrival - pt remains agitated/aggressive/uncooperative w/ staff. spitting/throwing up on hospital equipment. attempting to run away. pt chemically restrained at 1036 - see restraint paperwork for further details. 18gIV placed in the left AC w/ security bedside. labs obtained/sent to lab. IVF/medication administered per provider order. pt on RA w/o difficulty. no sob/wob noted. respirations even/unlabored. plan of care ongoing. call hernandez placed within reach.
[2025-01-29 10:51] LABS: Basophils Absolute Auto 0.1 X10*3/uL (0.0-0.2); Basophils Percent Auto 0.6 % (0-2); Eosinophils Absolute Auto 0.1 X10*3/uL (0.0-0.4); Eosinophils Percent Auto 0.5 % (0-4); Hematocrit 39.6 % (42.0-52.0); Hemoglobin 13.3 g/dl (14.0-18.0); Imm Gran Abs Auto 0.07 X10*3/uL (0.00-0.03); Imm Gran Pct Auto 0.6 % (0.0-0.4); Lymphocytes Absolute Auto 1.7 X10*3/uL (1.2-4.9); Lymphocytes Percent Auto 14.8 % (20-40); Mean Corpuscular HGB Conc 33.6 g/dl (31.0-36.0); Mean Corpuscular Hemoglobin 28.6 pg (27.0-33.0); Mean Corpuscular Volume 85.2 fL (80.0-98.0); Mean Platelet Volume 9.2 fL (9.4-12.4); Monocytes Absolute Auto 0.6 X10*3/uL (0.1-1.2); Monocytes Percent Auto 5.1 % (2-11); Neutrophils Absolute Auto 8.9 x10*3/uL (2.0-8.3); Neutrophils Percent Auto 78.4 % (45-73); Platelet Count 307 X10*3/uL (160-400); Red Blood Count 4.65 X10*6/uL (4.60-5.80); White Blood Count 11.3 X10*3/uL (4.8-10.8)
[2025-01-29 11:18] VITALS: BP 116/69; PULSE 64; RESP 16; O2SAT 95
--- NOTE | 2025-01-29 11:18 | PC.NURSE ---
pt more calm/cooperative s/p medication administration. IVF continues to infuse at this time. pt no longer actively vomiting. pt remains on RA w/o difficulty. SPO2 @ 97%. no sob/wob noted. respirations even/unlabored. plan of care ongoing. call hernandez placed within reach.
[2025-01-29 11:32] LABS: Alanine Aminotransferase 13 U/L (0-40); Albumin Level 4.4 g/dL (3.5-5.0); Anion Gap 16 (12-20); Aspartate Amino Transferase 27 U/L (5-37); Bilirubin Direct 0.3 mg/dL (0.0-0.5); Blood Urea Nitrogen 14 mg/dL (9-16); Calcium 9.5 mg/dL (8.4-10.2); Carbon Dioxide 21 mmol/L (22-29); Chloride 105 mmol/L (96-108); Creatinine Clr Calc Pharmacy 138.8; Estimated Glomerular Filt Rate > 60; Ethanol < 10 mg/dL; Glucose Random 170 mg/dL (60-115); Potassium 3.6 mmol/L (3.3-5.1); Sodium 138 mmol/L (135-145); Total Protein 7.4 g/dL (6.5-8.0)
[2025-01-29 11:46] LABS: Alkaline Phosphatase 94 U/L (39-117)
[2025-01-29 12:30] VITALS: BP 109/66; PULSE 91; RESP 16; TEMP 36.6; O2SAT 97
[2025-01-29 13:26] VITALS: BP 110/61; PULSE 88; RESP 14; O2SAT 99
[2025-01-29 16:16] VITALS: BP 110/61; PULSE 88; RESP 14; TEMP 36.7; O2SAT 99
[2025-01-29] MEDS: Naloxone HCl Nasal TAKE HOME 4 MG SPRAY 8 MG NOSTRILALT (16:31)
--- NOTE | 2025-01-31 12:47 | MHC.RECOVRN ---
Attempted to call pt to follow up after unintentional opioid overdoses on 01/28 and 01/29. Pt did not answer, left message to call back.
== END 2025-01-29 17:09 | disposition home or self-care (01) ==
PROVIDERS: Emergency Provider Emergency Medicine Emergency Medical Services
DX: T40.601A Poisoning by unspecified narcotics, accidental (unintentional), initial encounter (principal); R11.0 Nausea; Y92.9 Unspecified place or not applicable; R45.1 Restlessness and agitation; Z79.899 Other long term (current) drug therapy
CPT/HCPCS: 36415; 80048; 80076; 80307; 85025; 96361; 96372; 96374; 99285; J1200; J1630; J2060; J2405

== ENCOUNTER 2025-03-27 14:56 | Emergency (ER) | payer MEDICAID, SELFPAY ==
[2025-03-27] VITALS (32 sets, daily range): BP systolic 0–152; BP diastolic 0–84; PULSE 0–126; RESP 0–26; TEMP -17.7–37.2; O2SAT 95–100; BMI 28.0
--- NOTE | ~2025-03-27 | XR_ITS ---
CLINICAL HISTORY: fall, bruise volar 2 view left forearm Comparison: None Findings: No fractures or dislocations. No joint effusion. No significant arthritic change. No radiopaque foreign body. IMPRESSION: No acute findings This document has been electronically signed by: Ja Chung MD on 03/27/2025 17:48:09
--- NOTE | ~2025-03-27 | CT_ITS ---
CLINICAL HISTORY: ams, status epi CT head without contrast Comparison: MR/TN/SR - MR HEAD/BRAIN WO/W CON - 09/09/24 16:[address]/SR - CT HEAD/BRAIN WO IV CON - 03/27/24 15:02 EDT Findings: No intra-axial mass, midline shift, hydrocephalus, or acute hemorrhage. No significant atrophy-like change or white matter disease. There is no sinus or mastoid fluid. The orbits are unremarkable. No skull fracture. IMPRESSION: 1. No acute intracranial findings. This document has been electronically signed by: Ja Chung MD on 03/27/2025 17:20:32
--- NOTE | ~2025-03-27 | XR_ITS ---
CLINICAL HISTORY: post intubation 1 view chest x-ray Comparison: CT/SR - CT CHEST WO IV CON - 09/16/24 00:39 EST Findings: Status post intubation. The tip of the endotracheal tube is at the thoracic inlet 7 cm above st[place]. The lungs are clear. Normal size heart. No acute fracture. IMPRESSION: Tip of endotracheal tube is at the thoracic inlet 7 cm above st[place]ford. Adjustment is recommended as clinically indicated. This document has been electronically signed by: Ja Chung MD on 03/27/2025 17:50:35
--- NOTE | 2025-03-27 15:20 | ED.SEIZURE ---
HPI - Seizure General Chief Complaint: Seizure Stated Complaint: UNWIT SZ, POST ICTAL Time Seen by Provider: 03/27/25 15:19 History of Present Illness ED Provider: Edy Vela MD HPI Narrative: 24 M history of substance use disorder, Percocet recently in drug rehab program until about 4-5 days ago. You return home. He had been treated for epilepsy and he has been on Keppra but mother reports that she does not believe he is in taking this for the past few days since he has been home at least. She saw him convulsing with rapid breathing on a home security video camera this morning she came home and believes he had another additional seizure after that time. He had no lucid interval. And here was postictal noncontributory to history taking. Seizure History: Yes Related Data Home Medications ?Medication ?Instructions ?Recorded ?Confirmed buprenorphine 8 mg-naloxone 2 mg 1 film sublingual DAILY 09/15/24 09/17/24 sublingual film (Suboxone) acetaminophen 500 mg tablet 500 mg PO Q6H PRN Headache 09/16/24 09/17/24 clonidine HCl 0.1 mg tablet 0.1 mg PO BID 09/16/24 09/17/24 escitalopram oxalate 20 mg tablet 20 mg PO DAILY 09/16/24 09/17/24 hydroxyzine pamoate 50 mg capsule 50 mg PO BID 09/16/24 09/17/24 mirtazapine 7.5 mg tablet 7.5 mg PO BEDTIME 09/16/24 09/17/24 olanzapine 7.5 mg tablet 7.5 mg PO BEDTIME 09/16/24 09/17/24 Previous Rx's ?Medication ?Instructions ?Recorded levetiracetam 1,000 mg tablet 1,000 mg PO BID 90 days #180 tabs 09/17/24 (Keppra) Allergies Allergy/AdvReac Type Severity Reaction Status Date / Time No Known Allergies Allergy Verified 03/27/25 15:16 [facility] Past Medical History Medical History Rhabdomyolysis Drug overdose Seizure Overdose Social History Social History Household Members: Unknown / Unable to assess Housing: Unknown / Unable to assess Do you presently have visiting nurse or other home services: No Unable to assess alcohol history related to: Unable to respond Alcohol intake: current Alcohol intake frequency: does not drink Patient Tobacco Use Status: Former Tobacco user Tobacco use type: Smokeless Tobacco e-Cigarette/Vaping Use: Currently Using Second Hand Smoke Exposure: Yes Substance Use Type: Former Substance User service: No Physical Exam Vital Signs: Vital Signs: Last Vital Signs Temp 0 F L 03/27/25 18:43 Pulse 0 L 03/27/25 18:43 Resp 0 L 03/27/25 18:43 BP 0/0 L 03/27/25 18:43 Pulse Ox 100 03/27/25 18:43 O2 Del Method Mechanical Ventil ation 03/27/25 18:43 FiO2 50 03/27/25 16:34 BMI result Body Mass Index 28.0 Const: Other: EXAM: Gen: Pale ill-appearing disoriented. Head: Atraumatic Eyes: Anicteric, Normal conjunctiva. ENT: Moist mucosa, no pallor. ? Neck: Supple. Respiratory: Breathing comfortably, No distress.Clear to auscultation bilaterally, symmetric chest expansion, No wheeze, rales, ronchi. Cardiovascular: Regular rate and rhythm. No murmurs or rub. Well perfused periphery, warm extremities. No edema. ? Abdominal: Soft, no objective distension. No palpable masses or obvious organomegaly. No focal tenderness, no guarding, no rebound tenderness or other peritoneal findings. : No flank tenderness. Neuro: Sleepy, making some eye contact but not responding verbally. No obvious focal or lateral motor deficits or facial droop. He is not meningitic. MSK: Subtle bruising left distal volar forearm muscle compartments are soft. Vital signs: See flowsheet Medications Administered Discontinued Medications Generic Name Dose Route Start Last Admin Trade Name Freq PRN Reason Stop Dose Admin Levetiracetam 2,000 mg/ Sodium 120 mls @ 480 mls/hr 03/27/25 15:22 03/27/25 16:10 Chloride IV 03/27/25 15:36 Infused ONCE ONE Infusion Lactated Ringer's 1,000 mls @ 999 mls/hr 03/27/25 15:29 03/27/25 17:52 Lr IV 03/27/25 16:29 Infused .Q1H1M ONE Infusion Propofol 1,000 mg in 100 mls @ 0 mls/hr 03/27/25 16:15 03/27/25 17:18 Diprivan IVCONT 50 mcg/kg/min .Q0M ANTON 24.36 mls/hr Titration Protocol Per Protocol Fentanyl 1,000 mcg in 100 mls @ 0 mls/hr 03/27/25 17:00 03/27/25 17:35 Sublimaze/Ns IVCONT 75 mcg/hr .Q0M ANTON 7.5 mls/hr Titration Protocol Per Protocol Midazolam HCl 4 mg 03/27/25 15:38 03/27/25 15:43 Midazolam Hcl 2 Mg/2 Ml Vial IVPUSH 03/27/25 15:39 4 mg ONCE ONE Administration Midazolam HCl 4 mg 03/27/25 17:45 03/27/25 17:39 Midazolam Hcl 5 Mg/Ml Vial IVPUSH 03/27/25 17:46 4 mg ONCE ONE Administration Propofol 100 mg 03/27/25 16:01 03/27/25 16:14 Propofol 200 Mg/20 Ml Vial IVPUSH 03/27/25 16:02 100 mg ONCE ONE Administration Propofol 100 mg 03/27/25 17:30 03/27/25 17:36 Propofol 200 Mg/20 Ml Vial IVPUSH 03/27/25 17:31 100 mg ONCE ONE Administration Rocuronium [place] 60 mg 03/27/25 16:03 03/27/25 16:15 Rocuronium [place] 50 Mg/5 Ml Vial IVPUSH 03/27/25 16:04 60 mg ONCE ONE Administration Medical Decision Making Medical Decision Making [facility] Narrative: 24-year-old male with epilepsy substance use disorder likely not adherent with antiseizure medications. No naloxone or obvious signs of opioid overdose. Likely postictal on arrival later had a tonic-clonic seizure. Per mother's calculation this is likely 3 with no lucid interval. Meets criteria for status epilepticus. The patient never recovered after midazolam, 4 mg for the witnessed seizure in the ED. for this reason we intubated for airway protection started propofol, fentanyl drip Differential Diagnosis Status epilepticus, medication nonadherence, electrolyte derangement, rhabdomyolysis, toxic or metabolic encephalopathy Lab Data [facility] Lab Attestation statement: I reviewed the patient's lab results. 03/27/25 15:40 03/27/25 15:40 Labs: Lab Results 05/21/25 05/21/25 05/21/25 Range/Units 15:40 16:29 16:59 WBC 16.8 H (4.8-10.8) X10*3/uL RBC 4.46 L (4.60-5.80) X10*6/uL Hgb 13.0 L (14.0-18.0) g/dl Hct 37.8 L (42.0-52.0) % MCV 84.8 (80.0-98.0) fL MCH 29.1 (27.0-33.0) pg MCHC 34.4 (31.0-36.0) g/dl RDW 12.8 (11.0-16.0) % Plt Count 321 (160-400) X10*3/uL MPV 9.0 L (9.4-12.4) fL Immature Gran % (Auto) 0.7 H (0.0-0.4) % Neut % (Auto) 83.0 H (45-73) % Lymph % (Auto) 6.3 L (20-40) % [place] % (Auto) 9.8 (2-11) % Eos % (Auto) 0.0 (0-4) % Baso % (Auto) 0.2 (0-2) % Lymph # (Auto) 1.1 L (1.2-4.9) X10*3/uL [place] # (Auto) 1.6 H (0.1-1.2) X10*3/uL Eos # (Auto) 0.0 (0.0-0.4) X10*3/uL Baso # (Auto) 0.0 (0.0-0.2) X10*3/uL Abs Immat Gran (auto) 0.12 H (0.00-0.03) X10*3/uL Absolute Neuts (auto) 13.9 H (2.0-8.3) x10*3/uL Absolute Nucleated RBC 0.000 (0.0-0.012) X10*3/uL Nucleated RBC % (auto) 0.0 (0.0-0.2) /100WBC Smear Tech's Comments VERIFIED Sodium 138 (135-145) mmol/L Potassium 4.0 (3.3-5.1) mmol/L Chloride 107 (96-108) mmol/L Carbon Dioxide 21 L (22-29) mmol/L Anion Gap 14 (12-20) BUN 19 H (9-16) mg/dL Creatinine 0.87 (0.5-1.4) mg/dL Estim Creat Clear Calc 131.2 Estimated GFR > 60 Random Glucose 101 (60-115) mg/dL Calcium 9.0 (8.4-10.2) mg/dL Magnesium 2.6 (1.6-2.6) mg/dL Total Bilirubin 0.6 (0.0-1.0) mg/dL AST 67 H (5-37) U/L ALT 80 H (0-40) U/L Alkaline Phosphatase 68 (39-117) U/L Total Creatine Kinase 1098 H (38-174) U/L Total Protein 7.5 (6.5-8.0) g/dL Albumin 4.7 (3.5-5.0) g/dL TSH 0.63 (0.32-4.0) uIU/mL Hold Yellow Top Urine Color Urine Appearance Urine pH (5.0-9.0) Ur Specific [place] (1.005-1.025) Urine Protein (Neg-Trace) mg/dL Urine Glucose (UA) (Negative) mg/dL Urine Ketones (Negative) mg/dL Urine Blood (Negative) Urine Nitrite (Negative) Ur Leukocyte Esterase (Negative) Salicylates < 5.0 L (15-30) mg/dL Urine Opiates Screen (Not Detect) Ur Buprenorphine Scrn (Not Detect) ng/mL Ur Oxycodone Screen (Not Detect) ng/mL Urine Methadone Screen (Not Detect) ng/mL Urine Fentanyl Screen (Not Detect) Acetaminophen < 3 (<30) mcg/mL Ur Barbiturates Screen (Not Detect) Ur Phencyclidine Scrn (Not Detect) Ur Amphetamines Screen (Not Detect) U Benzodiazepines Scrn (Not Detect) Urine Cocaine Screen (Not Detect) U Marijuana (THC) Screen (Not Detect) Ethyl Alcohol < 10 mg/dL COVID-19 (FIORDALIZA) Negative (Negative) COVID-19 Clin Com See Note 03/27/25 03/27/25 Range/Units 17:01 17:23 WBC (4.8-10.8) X10*3/uL RBC (4.60-5.80) X10*6/uL Hgb (14.0-18.0) g/dl Hct (42.0-52.0) % MCV (80.0-98.0) fL MCH (27.0-33.0) pg MCHC (31.0-36.0) g/dl RDW (11.0-16.0) % Plt Count (160-400) X10*3/uL MPV (9.4-12.4) fL Immature Gran % (Auto) (0.0-0.4) % Neut % (Auto) (45-73) % Lymph % (Auto) (20-40) % [place] % (Auto) (2-11) % Eos % (Auto) (0-4) % Baso % (Auto) (0-2) % Lymph # (Auto) (1.2-4.9) X10*3/uL [place] # (Auto) (0.1-1.2) X10*3/uL Eos # (Auto) (0.0-0.4) X10*3/uL Baso # (Auto) (0.0-0.2) X10*3/uL Abs Immat Gran (auto) (0.00-0.03) X10*3/uL Absolute Neuts (auto) (2.0-8.3) x10*3/uL Absolute Nucleated RBC (0.0-0.012) X10*3/uL Nucleated RBC % (auto) (0.0-0.2) /100WBC Smear Tech's Comments Sodium (135-145) mmol/L Potassium (3.3-5.1) mmol/L Chloride (96-108) mmol/L Carbon Dioxide (22-29) mmol/L Anion Gap (12-20) BUN (9-16) mg/dL Creatinine (0.5-1.4) mg/dL Estim Creat Clear Calc Estimated GFR Random Glucose (60-115) mg/dL Calcium (8.4-10.2) mg/dL Magnesium (1.6-2.6) mg/dL Total Bilirubin (0.0-1.0) mg/dL AST (5-37) U/L ALT (0-40) U/L Alkaline Phosphatase (39-117) U/L Total Creatine Kinase (38-174) U/L Total Protein (6.5-8.0) g/dL Albumin (3.5-5.0) g/dL TSH (0.32-4.0) uIU/mL Hold Yellow Top See Note Urine Color Yellow Urine Appearance Cloudy Urine pH 6.5 (5.0-9.0) Ur Specific [place] 1.010 (1.005-1.025) Urine Protein Negative (Neg-Trace) mg/dL Urine Glucose (UA) Negative (Negative) mg/dL Urine Ketones Negative (Negative) mg/dL Urine Blood Negative (Negative) Urine Nitrite Negative (Negative) Ur Leukocyte Esterase Negative (Negative) Salicylates (15-30) mg/dL Urine Opiates Screen Not Detected (Not Detect) Ur Buprenorphine Scrn Positive H (Not Detect) ng/mL Ur Oxycodone Screen Not Detected (Not Detect) ng/mL Urine Methadone Screen Not Detected (Not Detect) ng/mL Urine Fentanyl Screen Not Detected (Not Detect) Acetaminophen (<30) mcg/mL Ur Barbiturates Screen Not Detected (Not Detect) Ur Phencyclidine Scrn Not Detected (Not Detect) Ur Amphetamines Screen Not Detected (Not Detect) U Benzodiazepines Scrn Not Detected (Not Detect) Urine Cocaine Screen Not Detected (Not Detect) U Marijuana (THC) Screen POSITIVE H (Not Detect) Ethyl Alcohol mg/dL COVID-19 (FIORDALIZA) (Negative) COVID-19 Clin Com Independent Interpretation I performed an independent interpretation of an: Rhythm Strip, Plain X-Ray (ETT in adequate position. No gross fractures or foreign bodies visualized in the left forearm) and CT Scan (No ICH or mass) Radiology Impression Discussion of test interpretation with radiology: I have reviewed the radiologist's reading. Procedures Intubation Intubation Type:: Emergency Endotracheal Intubation Intubation Date:: 03/27/25 Time out performed: Yes sedative: other (Propofol) paralytic: Rocuronium Laryngoscope: fiber optic video scope ET Tube Size: 7.5 ET Tube Uncuffed: Yes Patient Tolerated Procedure: well Intubation Complications: none Additional Comments: Assisted by Macie Clark NP. Critical Care Time Critical Care Time Critical Care Time: Yes Total Critical Care Time: 100 Attestation: 24 male status epilepticus requiring intubation frequent bedside re-evaluation. ED Critical Care: Authorized and Performed by: Edy Vela MD Total critical care time: Approximately {100 } Due to a high probability of clinically significant, life threatening deterioration, the patient required my highest level of preparedness to intervene emergently and I personally spent this critical care time directly and personally managing the patient. This critical care time included obtaining a history; examining the patient; pulse oximetry; ordering and review of studies; arranging urgent treatment with development of a management plan; evaluation of patient's response to treatment; frequent reassessment; and, discussions with other providers. This critical care time was performed to assess and manage the high probability of imminent, life-threatening deterioration that could result in multi-organ failure. It was exclusive of separately billable procedures and treating other patients and teaching time. Discharge Plan Discharge Clinical Impression: Status epilepticus Patient Disposition: [facility] Transfer Details: [facility] see you accepted Dr. Ray requested head CT Prescriptions: No Action buprenorphine-naloxone [Suboxone] 8-2 mg film 1 film sublingual DAILY clonidine HCl 0.1 mg Tablet 0.1 mg PO BID hydroxyzine pamoate 50 mg Capsule 50 mg PO BID olanzapine 7.5 mg Tablet 7.5 mg PO BEDTIME acetaminophen 500 mg Tablet 500 mg PO Q6H PRN (Reason: Headache) escitalopram oxalate 20 mg Tablet 20 mg PO DAILY mirtazapine 7.5 mg Tablet 7.5 mg PO BEDTIME levetiracetam [Keppra] 1,000 mg tablet 1,000 mg PO BID 90 Days Qty: 180 0RF Interventions: Acute Care Transfer Worksheet (ED) Last Done: 03/27/25 18:43 Discharge Date/Time: 03/27/25 18:00 Print Language: Setswana
--- OUTSIDE RECORDS SUMMARY | 2025-03-27 15:33 | XMS_ITS | Clinical Summary ---
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 Name Role Phone Patient, Has No Pcp [...] 03/05/2004, 10/04/2000, Additional history exists COVID-19 Vaccine ( - season) 2024 01/27/2023 Alcohol/Substance Use Screening 11/07/2024 Influenza Vaccine (Season Ended) 2025 08/30/2011, 09/01/2009 RSV Vaccine (60+ years old and patients) (1 - 1-dose 75+ series) 2073 Hepatitis B Vaccines Completed 12/02/1999, 01/27/1999, 1998 Varicella Vaccines Completed 03/05/2008, 03/09/2000 Pneumococcal Vaccine: Pediatric (0-5 Years) and At-Risk Patients (6-50 Years) Aged Out No longer eligible based on patient's age to complete this topic Insurance Anonymous You Care Teams Rug Drying Machine Operator Relationship Specialty Start Date End Date Patient, Has No Pcp Or Ref DO NOT EDIT THIS RECORD VIA PROVIDER ON THE FLY PCP - 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
--- OUTSIDE RECORDS SUMMARY | 2025-03-27 15:33 | XMS_ITS | Clinical Summary ---
Author Organization [employer] Address [address] [facility] 7t [place] [address] Care Team Providers Care Poker Room Manager Name Role Phone Carmen Corinne SARMAD Primary Care Provider [phone] Allergies No known active allergies Medications * This document contains information received from the source organization and may not represent a complete record from that organization. naloxone (Narcan) 4 mg/0.1 mL nasal spray ADMINISTER 1 SPRAY INTO ONE NOSTRIL. CALL 911. REPEAT AFTER 2-3 MIN IF NO OR MINIMAL RESPONSE 09/11/20 24 Active triamcinolone (Kenalog) 0.1 % cream Apply [...] for smoking cessation. 100 lozenge 12/21/19 25 Active nicotine (Nicoderm CQ) 14 MG/24HR patch Place 1 patch on the skin 1 (one) time each day at the same time. 14 patch 12/26/19 25 Active nicotine (Nicoderm CQ) 7 MG/24HR patch Place 1 patch on the skin 1 (one) time each day at the same time. 14 patch 12/26/19 25 Active OLANZapine (ZyPREXA) 7.5 MG tablet TAKE 1 TABLET BY MOUTH AT BEDTIME 30 tablet 03/01/20 Active cloNIDine (Catapres) 0.1 MG tablet TAKE 1 TABLET BY MOUTH TWICE DAILY IN THE MORNING AND AT BEDTIME 60 tablet 03/01/20 25 Active levETIRAcetam (Keppra) 1000 MG tablet TAKE 1 TABLET BY MOUTH TWICE DAILY IN THE MORNING AND AT BEDTIME 60 tablet 03/01/20 Active escitalopram (Lexapro) 20 MG tablet TAKE 1 TABLET BY MOUTH EVERY MORNING 30 tablet 03/01/20 25 Active hydrOXYzine pamoate (Vistaril) 50 MG capsule TAKE 1 CAPSULE BY MOUTH TWICE DAILY IN THE MORNING AND AT BEDTIME 60 capsule 03/01/20 Active mirtazapine (Remeron) 7.5 MG tablet TAKE 1 TABLET BY MOUTH AT BEDTIME 30 tablet 03/01/20 Active polyethylene glycol, PEG, 3350 (MiraLax) 17 GM/SCOOP powder Take 17 g by mouth Once per day. 527 g 2 11/27/19 25 025 cloNIDine (Catapres) 0.1 MG tablet Take 1 tablet (0.1 mg) by mouth 2 times daily. 60 tablet 01/01/20 25 025 Discontinued escitalopram (Lexapro) 20 MG tablet Take 1 tablet (20 mg) by mouth Once per day. 30 tablet 01/01/20 25 025 Discontinued hydrOXYzine pamoate (Vistaril) 50 MG capsule Take 1 capsule (50 mg) by mouth 2 times daily. 60 capsule 01/01/20 25 025 Discontinued levETIRAcetam (Keppra) 1000 MG tablet Take 1 tablet (1,000 mg) by mouth 2 times daily. 60 tablet 01/01/20 25 025 Discontinued mirtazapine (Remeron) 7.5 MG tablet Take 1 tablet (7.5 mg) by mouth at bedtime. 30 tablet 01/01/20 25 025 Discontinued OLANZapine (ZyPREXA) 7.5 MG tablet Take 1 tablet (7.5 mg) by mouth at bedtime. 30 tablet 01/01/20 25 025 Discontinued buprenorphine ER (Sublocade) 300 mg/1.5mL injectionIndic ations:Uncompl icated opioid dependence (CMS/HCC) Inject 1.5 mL (1 each) under the skin every month to absorb continually. Administer q 28 days. 1.5 mL 1 01/10/20 25 025 Active Problems Problem Noted Date Diagnosed Date [...] and other recreational substances, reach out to quality assurance coach as he's not taking suboxone as prescribed. Generalized anxiety disorder with panic attacks 03/22/2024 History of substance use 03/22/2024 Assessment & Plan (10/15/2024 12:42 PM EST): On suboxone, not very compliant. I told him to reach out to quality assurance coach. Advised to quit THC and avoid vaping/e-cigarette, he will d/w PCP re nicotine patch when ready. Advised to quit ETOH Encounters Date Type Department Care Team Description 03/04/2025 Telephone [facility] [place] [address] Monalisa Torres RN 02/28/2025 Refill [facility] [address] [place] [address] Moris Escamilla MD 01/18/2025 Population Health Risk Score [facility] (C3) Department [address] [place] [phone] Provider, Population Health Generic 01/17/2025 2:00 PM EDT Clinical Support [facility] [address] [place] [address] Monalisa Torres RN Uncomplicated opioid dependence (CMS/HCC) 01/17/2025 Travel 01/16/2025 Orders Only [facility] [address] [place] [address] Shira Mcintosh MD 01/09/2025 Telephone [facility] [place] [address] Monalisa Torres RN 01/09/2025 Refill [facility] [address] [place] [address] Monalisa Torres RN Uncomplicated opioid dependence (CMS/HCC) 01/08/2025 Refill [facility] [address] [place] [address] Monalisa Torres RN Uncomplicated opioid dependence (CMS/HCC) 01/01/2025 2:00 PM EST Office Visit [facility] [place] [address] Moris Escamilla MD Uncomplicated opioid dependence (CMS/HCC) (Primary Dx) 01/01/2025 Travel from Last 3 Months Immunizations Immunization Administration Dates Next Due COVID-19 Non-US Vaccine, Pro duct Unknown 03/10/2004 DTaP, 5 pertussis antigens 03/05/2004,,05/18/1999,04/08,01/27/1999 HPV, Quadrivalent 04/05/2012 Hep B, Adolescent or Pediatric 12/02/1999,1998,1998 Hep B, adult 11/05/2024,04/05/2024 Hib (PRP-T) 03/09/2000, 9,04/08/1999,01/27 IPV 03/05/2004,04/08/1999,01/27/1999 Influenza, live, intranasal 08/30/2011 MMR 03/05/2004,12/02/1999 Meningococcal MCV4P ACYW-135 04/05/2012 Novel [id number], all formulations 09/01/2009 OPV, Trivalent 12/02/1999 Pfizer Covid-19 Vaccine 12+ alyse-sucrose (Trivedi [...] Care Team (Late st Contact Info) Description 04/02/2025 2:15 PM EDT Clinical Support [facility] [address] [place] [address] Monalisa Torres RN 06/03/2025 1:00 PM EDT Office Visit [facility] [address] [place] [address] Corinne Morales NP [address] [place] [address] Health Maintenance Due Date Last Done Comments Lipid Panel 1998 Disability Screening 1998 Alcohol/Substance Use Screening 2010 HPV Vaccines (2 - Male 2-dose series) 10/06/2012 04/05/2012 Family Planning (PISQ) 2013 Pneumococcal Vaccine: Pediatrics (0 to 5 Years) and At-Risk Patients (6 to 49) Years) (1 of 2 - PCV) 2017 DTaP/Tdap/Td Vaccines (7 - Td or Tdap) 04/05/2022 04/05/2012, 03/05/2004, 10/04/2000, Additional history exists COVID-19 Vaccine (2 - 2023- season) 2024 01/27/2023 Influenza Vaccine (#1) 2024 08/30/2011, 2008 SDOH Screening 03/16/2025 03/16/2024 Depression Screening 11/20/2025 11/20/2024, 11/20/19 25 Tobacco Screening 01/01/2026 01/01/2025 Zoster Vaccines (1 [...] on patient's age to complete this topic Meningococcal B Vaccine Aged Out No l onger eligible based on patient's age to complete this topic RSV under 20 months Aged Out No longe r eligible based on patient's age to complete this topic Rotavirus Vaccines Aged Out No longer eligible based on patient's age to complete this topic Procedures Procedure Name Priority Date/Time Associated Diagnosis Comments US RENAL BI Routine 01/16/2025 4:01 PM EDT POCT OBI-14 URINE DRUG SCREEN Routine 01/01/2025 2:03 PM EST Uncomplicated opioid dependence (CMS/HCC) HEPATITIS PANEL, GENERAL Routine 10/15/2024 10:59 AM EST HIV 1/2 ANTIGEN/ANTIBODY, FOURTH GENERATION W/RFL Routine 10/15/2024 10:59 AM EST from Last 3 Months or Most Recently Relevant to Health Maintenance Results * US RENAL BI (01/16/2025 4:01 PM EDT) Anatomical Region Laterality Modality Abdomen Ultrasound 01/16/2025 4:01 PM EDT Narrative 01/16/2025 4:02 PM EDT ? [facility] ?[address] ?[place] [address] ? Ultrasound Report ? Signed ? Patient: Harpal Buckner Jr ?MR#: [id number] ?? [id number] ? : 2000 ?Acct:[id number] ? Age/Sex: 24 / M ?ADM Date: 01/16/25 ? Loc: HO.US ? Attending Dr: Shira Mcintosh MD ? Ordering Physician: Shira Mcintosh ?? Date of Service: 01/16/25 ?? Procedure(s): US renal BI ?? Accession Number(s): [id number] ? cc: Shira Mcintosh ? CLINICAL HISTORY: DYSURIA,SLOW STREAM ? US Renal ? Comparison: US/SR - US ABDOMEN LIMITED - 08/29/22 17:19 EDT ? Findings: ?? Right kidney normal size and echotexture, 10.8 cm length. ?? Left kidney normal size and echotexture, 10.4 cm length. ? No hydronephrosis of either kidney. Normal color Doppler ? IMPRESSION: ?? 1. Normal kidneys. ? This document has been electronically signed by: Kelle Mederos MD on ?? 01/16/2025 16:01:06 ? Dictated By: ?Kelle Mederos MD ? Signed By: ?<Electronically signed by Kelle Mederos MD in OV> ? 01/16/25 1602 ? DD/ 1601 ? TD/TT: 01/16/25 1601 ? Process Specialist: ? Procedure Note Rahel Image - 01/16/[address] [address] Ultrasound Report Signed Patient: Harpal Buckner [facility]#: [id number] : 2000Acct:[id number] Age/Sex: 24 / MADM Date: 01/16/25 Loc: HO.US Attending Dr: Shira Mcintosh MD Ordering Physician: Shira Mcintosh Date of Service: 01/16/25 Procedure(s): US renal BI Accession Number(s): [id number] cc: Shira Mcintosh CLINICAL HISTORY: DYSURIA,SLOW STREAM US Renal Comparison: US/SR - US ABDOMEN LIMITED - 08/29/22 17:19 EDT Findings: Right kidney normal size and echotexture, 10.8 cm length. Left kidney normal size and echotexture, 10.4 cm length. No hydronephrosis of either kidney. Normal color Doppler IMPRESSION: 1. Normal kidneys. This document has been electronically signed by: Kelle Mederos MD on 01/16/2025 16:01:06 Dictated By: Kelle Mederos MD Signed By: <Electronically signed by Kelle Mederos MD in OV> 01/16/25 1602 DD/ 1601 TD/TT: 01/16/25 1601 Process Specialist: Shira Mcintosh MD IMG US PROCEDURES Final Result * POCT OBI-14 Urine Drug Screen (01/01/2025 [...] TEST ENTER/EDIT OR DERABLES Final Result * Hepatitis Panel, General (10/15/2024 10:59 AM EST) Hepatitis A IgM Nonreactive Nonreactive [facility] Comment:IgM antibodies to GILBERT V not detected; does not exclude earlyacute or recovered HAV infection. ~Hepatitis B Surface Antibody NONREACTIVE Nonreactive [facility] Comment:Nonreactive: < 8.00 mIU/mL Hepatitis B Core Antibody Nonreactive Nonreactive [facility] Hepatitis C Antibody Nonreactive Nonreactive [facility] Comment:Antibodies to HCV no t detected; does not exclude early acuteHCV infection. Hepatitis B Surface Ag Negative Negative [facility] 10/15/2024 10:5 9 AM EST 10/15/2024 11:46 AM EST [facility] LAB BLOOD ORDERABLES Final Re sult [facility] [address] [place] [phone] * HIV-1/2 Antigen and Antibodies, Fourth Generation, with Reflexes (10/15/2024 10:59 AM EST) Pathologist [facility] HIV AB/AG Nonreactive Nonreactive [facility] Comment:HIV-1 p24 Ag and/or HIV-1/HIV-2 Ab not detected.A test result that is nonreactive does not exclude thepossibility of exposure to or infection with HIV-1 and/orHIV-2. Nonreactive results in this assay for individualswith prior exposure to HIV-1 and/or HIV-2 may be due toantigen and antibody levels that are below the limit ofdetection of this assay.The [place] HIV Ag/Ab Combo assay result andsupplemental assay results should be interpreted inconjunction with the patient's clinical presentation,history and other laboratory results. If the results areinconsistent with clinical evidence, additional testing issuggested to confirm the result. 10/15/2024 10:5 9 AM EST 10/15/2024 11:46 AM EST [facility] [employer] LAB BLOOD ORDERABLES Final Re sult [facility] [address] [place] [address] [phone] from Last 3 Months or Most Recently Relevant to Health Maintenance Insurance [facility] C3 Care Teams Poker Room Manager Relationship Specialty Start Date End Date Corinne Morales NP [address] [place] [address] PCP - General Family Medicine 03/04/25
--- OUTSIDE RECORDS SUMMARY | 2025-03-27 15:33 | XMS_ITS | Referral Summary ---
Author Organization [facility] Address [address] [place] [address] Care Team Providers Care Flight Information Expediter Name Role Phone Patient, Has No Pcp [...] Treatment Not on file Insurance [place] [id number] Care Teams Flight Information Expediter Relationship Specialty Start Date End Date Patient, Has No Pcp Or Ref DO NOT EDIT THIS RECORD VIA PROVIDER ON THE FLY PCP - General Accounting Assistant 07/30/23
--- OUTSIDE RECORDS SUMMARY | 2025-03-27 15:33 | XMS_ITS | Encounter Summary ---
Author Organization [employer] Address [address] [facility] 7[address] [place] [address] Care Team Providers Care Master Pilot Name Role Phone Mayogunnar Corinne BAÑUELOS Primary Care Provider [phone] Reason for Visit * Reason Onset Date Comments FYI 09/24/2024 Encounter Details Date Type Department Care Team ([facility] st Contact Info) Description 09/24/2024 Telephone [facility] [address] [place] [address] [facility] [address] [place] [address] FYI Social History Tobacco Use Types Packs/Day [...] the past 12 months, has t he [employer] gas, oil or water [employer] threatened to shut off services in your [...] 2:58 PM EST Tc from Janie with [facility] Stating that they have been trying to get a hold of the pt but the have not suceeded and when he anwsers the phone pt Hangs up. [facility] is stating they will not contiue to admit him in the program. If the PCP wants him to be Admitted another refferal needs to be written. Contact pt at [phone] documented in this encounter Plan of Treatment Upcoming Encounters Date Type Department Care Team (Late st Contact Info) Description 04/02/2025 2:15 PM EDT Clinical Support [facility] [address] [place] [address] Monalisa Torres RN 06/03/2025 1:00 PM EDT Office Visit [facility] [address] [place] [phone] Corinne Morales NP [address] [place], [place] documented as of this encounter Visit Diagnoses Not on filedocumented in this encounter Additional Health Concerns Assessment Noted Time PHQ-9 Depression Total Score: 19 024 9:56 AM EDT documented as of this encounter Care Teams Master Pilot Relationship Specialty Start Date End Date Corinne Morales NP [address] [place] [address] PCP - General Family Medicine 03/04/25 documented as of this encounter
--- OUTSIDE RECORDS SUMMARY | 2025-03-27 15:33 | XMS_ITS | Encounter Summary ---
Author Organization [facility] Address [address] [place] [address] Phone Care Team Providers Care Kier Tender Name Role Phone Omari Carcamo MD Primary Care Provider [phone] Encounter Details Date Type Department Care Team (Late st Contact Info) Description 09/01/2011 Documentation [facility] [address] [place] [address] Family Medicine, Physician [address] [place], [place] [phone] Social History Tobacco Use Types Packs/Day Years Used Date Smoking Tobacco: Never Assessed Sex and Gender Information Value Date Recorded Sex Assigned at Not on file Legal Sex Male 4:40 PM EDT Gender Identity Not on file Sexual Orientation Not on file documented as of this encounter Plan of Treatment Not on file documented as of this encounter Visit Diagnoses Not on filedocumented in this encounter Care Teams Kier Tender Relationship Specialty Start Date End Date Omari Carcamo MD [address] [place] [address] [place] [address] PCP - General 06/17/17 05/18/23 documented as of this encounter
--- OUTSIDE RECORDS SUMMARY | 2025-03-27 15:33 | XMS_ITS | Encounter Summary ---
Author Organization [facility] Address [address] [place] [address] Phone Care Team Providers Care Testing And Regulating Technician Name Role Phone Omari Carcamo MD Primary Care Provider [phone] Encounter Details Date Type Department Care Team (Late st Contact Info) Description 04/06/2012 Documentation [facility] Family Medicine [address] [place] [address] Family Medicine, Physician [address] [place], [place] [phone] Social History Tobacco Use Types Packs/Day Years [...] on filedocumented in this encounter Care Teams Testing And Regulating Technician Relationship Specialty Start Date End Date Omari Carcamo MD [address] [place] [address] [place] [address] PCP - General 06/17/17 05/18/23 documented as of this encounter
--- OUTSIDE RECORDS SUMMARY | 2025-03-27 15:33 | XMS_ITS | Encounter Summary ---
Author Organization [facility] Address [address] [place] [address] Phone Care Team Providers Care Customer Resolution Specialist Name Role Phone Omari Carcamo MD Primary Care Provider [phone] Encounter Details Date Type Department Care Team (Late st Contact Info) Description 12/15/2010 Documentation [facility] Family Medicine [address] [place] [address] Family Medicine, Physician [address] [place], [place] [phone] Social History Tobacco Use Types Packs/Day Years [...] on filedocumented in this encounter Care Teams Customer Resolution Specialist Relationship Specialty Start Date End Date Omari Carcamo MD [address] [place] [address] [place] [address] PCP - General 06/17/17 05/18/23 documented as of this encounter
--- OUTSIDE RECORDS SUMMARY | 2025-03-27 15:33 | XMS_ITS | Encounter Summary ---
Author Organization [facility] Address [address] [place] [address] Phone Care Team Providers Care Train Gateman Name Role Phone Omari Carcamo MD Primary Care Provider [phone] Encounter Details Date Type Department Care Team (Late st Contact Info) Description 04/06/2012 Documentation [facility] Family Medicine [address] [place] [address] Family Medicine, Physician [address] [place], [place] [phone] Social History Tobacco Use Types Packs/Day Years [...] on filedocumented in this encounter Care Teams Train Gateman Relationship Specialty Start Date End Date Omari Carcamo MD [address] [place] [address] [place] [address] PCP - General 06/17/17 05/18/23 documented as of this encounter
--- OUTSIDE RECORDS SUMMARY | 2025-03-27 15:33 | XMS_ITS | Encounter Summary ---
Author Organization [facility] Address [address] [place] [address] Phone Care Team Providers Care Assistant Manager Airside Operations Name Role Phone Omari Carcamo MD Primary Care Provider [phone] Encounter Details Date Type Department Care Team (Late st Contact Info) Description 04/06/2012 Documentation EM Family Medicine [address] [place] [address] Family Medicine, Physician [address] [place], [place] [phone] Social History Tobacco Use Types Packs/Day Years [...] on filedocumented in this encounter Care Teams Assistant Manager Airside Operations Relationship Specialty Start Date End Date Omari Carcamo MD [address] [place] [address] [place] Alvarez [address] PCP - General 06/17/17 05/18/23 documented as of this encounter
--- OUTSIDE RECORDS SUMMARY | 2025-03-27 15:33 | XMS_ITS | Clinical Summary ---
Author Organization [facility] Address [address] [place] [address] Phone Care Team Providers Care Manager Inpatient Name Role Phone Unavailable Primary Care Provider Unavailabl e Immunizations Immunization Administration Dates Next Due DTaP 5 03/05/2004, 0,05/18/1999, 999,01/27/1999 H1N1 09/01/2009 HPV, Quadrivalent 04/05/2012 Hep B, ped/adol 12/02/1999,01/27/1999,1998 Hib (PRP-T) 03/09/2000, 9,04/08/1999, 999 IPV 03/05/2004,04/08/1999,01/27/1999 Influenza, intranasal, trivalent 08/30/2011 MMR 03/05/2004,12/02/1999 Meningococcal Conj (Menactra) MCV4P 04/05/2012 OPV 12/02/1999 Tdap 04/05/2012 Unknown Vaccine 03/10/2004 Varicella 03/05/2008,03/09/2000 Family History Relation Name Status Comments Brother 1 Alive Brother: Alive and well, Alive and well, Alive and well Brother 2 Alive Brother: Alive and well, Alive and well, Alive and well Brother 3 Alive Brother: Alive and well, Alive and well, Alive and well Mother Alive Mother: Alive a nd well Social History Tobacco Use Types Packs/Day Years Used Date Smoking Tobacco: Never Assessed Sex and Gender Information Value Date Recorded Sex Assigned at Not on file Legal Sex Male 4:40 PM EDT Gender Identity Not on file Sexual Orientation Not on file Last Filed Vital Signs Vital Sign Reading Time Taken Comments Blood Pressure 80/58 04/05/2012 12:00 AM EDT Pulse 96 07/20/2010 12:00 AM EDT Temperature 38.8 ??C (101.8 ??F) 12/11/2011 12:00 AM EST Respiratory Rate - - Oxygen Saturation 100% 07/20/2010 12:00 AM EDT Inhaled Oxygen Concentration - - Weight 36.7 kg (81 lb) 04/05/2012 12:00 AM EDT Height 149.9 cm (4' 11 ) 04/05/2012 12:00 AM EDT Body Mass Index 16.36 04/05/2012 12:00 AM EDT Plan of Treatment Health Maintenance Due Date Last Done Comments HPV Vaccines (2 - Male 2-dose series) 10/06/2012 04/05/2012 DTaP,Tdap,and Td Vaccines (7 - Td or Tdap) 04/05/2022 04/05/2012, 03/05/2004, 10/04/2000, Additional history exists Influenza Vaccines (#1) 2024 08/30/2011 COVID-19 Vaccine ( season) 2024 Hepatitis B Vaccines Completed 12/02/1999, 01/27/1999, 1998 HIB Vaccines Completed 03/09/2000, 05/07, 04/08/1999, Additional history exists IPV Vaccines Completed 03/05/2004, 11/08, 04/08/1999, Additional history exists MMR Vaccines Completed 03/05/2004, 12/02/1999 Varicella Vaccines Completed 03/05/2008, 03/09/2000 Meningococcal Vaccine Aged Out 04/05/2012 No michaelle jorge eligible based on patient's age to complete this topic Hepatitis A Vaccines Aged Out No long er eligible based on patient's age to complete this topic Men B Vaccine Aged Out No longer elig ible based on patient's age to complete this topic Pneumococcal Vaccine Aged Out No long er eligible based on patient's age to complete this topic
--- OUTSIDE RECORDS SUMMARY | 2025-03-27 15:33 | XMS_ITS | Encounter Summary ---
Author Organization [facility] Address [address] [place] [address] Phone Care Team Providers Care Electronics Computer Mechanic Name Role Phone Omari Carcamo MD Primary Care Provider Encounter Details Date Type Department Care Team (Late st Contact Info) Description 06/23/2017 Conversion Encounter [facility] [place] [address] [place], [place] [phone] Social History Tobacco Use Types Packs/Day Years [...] on filedocumented in this encounter Care Teams Electronics Computer Mechanic Relationship Specialty Start Date End Date Omari Carcamo MD [address] [place] [address] PCP - General 06/17/17 05/18/23 documented as of this encounter
--- OUTSIDE RECORDS SUMMARY | 2025-03-27 15:33 | XMS_ITS | Encounter Summary ---
Author Organization [facility] Address [address] [place] [address] Phone Care Team Providers Care Plastic Cnc Machine Operator Name Role Phone Omari Carcamo MD Primary Care Provider [phone] Encounter Details Date Type Department Care Team (Late st Contact Info) Description 04/06/2012 Documentation EM Family Medicine [address] [place] [address] Family Medicine, Physician [address] [place], [place] [phone] Social History Tobacco Use Types Packs/Day Years [...] on filedocumented in this encounter Care Teams Plastic Cnc Machine Operator Relationship Specialty Start Date End Date Omari Carcamo MD [address] [place] [address] [place] [address] PCP - General 06/17/17 05/18/23 documented as of this encounter
--- OUTSIDE RECORDS SUMMARY | 2025-03-27 15:33 | XMS_ITS | Encounter Summary ---
Author Organization [employer] Address [address] [facility] 7[address] [place] [address] Care Team Providers Care County Treasurer Name Role Phone Mayogunnar Corinne BAÑUELOS Primary Care Provider [phone] Reason for Visit * Reason Onset Date Comments Hospital Follow-up 03/12/2024 Encounter Details Date Type Department Care Team ([facility] st Contact Info) Description 03/12/2024 Telephone [facility] [address] [place] [address] [facility] [address] [place] [address] Hospital Follow-up Social History Tobacco Use Types [...] with others, in a hotel, in a prison, living outside on the street, on a [...] from pt requesting a HDF appt. Hospital: [facility] Date of admission: 02/26, 02/28 Discharge date: 03/04 Diagnosed: Seizures, Rhabdomyolysis Please contact pt at [phone] documented in this encounter Plan of Treatment Upcoming Encounters Date Type Department Care Team (Late st Contact Info) Description 04/02/2025 2:15 PM EDT Clinical Support [facility] [address] [place] [phone] Monalisa Torres RN 06/03/2025 1:00 PM EDT Office Visit [facility] [address] [place] [phone] Corinne Morales NP [address] [place] [phone] documented as of this encounter Visit Diagnoses Not on filedocumented in this encounter Care Teams County Treasurer Relationship Specialty Start Date End Date Corinne Morales NP [address] [place] [phone] PCP - General Family Medicine 03/04/25 documented as of this encounter
[2025-03-27] MEDS: Midazolam HCl 2 MG/2 ML VIAL 4 MG IVPUSH (15:43)
[2025-03-27 15:47] LABS: Basophils Percent Auto 0.2 % (0-2); Hematocrit 37.8 % (42.0-52.0); Imm Gran Abs Auto 0.12 X10*3/uL (0.00-0.03); Imm Gran Pct Auto 0.7 % (0.0-0.4); Lymphocytes Absolute Auto 1.1 X10*3/uL (1.2-4.9); Lymphocytes Percent Auto 6.3 % (20-40); Mean Corpuscular HGB Conc 34.4 g/dl (31.0-36.0); Mean Corpuscular Hemoglobin 29.1 pg (27.0-33.0); Mean Corpuscular Volume 84.8 fL (80.0-98.0); Monocytes Absolute Auto 1.6 X10*3/uL (0.1-1.2); Monocytes Percent Auto 9.8 % (2-11); Neutrophils Absolute Auto 13.9 x10*3/uL (2.0-8.3); Platelet Count 321 X10*3/uL (160-400); Red Blood Count 4.46 X10*6/uL (4.60-5.80); Red Cell Distribution Width 12.8 % (11.0-16.0); SCAN SMEAR FLAG 1; White Blood Count 16.8 X10*3/uL (4.8-10.8)
[2025-03-27 15:48] LABS: MANUAL DIFF FLAG SCAN
[2025-03-27] MEDS: levETIRAcetam 2,000 MG in 0.9 % Sodium Chloride 100 ML 480 MG IV (15:55)
[2025-03-27 16:05] LABS: Alanine Aminotransferase 80 U/L (0-40); Albumin Level 4.7 g/dL (3.5-5.0); Anion Gap 14 (12-20); Aspartate Amino Transferase 67 U/L (5-37); Bilirubin Total 0.6 mg/dL (0.0-1.0); Blood Urea Nitrogen 19 mg/dL (9-16); Carbon Dioxide 21 mmol/L (22-29); Chloride 107 mmol/L (96-108); Creatinine Clr Calc Pharmacy 131.2; Estimated Glomerular Filt Rate > 60; Glucose Random 101 mg/dL (60-115); Sodium 138 mmol/L (135-145); Total Protein 7.5 g/dL (6.5-8.0)
[2025-03-27 16:06] LABS: SLIDE REVIEW VERIFIED
[2025-03-27] MEDS: propofoL 1,000 MG/100 ML VIAL 14.62 MG IVCONT (16:11)
[2025-03-27] MEDS: propofoL 200 MG/20 ML VIAL 100 MG IVPUSH ×2 (16:14→17:36)
[2025-03-27] MEDS: Rocuronium Bromide 50 MG/5 ML VIAL 60 MG IVPUSH (16:15)
[2025-03-27] MEDS: Lactated Ringers 1,000 ML 999 ML IV (16:17)
--- NOTE | 2025-03-27 16:20 | PC.NURSE ---
Patient presenting from home via after multiple witnessed seizures by mom, patient had large tonic clonic seizure in dept, unable to manage their own airway post seizure, provider decision to intubate, see emar for intubation meds. Intubated w/ 7.5 ETT tube 24 @ lip, +color change, +breath sounds bilat. Vent settings: ratw 16 400 tidal vol 60% o2 5 Peep. Family at bedside.
[2025-03-27 16:49] LABS: Alkaline Phosphatase 68 U/L (39-117); Ethanol < 10 mg/dL; Magnesium 2.6 mg/dL (1.6-2.6); Thyroid Stimulating Hormone 0.63 uIU/mL (0.32-4.0)
[2025-03-27 16:49] LABS: COVID-19 Test Negative (Negative); IDNOW Serial# 55D5AD1C
[2025-03-27] MEDS: fentaNYL citrate/NS 1,000 MCG/100 ML PLAST..BAG 2.5 MCG IVCONT (17:00)
[2025-03-27 17:12] LABS: Appearance Urine Cloudy; Color Urine Yellow; Glucose Urine UA Negative (Negative); Leukocyte Esterase Urine Negative (Negative); Nitrite Urine Negative (Negative); PH 6.5 (5.0-9.0); Urine Blood Negative (Negative); Urine Ketones Negative (Negative); Urine Protein Negative (Neg-Trace)
--- NOTE | 2025-03-27 17:18 | PC.NURSE ---
RN to RN report given to KISHA at [facility] ICU, all questions answered, patient to be transported when EMS arrives.
[2025-03-27 17:21] LABS: Amphetamine Screen Urine Not Detected (Not Detect); Barbiturates, Urine Not Detected (Not Detect); Benzodiazepines Screen Urine Not Detected (Not Detect); Buprenorphine Scr Positive (Not Detect); Cannabinoid Screen Urine POSITIVE (Not Detect); Cocaine Screen Urine Not Detected (Not Detect); Fentanyl, urine Not Detected (Not Detect); Methadone Screen, Urine Not Detected (Not Detect); Opiate Screen Urine Not Detected (Not Detect); Oxycodone Screen Urine Not Detected (Not Detect); Phencyclidine Screen Urine Not Detected (Not Detect)
[2025-03-27 17:34] LABS: Acetaminophen LAB < 3 mcg/mL (<30); Salicylate < 5.0 mg/dL (15-30)
[2025-03-27] MEDS: Midazolam HCl 5 MG/ML VIAL 4 MG IVPUSH (17:39)
--- NOTE | 2025-03-27 18:39 | PC.NURSE ---
late note abrasion on R hip noted during changing patient upon initial arrival to ED.
== END 2025-03-27 18:00 | disposition short-term general hospital (02) ==
PROVIDERS: Registered Nurse Emergency; Emergency Provider Emergency Medicine
DX: G40.909 Epilepsy, unspecified, not intractable, without status epilepticus (principal); Z87.891 Personal history of nicotine dependence; Z11.52 Encounter for screening for COVID-19; F11.20 Opioid dependence, uncomplicated; Z79.899 Other long term (current) drug therapy
CPT/HCPCS: 31500; 36415; 70450; 71045; 73090; 80053; 80143; 80177; 80179; 80307; 81003; 82550; 83735; 84443; 85025; 87635; 94002; 96361; 96365; 96375; 96376; 99285; J1953; J2250; J2704; J3010; J7120

== ENCOUNTER → 2025-03-27 15:27 | Outpatient (BNV) | payer MEDICAID, SELFPAY | PROVIDERS: Emergency Provider Emergency Medicine; Visit Provider Nuclear Medicine | DX: R41.82 Altered mental status, unspecified (principal); Z45.02 Encounter for adjustment and management of automatic implantable cardiac defibrillator; S50.12XA Contusion of left forearm, initial encounter | CPT/HCPCS: 70450; 71045; 73090 ==

== ENCOUNTER 2025-06-11 15:50 | Emergency (ER) | payer MEDICAID, SELFPAY ==
[2025-06-11 16:02] VITALS: BMI 22.8
[2025-06-11 16:03] VITALS: BP 108/56; PULSE 80; RESP 20; TEMP 36.7; O2SAT 95
[2025-06-11 16:10] LABS: Glucose, Whole Blood 133 mg/dL (60-115)
[2025-06-11 16:13] VITALS: BP 106/65; PULSE 80; O2SAT 96
[2025-06-11 16:24] VITALS: BMI 22.8
--- NOTE | 2025-06-11 16:28 | ED.SEIZURE ---
HPI - Seizure General Chief Complaint: Seizure Stated Complaint: Ams Time Seen by Provider: 06/11/25 16:18 Source: patient and family Mode of arrival: ambulatory Limitations: no limitations History of Present Illness ED Provider: HPI Narrative: Patient's history of substance abuse general tonic-clonic seizure on Keppra 1000 mg twice a day sometimes misses a dose earlier today was alone at home mother came home noticed that he smashed few stuffs in the house and had a seizure no signs of injury patient does not remember history of seizure 2 months ago when he missed his doses of Keppra patient is postictal no tongue bite Seizure History: Yes Related Data Home Medications ?Medication ?Instructions ?Recorded ?Confirmed buprenorphine 8 mg-naloxone 2 mg 1 film sublingual DAILY 09/15/24 09/17/24 sublingual film (Suboxone) acetaminophen 500 mg tablet 500 mg PO Q6H PRN Headache 09/16/24 09/17/24 clonidine HCl 0.1 mg tablet 0.1 mg PO BID 09/16/24 09/17/24 escitalopram oxalate 20 mg tablet 20 mg PO DAILY 09/16/24 09/17/24 hydroxyzine pamoate 50 mg capsule 50 mg PO BID 09/16/24 09/17/24 mirtazapine 7.5 mg tablet 7.5 mg PO BEDTIME 09/16/24 09/17/24 olanzapine 7.5 mg tablet 7.5 mg PO BEDTIME 09/16/24 09/17/24 Previous Rx's ?Medication ?Instructions ?Recorded levetiracetam 1,000 mg tablet 1,000 mg PO BID 90 days #180 tabs 09/17/24 (Keppra) Allergies Allergy/AdvReac Type Severity Reaction Status Date / Time No Known Allergies Allergy Verified 06/11/25 16:25 Review of Systems Review of Systems: Yes all other systems are reviewed and are negative PMFSH Past Medical History Medical History Rhabdomyolysis Drug overdose Seizure Overdose Social History Social History Household Members: Unknown / Unable to assess Housing: Unknown / Unable to assess Do you presently have visiting nurse or other home services: No Unable to assess alcohol history related to: Unable to respond Alcohol intake: current Alcohol intake frequency: does not drink Patient Tobacco Use Status: Former Tobacco user Tobacco use type: Smokeless Tobacco Smoked in Last 30 Days: No e-Cigarette/Vaping Use: Currently Using Second Hand Smoke Exposure: Yes Use of substances other than those prescribed or required for medical reasons: No Substance Use Type: Former Substance User service: No Physical Exam Vital Signs: Vital Signs: Last Vital Signs Temp 98.1 F 06/11/25 16:03 Pulse 59 06/11/25 17:17 Resp 12 06/11/25 17:17 BP 103/54 L 06/11/25 17:17 Pulse Ox 94 06/11/25 17:17 O2 Del Method Room Air 06/11/25 17:17 BMI result Body Mass Index 22.8 Appearance: Alert. Oriented X3. No acute distress. Eyes: no pallor or icterus ENT: Pharynx normal Oral Mucosa moist tympanic membrane intact no erythema, atraumatic normocephalic tongue is normal Neck: Normal inspection. Neck supple. CVS: Normal heart rate and rhythm. Pulses normal. Respiratory: No respiratory distress. Equal air entry bilateral, no wheezing/rales/rhonchi Abd: soft, not tender Skin: Skin warm and dry. Normal skin color. Normal skin turgor. Extremities: No lower extremity edema, no calf tenderness Neuro: Oriented X 3. Medications Administered Discontinued Medications Generic Name Dose Route Start Last Admin Trade Name Freq PRN Reason Stop Dose Admin Levetiracetam 1,000 mg in 100 mls @ 400 mls/hr 06/11/25 16:29 06/11/25 16:57 Keppra IV 06/11/25 16:43 Infused ONCE ONE Infusion Medical Decision Making Medical Decision Making [facility] Narrative: Patient with history of seizures noncompliance with medication here will another episode of postictal on arrival patient received 1 g of IV Keppra now feeling much better will discharge patient home advised to take his medication on regular basis Lab Data [facility] Lab Attestation statement: I reviewed the patient's lab results. 06/11/25 16:39 06/11/25 16:39 Labs: Lab Results 06/11/25 06/11/25 Range/Units 16:07 16:39 WBC 10.5 (4.8-10.8) X10*3/uL RBC 5.21 (4.60-5.80) X10*6/uL Hgb 15.0 (14.0-18.0) g/dl Hct 44.1 (42.0-52.0) % MCV 84.6 (80.0-98.0) fL MCH 28.8 (27.0-33.0) pg MCHC 34.0 (31.0-36.0) g/dl RDW 11.4 (11.0-16.0) % Plt Count 247 (160-400) X10*3/uL MPV 9.1 L (9.4-12.4) fL Immature Gran % (Auto) 0.5 H (0.0-0.4) % Neut % (Auto) 82.4 H (45-73) % Lymph % (Auto) 9.8 L (20-40) % Dickens % (Auto) 6.3 (2-11) % Eos % (Auto) 0.7 (0-4) % Baso % (Auto) 0.3 (0-2) % Lymph # (Auto) 1.0 L (1.2-4.9) X10*3/uL Dickens # (Auto) 0.7 (0.1-1.2) X10*3/uL Eos # (Auto) 0.1 (0.0-0.4) X10*3/uL Baso # (Auto) 0.0 (0.0-0.2) X10*3/uL Abs Immat Gran (auto) 0.05 H (0.00-0.03) X10*3/uL Absolute Neuts (auto) 8.7 H (2.0-8.3) x10*3/uL Absolute Nucleated RBC 0.000 (0.0-0.012) X10*3/uL Nucleated RBC % (auto) 0.0 (0.0-0.2) /100WBC Sodium 138 (135-145) mmol/L Potassium 4.5 (3.3-5.1) mmol/L Chloride 105 (96-108) mmol/L Carbon Dioxide 25 (22-29) mmol/L Anion Gap 13 (12-20) BUN 12 (9-16) mg/dL Creatinine 0.82 (0.5-1.4) mg/dL Estim Creat Clear Calc 155.4 Estimated GFR > 60 POC Glucose 133 H (60-115) mg/dL Random Glucose 105 (60-115) mg/dL Calcium 9.3 (8.4-10.2) mg/dL Magnesium 2.4 (1.6-2.6) mg/dL Total Bilirubin 0.5 (0.0-1.0) mg/dL AST 23 (5-37) U/L ALT 24 (0-40) U/L Alkaline Phosphatase 76 (39-117) U/L Total Creatine Kinase 96 (38-174) U/L Total Protein 7.5 (6.5-8.0) g/dL Albumin 4.4 (3.5-5.0) g/dL Discharge Plan Discharge Clinical Impression: Epileptic seizure Patient Disposition: Home, Self-Care Instructions: Epilepsy (ED) Additional Instructions: Take your medications on regular basis Follow up with neurologist Prescriptions: No Action buprenorphine-naloxone [Suboxone] 8-2 mg film 1 film sublingual DAILY clonidine HCl 0.1 mg Tablet 0.1 mg PO BID hydroxyzine pamoate 50 mg Capsule 50 mg PO BID olanzapine 7.5 mg Tablet 7.5 mg PO BEDTIME acetaminophen 500 mg Tablet 500 mg PO Q6H PRN (Reason: Headache) escitalopram oxalate 20 mg Tablet 20 mg PO DAILY mirtazapine 7.5 mg Tablet 7.5 mg PO BEDTIME levetiracetam [Keppra] 1,000 mg tablet 1,000 mg PO BID 90 Days Qty: 180 0RF Referrals: Evans Mckeon MD [Physician, Neurology] Referral Note: Epilepsy Print Language: Azerbaijani
[2025-06-11 16:34] VITALS: BP 102/55; PULSE 70; RESP 18; O2SAT 92
--- NOTE | 2025-06-11 16:34 | PC.NURSE ---
24 M from EMS following seizure. Pt A+OX3 to person, place, event, confused to time, irritable. pt denies any pain or discomfort at this time, RR even and unlabored, denies CP or SOB.
[2025-06-11] MEDS: levETIRAcetam in NaCl (iso-os) 1,000 MG/100 ML PIGGYBACK 400 MG IV (16:42)
[2025-06-11 16:49] LABS: MANUAL DIFF FLAG NO
[2025-06-11 16:53] LABS: Hematocrit 44.1 % (42.0-52.0); Hemoglobin 15.0 g/dl (14.0-18.0); Imm Gran Abs Auto 0.05 X10*3/uL (0.00-0.03); Imm Gran Pct Auto 0.5 % (0.0-0.4); Lymphocytes Absolute Auto 1.0 X10*3/uL (1.2-4.9); Mean Corpuscular HGB Conc 34.0 g/dl (31.0-36.0); Mean Corpuscular Hemoglobin 28.8 pg (27.0-33.0); Mean Corpuscular Volume 84.6 fL (80.0-98.0); NRBC Abs Auto 0.000 X10*3/uL (0.0-0.012); NRBC Pct Auto 0.0 /100WBC (0.0-0.2); Platelet Count 247 X10*3/uL (160-400); Red Blood Count 5.21 X10*6/uL (4.60-5.80); White Blood Count 10.5 X10*3/uL (4.8-10.8)
[2025-06-11 17:05] LABS: Alanine Aminotransferase 24 U/L (0-40); Albumin Level 4.4 g/dL (3.5-5.0); Alkaline Phosphatase 76 U/L (39-117); Anion Gap 13 (12-20); Aspartate Amino Transferase 23 U/L (5-37); Blood Urea Nitrogen 12 mg/dL (9-16); Calcium 9.3 mg/dL (8.4-10.2); Carbon Dioxide 25 mmol/L (22-29); Chloride 105 mmol/L (96-108); Creatinine Clr Calc Pharmacy 155.4; Estimated Glomerular Filt Rate > 60; Magnesium 2.4 mg/dL (1.6-2.6); Potassium 4.5 mmol/L (3.3-5.1); Sodium 138 mmol/L (135-145); Total Protein 7.5 g/dL (6.5-8.0)
[2025-06-11 17:17] VITALS: BP 103/54; PULSE 59; RESP 12; O2SAT 94
--- OUTSIDE RECORDS SUMMARY | 2025-06-11 19:21 | XMS_ITS | Clinical Summary ---
Author Organization [facility] Address [address] [place] [phone] Phone Care Team Providers Care Tailer Off Name Role Phone Pcp, Unknown Primary Care Provider Unavailabl e Allergies No known active allergies Medications No known medications Active Problems No known active problems Social History Tobacco Use Types Packs/Day Years Used Date Smoking Tobacco: Never Assessed Education Answer Date Recorded Are you interested in more education? Not on lisbeth e 03/05/2023 Are you concerned about learning? Not on file 03/05/2023 No 03/05/2023 No 03/05/2023 Digital Access Answer Date Recorded No 04/03/2023 No 04/03/2023 Reliable internet access at home? Not on file 04/03/2023 Device with a working camera? Not on file Sex and Gender Information Value Date Recorded Sex Assigned at Male 10/10/2022 1:40 PM EST Legal Sex Male 1:35 PM EST Gender Identity Male 10/10/2022 1:40 PM EST Sexual Orientation Straight 10/10/2022 1: 40 PM EST Last Filed Vital Signs Vital Sign Reading Time Taken Comments Blood Pressure 104/67 10/10/2022 1:39 PM EST Pulse 66 10/10/2022 1:39 PM EST Temperature 36.5 C (97.7 F) 10/10/2022 1:39 PM EST Respiratory Rate 16 10/10/2022 1:39 PM EST Oxygen Saturation 100% 10/10/2022 1:39 PM EST Inhaled Oxygen Concentration - - Weight - - Height - - Body Mass Index - - Plan of Treatment Health Maintenance Due Date Last Done Comments DEPRESSION SCREENING 2010 SMOKING Hx and SMOKELESS TOBACCO SCREENING 2011 HPV VACCINES (2 - Male 2-dose series) 10/06/2012 04/05/2012 HEPATITIS C SCREENING 2016 HIV ONE-TIME SCREENING (18-65 YEARS) 2016 Adult Td,Tdap Booster 04/05/2022 04/05/2012 COVID-19 VACCINE (2023-25 season) 2024 HIB VACCINES Completed 03/09/2000, 05/07, 04/08/1999, Additional history exists MENINGOCOCCAL VACCINES (ACWY) Aged Out 04/05/2012 No longer eligible based on patient's age to complete this topic HEPATITIS A VACCINES Aged Out No long er eligible based on patient's age to complete this topic MENINGOCOCCAL VACCINES (B) Aged Out N o longer eligible based on patient's age to complete this topic PNEUMOCOCCAL VACCINES (0-49 years) Aged Out No longer eligible based on patient's age to complete this topic Medical Devices Not on file Insurance C3 ACO C3 ACO C3 ACO C3 ACO C3 ACO Care Teams Tailer Off Relationship Specialty Start Date End Date Pcp, Unknown PCP - General 10/10/22 Additional Source Comments The information contained in this document represents components of the legal health record. It is not the complete legal health record.[facility]
--- OUTSIDE RECORDS SUMMARY | 2025-06-11 19:21 | XMS_ITS | Referral Summary ---
Author Organization [facility] Address [address] [place] [address] Care Team Providers Care Attorney Lawyer Name Role Phone Patient, Has No Pcp [...] 87 07/30/2023 7:59 AM EDT Temperature 36.7 C (98.1 F) 07/30/2023 7:59 AM EDT Respiratory Rate 20 07/30/2023 7:59 AM EDT Oxygen Saturation 98% 07/30/2023 7:59 AM EDT Inhaled Oxygen Concentration - - Weight 56.7 kg (125 lb) 07/30/2023 2:17 AM EDT Height 185.4 cm (6' 1 ) 07/30/2023 2:17 AM EDT Body Mass Index 16.49 07/30/2023 2:17 AM EDT Plan of Treatment [id number] Care Teams Attorney Lawyer Relationship Specialty Start Date End Date Patient, Has No Pcp Or Ref DO NOT EDIT THIS RECORD VIA PROVIDER ON THE FLY PCP - General Guide Plant 07/30/23
--- OUTSIDE RECORDS SUMMARY | 2025-06-11 19:21 | XMS_ITS | Encounter Summary ---
Author Organization [employer] Address [address] [facility] 7[address] [place] [address] Care Team Providers Care Automation Controls Specialist Name Role Phone Mayogunnar Corinne BAÑUELOS Primary Care Provider [phone] Reason for Visit * Reason Onset Date Comments FYI 09/24/2024 Encounter Details Date Type Department Care Team ([facility] st Contact Info) Description 09/24/2024 Telephone [facility] [address] [place] [address] [facility] [address] [place] [address] FYI Social History Tobacco Use Types Packs/Day [...] with others, in a hotel, in a jail, living outside on the street, on a [...] the past 12 months, has t he [employer], gas, oil or water company threatened to [...] 2:58 PM EST Tc from Janie with [facility] Stating that they have been trying to get a hold of the pt but the have not suceeded and when he anwsers the phone pt Hangs up. [facility] is stating they will not contiue to admit him in the program. If the PCP wants him to be Admitted another refferal needs to be written. Contact pt at [phone] documented in this encounter Plan of Treatment Not on file documented as of this encounter Visit Diagnoses Not on filedocumented in this encounter Additional Health Concerns Assessment Noted Time PHQ-9 Depression Total Score: 19 024 9:56 AM EDT documented as of this encounter Care Teams Automation Controls Specialist Relationship Specialty Start Date End Date Corinne Morales NP [address] [place] [address] PCP - General Family Medicine 03/04/25 documented as of this encounter
[2025-06-11 20:04] VITALS: BP 103/54; PULSE 59; RESP 12; TEMP 36.6; O2SAT 94
== END 2025-06-11 20:05 | disposition home or self-care (01) ==
LOC: HO.ED 19:19
PROVIDERS: Emergency Provider Internal Medicine
DX: G40.909 Epilepsy, unspecified, not intractable, without status epilepticus (principal); Z79.899 Other long term (current) drug therapy
CPT/HCPCS: 36415; 80053; 82550; 82947; 83735; 85025; 96374; 99284; J1953

== ENCOUNTER 2025-08-21 05:31 | Emergency (ER) | payer MEDICAID, SELFPAY ==
--- NOTE | ~2025-08-21 | CT_ITS ---
EXAMINATION: CT HEAD WITHOUT IV CONTRAST HISTORY: Seizure. TECHNIQUE: Unenhanced helical CT of the head was performed per standard departmental protocol. Coronal and sagittal reformats of the head were also evaluated. One or more of the following techniques was used for dose reduction: Automated exposure control, adjustment of the mA and/or kV according to patient size, use of iterative reconstruction technique. DLP: 754 mGy-cm COMPARISON: Previous head CT March 2025 FINDINGS: BRAIN: The brain parenchyma is unremarkable. There is normal armendariz/white differentiation. The ventricular system is normal in size and configuration. There is no mass effect or midline shift. No intra- or extra-axial fluid collections are identified. SINUSES: The visualized paranasal sinuses are clear. The mastoid air cells and middle ear cavities are well pneumatized. ORBITS: The visualized orbits are unremarkable. BONES/SOFT TISSUES: The extracranial soft tissues are unremarkable. The calvarium is intact. No suspicious lytic or sclerotic lesions. CT/CT head/brain wo IV con IMPRESSION: No acute intracranial abnormality. Electronically signed by: Courtney Snow MD 08/21/2025 09:27 AM EDT RP
[2025-08-21 05:39] VITALS: BP 135/89; PULSE 88; O2SAT 98
[2025-08-21 06:03] VITALS: BP 100/53; BP 95/53; PULSE 86; RESP 15; TEMP 37; O2SAT 94; O2SAT 97; BMI 24.4
[2025-08-21] MEDS: diazePAM 10 MG/2 ML CARTRIDGE 5 MG IM (07:15)
--- NOTE | 2025-08-21 07:15 | ED_ITS ---
HPI - Seizure General Chief Complaint: Seizure Stated Complaint: SEIZURE Time Seen by Provider: 08/21/25 07:10 Source: family (Significant other) and EMS Mode of arrival: EMS Limitations: no limitations History of Present Illness ED Provider: DR. Taveras HPI Narrative: 24-year-old male history of substance use mostly Percocet and history of seizure been controlled with Keppra with a questionable compliance with Keppra, patient was witnessed with 1 episode of seizure by his family and 911 was called, while patient was waiting in the emergency department had another tonic-clonic seizure witnessed by the ED staff was controlled with IM Valium in the ED. As per significant other no head injury, possible use of street drugs last night, and she does not think that he is compliance with his antiseizure medication. Seizure History: Yes Related Data Home Medications ?Medication ?Instructions ?Recorded ?Confirmed buprenorphine 8 mg-naloxone 2 mg 1 film sublingual GWENDOLYN LY 09/15/24 09/17/24 sublingual film (Suboxone) acetaminophen 500 mg tablet 500 mg PO Q6H PRN Headache 09/16/24 09/17/24 clonidine HCl 0.1 mg tablet 0.1 mg PO BID 09/16/2409/30 escitalopram oxalate 20 mg tablet 20 mg PO DAILY 09/1609/17/24 hydroxyzine pamoate 50 mg capsule 50 mg PO BID 4 09/17/24 mirtazapine 7.5 mg tablet 7.5 mg PO BEDTIME 09/16/24 1 11/17/23 olanzapine 7.5 mg tablet 7.5 mg PO BEDTIME 09/16/24 1 11/17/23 Previous Rx's ?Medication ?Instructions ?Recorded levetiracetam 1,000 mg tablet 1,000 mg PO BID 90 days #180 tabs 09/17/24 (Keppra) Allergies Allergy/AdvReac Type Severity Reaction Status Date / Time No Known Allergies Allergy Verified 08/21/25 06:05 Review of Systems 2 Review of Systems: All other systems are reviewed and are negative Constitutional: Reports as per HPI and Reports no additional constitutional complaints Eyes: Reports as per HPI and Reports no additional eye complaints Reports system reviewed and no additional complaints, except as documented Cardiovascular: Reports as per HPI and Reports no additional cardiovascular complaints Respiratory: Reports as per HPI and Reports no additional respiratory complaints Gastrointestinal: Reports as per HPI and Reports no additional gastrointestinal complaints Genitourinary: Reports no additional female genitourinary complaints Musculoskeletal: Reports no additional musculoskeletal complaints Skin/Breast: Reports system reviewed and no additional complaints, except as docu Psychiatric: Reports no additional psychiatric complaints Endocrine: Reports no additional endocrine complaints Hematologic/Lymphatic: Reports no additional hematologic/lymphatic complaints Allergic/Immunologic: Reports no additional allergic/immunologic complaints Reports system reviewed and no additional complaints, except as documented and Reports Abnormal speech present [facility] Past Medical History Medical History Rhabdomyolysis Drug overdose Seizure Overdose Social History Social History Household Members: Unknown / Unable to assess Housing: Unknown / Unable to assess Do you presently have visiting nurse or other home services: No Alcohol intake: current Alcohol intake frequency: does not drink Patient Tobacco Use Status: Former Tobacco user Tobacco use type: Smokeless Tobacco Smoked in Last 30 Days: No e-Cigarette/Vaping Use: Currently Using Second Hand Smoke Exposure: Yes Use of substances other than those prescribed or required for medical reasons: Yes Substance Use Type: Marijuana Advance Directives: No Advance Directives Information Provided: Yes Do you have a plan to hurt others: No Plan service: No Physical Exam 2 Vital Signs: Vital Signs: Last Vital Signs Temp 98.4 F 08/21/25 10:47 Pulse 84 08/21/25 10:47 Resp 16 08/21/25 10:47 BP 109/62 08/21/25 10:47 Pulse Ox 97 08/21/25 10:47 O2 Del Method Room Air 08/21/25 10:47 BMI result Body Mass Index 24.4 Vital signs have been reviewed and appear to be correct. Blood pressure elevated. Heart rate normal. Respiratory rate normal. Temperature normal. Oxygen saturation normal. Appearance: Alert. Oriented X3. No acute distress. Head: Normal external exam. Normocephalic. Atraumatic. No Burkett signs noted. No raccoon eyes noted Eyes: PERRLA. EOMI. Conjunctiva and sclera normal. Eyelids normal. ENT: TM's Normal. Pharynx normal. Uvula midline. Moist mucous membranes. No trismus noted. No drooling noted. No muffled voice noted. Neck: Normal inspection. Neck supple. FROM. No adenopathy. Thyroid Normal. No meningeal signs. No neck mass noted. CVS: Normal heart rate and rhythm. Heart sound normal. No murmurs noted. Pulses normal throughout. Respiratory: No respiratory distress. Painless inspiration. Breath sounds normal. No wheezes/rales/rhonchi noted. Chest nontender. No accessory muscle usage noted or decreased air movement noted. Abdomen: Soft and nontender. Bowel sounds normal in all 4 quadrants. No distention noted. No organomegaly noted. No visible injury noted. Back: No CVA tenderness. Full range of motion noted. Skin: Skin warm and dry. Normal skin color. Normal skin turgor. No rashes/lesions/lacerations noted. Extremities: No lower extremity edema. Extremities exhibit normal range of motion. Extremities nontender. Neuro: Limited secondary to postictal period. Course Reevaluation(s) Reevaluation #1: Labs are or consistent with post seizure status, lactic acidosis and low bicarb that improved after 2 L of normal saline. Patient otherwise feels normal. Patient confirmed that he is taking his antiseizure medication and has enough medicine at home. Time: 12:18 Medications Administered Discontinued Medications Generic Name Dose Route Start Last Admin Trade Name Freq PRN Reason Stop Dose Admin Diazepam 5 mg 08/21/25 07:10 08/21/25 07:19 Diazepam 10 Mg/2 Ml Cartridge IVPUSH 08/21/25 07:11 5 mg STAT STA Administration Diazepam 5 mg 08/21/25 07:21 08/21/25 07:15 Diazepam 10 Mg/2 Ml Cartridge IM 08/21/25 07:22 5 mg STAT STA Administration Levetiracetam 1,000 mg in 100 mls @ 400 mls/hr 08/21/25 07:10 08/21/25 07:43 Keppra IV 08/21/25 07:24 Infused ONCE ONE Infusion Lactated Ringer's 1,000 mls @ 999 mls/hr 08/21/25 07:15 08/21/25 07:42 Lr IV 08/21/25 08:15 999 mls/hr .Q1H1M ANTON Administration Lactated Ringer's 1,000 mls @ 999 mls/hr 08/21/25 08:15 08/21/25 10:02 Lr IV 08/21/25 09:15 999 mls/hr .Q1H1M ANTON Administration Ondansetron HCl 4 mg 08/21/25 07:56 08/21/25 08:11 Ondansetron Hcl 4 Mg/2 Ml Vial IVPUSH 08/21/25 07:57 4 mg ONCE ONE Administration Medical Decision Making Differential Diagnosis Differential Diagnoses: The differential diagnosis associated with the presentation includes (Seizure, electrolyte derangement, severe anemia intracranial pathology, subtherapeutic Keppra, drug use, status epilepticus.) Admission/Observation Consideration of admission/observation: Escalation of care including admission/observation considered Lab Data MDM Lab Attestation statement: I reviewed the patient's lab results. 08/21/25 07:20 08/21/25 10:10 Labs: Lab Results 08/21/25 08/21/25 08/21/25 Range/Units 07:20 08:32 09:49 WBC 17.8 H (4.8-10.8) X10*3/uL RBC 5.31 (4.60-5.80) X10*6/uL Hgb 15.0 (14.0-18.0) g/dl Hct 46.5 (42.0-52.0) % MCV 87.6 (80.0-98.0) fL MCH 28.2 (27.0-33.0) pg MCHC 32.3 (31.0-36.0) g/dl RDW 12.1 (11.0-16.0) % Plt Count 375 D (160-400) X10*3/uL MPV 9.4 (9.4-12.4) fL Immature Gran % (Auto) 0.7 H (0.0-0.4) % Neut % (Auto) 83.1 H (45-73) % Lymph % (Auto) 11.9 L (20-40) % [place] % (Auto) 3.8 (2-11) % Eos % (Auto) 0.3 (0-4) % Baso % (Auto) 0.2 (0-2) % Lymph # (Auto) 2.1 (1.2-4.9) X10*3/uL [place] # (Auto) 0.7 (0.1-1.2) X10*3/uL Eos # (Auto) 0.1 (0.0-0.4) X10*3/uL Baso # (Auto) 0.0 (0.0-0.2) X10*3/uL Abs Immat Gran (auto) 0.13 H (0.00-0.03) X10*3/uL Absolute Neuts (auto) 14.8 H (2.0-8.3) x10*3/uL Absolute Nucleated RBC 0.000 (0.0-0.012) X10*3/uL Nucleated RBC % (auto) 0.0 (0.0-0.2) /100WBC Sodium 141 (135-145) mmol/L Potassium 3.2 L D (3.3-5.1) mmol/L Chloride 105 (96-108) mmol/L Carbon Dioxide 7 L* D (22-29) mmol/L Anion Gap 32 H (12-20) BUN 21 H (9-16) mg/dL Creatinine 0.93 (0.5-1.4) mg/dL Estim Creat Clear Calc 124.2 Estimated GFR > 60 Random Glucose 185 H (60-115) mg/dL Lactic Acid 18.0 H* (0.5-2.0) mmol/L Lactic Acid F/U @ 2Hr 2.0 (0.5-2.0) mmol/L Calcium 9.8 (8.4-10.2) mg/dL Urine Color Yellow Urine Appearance Clear Urine pH 5.5 (5.0-9.0) Ur Specific [place] 1.020 (1.005-1.025) Urine Protein 30 (1+) H (Neg-Trace) mg/dL Urine Glucose (UA) Negative (Negative) mg/dL Urine Ketones 80 (Negative) mg/dL Urine Blood Trace H (Negative) Urine Nitrite Negative (Negative) Ur Leukocyte Esterase Negative (Negative) Urine RBC 0-2 (0-2) /HPF Urine WBC 0-5 (0-5) /HPF Ur Squamous Epith Cells 0-2 (0-2) /HPF Urine Bacteria None Seen (None Seen) Hyaline Casts 0-2 (0-2) /LPF Urine Opiates Screen POSITIVE H (Not Detect) Ur Buprenorphine Scrn Positive H (Not Detect) ng/mL Ur Oxycodone Screen Not Detected (Not Detect) ng/mL Urine Methadone Screen Not Detected (Not Detect) ng/mL Urine Fentanyl Screen POSITIVE H (Not Detect) Ur Barbiturates Screen Not Detected (Not Detect) Ur Phencyclidine Scrn Not Detected (Not Detect) Ur Amphetamines Screen Not Detected (Not Detect) U Benzodiazepines Scrn Not Detected (Not Detect) Urine Cocaine Screen POSITIVE H (Not Detect) U Marijuana (THC) Screen POSITIVE H (Not Detect) 15/ Range/Units 10:10 WBC (4.8-10.8) X10*3/uL RBC (4.60-5.80) X10*6/uL Hgb (14.0-18.0) g/dl Hct (42.0-52.0) % MCV (80.0-98.0) fL MCH (27.0-33.0) pg MCHC (31.0-36.0) g/dl RDW (11.0-16.0) % Plt Count (160-400) X10*3/uL MPV (9.4-12.4) fL Immature Gran % (Auto) (0.0-0.4) % Neut % (Auto) (45-73) % Lymph % (Auto) (20-40) % [place] % (Auto) (2-11) % Eos % (Auto) (0-4) % Baso % (Auto) (0-2) % Lymph # (Auto) (1.2-4.9) X10*3/uL [place] # (Auto) (0.1-1.2) X10*3/uL Eos # (Auto) (0.0-0.4) X10*3/uL Baso # (Auto) (0.0-0.2) X10*3/uL Abs Immat Gran (auto) (0.00-0.03) X10*3/uL Absolute Neuts (auto) (2.0-8.3) x10*3/uL Absolute Nucleated RBC (0.0-0.012) X10*3/uL Nucleated RBC % (auto) (0.0-0.2) /100WBC Sodium 137 (135-145) mmol/L Potassium 4.1 D (3.3-5.1) mmol/L Chloride 102 (96-108) mmol/L Carbon Dioxide 22 (22-29) mmol/L Anion Gap 17 (12-20) BUN 23 H (9-16) mg/dL Creatinine 0.81 (0.5-1.4) mg/dL Estim Creat Clear Calc 142.6 Estimated GFR > 60 Random Glucose 113 (60-115) mg/dL Lactic Acid (0.5-2.0) mmol/L Lactic Acid F/U @ 2Hr (0.5-2.0) mmol/L Calcium 9.0 D (8.4-10.2) mg/dL Urine Color Urine Appearance Urine pH (5.0-9.0) Ur Specific [place] (1.005-1.025) Urine Protein (Neg-Trace) mg/dL Urine Glucose (UA) (Negative) mg/dL Urine Ketones (Negative) mg/dL Urine Blood (Negative) Urine Nitrite (Negative) Ur Leukocyte Esterase (Negative) Urine RBC (0-2) /HPF Urine WBC (0-5) /HPF Ur Squamous Epith Cells (0-2) /HPF Urine Bacteria (None Seen) Hyaline Casts (0-2) /LPF Urine Opiates Screen (Not Detect) Ur Buprenorphine Scrn (Not Detect) ng/mL Ur Oxycodone Screen (Not Detect) ng/mL Urine Methadone Screen (Not Detect) ng/mL Urine Fentanyl Screen (Not Detect) Ur Barbiturates Screen (Not Detect) Ur Phencyclidine Scrn (Not Detect) Ur Amphetamines Screen (Not Detect) U Benzodiazepines Scrn (Not Detect) Urine Cocaine Screen (Not Detect) U Marijuana (THC) Screen (Not Detect) Independent Interpretation I performed an independent interpretation of an: CT Scan (Head: No acute intracranial abnormality.) Radiology Impression Discussion of test interpretation with radiology: I have reviewed the radiologist's reading. Discharge Plan Discharge Clinical Impression: Epileptic seizure Patient Disposition: Home, Self-Care Instructions: Epilepsy (ED) Prescriptions: No Action buprenorphine-naloxone [Suboxone] 8-2 mg film 1 film sublingual DAILY clonidine HCl 0.1 mg Tablet 0.1 mg PO BID hydroxyzine pamoate 50 mg Capsule 50 mg PO BID olanzapine 7.5 mg Tablet 7.5 mg PO BEDTIME acetaminophen 500 mg Tablet 500 mg PO Q6H PRN (Reason: Headache) escitalopram oxalate 20 mg Tablet 20 mg PO DAILY mirtazapine 7.5 mg Tablet 7.5 mg PO BEDTIME levetiracetam [Keppra] 1,000 mg tablet 1,000 mg PO BID 90 Days Qty: 180 0RF Referrals: Lesa Barkley FNP [Primary Care Provider, Medical] Evans Mckeon MD [Physician, Neurology] Print Language: Lithuanian
[2025-08-21] MEDS: levETIRAcetam in NaCl (iso-os) 1,000 MG/100 ML PIGGYBACK 400 MG IV (07:19)
[2025-08-21] MEDS: diazePAM 10 MG/2 ML CARTRIDGE 5 MG IVPUSH (07:19)
[2025-08-21 07:26] LABS: MANUAL DIFF FLAG NO
[2025-08-21 07:27] LABS: Hematocrit 46.5 % (42.0-52.0); Hemoglobin 15.0 g/dl (14.0-18.0); Imm Gran Abs Auto 0.13 X10*3/uL (0.00-0.03); Imm Gran Pct Auto 0.7 % (0.0-0.4); Lymphocytes Absolute Auto 2.1 X10*3/uL (1.2-4.9); Mean Corpuscular HGB Conc 32.3 g/dl (31.0-36.0); Mean Corpuscular Hemoglobin 28.2 pg (27.0-33.0); Mean Corpuscular Volume 87.6 fL (80.0-98.0); NRBC Abs Auto 0.000 X10*3/uL (0.0-0.012); NRBC Pct Auto 0.0 /100WBC (0.0-0.2); Platelet Count 375 X10*3/uL (160-400); Red Blood Count 5.31 X10*6/uL (4.60-5.80); White Blood Count 17.8 X10*3/uL (4.8-10.8)
--- OUTSIDE RECORDS SUMMARY | 2025-08-21 07:39 | XMS_ITS | Encounter Summary ---
Author Organization [facility] Address [address] [place] [address] Phone Care Team Providers Care Flask Pusher Name Role Phone Omari Carcamo MD Primary Care Provider [phone] Encounter Details Date Type Department Care Team (Late st Contact Info) Description 04/06/2012 Documentation EM Family Medicine [address] [place] [address] Family Medicine, Physician [address] [place], [place] [id number] Social History Tobacco Use Types Packs/Day Years [...] on filedocumented in this encounter Care Teams Flask Pusher Relationship Specialty Start Date End Date Omari Carcamo MD [address] [place] [address] AYO Alvarez [address] PCP - General 06/17/17 05/18/23 documented as of this encounter
--- OUTSIDE RECORDS SUMMARY | 2025-08-21 07:39 | XMS_ITS ---
Author Organization [employer] Address [address] [facility] [address] [place] [address] Care Team Providers Care Conservation Scientist Name Role Phone Corinne Morales NP Primary Care Provider [phone] Po[address] Elise RN Unavailable [phone] [place] Unavailable CM Complex Status:Outreach In Progress (Enrolling) Start date:07/26/2025 Enrollment reason:Referred by provider Overview Provider Referral- 24 y.o. M with history of substance abuse, seizure disorder, anxiety and depression. Will benefit from care management services. Case Team Name Relationship Phone Poppy Elise RN(Responsible Staff) Registered Nurse [phone] Continued Care and Services Coordination
--- OUTSIDE RECORDS SUMMARY | 2025-08-21 07:39 | XMS_ITS ---
Author Organization [employer] Address [address] [facility] 7[address] [place] [address] Care Team Providers Care Network Operations Center Technician Name Role Phone Corinne Morales NP Primary Care Provider [phone] Poppy Elise RN Unavailable [phone] [place] Unavailable CHW Complex Status:Outreach In Progress (Enrolling) Start date:07/26/2025 Enrollment reason:Referred by provider Overview Provider Referral- 24 y.o. M with history of substance abuse, seizure disorder, anxiety and depression. Will benefit from care management services. Please outreach for enrollment. Case Team Name Relationship Phone [address] [place](Responsible Staff) [phone] Continued Care and Services Coordination
--- OUTSIDE RECORDS SUMMARY | 2025-08-21 07:39 | XMS_ITS | Clinical Summary ---
Author Organization [facility] Address [address] [place] [address] Phone Care Team Providers Care Social Media Director Name Role Phone Unavailable Primary Care Provider [...] 96 07/20/2010 12:00 AM EDT Temperature 38.8 C (101.8 F) 12/11/2011 12:00 AM EST Respiratory Rate - [...] 10/04/2000, Additional history exists Influenza Vaccines (#1) 2025 08/30/2011 COVID-19 Vaccine ( - season) 2025 Hepatitis B Vaccines Completed 12/02/1999, 01/27/1999, 1998 HIB Vaccines Completed 03/09/2000, 05/07, 04/08/1999, Additional history exists IPV Vaccines Completed 03/05/2004, 11/08, 04/08/1999, Additional history exists MMR Vaccines Completed 03/05/2004, 12/02/1999 Varicella Vaccines Completed 03/05/2008, 03/09/2000 Meningococcal Vaccine Aged Out 04/05/2012 No michaelle joreg eligible based on patient's age to complete [...]
--- OUTSIDE RECORDS SUMMARY | 2025-08-21 07:39 | XMS_ITS | Encounter Summary ---
Author Organization [facility] Address [address] [place] [address] Phone Care Team Providers Care Residential Living Assistant Name Role Phone Omari Carcamo MD Primary Care Provider [phone] Encounter Details Date Type Department Care Team (Late st Contact Info) Description 04/06/2012 Documentation EM Family Medicine [address] [place] [address] Family Medicine, Physician [address] [place], [place] [id number] Social History Tobacco Use Types Packs/Day Years [...] on filedocumented in this encounter Care Teams Residential Living Assistant Relationship Specialty Start Date End Date Omari Carcamo MD [address] [place] [address] AYO Alvarez [id number] PCP - General 06/17/17 05/18/23 documented as of this encounter
--- OUTSIDE RECORDS SUMMARY | 2025-08-21 07:39 | XMS_ITS | Encounter Summary ---
Author Organization [facility] Address [address] [place] [address] Phone Care Team Providers Care Fire Lieutenant Marine Name Role Phone Omari Carcamo MD Primary Care Provider [phone] Encounter Details Date Type Department Care Team (Late st Contact Info) Description 09/01/2011 Documentation EM Family Medicine [address] [place] [address] Family Medicine, Physician [address] [place], [place] [phone] Social History Tobacco Use Types Packs/Day Years [...] on filedocumented in this encounter Care Teams Fire Lieutenant Marine Relationship Specialty Start Date End Date Omari Carcamo MD [address] [place] [address] AYO Alvarez [id number] PCP - General 06/17/17 05/18/23 documented as of this encounter
--- OUTSIDE RECORDS SUMMARY | 2025-08-21 07:39 | XMS_ITS | Encounter Summary ---
Author Organization [employer] Address [address] [facility] 7t [place] [address] Care Team Providers Care Health Care Attorney Name Role Phone Corinne Morales NP Primary Care Provider [phone] Poppy Elise RN Unavailable [phone] [place] Unavailable Reason for Visit * Reason Onset Date Comments FYI 09/24/2024 Encounter Details Date Type Department Care Team ([facility] st Contact Info) Description 09/24/2024 Telephone [facility] MEDICINE [address] [place] [address] [facility] [address] [place] [address] FYI Social History Tobacco Use Types Packs/Day [...] the past 12 months, has t he [employer], gas, oil or water company threatened to [...] 2:58 PM EST Tc from Janie with [facility] Stating that they have been trying to get a hold of the pt but the have not suceeded and when he anwsers the phone pt Hangs up. [facility] is stating they will not contiue to admit him in the program. If the PCP wants him to be Admitted another refferal needs to be written. Contact pt at [phone] documented in this encounter Plan of Treatment Not on file documented as of this encounter Visit Diagnoses Not on filedocumented in this encounter Additional Health Concerns Assessment Noted Time PHQ-9 Depression Total Score: 19 024 9:56 AM EDT documented as of this encounter Care Teams Health Care Attorney Relationship Specialty Start Date End Date Corinne Morales NP [address] [place] [address] PCP - General Family Medicine 03/04/25 Poppy Elise, RN [address] [place] [address] [place] [address] Registered Nurse Family Medicine 07/26/25 [address] [place] 07/26/25 [facility] 08/01/25 documented as of this encounter
--- OUTSIDE RECORDS SUMMARY | 2025-08-21 07:39 | XMS_ITS | Encounter Summary ---
Author Organization [facility] Address [address] [place] [address] Phone Care Team Providers Care Licensing Coordinator Name Role Phone Omari Carcamo MD Primary Care Provider [phone] Encounter Details Date Type Department Care Team (Late st Contact Info) Description 04/06/2012 Documentation EM Family Medicine [address] [place] [address] Family Medicine, Physician [address] [place], [place] [phone] Social History Tobacco Use Types Packs/Day Years [...] on filedocumented in this encounter Care Teams Licensing Coordinator Relationship Specialty Start Date End Date Omari Carcamo MD [address] [place] [address] AYO Alvarez [address] PCP - General 06/17/17 05/18/23 documented as of this encounter
--- OUTSIDE RECORDS SUMMARY | 2025-08-21 07:39 | XMS_ITS | Encounter Summary ---
Author Organization [employer] Address [address] [facility] 7t [place] [address] Care Team Providers Care General Road Supervisor Name Role Phone Corinne Morales NP Primary Care Provider [phone] Poppy Elise RN Unavailable [phone] [place] Unavailable Reason for Visit * Reason Onset Date Comments FYI 08/16/2025 Encounter Details Date Type Department Care Team ([facility] st Contact Info) Description 08/16/2025 Telephone [facility] MEDICINE [address] [place] [address] Corinne Morales NP [address] [place] [address] FYI Social History Tobacco Use Types Packs/Day Years Used Date Smoking Tobacco: Every Day Smokeless Tobacco: Never Comments:Smoking electronic cigarettes/vapes for the past 2 years everyday nonstop Alcohol Use Standard Drinks/Week Comments Never 0 (1 standard drink = 0.6 oz pur e alcohol) Depression Answer Date Recorded Patient Health Questionnaire-9 Score 26 06/24/2025 Patient Health Questionnaire-9 Score 26 06/24/2025 Last PHQ-9: Questionnaire Data Not on file 0 06/24/2025 Housing Stability Answer Date Recorded What is your housing situation today? I have jose rafael ohara 06/24/[address] you li ve. Do you have problems with any of the following? None of the above 06/24/2025 Food Insecurity Answer Date Recorded Within the past 12 months, y ou worried that your food would run out before you got money to buy more: Never True 06/24/2025 Within the past 12 months,th e food you bought just didn't last and you didn't have enough money to get more: Never True Transportation Answer Date Recorded In the past 12 months, has l ack of transportation kept you from medical appts, meetings, work or from getting things needed for daily living? No 06/24/2025 Utilities Answer Date Recorded In the past 12 months, has t he electric, gas, oil or water company threatened to shut off services in your home? No 06/24/2025 Depression Answer Date Recorded Patient Health Questionnaire-2 Score 6 06/24/2025 Internet Access Answer Date Recorded Internet Access Q1 Yes 06/24/2025 Internet Access Q2 Not on file 06/24/2025 Sex and Gender Information Value Date Recorded Sex Assigned at Male 09/06/2022 10:22 AM EDT Legal Sex Male 10:22 AM EDT Gender Identity Male 09/06/2022 10:22 AM EDT Sexual Orientation Choose not to disclose 2021 10:22 AM EDT documented as of this encounter Miscellaneous Notes * Telephone Encounter - Yessi Ellis RN - 08/16/2025 3:08 PM EDT Noted. * Telephone Encounter - Hari [place] - 08/16/2025 3:00 PM EDT Tc from [place] with [facility] calling to inform that he was unable to see pt for today's visit. Pt's partner stated that pt did take his medication in the morning. Visits are daily devang states he will follow up with pt tomorrow. If any questions contact Devang at [phone]. documented in this encounter Plan of Treatment Not on file documented as of this encounter Visit Diagnoses Not on filedocumented in this encounter Additional Health Concerns Assessment Noted Time PHQ-9 Depression Total Score: 26 025 2:21 PM EDT documented as of this encounter Care Teams General Road Supervisor Relationship Specialty Start Date End Date Corinne Morales NP [address] [place] [address] PCP - General Family Medicine 03/04/25 Poppy Elise RN [address] [place] [id number] Registered Nurse Family Medicine 07/26/25 [address] 07/26/25 [facility] 08/01/25 documented as of this encounter
--- OUTSIDE RECORDS SUMMARY | 2025-08-21 07:39 | XMS_ITS | Encounter Summary ---
Author Organization [employer] Address [address] [facility] 7t [place] [address] Care Team Providers Care Education Site Manager Name Role Phone Corinne Moraels NP Primary Care Provider [phone] Poppy Elise RN Unavailable [phone] Unavailable Reason for Visit * Reason Comments Care Management C3CM- initial assess ment/enrollment. No show. Encounter Details Date Type Department Care Team ([facility] st Contact Info) Description 08/16/2025 Patient Outreach [facility] [address] [place] [address] Corinne Morales NP [address] [place] [address] Care Management (C3CM- initial assessment/enrollmen t. No show.) Social History Tobacco Use Types Packs/Day Years [...] as of this encounter Progress Notes * Poppy Elise RN - 08/16/2025 2:02 PM EDT CM Poppy Elise RN, anticipated patient in office today to complete initial assessment for [facility] Adult [facility] but did not show. Will attempt to reschedule. documented in this encounter Plan of Treatment Not on file documented as of this encounter Visit Diagnoses Not on filedocumented in this encounter Additional Health Concerns Assessment Noted Time PHQ-9 Depression Total Score: 26 025 2:21 PM EDT documented as of this encounter Care Teams Education Site Manager Relationship Specialty Start Date End Date Corinne Morales NP [address] [place] [address] PCP - General Family Medicine 03/04/25 Poppy Elise RN [address] [place] [address] Registered Nurse Family Medicine 07/26/[address] [place] 07/26/25 [facility] 08/01/25 documented as of this encounter
--- OUTSIDE RECORDS SUMMARY | 2025-08-21 07:39 | XMS_ITS | Encounter Summary ---
Author Organization [employer] Address [address] [facility] 7t [place] [address] Care Team Providers Care Machinist Tool And Die Name Role Phone Corinne Morales NP Primary Care Provider [phone] Poppy Elise RN Unavailable [phone] [place] Unavailable Reason for Visit * Reason Onset Date Comments Hospital Follow-up 03/12/2024 Encounter Details Date Type Department Care Team (Late st Contact Info) Description 03/12/2024 Telephone [facility] [address] [place] [address] [facility] [address] [place] [address] Hospital Follow-up Social History Tobacco Use Types [...] with others, in a hotel, in a skilled nursing, living outside on the street, on a [...] from pt requesting a HDF appt. Hospital: [facility] Date of admission: 02/26, 02/28 Discharge date: 03/04 Diagnosed: Seizures, Rhabdomyolysis Please contact pt at [phone] documented in this encounter Plan of Treatment Not on file documented as of this encounter Visit Diagnoses Not on filedocumented in this encounter Care Teams Machinist Tool And Die Relationship Specialty Start Date End Date Corinne Morales NP [address] [place] [address] PCP - General Family Medicine 03/04/25 Poppy Elise RN [address] [place] [address] Registered Nurse Family Medicine 07/26/25 [address] 07/26/25 [facility] 08/01/25 documented as of this encounter
--- OUTSIDE RECORDS SUMMARY | 2025-08-21 07:39 | XMS_ITS | Clinical Summary ---
Author Organization [employer] Address [address] [facility] [address] 7t [place] [address] Care Team Providers Care Systems Requirements Planner Name Role Phone Corinne Morales NP Primary Care Provider [phone] [address] Elise RN Unavailable [address] Unavailable Allergies No known active allergies Medications * This document contains information received from the source organization and may not represent a complete record from that organization. triamcinolone (Kenalog) 0.1 % cream Apply topically if needed in the morning and at bedtime for rash (R thigh). 30 g 2 11/27/19 25 Active Senna-Time 8.6 MG tablet TAKE 1 TABLET BY MOUTH EVERY DAY NEEDED FOR CONSTIPATION 05/09/20 24 Active naloxone (Narcan) 4 mg/0.1 mL nasal spray Administer 1 spray (4 mg) into affected nostril(s) if needed for opioid reversal. May repeat every 2-3 minutes if needed, alternating nostrils, until medical assistance becomes available. 2 each 1 05/02/20 25 Active SUMAtriptan (Imitrex) 25 MG tabletIndicati ons:Migraine without status migrainosus, not intractable, unspecified migraine type Take 1 tablet (25 mg) by mouth 1 (one) time if needed for migraine for up to 9 doses. Lie down for 30 mins after taking. Take with naproxen. May repeat dose once in 2 hours if no relief. Do not exceed 2 doses in 24 hours. 9 tablet 06/24/20 25 Active naproxen (Naprosyn) 500 MG tabletIndicati ons:Migraine without status migrainosus, not intractable, unspecified migraine type TAKE 1 TABLET ORALLY 2 TIMES DAILY WITH FOOD. TAKE WITH SUMATRIPTAN AND LIE DOWN FOR 30 MINS AFTER 60 tablet 07/22/20 25 Active levETIRAcetam (Keppra) 1000 MG tablet TAKE 1 TABLET BY MOUTH TWICE DAILY IN THE MORNING AND AT BEDTIME 60 tablet 08/05/20 25 Active hydrOXYzine pamoate (Vistaril) 50 MG capsule TAKE 1 CAPSULE BY MOUTH TWICE DAILY IN THE MORNING AND AT BEDTIME 60 capsule 08/05/20 25 Active OLANZapine (ZyPREXA) 7.5 MG tablet TAKE 1 TABLET BY MOUTH AT BEDTIME 30 tablet 08/05/20 25 Active escitalopram (Lexapro) 20 MG tablet TAKE 1 TABLET BY MOUTH EVERY MORNING 30 tablet 08/05/20 25 Active cloNIDine (Catapres) 0.1 MG tablet TAKE 1 TABLET BY MOUTH TWICE DAILY IN THE MORNING AND AT BEDTIME 60 tablet 08/05/20 25 Active mirtazapine (Remeron) 7.5 MG tablet TAKE 1 TABLET BY MOUTH AT BEDTIME 30 tablet 08/05/20 25 Active cloNIDine (Catapres) 0.1 MG tablet Take 1 tablet (0.1 mg) by mouth 2 times daily. TAKE 1 TABLET BY MOUTH TWICE DAILY IN THE MORNING AND AT BEDTIME 60 tablet 05/02/20 25 025 Discontinued escitalopram (Lexapro) 20 MG tablet Take 1 tablet (20 mg) by mouth in the morning. 30 tablet 05/02/20 25 025 Discontinued hydrOXYzine pamoate (Vistaril) 50 MG capsule Take 1 capsule (50 mg) by mouth in the morning and at bedtime. TAKE 1 CAPSULE BY MOUTH TWICE DAILY IN THE MORNING AND AT BEDTIME 60 capsule 05/02/20 25 025 Discontinued levETIRAcetam (Keppra) 1000 MG tablet Take 1 tablet (1,000 mg) by mouth 2 times daily. TAKE 1 TABLET BY MOUTH TWICE DAILY IN THE MORNING AND AT BEDTIME 60 tablet 05/02/20 25 025 Discontinued mirtazapine (Remeron) 7.5 MG tablet Take 1 tablet (7.5 mg) by mouth at bedtime. 30 tablet 05/02/20 25 025 Discontinued OLANZapine (ZyPREXA) 7.5 MG tablet Take 1 tablet (7.5 mg) by mouth at bedtime. 30 tablet 05/02/20 25 025 Discontinued Active Problems Problem Noted Date Diagnosed Date Moderate major depression, single episode ([facility]) 12/04/2024 Slow urinary stream 12/04/2024 Dysuria 11/27/2024 Uncomplicated opioid dependence ([facility]) 2024 Tobacco dependence 10/29/2024 Seizure disorder ([facility]) 10/15/2024 Assessment & Plan (10/15/2024 10:45 AM [...] improving Increased PO water intake, check BMP Severe major depression ([facility]) 03/22/2024 Assessment & Plan (10/15/2024 12:41 PM [...] and other recreational substances, reach out to recovery operator as he's not taking suboxone as prescribed. Generalized anxiety disorder with panic attacks 03/22/2024 History of substance use 03/22/2024 Assessment & Plan (10/15/2024 12:42 PM EST): On suboxone, not very compliant. I told him to reach out to recovery operator. Advised to quit THC and avoid vaping/e-cigarette, he will d/w PCP re nicotine patch when ready. Advised to quit ETOH Encounters * This document contains information received from the source organization and may not represent a complete record from that organization. Date Type Department Care Team Description 08/21/2025 Orders Only GENERIC EXTERNAL DATA DEPARTMENT Provider, Generic External Data 08/16/[address] [address] Corinne Morales NP FYI 08/16/2025 Patient Outreach [address] [address] Corinne Morales NP Care Management (C3CM- initial assessment/enrollmen t. No show.) 08/15/[address] [address] Wero Rianey [place] chart prep 08/13/[address] [address] Corinne Morales NP FYI 08/12/[address] [address] Corinne Morales NP Care Management (Q3CC-lncppme assessment/ enrollment.) 08/05/[address] [address] Corinne Morales NP Medication Question 08/02/[address] [address] Corinne Morales NP 07/30/[address] [address] Yessi Ellis, YASMEEN 07/26/2025 Patient Outreach [address] [address] Corinne Morales NP Care Coordination (CM/CHW outreach) 07/26/2025 Patient Outreach [address] [address] Corinne Morales NP Care Coordination (CHW chart review) 07/26/2025 Patient Outreach [address] [address] Corinne Morales NP Care Management (C3CM- chart review) 07/26/2025 Patient Outreach [address] [address] Corinne Morales NP 07/21/[address] [address] Corinne Morales NP Migraine without status migrainosus, not intractable, unspecified migraine type 06/24/2025 2:00 PM EDT Office Visit [address] [address] Corinne Morales NP Seizure disorder (CMS/HCC) (Primary Dx); Migraine without status migrainosus, not intractable, unspecified migraine type; Anxiety and depression; Substance use disorder; Difficulty with life management 06/24/2025 Travel 06/23/2025 Travel 06/21/[address] [address] Liliam [place] Chart Prep 06/13/2025 Patient Outreach [address] [address] Corinne Morales NP Transition Of Care (Tcm) (HDF scheduled and SDOH screening unable to complete ) 05/31/[address] [address] Liliam [place] Chart Prep from Last 3 Months Immunizations Immunization Administration Dates Next Due COVID-19 Non-US Vaccine, Pro duct Unknown 03/10/2004 DTaP, 5 pertussis antigens 03/05/2004,,05/18/1999,04/08,01/27/1999 HPV, Quadrivalent 04/05/2012 Hep B, Adolescent or Pediatric 12/02/1999,1998,1998 Hep B, adult 11/05/2024,04/05/2024 Hib (PRP-T) 03/09/2000, 9,04/08/1999,01/27 IPV 03/05/2004,04/08/1999,01/27/1999 Influenza, live, intranasal 08/30/2011 MMR 03/05/2004,12/02/1999 Meningococcal MCV4P [id number] 04/05/2012 Novel [id number]-[id number], all formulations 09/01/2009 OPV, Trivalent 12/02/1999 Pfizer [...] Sign Reading Time Taken Comments Blood Pressure 122/88 06/24/2025 2:18 PM EDT Pulse 120 06/24/2025 2:18 PM EDT Temperature 36.8 C (98.2 F) 06/24/2025 2:18 PM EDT Respiratory Rate 26 06/24/2025 2:18 PM EDT Oxygen Saturation 98% 06/24/2025 2:18 PM EDT Inhaled Oxygen Concentration - - Weight 78.4 kg (172 lb 12.8 oz) 06/24/2025 2:18 PM EDT Height 182.9 cm (6') 06/24/2025 2:18 PM EDT Body Mass Index 23.44 06/24/2025 2:18 PM EDT Plan of Treatment Health Maintenance Due Date Last Done Comments Lipid Panel 1998 HPV Vaccines (2 - Male 2-dose series) 10/06/2012 04/05/2012 Family Planning (PISQ) 2013 Pneumococcal Vaccine: Pediatrics (0 to 5 Years) and At-Risk Patients (6 to 49) Years (1 of 2 - PCV) 2017 DTaP/Tdap/Td Vaccines (7 - Td or Tdap) 04/05/2022 04/05/2012, 03/05/2004, 10/04/2000, Additional history exists COVID-19 Vaccine (2 - 2024- season) 2025 01/27/2023 Influenza Vaccine (#1) 2025 08/30/2011, 2008 Depression Monitoring 12/25/2025 06/24/2025, 025 Disability Screening 06/23/2026 06/23/2025 Alcohol/Substance Use Screening 06/24/2026 06/24/2025 SDOH Screening 06/24/2026 06/24/2025 Tobacco Screening 06/24/2026 06/24/2025 Zoster Vaccines (1 of 2) 2048 RSV [...] Procedure Name Priority Date/Time Associated Diagnosis Comments CBC WITH AUTO DIFFERENTIAL Routine 08/21/2025 7:20 AM EDT HEPATITIS PANEL, GENERAL Routine 10/15/2024 10:59 AM EST HIV 1/2 ANTIGEN/ANTIBODY, FOURTH GENERATION W/RFL Routine 10/15/2024 10:59 AM EST from Last 3 Months or Most Recently Relevant to Health Maintenance Results * (ABNORMAL) CBC auto differential (08/21/2025 7:20 AM EDT) White Blood Count 17.8(H) 4.8 - 10.8 X10*3/uL [facility] Red Blood Count 5.31 4.60 - 5.80 X10*6/uL [facility] Hemoglobin 15.0 14.0 - 18.0 g/dl [facility] Hematocrit 46.5 42.0 - 52.0 % [facility] Mean Corpuscular Volume 87.6 80.0 - 98.0 fL [facility] Mean Corpuscular Hemoglobin 28.2 27.0 - 33.0 pg [facility] Mean Corpuscular HGB Conc 32.3 31.0 - 36.0 g/dl [facility] Red Cell Distribution Width 12.1 11.0 - 16.0 % [facility] Platelet Count 375 160 - 400 X10*3/uL [facility] Mean Platelet Volume 9.4 9.4 - 12.4 fL [facility] Neutrophils Percent Auto 83.1(H) 45 - 73 % [facility] Imm Gran Pct Auto 0.7(H) 0.0 - 0.4 % [facility] Lymphocytes Percent Auto 11.9(L) 20 - 40 % [facility] Monocytes Percent Auto 3.8 2 - 11 % [facility] Eosinophils Percent Auto 0.3 0 - 4 % [facility] Basophils Percent Auto 0.2 0 - 2 % [facility] NRBC Pct Auto 0.0 0.0 - 0.2 /100WBC [facility] Neutrophils Absolute Auto 14.8(H) 2.0 - 8.3 x10*3/uL [facility] Imm Gran Abs Auto 0.13(H) 0.00 - 0.03 X10*3/uL [facility] Lymphocytes Absolute Auto 2.1 1.2 - 4.9 X10*3/uL [facility] Monocytes Absolute Auto 0.7 0.1 - 1.2 X10*3/uL [facility] Eosinophils Absolute Auto 0.1 0.0 - 0.4 X10*3/uL [facility] Basophils Absolute Auto 0.0 0.0 - 0.2 X10*3/uL [facility] NRBC Abs Auto 0.000 0.0 - 0.012 X10*3/uL [facility] 08/21/2025 7:20 AM EDT 08/21/2025 7:24 AM EDT us Generic External Data Provider LAB BLOOD ORDERAB LES Final Result [facility] [address] [place] [address] [phone] * Hepatitis Panel, General (10/15/2024 10:59 AM EST) Hepatitis A IgM Nonreactive Nonreactive [facility] Comment:IgM antibodies to GILBERT V not detected; does not exclude earlyacute or recovered HAV infection. ~Hepatitis B Surface Antibody NONREACTIVE Nonreactive [facility] Comment:Nonreactive: < 8.00 mIU/mL Hepatitis B Core Antibody Nonreactive Nonreactive [facility] Hepatitis C Antibody Nonreactive Nonreactive [facility] Comment:Antibodies to HCV no t detected; does not exclude early acuteHCV infection. Hepatitis B Surface Ag Negative Negative [facility] 10/15/2024 10:5 9 AM EST 10/15/2024 11:46 AM EST [facility] LAB BLOOD ORDERABLES Final Re sult [facility] [address] [place] [phone] * HIV-1/2 Antigen and Antibodies, Fourth Generation, with Reflexes (10/15/2024 10:59 AM EST) HIV AB/AG Nonreactive Nonreactive [facility] Comment:HIV-1 p24 Ag and/or HIV-1/HIV-2 Ab not detected.A test result that is nonreactive does not exclude thepossibility of exposure to or infection with HIV-1 and/orHIV-2. Nonreactive results in this assay for individualswith prior exposure to HIV-1 and/or HIV-2 may be due toantigen and antibody levels that are below the limit ofdetection of this assay.The [facility] HIV Ag/Ab Combo assay result andsupplemental assay results should be interpreted inconjunction with the patient's clinical presentation,history and other laboratory results. If the results areinconsistent with clinical evidence, additional testing issuggested to confirm the result. 10/15/2024 10:5 9 AM EST 10/15/2024 11:46 AM EST [facility] MORTUARY TECHNICIAN LAB BLOOD ORDERABLES Final Re sult [facility] [address] [place] [address] [phone] from Last 3 Months or Most Recently Relevant to Health Maintenance Insurance appweevr C3 Care Teams Systems Requirements Planner Relationship Specialty Start Date End Date Corinne Morales NP [address] [place] [address] PCP - General Family Medicine 03/04/25 Poppy Elise, RN [address] [place] [address] Registered Nurse Family Medicine 07/26/[address] 07/26/25 [facility] 08/01/25
--- OUTSIDE RECORDS SUMMARY | 2025-08-21 07:39 | XMS_ITS | Encounter Summary ---
Author Organization [facility] Address [address] [place] [address] Phone Care Team Providers Care Education Site Manager Name Role Phone Omari Carcamo MD Primary Care Provider [phone] Encounter Details Date Type Department Care Team (Late st Contact Info) Description 04/06/2012 Documentation EM Family Medicine [address] [place] [address] Family Medicine, Physician [address] [place], [place] [id number] Social History Tobacco Use Types Packs/Day Years [...] on filedocumented in this encounter Care Teams Education Site Manager Relationship Specialty Start Date End Date Omari Carcamo MD [address] [place] [address] AYO Alvarez [address] PCP - General 06/17/17 05/18/23 documented as of this encounter
--- OUTSIDE RECORDS SUMMARY | 2025-08-21 07:39 | XMS_ITS | Clinical Summary ---
Author Organization [facility] Address [address] [place] [id number] Phone Care Team Providers Care Beauty Operator Apprentice Name Role Phone Pcp, Unknown Primary Care [...] YEARS) 2016 Adult Td,Tdap Booster 04/05/2022 04/05/2012 INFLUENZA VACCINE (#1) 2025 08/30/2011, 2008 COVID-19 VACCINE ( season) 2025 HIB VACCINES Completed 03/09/2000, 05/07, 04/08/1999, Additional [...] Devices Not on file Insurance C3 ACO [facility] C3 [employer]CO Care Teams Beauty Operator Apprentice Relationship Specialty Start Date End Date Pcp, Unknown PCP - General 10/10/22 Additional Source Comments The information contained in this document represents components of the legal health record. It is not the complete legal health record.[facility]
--- OUTSIDE RECORDS SUMMARY | 2025-08-21 07:39 | XMS_ITS | Encounter Summary ---
Author Organization [employer] Address [address] [facility] [address] [place] [address] Care Team Providers Care Chemical Operations Specialist Name Role Phone Corinne Morales NP Primary Care Provider [phone] Poppy Elise RN Unavailable [phone] Unavailable Encounter Details Date Type Department Care Team (Late st Contact Info) Description 08/21/2025 Orders Only GENERIC EXTERNAL DATA DEPARTMENT Provider, Generic External Data Social History Tobacco Use Types Packs/Day Years [...] on file documented as of this encounter Procedures Procedure Name Priority Date/Time Associated Diagnosis Comments CBC WITH AUTO DIFFERENTIAL Routine 08/21/2025 7:20 AM EDT documented in this encounter Results * (ABNORMAL) CBC auto differential (08/21/2025 7:20 AM EDT) White Blood Count 17.8(H) 4.8 - 10.8 X10*3/uL [facility] Red Blood Count 5.31 4.60 - 5.80 X10*6/uL [facility] Hemoglobin 15.0 14.0 - 18.0 g/dl [facility] Hematocrit 46.5 42.0 - 52.0 % [facility] Mean Corpuscular Volume 87.6 80.0 - 98.0 fL [facility] Mean Corpuscular Hemoglobin 28.2 27.0 - 33.0 pg [facility] Mean Corpuscular HGB Conc 32.3 31.0 - 36.0 g/dl [facility] Red Cell Distribution Width 12.1 11.0 - 16.0 % [facility] Platelet Count 375 160 - 400 X10*3/uL [facility] Mean Platelet Volume 9.4 9.4 - 12.4 fL [facility] Neutrophils Percent Auto 83.1(H) 45 - 73 % [facility] Imm Gran Pct Auto 0.7(H) 0.0 - 0.4 % [facility] Lymphocytes Percent Auto 11.9(L) 20 - 40 % [facility] Monocytes Percent Auto 3.8 2 - 11 % [facility] Eosinophils Percent Auto 0.3 0 - 4 % [facility] Basophils Percent Auto 0.2 0 - 2 % [facility] NRBC Pct Auto 0.0 0.0 - 0.2 /100WBC [facility] Neutrophils Absolute Auto 14.8(H) 2.0 - 8.3 x10*3/uL [facility] Imm Gran Abs Auto 0.13(H) 0.00 - 0.03 X10*3/uL [facility] Lymphocytes Absolute Auto 2.1 1.2 - 4.9 X10*3/uL [facility] Monocytes Absolute Auto 0.7 0.1 - 1.2 X10*3/uL [facility] Eosinophils Absolute Auto 0.1 0.0 - 0.4 X10*3/uL [facility] Basophils Absolute Auto 0.0 0.0 - 0.2 X10*3/uL [facility] NRBC Abs Auto 0.000 0.0 - 0.012 X10*3/uL [facility] 08/21/2025 7:20 AM EDT 08/21/2025 7:24 AM EDT us Generic External Data Provider LAB BLOOD ORDERAB LES Final Result [facility] [address] [place] [address] [phone] documented in this encounter Visit Diagnoses Not on filedocumented in this encounter Additional Health Concerns Assessment Noted Time PHQ-9 Depression Total Score: 26 025 2:21 PM EDT documented as of this encounter Care Teams Chemical Operations Specialist Relationship Specialty Start Date End Date Corinne Morales NP [address] [place] [address] PCP - General Family Medicine 03/04/25 Poppy Elise, RN [address] [place] [address] [place] [address] Registered Nurse Family Medicine 07/26/[address] 07/26/25 [facility] 08/01/25 documented as of this encounter
--- OUTSIDE RECORDS SUMMARY | 2025-08-21 07:39 | XMS_ITS | Encounter Summary ---
Author Organization [facility] Address [address] [place] [address] Phone Care Team Providers Care Therapist Speech Name Role Phone Omari Carcamo MD Primary Care Provider [phone] Encounter Details Date Type Department Care Team (Late st Contact Info) Description 06/23/2017 Conversion Encounter [facility] [address] [place], [place] [phone] Social History Tobacco Use Types Packs/Day Years [...] on filedocumented in this encounter Care Teams Therapist Speech Relationship Specialty Start Date End Date Omari Carcamo MD [address] [place] [address] PCP - General 06/17/17 05/18/23 documented as of this encounter
--- OUTSIDE RECORDS SUMMARY | 2025-08-21 07:39 | XMS_ITS | Encounter Summary ---
Author Organization [facility] Address [address] [place] [address] Phone Care Team Providers Care Business Reporting Developer Name Role Phone Omari Carcamo MD Primary Care Provider [phone] Encounter Details Date Type Department Care Team (Late st Contact Info) Description 12/15/2010 Documentation EM Family Medicine [address] [place] [address] Family Medicine, Physician [address] [place], [place] [phone] Social History Tobacco Use Types Packs/Day Years [...] on filedocumented in this encounter Care Teams Business Reporting Developer Relationship Specialty Start Date End Date Omari Carcamo MD [address] [place] [address] AYO Alvarez [address] PCP - General 06/17/17 05/18/23 documented as of this encounter
--- OUTSIDE RECORDS SUMMARY | 2025-08-21 07:40 | XMS_ITS | Clinical Summary ---
Author Organization [facility] Address [address] [place] [address] Care Team Providers Care Life Scientist Name Role Phone Ref, Has No Pcp Or Primary Care Provider Unavail able Social History Tobacco Use Types Packs/Day Years [...] 04/05/2022 04/05/2012, 03/05/2004, 10/04/2000, Additional history exists Alcohol/Substance Use Screening 11/07/2024 COVID-19 Vaccine (2 - season) 2025 01/27/2023 Influenza Vaccine (#1) 2025 08/30/2011, 2008 RSV Vaccine (60+ years old and patients) (1 - 1-dose 75+ series) 2073 Hepatitis B Vaccines Completed 12/02/1999, 01/27/1999, 1998 Varicella Vaccines Completed 03/05/2008, 03/09/2000 Pneumococcal Vaccine: Pediatric (0-5 Years) and At-Risk Patients (6-50 Years) Aged Out No longer eligible based on patient's age to complete this topic Insurance [employer] Care Teams Life Scientist Relationship Specialty Start Date End Date Ref, Has No Pcp Or DO NOT EDIT THIS RECORD VIA PROVIDER ON THE FLY PCP - General Retail Advertising Executive 07/30/23
[2025-08-21] MEDS: Lactated Ringers 1,000 ML 999 ML IV ×2 (07:42→10:02)
[2025-08-21 08:05] LABS: Anion Gap 32 (12-20); Blood Urea Nitrogen 21 mg/dL (9-16); Calcium 9.8 mg/dL (8.4-10.2); Carbon Dioxide 7 mmol/L (22-29); Chloride 105 mmol/L (96-108); Creatinine Clr Calc Pharmacy 124.2; Estimated Glomerular Filt Rate > 60; Potassium 3.2 mmol/L (3.3-5.1); Sodium 141 mmol/L (135-145)
[2025-08-21 08:18] VITALS: BP 108/48; PULSE 95; RESP 20; O2SAT 98
--- NOTE | 2025-08-21 08:24 | PC.NURSE ---
while taking report from the overnight shift, pt was noticed to have a seizure that lasted about 1min, pt was given Valium 5mg IM in the right deltoid, pt is acting post-ictal at this time, confused and thrashing around, pt color is very pale in appearance, pt was put on a non-rebreather for a few min, iv access gained in the right wrist area, pt arrived to the ED covered in feces, pt started to vomit all over the floor and himself, pt cleaned up from the feces and vomit, pt is also shivering and yawning while vomiting, this magazine writer asked the pt if he used drugs reports no but the girlfriend states she thinks he was using again yesterday and he was vomiting at home yesterday and did not take his Keppra. vs stable at this
[2025-08-21 08:41] LABS: Appearance Urine Clear; Glucose Urine UA Negative (Negative); PH 5.5 (5.0-9.0); Specific Gravity - Urine 1.020 (1.005-1.025); UMIC TRIGGER UACC YES
[2025-08-21 08:51] LABS: Cannabinoid Screen Urine POSITIVE (Not Detect)
[2025-08-21 09:25] LABS: Reflex Lactate? Lactic Acid Added
[2025-08-21 10:11] LABS: ~Lactic Acid-LAB USE ONLY 2.0 mmol/L (0.5-2.0)
[2025-08-21 10:47] VITALS: BP 109/62; PULSE 84; RESP 16; TEMP 36.9; O2SAT 97
[2025-08-21 10:49] LABS: Blood Urea Nitrogen 23 mg/dL (9-16); Calcium 9.0 mg/dL (8.4-10.2); Creatinine Clr Calc Pharmacy 142.6; Estimated Glomerular Filt Rate > 60
--- NOTE | 2025-08-21 12:00 | PC.NURSE ---
no more seizure activity while in the ed
[2025-08-21 12:06] LABS: Anion Gap 17 (12-20); Carbon Dioxide 22 mmol/L (22-29); Chloride 102 mmol/L (96-108); Potassium 4.1 mmol/L (3.3-5.1); Sodium 137 mmol/L (135-145)
[2025-08-21 12:15] VITALS: BP 108/48; PULSE 78; RESP 12; O2SAT 95
[2025-08-21 13:21] VITALS: BP 108/48; PULSE 78; RESP 12; TEMP -17.7; TEMP 0; O2SAT 95
[2025-08-23 23:14] LABS: Levetiracetam Keppra 2.0 mcg/mL (6.0-46.0)
== END 2025-08-21 13:23 | disposition home or self-care (01) ==
PROVIDERS: Emergency Provider Emergency Medicine; PCP Registered Nurse
DX: G40.909 Epilepsy, unspecified, not intractable, without status epilepticus (principal); Z87.891 Personal history of nicotine dependence; Z79.899 Other long term (current) drug therapy
CPT/HCPCS: 36415; 70450; 80048; 80177; 80307; 81001; 83605; 85025; 96361; 96365; 96372; 96375; 99285; J1953; J2405; J3360; J7120

== ENCOUNTER → 2025-08-21 07:10 | Outpatient (BNV) | payer MEDICAID, SELFPAY | PROVIDERS: Emergency Provider Emergency Medicine; PCP Registered Nurse; Visit Provider Radiology Diagnostic Radiology | DX: R56.9 Unspecified convulsions (principal) | CPT/HCPCS: 70450 ==

== ENCOUNTER 2025-08-22 11:22 | Outpatient (AMB) | payer MEDICAID, SELFPAY ==
[2025-08-22 11:33] VITALS: BP 104/58; PULSE 60; RESP 16; O2SAT 98; BMI 25.0
--- NOTE | 2025-08-22 11:33 | MHC.OFFVIS ---
Vital Signs 08/22/25 11:33 Height 5 ft 10 in Weight 174 lb BMI 25.0 BP 104/58 L Blood Pressure Location Lt brachial Position Standing Respiration 16 Pulse 60 Pulse Source Pulse Oximeter Pulse Oximetry (%) 98 Oxygen Delivery Method Room Air Intake Visit Reasons: hospital followup Windows Application Packager Required: No Allergies No Known Allergies Allergy (Verified 08/22/25 11:34) HPI Comments Details: Bailey is a 24-year-old male patient following in the clinic for history of seizures that began with withdrawal from opiates in the past. According to previous office notes, his seizure disorder started in 2022 with withdrawal from Percocet. His workup initially entailed a CT of the head which was normal and an EEG which revealed left temporal intermittent slowing. An ambulatory EEG in 2023 revealed right frontal sharp and slow-wave complexes. He has been taking levetiracetam 500 mg twice daily though has had breakthrough seizure events while on 500 mg twice daily and was subsequently increased to 750 mg twice daily April of 2024. He has not been seen in the clinic since April of 2024 at which time his levetiracetam was increased to 750 mg twice daily. He was however seen in the emergency department yesterday for a breakthrough seizure event witnessed by his family who called 911. He was administered IV Valium in the ED after another tonic-clonic seizure was witnessed by the ED staff. His ER workup included labs which were significant for a white count of 17.8 and a lactic acid of 18. His urine toxicity screen was positive for opiates, cocaine, and marijuana. A CT scan showed no intracranial abnormalities. His levetiracetam was increased to 1000 mg twice daily at the time of discharge. He is here today for a follow-up visit. He tells me that that leading up to seizure event yesterday somnolent at in the past with withdrawal seizure his significant other today he has been hot and sweating and sluggish seizure. Today it has been since he has today. He reports nausea, vomiting diarrhea. He tells me that past he has also after seizure events but seizure events have primarily been opiate withdrawal. He is not currently receiving any support for withdrawal at this time. He has not passed used Suboxone. He denies any use of cocaine is urine did show positive for cocaine use. He is not sure if he would have had any accidental ingestion. He did taking it is increased dose levetiracetam today. [facility] Medical History Rhabdomyolysis Drug overdose Seizure Overdose Social History Household Members: Unknown / Unable to assess Housing: Unknown / Unable to assess Do you presently have visiting nurse or other home services: No Alcohol intake: current Alcohol intake frequency: does not drink Patient Tobacco Use Status: Former Tobacco user Tobacco use type: Smokeless Tobacco e-Cigarette/Vaping Use: Currently Using Second Hand Smoke Exposure: Yes Substance Use Type: Marijuana service: No Review of Systems Const All systems reviewed & are unremarkable except as noted in HPI and below Physical Exam Exam Exam: Declined a detailed physical exam. Patient appears ill lying on exam table today. Vital Signs: Last Vital Signs Pulse 60 08/22/25 11:33 Resp 16 08/22/25 11:33 BP 104/58 L 08/22/25 11:33 Pulse Ox 98 08/22/25 11:33 Oxygen Delivery Method Room Air 08/22/25 11:33 BMI result Body Mass Index 25.0 Assessment & Plan Assessment & Plan (1) Breakthrough seizure: Code(s): G40.919 - Epilepsy, unspecified, intractable, without status epilepticus Category: Medical (2) Opiate withdrawal: Code(s): F11.93 - Opioid use, unspecified with withdrawal Category: Medical Plan Bailey is a 24-year-old male patient following in the clinic for history of seizures that began with withdrawal from opiates in the past. His seizure yesterday that took place for which she went to the emergency room was also in the setting of opiate withdrawal. His urine was also positive for cocaine which can also trigger seizure though he denies known use of cocaine. In the ER, his levetiracetam was increased from 750 twice daily to 1000 mg twice daily. He reports that he took his medication this morning. He is still experiencing nausea vomiting and diarrhea. I did encourage him to go to [facility] where he gets his primary care for withdrawal support. He was encouraged to rest make hydrate for the remainder of the day. He has also been asked to contact me or seek emergency medical attention should he have any further seizure events. -[facility] for recovery and withdrawal support -Continue increased dose of leveiteracetam (1000mg twice daily) -Follow-up in 1 month Coding Level of Care Code Est Pt Level 3 (51632) Diagnoses Breakthrough seizure G40.919 Opiate withdrawal F11.93
--- OUTSIDE RECORDS SUMMARY | 2025-08-22 14:38 | XMS_ITS | Encounter Summary ---
Author Organization [employer] Address [address] [place] [address] Care Team Providers Care Bakelite Molder Name Role Phone Corinne Morales NP Primary Care Provider [phone] Unavailable Encounter Details Date Type [...] Procedure Name Priority Date/Time Associated Diagnosis Comments BASIC METABOLIC PANEL Routine 08/21/2025 10:10 AM EDT LACTIC ACID LAB USE ONLY Routine 08/21/2025 9:[address] HEAD WO CONTRAST Routine 08/21/2025 8 :53 AM EDT URINALYSIS, COMPLETE, WITH REFLEX TO CULTURE Routine 08/21/2025 8:32 AM EDT DRUG MONITOR, PANEL 1, SCREEN, URINE Routine 08/21/2025 8:32 AM EDT CBC WITH AUTO DIFFERENTIAL Routine 08/21/2025 7:20 AM EDT documented in this encounter Results * (ABNORMAL) Basic Metabolic Panel (08/21/2025 10:10 AM EDT) Sodium 137 135 - 145 mmol/L [facility] Potassium 4.1 3.3 - 5.1 mmol/L [facility] Chloride 102 96 - 108 mmol/L [facility] Carbon Dioxide 22 22 - 29 mmol/L [facility] Anion Gap 17 12 - 20 [facility] Urea Nitrogen (BUN) 23(H) 9 - 16 mg/dL [facility] Creatinine, Serum 0.81 0.5 - 1.4 mg/dL [facility] Creatinine Clr Calc Pharmacy 142.6 [facility] Comment:eGFR (calculated fro m the MDRD study equation) and eCrCl(calculated from the Cockcroft-Gault equation) are based ondifferent parameters and may not yield comparable results.If eCrCl result is absurd, please check patient'sheight/weight. Estimated Glomerular Filt Rate >60 [facility] Comment:Chronic Kidney Disea se: Estimated GFR < 60 mL/min/[id number] Kidney Disease: Estimated GFR < 15 mL/min/1.73m2 Glucose 113 60 - 115 mg/dL [facility] Calcium 9.0 8.4 - 10.2 mg/dL [facility] 08/21/2025 10:1 0 AM EDT 08/21/2025 10:25 AM EDT us Generic External Data Provider LAB BLOOD ORDERAB LES Final Result Performing Organization Address City/[facility]/ZIP Co de Phone Number [facility] [address] [place] [phone] * Lactic Acid (08/21/2025 9:49 AM EDT) Lactic Acid 2.0 0.5 - 2.0 mmol/L [facility] 08/21/2025 9:49 AM EDT 08/21/2025 9:52 AM EDT us Generic External Data Provider LAB BLOOD ORDERAB LES Final Result Performing Organization Address [facility]/ZIP Co de Phone Number [facility] [address] [place] [phone] * CT Head w/o Contrast (08/21/2025 8:53 AM EDT) Anatomical Region Laterality Modality Head, Neck Computed Tomogra phy 08/21/2025 8:53 AM EDT Narrative 08/21/2025 9:30 AM EDT [address] [address] [address] Scan Report Signed Patient: Harpal Buckner Jr MR#: [id number] : 2000 Acct:[id number] Age/Sex: 24 / M ADM Date: 08/21/25 Loc: HO.ED Attending Dr: Ordering Physician: Rome Taveras MD Date of Service: 08/21/25 Procedure(s): CT head/brain wo IV con Accession Number(s): [id number] cc: Rome Taveras MD; [facility] Report Number: [id number]: Total DLP = 0.00 mGy-cm Reason for Exam: Seizure EXAMINATION: CT HEAD WITHOUT IV CONTRAST HISTORY: Seizure. TECHNIQUE: Unenhanced helical CT of the head was performed per standard departmental protocol. Coronal and sagittal reformats of the head were also evaluated. One or more of the following techniques was used for dose reduction: Automated exposure control, adjustment of the mA and/or kV according to patient size, use of iterative reconstruction technique. DLP: 754 mGy-cm COMPARISON: Previous head CT March 2025 FINDINGS: BRAIN: The brain parenchyma is unremarkable. There is normal armendariz/white differentiation. The ventricular system is normal in size and configuration. There is no mass effect or midline shift. No intra- or extra-axial fluid collections are identified. SINUSES: The visualized paranasal sinuses are clear. The mastoid air cells and middle ear cavities are well pneumatized. ORBITS: The visualized orbits are unremarkable. BONES/SOFT TISSUES: The extracranial soft tissues are unremarkable. The calvarium is intact. No suspicious lytic or sclerotic lesions. CT/CT head/brain wo IV con IMPRESSION: No acute intracranial abnormality. Electronically signed by: Courtney Snow MD 08/21/2025 09:27 AM EDT Dictated By: Courtney Snow MD Signed By: <Electronically signed by Courtney Snow MD in OV> 08/21/25926 DD/ 0853 TD/TT: 08/21/25 0857 Reclaimer: NICKY Procedure Note Donotuseinterpreter, Image - 08/21/[address] [address] [address] Scan Report Signed Patient: Harpal Buckner MR#: [id number] : 2000Acct:[id number] Age/Sex: 24 / MADM Date: 08/21/25 Loc: HO.ED Attending Dr: Ordering Physician: Rome Taveras MD Date of Service: 08/21/25 Procedure(s): CT head/brain wo IV con Accession Number(s): [id number] cc: Rome Taveras MD; [facility] Report Number: [id number]: Total DLP = 0.00 mGy-cm Reason for Exam: Seizure EXAMINATION: CT HEAD WITHOUT IV CONTRAST HISTORY: Seizure. TECHNIQUE: Unenhanced helical CT of the head was performed per standard departmental protocol. Coronal and sagittal reformats of the head were also evaluated. One or more of the following techniques was used for dose reduction: Automated exposure control, adjustment of the mA and/or kV according to patient size, use of iterative reconstruction technique. DLP: 754 mGy-cm COMPARISON: Previous head CT March 2025 FINDINGS: BRAIN: The brain parenchyma is unremarkable. There is normal armendariz/white differentiation. The ventricular system is normal in size and configuration. There is no mass effect or midline shift. No intra- or extra-axial fluid collections are identified. SINUSES: The visualized paranasal sinuses are clear. The mastoid air cells and middle ear cavities are well pneumatized. ORBITS: The visualized orbits are unremarkable. BONES/SOFT TISSUES: The extracranial soft tissues are unremarkable. The calvarium is intact. No suspicious lytic or sclerotic lesions. CT/CT head/brain wo IV con IMPRESSION: No acute intracranial abnormality. Electronically signed by: Courtney Snow MD 08/21/2025 09:27 AM EDT Dictated By: Courtney Snow MD Signed By: <Electronically signed by Courtney Snow MD in OV> 08/21/25 0927 DD/ TD/TT: 08/21/2557 Reclaimer: NICKY [facility] External Provider IMG CT PROCEDURES Final Result * (ABNORMAL) Drug Monitoring, Panel 1, Screen, Urine (08/21/2025 8:32 AM EDT) Opiate Screen Urine POSITIVE(A) Not Detect [facility] Comment:Opiate cut-off is 30 0 ng/mL.Positive results are unconfirmed and should not be used fornon-medical purposes. Barbiturates, Urine Not Detected Not Detect [facility] Comment:Barbiturate cut-off is 200 ng/mL.Positive results are unconfirmed and should not be used fornon-medical purposes. Phencyclidine Screen Urine Not Detected Not Detect [facility] Comment:Phencyclidine cut-of f is 25 ng/mL.Positive results are unconfirmed and should not be used fornon-medical purposes. Amphetamine Screen Urine Not Detected Not Detect [facility] Comment:Amphetamine cut-off is 1000 ng/mL.Positive results are unconfirmed and should not be used fornon-medical purposes. Benzodiazepines Screen Urine Not Detected Not Detect [facility] Comment:Benzodiazepine cut-o ff is 200 ng/mL.Positive results are unconfirmed and should not be used fornon-medical purposes. Cocaine Screen Urine POSITIVE(A) Not Detect [facility] Comment:Cocaine cut-off is 3 00 ng/mL.Positive results are unconfirmed and should not be used fornon-medical purposes. Cannabinoid Screen Urine POSITIVE(A) Not Detect [facility] Comment:Cannabinoid cut-off is 50 ng/mL.Positive results are unconfirmed and should not be used fornon-medical purposes. Methadone Screen, Urine Not Detected Not Detect ng/mL [facility] Comment:Methadone cut-off is 300 ng/mL.Positive results are unconfirmed and should not be used fornon-medical purposes. FENTANYL URINE POSITIVE(A) Not Detect [facility] Comment:Fentanyl cut-off is 1 ng/mL.Positive results are unconfirmed and should not be used fornon-medical purposes. Oxycodone Urine Screen Not Detected Not Detect ng/mL [facility] Comment:Oxycodone cut-off is 100 ng/mL.Positive results are unconfirmed and should not be used fornon-medical purposes. Buprenorphine Screen Positive(A) Not Detect ng/mL [facility] Comment:Buprenorphine cut-of f is 5 ng/mL.Positive results are unconfirmed and should not be used fornon-medical purposes. 08/21/2025 8:32 AM EDT 08/21/2025 8:38 AM EDT us Generic External Data Provider LAB URINE ORDERAB LES Final Result [facility] [address] [place] [phone] [phone] * (ABNORMAL) Urinalysis, Complete, with Reflex to Culture (08/21/2025 8:32 AM EDT) Color Urine Yellow [facility] Appearance Urine Clear [facility] PH 5.5 5.0 - 9.0 [facility] Glucose Urine UA Negative Negative mg/dL [facility] Urine Blood Trace(A) Negative [facility] Specific [place] - Urine 1.020 1.005 - 1.025 [facility] Urine Protein 30 (1+)(A) Neg-Trace mg/dL [facility] Urine Ketones 80 Negative mg/dL [facility] Nitrite Urine Negative Negative [facility] Leukocyte Esterase Urine Negative Negative [facility] RBC Urine 0-2 0 - 2 /HPF [facility] Urine WBC 0-5 0 - 5 /HPF [facility] Urine Squamous Epithelial Cell 0-2 0 - 2 /HPF [facility] Urine Bacteria None Seen None Seen [facility] Hyaline Casts, Urine 0-2 0 - 2 /LPF [facility] 08/21/2025 8:32 AM EDT 08/21/2025 8:38 AM EDT Narrative [facility] - 08/21/2025 8:53 AM EDT [id number], Clean Catch us Generic External Data Provider LAB URINE ORDERAB LES Final Result [facility] [address] [place] [phone] [phone] * (ABNORMAL) CBC auto differential (08/21/2025 7:20 AM EDT) White Blood Count 17.8(H) 4.8 - 10.8 X10*3/uL [facility] Red Blood Count 5.31 4.60 - 5.80 X10*6/uL [facility] Hemoglobin 15.0 14.0 - 18.0 g/dl [facility] Hematocrit 46.5 42.0 - 52.0 % [facility] Mean Corpuscular Volume 87.6 80.0 - 98.0 fL [facility] Mean Corpuscular Hemoglobin 28.2 27.0 - 33.0 pg [facility] Mean Corpuscular HGB Conc 32.3 31.0 - 36.0 g/dl [facility] Red Cell Distribution Width 12.1 11.0 - 16.0 % [facility] Platelet Count 375 160 - 400 X10*3/uL [facility] Mean Platelet Volume 9.4 9.4 - 12.4 fL [facility] Neutrophils Percent Auto 83.1(H) 45 - 73 % [facility] Imm Gran Pct Auto 0.7(H) 0.0 - 0.4 % [facility] Lymphocytes Percent Auto 11.9(L) 20 - 40 % [facility] Monocytes Percent Auto 3.8 2 - 11 % [facility] Eosinophils Percent Auto 0.3 0 - 4 % [facility] Basophils Percent Auto 0.2 0 - 2 % [facility] NRBC Pct Auto 0.0 0.0 - 0.2 /100WBC [facility] Neutrophils Absolute Auto 14.8(H) 2.0 - 8.3 x10*3/uL [facility] Imm Gran Abs Auto 0.13(H) 0.00 - 0.03 X10*3/uL [facility] Lymphocytes Absolute Auto 2.1 1.2 - 4.9 X10*3/uL [facility] Monocytes Absolute Auto 0.7 0.1 - 1.2 X10*3/uL [facility] Eosinophils Absolute Auto 0.1 0.0 - 0.4 X10*3/uL [facility] Basophils Absolute Auto 0.0 0.0 - 0.2 X10*3/uL [facility] NRBC Abs Auto 0.000 0.0 - 0.012 X10*3/uL [facility] 08/21/2025 7:20 AM EDT 08/21/2025 7:24 AM EDT us Generic External Data Provider LAB BLOOD ORDERAB LES Final Result [facility] [address] [place] [phone] documented in this encounter Visit Diagnoses Not on filedocumented in this encounter Additional Health Concerns Assessment Noted Time PHQ-9 Depression Total Score: 26 06/24/ 025 2:21 PM EDT documented as of this encounter Care Teams Bakelite Molder Relationship Specialty Start Date End Date Corinne Morales NP [address] [place] [address] PCP - General Family Medicine 03/04/25 Poppy Elise, YASMEEN [address] [place] [address] Registered Nurse Family Medicine 07/26/25 [address] 07/26/25 [facility] 08/01/25 documented as of this encounter
--- OUTSIDE RECORDS SUMMARY | 2025-08-22 14:38 | XMS_ITS | Clinical Summary ---
Author Organization [employer] Address [address] [facility] [address] [place] [address] Care Team Providers Care Sort Supervisor Name Role Phone Corinne Morales NP Primary Care Provider [phone] Poppy Elise RN Unavailable [phone] Unavailable Allergies No known active [...] Diagnosed Date Moderate major depression, single episode ([facility]) 12/04/2024 Slow urinary stream 12/04/2024 Dysuria 11/27/2024 Uncomplicated opioid dependence ([facility]) 2024 Tobacco dependence 10/29/2024 Seizure disorder ([facility]) 10/15/2024 Assessment & Plan (10/15/2024 10:45 AM [...] water intake, check BMP Severe major depression ([facility]) 03/22/2024 Assessment & Plan (10/15/2024 12:41 PM [...] and other recreational substances, reach out to legal recovery specialist as he's not taking suboxone as prescribed. Generalized anxiety disorder with panic attacks 03/22/2024 History of substance use 03/22/2024 Assessment & Plan (10/15/2024 12:42 PM EST): On suboxone, not very compliant. I told him to reach out to legal recovery specialist. Advised to quit THC and avoid vaping/e-cigarette, he will d/w PCP re nicotine patch when ready. Advised to quit ETOH Encounters * This document contains information received from the source organization and may not represent a complete record from that organization. Date Type Department Care Team Description 08/21/2025 Orders Only GENERIC EXTERNAL DATA DEPARTMENT Provider, Generic External Data 08/16/[address] [address] Corinne Morales NP FYI 08/16/2025 Patient Outreach [address] [address] Corinne Morales NP Care Management (C3CM- initial assessment/enrollmen t. No show.) 08/15/[address] [address] Wero Rainey [place] chart prep 08/13/[address] [address] Corinne Morales NP FYI 08/12/[address] [address] Corinne Morales NP Care Management (A6MC-bqeqkhb assessment/ enrollment.) 08/05/[address] [address] Corinne Morales NP Medication Question 08/02/[address] [address] Corinne Morales NP 07/30/[address] [address] Yessi Ellis, YASMEEN 07/26/2025 Patient Outreach [address] [address] Corinne Morales NP Care Coordination (CM/CHW outreach) 07/26/2025 Patient Outreach [address] [address] Corinne Morales NP Care Coordination (CHW chart review) 07/26/2025 Patient Outreach [address] [address] Corinne Morales NP Care Management (C3CM- chart review) 07/26/2025 Patient Outreach [address] [address] Corinne Morales NP 07/21/[address] [address] Corinne Morales NP Migraine without status migrainosus, not intractable, unspecified migraine type 06/24/2025 2:00 PM EDT Office Visit [address] [address] Corinne Morales NP Seizure disorder (CMS/HCC) (Primary Dx); Migraine without status migrainosus, not intractable, unspecified migraine type; Anxiety and depression; Substance use disorder; Difficulty with life management 06/24/2025 Travel 06/23/2025 Travel 06/21/[address] [address] Liliam London [place] Chart Prep 06/13/2025 Patient Outreach [address] [address] Corinne Morales NP Transition Of Care (Tcm) (HDF scheduled and SDOH screening unable to complete ) 05/31/[address] [address] Liliam London [place] Chart Prep from Last 3 Months Immunizations Immunization Administration Dates Next Due COVID-19 Non-US Vaccine, Pro duct Unknown 03/10/2004 DTaP, 5 pertussis antigens 03/05/2004,,05/18/1999,04/08,01/27/1999 HPV, Quadrivalent 04/05/2012 Hep B, Adolescent or Pediatric 12/02/1999,1998,1998 Hep B, adult 11/05/2024,04/05/2024 Hib (PRP-T) 03/09/2000, 9,04/08/1999,01/27 IPV 03/05/2004,04/08/1999,01/27/1999 Influenza, live, intranasal 08/30/2011 MMR 03/05/2004,12/02/1999 Meningococcal MCV4P ACYW-135 04/05/2012 Novel Esorzivyl-[id number], all formulations 09/01/2009 OPV, Trivalent 12/02/1999 Pfizer Covid-19 Vaccine 12+ alyse-sucrose (Triveid Cap) 01/27/2023 Tdap 04/05/2012 Varicella 03/05/2008,03/09/2000 Social [...] CONTRAST Routine 08/21/2025 8 :53 AM EDT DRUG MONITOR, PANEL 1, SCREEN, URINE Routine 08/21/2025 8:32 AM EDT URINALYSIS, COMPLETE, WITH REFLEX TO CULTURE Routine 08/21/2025 8:32 AM EDT CBC WITH AUTO DIFFERENTIAL Routine 08/21/2025 7:20 AM EDT HEPATITIS PANEL, GENERAL Routine 10/15/2024 10:59 AM EST HIV 1/2 ANTIGEN/ANTIBODY, FOURTH GENERATION W/RFL Routine 10/15/2024 10:59 AM EST from Last 3 Months or Most Recently Relevant to Health Maintenance Results * (ABNORMAL) Basic Metabolic Panel (08/21/2025 10:10 AM EDT) Sodium 137 135 - 145 mmol/L [facility] Potassium 4.1 3.3 - 5.1 mmol/L [facility] Chloride 102 96 - 108 mmol/L [facility] Carbon Dioxide 22 22 - 29 mmol/L [facility] Anion Gap 17 12 - 20 [facility] Urea Nitrogen (BUN) 23(H) 9 - 16 mg/dL [facility] Creatinine, Serum 0.81 0.5 - 1.4 mg/dL [facility] Creatinine Clr Calc Pharmacy 142.6 [facility] Comment:eGFR (calculated fro m the MDRD study equation) and eCrCl(calculated from the Cockcroft-Gault equation) are based ondifferent parameters and may not yield comparable results.If eCrCl result is absurd, please check patient'sheight/weight. Estimated Glomerular Filt Rate >60 [facility] Comment:Chronic Kidney Disea se: Estimated GFR < 60 mL/min/1.64a3Kqrapd Kidney Disease: Estimated GFR < 15 mL/min/1.73m2 Glucose 113 60 - 115 mg/dL [facility] Calcium 9.0 8.4 - 10.2 mg/dL [facility] 08/21/2025 10:1 0 AM EDT 08/21/2025 10:25 AM EDT us Generic External Data Provider LAB BLOOD ORDERAB LES Final Result [facility] [address] [place] [phone] * Lactic Acid (08/21/2025 9:49 AM EDT) Lactic Acid 2.0 0.5 - 2.0 mmol/L [facility] 08/21/2025 9:49 AM EDT 08/21/2025 9:52 AM EDT us Generic External Data Provider LAB BLOOD ORDERAB LES Final Result [facility] [address] [place] [phone] * CT Head w/o Contrast (08/21/2025 8:53 AM EDT) Anatomical Region Laterality Modality Head, Neck Computed Tomogra phy 08/21/2025 8:53 AM EDT Narrative 08/21/2025 9:30 AM EDT [address] [address] [address] Scan Report Signed Patient: Harpal Buckner Jr MR#: [id number] : 2000 Acct:[id number] Age/Sex: 24 / M ADM Date: 08/21/25 Loc: HO.ED Attending Dr: Ordering Physician: Rome Taveras MD Date of Service: 08/21/25 Procedure(s): CT head/brain wo IV con Accession Number(s): [id number] cc: Rome Taveras MD; [facility] Report Number: [id number]: Total DLP = 0.00 mGy-cm Reason for [...] brain parenchyma is unremarkable. There is normal trivedi/white differentiation. The ventricular system is normal in [...] Courtney Snow MD 08/21/2025 09:27 AM EDT RP Dictated By: Courtney Snow MD Signed By: <Electronically signed by Courtney Snow MD in OV> 08/21/2527 DD/ TD/TT: 08/21/2557 Cloth Measurer Machine: NICKY Procedure Note Donotuseinterpreter, Image - 08/21/[address] [place] [address] [address] Scan Report Signed Patient: Harpal Buckner [facility]#: [id number] : 2000Acct:[id number] Age/Sex: 24 / MADM Date: 08/21/25 Loc: HO.ED Attending Dr: Ordering Physician: Rome Taveras MD Date of Service: 08/21/25 Procedure(s): CT head/brain wo IV con Accession Number(s): [id number] cc: Rome Taveras MD; [facility] Report Number: [id number]: Total DLP = 0.00 mGy-cm Reason for [...] brain parenchyma is unremarkable. There is normal trivedi/white differentiation. The ventricular system is normal in [...] Courtney Snow MD in OV> 08/21/25926 DD/ TD/TT: 08/21/2557 Cloth Measurer Machine: NICKY [facility] External Provider IMG CT PROCEDURES Final Result * (ABNORMAL) Urinalysis, Complete, with Reflex to Culture (08/21/2025 8:32 AM EDT) Color Urine Yellow [facility] Appearance Urine Clear [facility] PH 5.5 5.0 - 9.0 [facility] Glucose Urine UA Negative Negative mg/dL [facility] Urine Blood Trace(A) Negative [facility] Specific [place] - Urine 1.020 1.005 - 1.025 [facility] Urine Protein 30 (1+)(A) Neg-Trace mg/dL [facility] Urine Ketones 80 Negative mg/dL [facility] Nitrite Urine Negative Negative [facility] Leukocyte Esterase Urine Negative Negative [facility] RBC Urine 0-2 0 - 2 /HPF [facility] Urine WBC 0-5 0 - 5 /HPF [facility] Urine Squamous Epithelial Cell 0-2 0 - 2 /HPF [facility] Urine Bacteria None Seen None Seen [facility] Hyaline Casts, Urine 0-2 0 - 2 /LPF [facility] 08/21/2025 8:32 AM EDT 08/21/2025 8:38 AM EDT Narrative [facility] - 08/21/2025 8:53 AM EDT [id number], Clean Catch us Generic External Data Provider LAB URINE ORDERAB LES Final Result [facility] [address] [place] [address] [phone] * (ABNORMAL) Drug Monitoring, Panel 1, Screen, Urine (08/21/2025 8:32 AM EDT) Pathologist [facility] Opiate Screen Urine POSITIVE(A) Not Detect [facility] Comment:Opiate cut-off is 30 0 ng/mL.Positive results are unconfirmed and should not be used fornon-medical purposes. Barbiturates, Urine Not Detected Not Detect [facility] Comment:Barbiturate cut-off is 200 ng/mL.Positive results are unconfirmed and should not be used fornon-medical purposes. Phencyclidine Screen Urine Not Detected Not Detect [facility] Comment:Phencyclidine cut-of f is 25 ng/mL.Positive results are unconfirmed and should not be used fornon-medical purposes. Amphetamine Screen Urine Not Detected Not Detect [facility] Comment:Amphetamine cut-off is 1000 ng/mL.Positive results are unconfirmed and should not be used fornon-medical purposes. Benzodiazepines Screen Urine Not Detected Not Detect [facility] Comment:Benzodiazepine cut-o ff is 200 ng/mL.Positive results are unconfirmed and should not be used fornon-medical purposes. Cocaine Screen Urine POSITIVE(A) Not Detect [facility] Comment:Cocaine cut-off is 3 00 ng/mL.Positive results are unconfirmed and should not be used fornon-medical purposes. Cannabinoid Screen Urine POSITIVE(A) Not Detect [facility] Comment:Cannabinoid cut-off is 50 ng/mL.Positive results are unconfirmed and should not be used fornon-medical purposes. Methadone Screen, Urine Not Detected Not Detect ng/mL [facility] Comment:Methadone cut-off is 300 ng/mL.Positive results are unconfirmed and should not be used fornon-medical purposes. FENTANYL URINE POSITIVE(A) Not Detect [facility] Comment:Fentanyl cut-off is 1 ng/mL.Positive results are unconfirmed and should not be used fornon-medical purposes. Oxycodone Urine Screen Not Detected Not Detect ng/mL [facility] Comment:Oxycodone cut-off is 100 ng/mL.Positive results are unconfirmed and should not be used fornon-medical purposes. Buprenorphine Screen Positive(A) Not Detect ng/mL [facility] Comment:Buprenorphine cut-of f is 5 ng/mL.Positive results are unconfirmed and should not be used fornon-medical purposes. 08/21/2025 8:32 AM EDT 08/21/2025 8:38 AM EDT us Generic External Data Provider LAB URINE ORDERAB LES Final Result [facility] [address] [place] [phone] [phone] * (ABNORMAL) CBC auto differential (08/21/2025 7:20 AM EDT) White Blood Count 17.8(H) 4.8 - 10.8 X10*3/uL [facility] Red Blood Count 5.31 4.60 - 5.80 X10*6/uL [facility] Hemoglobin 15.0 14.0 - 18.0 g/dl [facility] Hematocrit 46.5 42.0 - 52.0 % [facility] Mean Corpuscular Volume 87.6 80.0 - 98.0 fL [facility] Mean Corpuscular Hemoglobin 28.2 27.0 - 33.0 pg [facility] Mean Corpuscular HGB Conc 32.3 31.0 - 36.0 g/dl [facility] Red Cell Distribution Width 12.1 11.0 - 16.0 % [facility] Platelet Count 375 160 - 400 X10*3/uL [facility] Mean Platelet Volume 9.4 9.4 - 12.4 fL [facility] Neutrophils Percent Auto 83.1(H) 45 - 73 % [facility] Imm Gran Pct Auto 0.7(H) 0.0 - 0.4 % [facility] Lymphocytes Percent Auto 11.9(L) 20 - 40 % [facility] Monocytes Percent Auto 3.8 2 - 11 % [facility] Eosinophils Percent Auto 0.3 0 - 4 % [facility] Basophils Percent Auto 0.2 0 - 2 % [facility] NRBC Pct Auto 0.0 0.0 - 0.2 /100WBC [facility] Neutrophils Absolute Auto 14.8(H) 2.0 - 8.3 x10*3/uL [facility] Imm Gran Abs Auto 0.13(H) 0.00 - 0.03 X10*3/uL [facility] Lymphocytes Absolute Auto 2.1 1.2 - 4.9 X10*3/uL [facility] Monocytes Absolute Auto 0.7 0.1 - 1.2 X10*3/uL [facility] Eosinophils Absolute Auto 0.1 0.0 - 0.4 X10*3/uL [facility] Basophils Absolute Auto 0.0 0.0 - 0.2 X10*3/uL [facility] NRBC Abs Auto 0.000 0.0 - 0.012 X10*3/uL [facility] 08/21/2025 7:20 AM EDT 08/21/2025 7:24 AM EDT us Generic External Data Provider LAB BLOOD ORDERAB LES Final Result [facility] [address] [place] [phone] * Hepatitis Panel, General (10/15/2024 10:59 AM EST) Hepatitis A IgM Nonreactive Nonreactive [facility] Comment:IgM antibodies to GILBERT V not detected; does not exclude earlyacute or recovered HAV infection. ~Hepatitis B Surface Antibody NONREACTIVE Nonreactive [facility] Comment:Nonreactive: < 8.00 mIU/mL Hepatitis B Core Antibody Nonreactive Nonreactive [facility] Hepatitis C Antibody Nonreactive Nonreactive [facility] Comment:Antibodies to HCV no t detected; does not exclude early acuteHCV infection. Hepatitis B Surface Ag Negative Negative [facility] 10/15/2024 10:5 9 AM EST 10/15/2024 11:46 AM EST [facility] LAB BLOOD ORDERABLES Final Re sult Performing Organization Address City/[facility]/ZIP Co de Phone Number [facility] [address] [place] [phone] [phone] * HIV-1/2 Antigen and Antibodies, Fourth Generation, with Reflexes (10/15/2024 10:59 AM EST) Pathologist [facility] HIV AB/AG Nonreactive Nonreactive [facility] Comment:HIV-1 p24 Ag and/or HIV-1/HIV-2 Ab not detected.A test result that is nonreactive does not exclude thepossibility of exposure to or infection with HIV-1 and/orHIV-2. Nonreactive results in this assay for individualswith prior exposure to HIV-1 and/or HIV-2 may be due toantigen and antibody levels that are below the limit ofdetection of this assay.The [employer] HIV Ag/Ab Combo assay result andsupplemental assay results should be interpreted inconjunction with the patient's clinical presentation,history and other laboratory results. If the results areinconsistent with clinical evidence, additional testing issuggested to confirm the result. 10/15/2024 10:5 9 AM EST 10/15/2024 11:46 AM EST [facility] LAB BLOOD ORDERABLES Final Re sult Performing Organization Address City/[facility]/ZIP Co de Phone Number [facility] [address] [place] [address] [phone] from Last 3 Months or Most Recently Relevant to Health Maintenance Insurance [facility] C3 Care Teams Sort Supervisor Relationship Specialty Start Date End Date Corinne Morales NP [address] [place] [address] PCP - General Family Medicine 03/04/25 Poppy Elise RN [address] [place] [phone] Registered Nurse Family Medicine 07/26/25 [address] 07/26/25 [facility] 08/01/25
--- OUTSIDE RECORDS SUMMARY | 2025-08-22 14:38 | XMS_ITS ---
Author Organization [employer] Address [address] [facility] [address]t [place] [address] Care Team Providers Care Director Of State Name Role Phone Corinne Morales NP Primary Care Provider [phone] Poppy Elise RN Unavailable [phone] Unavailable CM Complex Status:Outreach In Progress (Enrolling) Start date:07/26/2025 Enrollment reason:Referred by provider Overview Provider Referral- 24 y.o. M with history of substance abuse, seizure disorder, anxiety and depression. Will benefit from care management services. Case Team Name Relationship Phone Poppy Elise RN(Responsible Staff) Registered Nurse [phone] Continued Care and Services Coordination
--- OUTSIDE RECORDS SUMMARY | 2025-08-22 14:38 | XMS_ITS | Clinical Summary ---
Author Organization [facility] Address [address] [place] [address] Care Team Providers Care Curtain Hemmer Automatic Name Role Phone Unavailable Primary Care Provider Unavailabl e Source Comments PLEASE NOTE, if this patient is a minor, it may be UNLAWFUL to discuss sensitive information that is contained in these records (such as FAMILY PLANNING, MENTAL HEALTH or SUBSTANCE ABUSE) with the minor patient's parent or other person without the patient's specific authorization.[facility] Active Problems Problem Noted Date Diagnosed Date Moderate major depression, single episode 2024 Slow urinary stream 12/04/2024 Dysuria 11/27/2024 Uncomplicated opioid dependence 11/27/2024 Tobacco dependence 10/29/2024 CHANDLER (acute kidney injury) 10/15/2024 Non-traumatic rhabdomyolysis 10/15/2024 Seizure disorder 10/15/2024 Generalized anxiety disorder with panic attacks 03/22/2024 History of substance use 03/22/2024 Severe major depression 03/22/2024 Social History Tobacco Use Types Packs/Day Years Used Date Smoking Tobacco: Never Assessed Sex and Gender Information Value Date Recorded Sex Assigned at Male 07/04/2025 4:12 PM PDT Legal Sex Male 4:12 PM PDT Gender Identity Male 07/04/2025 4:12 PM PDT Sexual Orientation Not on file Plan of Treatment Upcoming Encounters Date Type Department Care Team (Late st Contact Info) Description 09/26/2025 3:00 PM EST Behavioral Health Visit [facility] [address] [place] [phone] Nadia Beckwith APRN [address] [facility] [place] [address] Health Maintenance Due Date Last Done Comments Anxiety Screening 1998 Depression Monitoring 1998 Hepatitis C Screening 1998 Tobacco Cessation Counseling (#1) 1998 Tobacco Screening 1998 Imm-HPV (2 - Male 2-dose series) 10/06/2012 04/05/20 Hypertension Screening (#1) 2016 Imm-DTaP/Tdap/Td (7 - Td or Tdap) 04/05/2022 04/05/2012, 03/05/2004, 10/04/2000, Additional history exists Alcohol and Drug Screen 11/07/2024 [id number] (2 - 2024- season) 2025 023, 03/10/2004 Imm-Influenza (#1) 2025 08/30/2011 HIV Screening Completed 10/15/2024, 07/2024, 03/16/2024 Imm-Hepatitis B Completed 11/05/2024, 03/09, 12/02/1999, Additional history exists Insurance [facility]
--- OUTSIDE RECORDS SUMMARY | 2025-08-22 14:38 | XMS_ITS | Encounter Summary ---
Author Organization [employer] Address [address] [facility] 7t [place] [address] Care Team Providers Care Briar Shop Supervisor Name Role Phone Corinne Morales NP Primary Care Provider [phone] Poppy Elise RN Unavailable [phone] Unavailable Reason for Visit * Reason Onset Date Comments Hospital Follow-up 03/12/2024 Encounter Details Date Type Department Care Team (Late st Contact Info) Description 03/12/2024 Telephone [facility] MEDICINE [address] [place] [address] [facility] [address] [place] [address] Hospital Follow-up Social History Tobacco Use Types [...] with others, in a hotel, in a halfway, living outside on the street, on a [...] from pt requesting a HDF appt. [place] [facility] [place] admission: 02/26, 02/28 Discharge date: 03/04 Diagnosed: Seizures, Rhabdomyolysis Please contact pt at [phone] documented in this encounter Plan of Treatment Not on file documented as of this encounter Visit Diagnoses Not on filedocumented in this encounter Care Teams Briar Shop Supervisor Relationship Specialty Start Date End Date Corinne Morales NP [address] [place] [address] PCP - General Family Medicine 03/04/25 Poppy Elise RN [address] [place] [address] Registered Nurse Family Medicine 07/26/[address] 07/26/25 [facility] 08/01/25 documented as of this encounter
--- OUTSIDE RECORDS SUMMARY | 2025-08-22 14:38 | XMS_ITS | Clinical Summary ---
Author Organization [facility] Address [address] [place] [address] Phone Care Team Providers Care Cooker Mechanic Name Role Phone Pcp, Unknown Primary Care [...] Devices Not on file Insurance C3 [employer] [facility] C3 ACO Care Teams Cooker Mechanic Relationship Specialty Start Date End Date Pcp, Unknown PCP - General 10/10/22 Additional Source Comments The information contained in this document represents components of the legal health record. It is not the complete legal health record.[facility]
--- OUTSIDE RECORDS SUMMARY | 2025-08-22 14:38 | XMS_ITS ---
Author Organization [employer] Address [address] [facility] [address]t [place] [address] Care Team Providers Care Senior Business Development Analyst Name Role Phone Corinne Morales NP Primary Care Provider [phone] Poppy Elise RN Unavailable [phone] Unavailable CHW Complex Status:Outreach In Progress (Enrolling) Start date:07/26/2025 Enrollment reason:Referred by provider Overview Provider Referral- 24 y.o. M with history of substance abuse, seizure disorder, anxiety and depression. Will benefit from care management services. Please outreach for enrollment. Case Team Name Relationship Phone [address] [facility](Responsible Staff) [phone] Continued Care and Services Coordination
--- OUTSIDE RECORDS SUMMARY | 2025-08-22 14:38 | XMS_ITS | Encounter Summary ---
Author Organization [employer] Address [address] [facility] [address] [place] [address] Care Team Providers Care Customer Accounts Advisor Name Role Phone Corinne Morales NP Primary Care Provider [phone] Poppy Elise RN Unavailable [phone] Unavailable Reason for Visit * Reason Onset Date Comments FYI 09/24/2024 Encounter Details Date Type Department Care Team ([facility] st Contact Info) Description 09/24/2024 Telephone [facility] MEDICINE [address] [place] [address] [facility] [address] [place] [address] FYI Social History Tobacco Use Types Packs/Day [...] the past 12 months, has t he [email or web address], gas, oil or water company threatened to [...] 2:58 PM EST Tc from Janie with [facility] Stating that they have been trying to get a hold of the pt but the have not suceeded and when he anwsers the phone pt Hangs up. [facility] is stating they will not contiue to admit him in the program. If the PCP wants him to be Admitted another refferal needs to be written. Contact pt at [phone] documented in this encounter Plan of Treatment Not on file documented as of this encounter Visit Diagnoses Not on filedocumented in this encounter Additional Health Concerns Assessment Noted Time PHQ-9 Depression Total Score: 19 024 9:56 AM EDT documented as of this encounter Care Teams Customer Accounts Advisor Relationship Specialty Start Date End Date Corinne Morales NP [address] [place] [address] PCP - General Family Medicine 03/04/25 Poppy Elise, RN [address] [place] [address] [place] [address] Registered Nurse Family Medicine 07/26/25 [address] 07/26/25 [facility] 08/01/25 documented as of this encounter
--- OUTSIDE RECORDS SUMMARY | 2025-08-22 14:38 | XMS_ITS | Clinical Summary ---
Author Organization [facility] Address [address] [place] [address] Care Team Providers Care Sales And Operations Trainee Name Role Phone Ref, Has No Pcp [...] patient's age to complete this topic Insurance [employer] Care Teams Sales And Operations Trainee Relationship Specialty Start Date End Date Ref, Has No Pcp Or DO NOT EDIT THIS RECORD VIA PROVIDER ON THE FLY PCP - General Structural Analysis Engineer 07/30/23
== END 2025-08-22 11:51 | disposition home or self-care (01) ==
LOC: HO.HSM 11:22
PROVIDERS: PCP Registered Nurse; Visit Provider Nurse Practitioner
DX: G40.919 Epilepsy, unspecified, intractable, without status epilepticus (principal); F11.93 Opioid use, unspecified with withdrawal
CPT/HCPCS: 99213

== ENCOUNTER → 2025-08-22 11:22 | Outpatient (BNVA) | payer MEDICAID, SELFPAY | PROVIDERS: PCP Registered Nurse; Visit Provider Nurse Practitioner | DX: Z09 Encounter for follow-up examination after completed treatment for conditions other than malignant neoplasm (principal); G40.919 Epilepsy, unspecified, intractable, without status epilepticus; F11.93 Opioid use, unspecified with withdrawal | CPT/HCPCS: 99212 ==

== ENCOUNTER 2025-09-24 18:02 | Emergency (ER) | payer MEDICAID, SELFPAY ==
[2025-09-24 18:14] VITALS: BP 139/75; BP 163/86; PULSE 88; PULSE 98; RESP 17; TEMP 36.9; O2SAT 99; BMI 28.0
[2025-09-24 18:21] VITALS: BP 139/75; PULSE 88; RESP 17; TEMP 36.9; O2SAT 99
[2025-09-24 19:40] LABS: MANUAL DIFF FLAG NO
[2025-09-24 19:45] LABS: Hematocrit 43.4 % (42.0-52.0); Hemoglobin 14.4 g/dl (14.0-18.0); Imm Gran Abs Auto 0.04 X10*3/uL (0.00-0.03); Imm Gran Pct Auto 0.3 % (0.0-0.4); Lymphocytes Absolute Auto 0.8 X10*3/uL (1.2-4.9); Mean Corpuscular HGB Conc 33.2 g/dl (31.0-36.0); Mean Corpuscular Hemoglobin 28.6 pg (27.0-33.0); Mean Corpuscular Volume 86.3 fL (80.0-98.0); NRBC Abs Auto 0.000 X10*3/uL (0.0-0.012); NRBC Pct Auto 0.0 /100WBC (0.0-0.2); Platelet Count 321 X10*3/uL (160-400); Red Blood Count 5.03 X10*6/uL (4.60-5.80); White Blood Count 12.0 X10*3/uL (4.8-10.8)
[2025-09-24 19:56] LABS: Alanine Aminotransferase 14 U/L (0-40); Albumin Level 4.7 g/dL (3.5-5.0); Alkaline Phosphatase 80 U/L (39-117); Anion Gap 14 (12-20); Aspartate Amino Transferase 23 U/L (5-37); Blood Urea Nitrogen 9 mg/dL (9-16); Calcium 9.2 mg/dL (8.4-10.2); Carbon Dioxide 24 mmol/L (22-29); Chloride 104 mmol/L (96-108); Creatinine Clr Calc Pharmacy 140.4; Estimated Glomerular Filt Rate > 60; Magnesium 2.3 mg/dL (1.6-2.6); Potassium 4.5 mmol/L (3.3-5.1); Sodium 137 mmol/L (135-145); Total Protein 7.5 g/dL (6.5-8.0)
[2025-09-24 20:20] LABS: Resp Syncy Virus RNA Qual PCR NEGATIVE (Negative); SARS COV2 PCR INHOUSE NEGATIVE (Negative)
[2025-09-24] MEDS: levETIRAcetam in NaCl (iso-os) 1,000 MG/100 ML PIGGYBACK 400 MG IV (21:40)
[2025-09-24] MEDS: Lactated Ringers 1,000 ML 999 ML IV (21:40)
--- NOTE | 2025-09-24 22:08 | ED_ITS ---
HPI - Seizure General Chief Complaint: Seizure Stated Complaint: Witnessed sz 3min, combative and agitated Time Seen by Provider: 09/24/25 21:13 Source: family (girlfriend), EMS, RN notes reviewed and old records reviewed Mode of arrival: EMS Limitations: altered mental status History of Present Illness ED Provider: Dr. Caprice Gleason HPI Narrative: 24-year-old male with a known seizure disorder on Keppra and a history of substance use disorder who presents after a generalized tonic-clonic seizure that occurred prior to arrival. His girlfriend (bedside historian) reports the seizure lasted approximately three minutes. She notes the patient tends to have frequent seizures when he is non-adherent with Keppra and using illicit substances. His last reported dose was around 03:00 this morning; he is prescribed Keppra at 06:00 and 18:00 daily. Unclear what he has been using as far as substances go. Post-ictally, the patient experienced vomiting, altered mental status, confused speech, and somnolence. He is currently resistant to answering questions. He denies fever, cough, cold-like symptoms, abdominal pain, urinary complaints, recent sick contacts, or travel. Seizure History: Yes Place: Home Related Data Home Medications ?Medication ?Instructions ?Recorded ?Confirmed buprenorphine 8 mg-naloxone 2 mg 1 film sublingual GWENDOLYN LY 09/15/24 08/22/25 sublingual film (Suboxone) acetaminophen 500 mg tablet 500 mg PO Q6H PRN Headache 09/16/24 08/22/25 clonidine HCl 0.1 mg tablet 0.1 mg PO BID 09/16/24 escitalopram oxalate 20 mg tablet 20 mg PO DAILY 09/1608/22/25 hydroxyzine pamoate 50 mg capsule 50 mg PO BID 4 08/22/25 mirtazapine 7.5 mg tablet 7.5 mg PO BEDTIME 09/16/24 1 olanzapine 7.5 mg tablet 7.5 mg PO BEDTIME 09/16/24 1 Previous Rx's ?Medication ?Instructions ?Recorded levetiracetam 1,000 mg tablet 1,000 mg PO BID 90 days #180 tabs 08/22/25 (Keppra) Allergies Allergy/AdvReac Type Severity Reaction Status Date / Time No Known Allergies Allergy Verified 09/24/25 18:16 Review of Systems 2 Review of Systems: Yes Unobtainable due to mental status PMFSH Past Medical History Medical History Rhabdomyolysis Drug overdose Seizure Overdose Social History Social History Household Members: Unknown / Unable to assess Housing: Unknown / Unable to assess Do you presently have visiting nurse or other home services: No Alcohol intake: current Alcohol intake frequency: does not drink Patient Tobacco Use Status: Former Tobacco user Tobacco use type: Smokeless Tobacco e-Cigarette/Vaping Use: Currently Using Second Hand Smoke Exposure: Yes Substance Use Type: Marijuana Advance Directives: No Advance Directives Information Provided: No Do you have a plan to hurt others: No Plan service: No Physical Exam 2 Exam: Exam: GENERAL: Appears postictal, GCS 13, eyes open to voice, slightly slurred speech, no acute distress. SKIN: Normal skin color for ethnicity, warm, dry, no rashes noted. HEENT: Normocephalic, atraumatic, no stridor, posterior oropharynx nonerythematous, dentition intact, EOMI, pupils are pinpoint bilaterally, reactive to light. NECK: Soft, supple, no step-offs, no deformities, no lymphadenopathy. CHEST: Heart regular tachycardia, no murmurs, symmetric chest rise and fall. PULMONARY: Clear to auscultation bilaterally, diminished at the bases, no labored breathing, no wheezes/rhales/rhonchi. ABDOMINAL: Soft, nondistended, positive bowel sounds in all quadrants. : Deferred. MUSCULOSKELETAL: Normal tone, full range of motion, no deformities, no peripheral edema. NEURO: GCS 13, eyes open to voice, slightly slurred speech, CN II through XII intact, equal strength and sensation bilateral upper and lower extremities, no focal neurologic deficits. PSYCHIATRIC: Flat affect, poor eye contact. Vital Signs: Vital Signs: Last Vital Signs Temp 98.4 F 09/24/25 18:21 Pulse 88 09/24/25 18:21 Resp 17 09/24/25 18:21 BP 139/75 09/24/25 18:21 Pulse Ox 99 09/24/25 18:21 O2 Del Method Room Air 09/24/25 18:21 BMI result Body Mass Index 28.0 Medications Administered Discontinued Medications Generic Name Dose Route Start Last Admin Trade Name Fitz PRN Reason Stop Dose Admin Sodium Chloride 1,000 mls @ 999 mls/hr 09/24/25 19:15 09/24/25 20:38 Ns IV 09/24/25 20:15 Infused .Q1H1M ANTON Infusion Lactated Ringer's 1,000 mls @ 999 mls/hr 09/24/25 21:34 09/24/25 21:40 Lr IV 09/24/25 22:34 999 mls/hr .Q1H1M ONE Administration Levetiracetam 1,000 mg in 100 mls @ 400 mls/hr 09/24/25 21:34 09/24/25 21:55 Keppra IV 09/24/25 21:48 Infused ONCE ONE Infusion Ondansetron HCl 4 mg 09/24/25 19:09 09/24/25 19:39 Ondansetron Hcl 4 Mg/2 Ml Vial IVPUSH 09/24/25 19:10 4 mg ONCE ONE Administration Medical Decision Making Medical Decision Making [facility] Narrative: Patient presents today with chief complaint of seizure activity. Differential diagnosis includes breakthrough seizure, medication noncompliance, intracranial pathology such as hemorrhage or embolism, infectious process such as meningitis, stimulant use or drug toxicity, hyperthyroidism, electrolyte abnormality, nonepileptic seizure activity (psychogenic seizure activity), among many others. 12:29 AM 09/25/2025 (Dr. Caprice Gleason, D.O.) patient is more alert, refusing to answer questions and acting rather belligerent. His UDS is positive for multiple substances including cocaine. I suspect that this is at minimum contributing to his breakthrough seizure today, and also probably contributing to his or antiepileptic compliance. Plan for discharge home and outpatient follow up. Patient's girlfriend is at bedside and is willing to take him home. Differential Diagnosis Differential Diagnoses: The differential diagnosis associated with the presentation includes (As above) Admission/Observation Consideration of admission/observation: Escalation of care including admission/observation considered Lab Data [facility] Lab Attestation statement: I reviewed the patient's lab results. 09/24/25 19:35 09/24/25 19:35 Labs: Lab Results 09/24/25 09/25/25 Range/Units 19:35 00:03 WBC 12.0 H (4.8-10.8) X10*3/uL RBC 5.03 (4.60-5.80) X10*6/uL Hgb 14.4 (14.0-18.0) g/dl Hct 43.4 (42.0-52.0) % MCV 86.3 (80.0-98.0) fL MCH 28.6 (27.0-33.0) pg MCHC 33.2 (31.0-36.0) g/dl RDW 12.4 (11.0-16.0) % Plt Count 321 (160-400) X10*3/uL MPV 9.4 (9.4-12.4) fL Immature Gran % (Auto) 0.3 (0.0-0.4) % Neut % (Auto) 89.8 H (45-73) % Lymph % (Auto) 6.3 L (20-40) % [place] % (Auto) 3.3 (2-11) % Eos % (Auto) 0.0 (0-4) % Baso % (Auto) 0.3 (0-2) % Lymph # (Auto) 0.8 L (1.2-4.9) X10*3/uL [place] # (Auto) 0.4 (0.1-1.2) X10*3/uL Eos # (Auto) 0.0 (0.0-0.4) X10*3/uL Baso # (Auto) 0.0 (0.0-0.2) X10*3/uL Abs Immat Gran (auto) 0.04 H (0.00-0.03) X10*3/uL Absolute Neuts (auto) 10.7 H (2.0-8.3) x10*3/uL Absolute Nucleated RBC 0.000 (0.0-0.012) X10*3/uL Nucleated RBC % (auto) 0.0 (0.0-0.2) /100WBC Sodium 137 (135-145) mmol/L Potassium 4.5 (3.3-5.1) mmol/L Chloride 104 (96-108) mmol/L Carbon Dioxide 24 (22-29) mmol/L Anion Gap 14 (12-20) BUN 9 (9-16) mg/dL Creatinine 0.76 (0.5-1.4) mg/dL Estim Creat Clear Calc 140.4 Estimated GFR > 60 Random Glucose 142 H (60-115) mg/dL Calcium 9.2 (8.4-10.2) mg/dL Magnesium 2.3 (1.6-2.6) mg/dL Total Bilirubin 0.5 (0.0-1.0) mg/dL AST 23 (5-37) U/L ALT 14 (0-40) U/L Alkaline Phosphatase 80 (39-117) U/L Total Protein 7.5 (6.5-8.0) g/dL Albumin 4.7 (3.5-5.0) g/dL Urine Opiates Screen Not Detected (Not Detect) Ur Buprenorphine Scrn Positive H (Not Detect) ng/mL Ur Oxycodone Screen Not Detected (Not Detect) ng/mL Urine Methadone Screen Not Detected (Not Detect) ng/mL Urine Fentanyl Screen POSITIVE H (Not Detect) Ur Barbiturates Screen Not Detected (Not Detect) Ur Phencyclidine Scrn Not Detected (Not Detect) Ur Amphetamines Screen Not Detected (Not Detect) U Benzodiazepines Scrn Not Detected (Not Detect) Urine Cocaine Screen POSITIVE H (Not Detect) U Marijuana (THC) Screen POSITIVE H (Not Detect) Ethyl Alcohol < 10 mg/dL Influenza Type A (PCR) NEGATIVE (Negative) Influenza Type B (PCR) NEGATIVE (Negative) RSV RNA Qual (PCR) NEGATIVE (Negative) SARS-CoV-2 RNA (RT-PCR) NEGATIVE (Negative) Discharge Plan Discharge Clinical Impression: Breakthrough seizure, Polysubstance use disorder Patient Disposition: Home, Self-Care Instructions: Recurrent Seizures in Adults (ED) Additional Instructions: The use of cocaine we will induce a seizure. If you need help with treatment of your substance use disorder, you can always come to the emergency department for treatment. Continue using your Keppra as prescribed. Return to the hospital with any new or worsening symptoms. Opiate use disorder You were seen in our Emergency Department today for treatment of opiate use disorder. You may have been dosed with medication for opiate use disorder (MOUD) in the form of suboxone or methadone. You may experience feeling some withdrawal symptoms and this is normal. The? dose in the Emergency Department is a starting dose and meant to be titrated up once you follow up with a clinic. Please do not feel discouraged, it is a process. The nurse has reviewed with you where to follow up and what information to bring with you, to continue treatment. You also may have been given naloxone (narcan) to take home with you. This medication is used to potentially treat opiate overdose. If you decide you want to stop or cut down on how much you?re using, you can call or walk into our outpatient Addiction Treatment office: [facility] (M-F 9am-5p) [address], [address] [phone] You may have been provided with safer injection?items, please take time to take care of YOU and your health. Use new supplies whenever possible to lessen the chances of infections and other illnesses.? ?If you need more supplies, please go [facility],? [address] [place] [address] OR you can call or text to coordinate delivery of safer supplies. You were also provided a list of several treatment providers in the area.? If you experience any worsening symptoms you cannot control please return to the ED or call 911. Please follow up at your next appointment. Things to look out for are fevers, chest pain, shortness of breath, severe pain, dizziness, fainting or any other concerns. Prescriptions: No Action buprenorphine-naloxone [Suboxone] 8-2 mg film 1 film sublingual DAILY clonidine HCl 0.1 mg Tablet 0.1 mg PO BID hydroxyzine pamoate 50 mg Capsule 50 mg PO BID olanzapine 7.5 mg Tablet 7.5 mg PO BEDTIME acetaminophen 500 mg Tablet 500 mg PO Q6H PRN (Reason: Headache) escitalopram oxalate 20 mg Tablet 20 mg PO DAILY mirtazapine 7.5 mg Tablet 7.5 mg PO BEDTIME levetiracetam [Keppra] 1,000 mg tablet 1,000 mg PO BID 90 Days Qty: 180 3RF Print Language: Bulgarian
--- NOTE | 2025-09-24 22:19 | MHC.EDTECH ---
Attempted to do EKG, Pt refused several times. RN aware.
--- NOTE | 2025-09-24 22:23 | PC.NURSE ---
Addendum entered by Daja Mendoza RN 09/24/25 22:30: Vidal phone #: Original Note: Called, spoke with patient's mother (Jessenia Hamilton) and girlfriend (Vidal) by phone. Just prior to phone call, patient yelled/swore at this RN & Dr. Gleason. Attempted to obtain EKG, but patient refused and swatted his hands at Dr. Gleason, stating I don't fucking want to! Fuck off dude! Patient has LR infusing at this time, Keppra already administered/received. Girlfriend (Vidal) to return to bedside. Plan to discharge home after IV fluids are infused.
[2025-09-25 00:19] LABS: Cannabinoid Screen Urine POSITIVE (Not Detect)
[2025-09-25 00:20] LABS: Appearance Urine Clear; Glucose Urine UA Negative (Negative); PH 8.0 (5.0-9.0); Specific Gravity - Urine 1.015 (1.005-1.025)
[2025-09-25 00:52] VITALS: BP 139/75; PULSE 88; RESP 17; TEMP 36.9; O2SAT 99
[2025-09-25] MEDS: Naloxone HCl Nasal TAKE HOME 4 MG SPRAY 8 MG NOSTRILALT (00:52)
== END 2025-09-25 00:52 | disposition home or self-care (01) ==
PROVIDERS: Physician Assistant Medical; Emergency Provider Emergency Medicine; PCP Registered Nurse
DX: G40.409 Other generalized epilepsy and epileptic syndromes, not intractable, without status epilepticus (principal); F19.90 Other psychoactive substance use, unspecified, uncomplicated; Z91.148 Patient's other noncompliance with medication regimen for other reason
CPT/HCPCS: 36415; 80053; 80307; 81003; 83735; 85025; 87637; 96361; 96374; 96375; 99284; J1953; J2405; J7120